=== PATIENT | male | born 1940 | race Caucasian/White ===

== ENCOUNTER 2017-02-19 22:05 | Emergency (ER) | payer MEDICARE, OTHER ==
--- NOTE | 2017-02-19 22:56 | RAD ---
RIGHT HIP TWO VIEWS: 02/19/17 HISTORY: Right hip pain. FINDINGS/IMPRESSION: No definite acute fracture or dislocation is seen. There are mild degenerative changes in the right h ip joint. If there is high clinical suspicion for a hip fracture, CT scan should be performed. POS: [facility]
--- NOTE | 2017-02-19 23:50 | CT ---
CT PELVIS WITH CORONAL AND SAGITTAL REFORMATIONS> 02/19/17 HISTORY: Fall, right sided hip pain. FINDINGS/IMPRESSION: The bones are osteopenic. No acute fracture or dislocation is seen. there are bilateral screws in the lumbosacral spine. POS: [facility]
== END 2017-02-20 00:11 | disposition home or self-care (01) ==
LOC: ERS 22:05
DX: M25.551 Pain in right hip (principal); I25.2 Old myocardial infarction; E11.9 Type 2 diabetes mellitus without complications; E78.5 Hyperlipidemia, unspecified; F32.9 Major depressive disorder, single episode, unspecified; I10 Essential (primary) hypertension; W19.XXXA Unspecified fall, initial encounter
CPT/HCPCS: 72192; 96372

== ENCOUNTER 2017-03-13 12:09 | Emergency (ER) | payer MEDICARE, OTHER ==
[2017-03-13] MEDS ORDERED: Ondansetron HCl/PF 4 MG/2 ML Vial ONE (13:04)
[2017-03-13] MEDS ORDERED: Iopamidol 370 76% 100 ML VIAL ONE (13:18)
[2017-03-13 13:37] LABS: Bilirubin Negative (Negative); Blood, Urine Negative (Negative); Clarity CLEAR (Clear); Glucose, Urine (Dipstick) Negative (Negative); Leukocyte Negative (Negative); Nitrite Negative (Negative); Protein, Urine (Dipstick) Trace mg/dL (Neg-Trace); Specific Gravity, Urine 1.018 (1.002-1.036); Urobilinogen 0.2 mg/dL (0.2-1.0); pH, Urine 5.5 (5.0-9.0)
[2017-03-13 13:38] LABS: #Basophils 0.1 thou/uL (0.0-0.2); #Lymphocytes 2.9 thou/uL (1.20-3.40); #Monocytes 0.7 thou/uL (0.11-0.59); %Basophils 0.9 % (0.0-1.0); %Eosinophils 0.4 % (0.0-10.0); %Lymphocytes 26.5 % (21.0-51.0); %Monocytes 6.7 % (0.0-10.0); %Neutrophils 65.4 % (42.0-75.0); Mean Corpuscular HGB CONC 31.9 g/dL (32.0-36.0); Mean Corpuscular Hemoglobin 28.8 pg (27.0-31.0); Mean Corpuscular Volume 90.3 fl (80.0-94.0); Mean Platelet Volume 9.2 fL (7.4-10.4); Platelet Count 232 thou/uL (130-400); RBC Distribution Width 13.9 % (11.5-14.5); Red Blood Cell (RBC) Count 5.55 mill/uL (4.70-6.10); White Blood Cell (WBC) Count 10.8 thou/uL (4.8-10.8)
[2017-03-13 13:57] LABS: ALT (SGPT) 11 U/L (8-55); AST (SGOT) 15 U/L (5-34); Alkaline Phosphatase 172 U/L (40-150); Anion Gap 18 mmol/L (10-20); BUN (Urea Nitrogen) 27 mg/dL (8.4-25.7); Calc. Creatinine Clearance 0 mL/min (70-130); Calcium 9.3 mg/dL (7.8-10.44); Carbon Dioxide 25 mmol/L (23-31); Chloride 98 mmol/L (98-107); Estimated GFR-MDRD 46; Globulin 2.9 g/dL (2.4-3.5); Glucose 164 mg/dL (83-110); Potassium 3.9 mmol/L (3.5-5.1); Protein, Total 6.9 g/dL (5.8-8.1); Sodium 137 mmol/L (136-145)
--- NOTE | 2017-03-13 15:38 | CT ---
CT CHEST WITH IV CONTRAST CT ABDOMEN WITH IV CONTRAST CT PELVIS WITH IV CONTRAST CORONAL AND SAGITTAL REFORMATIONS OF THORACOLUMBAR SPINE: Date: 03/13/17 HISTORY: Fall, low back pain, right hip pain. FINDINGS: No mediastinal hematoma or intimal flap in the aorta is seen to suggest dissection. No pneumothoraces , lobar consolidation, pleural or pericardial effusions are seen. There is a tiny 2-3 mm nodule in th e right upper lobe and a 5 mm nodule in the left lung base. Mild patchy infiltrates are seen in the l ower lung [place]. The liver, spleen, pancreas, adrenal glands, and kidneys are intact. Gallbladder and urinary bladder also appear intact. No free air or free fluid is seen in the abdomen or pelvis. There is a 1.5 cm low density lesion in the dome of the liver and a smaller low density lesion in the posterior segment of the right lobe of the liver. 9 mm lipoma is seen in the right adrenal gland. There are vascular calcifications without evidence of aneurysmal dilatation of the abdominal aorta. T here are postop changes and metallic hardware in the lower lumbar spine. The bones are osteopenic. No acute fracture or subluxation seen in the thoracolumbar spine. No fracture or dislocation seen in th e hip joints on either side. IMPRESSION: 1. No CT evidence of acute intrathoracic or abdominopelvic injury. 2. Indeterminate lung nodules. Follow-up CT scan recommended in 3 months. 3. Indeterminate liver lesions. These should be evaluated with ultrasound. POS: [facility]
== END 2017-03-13 15:35 | disposition home or self-care (01) ==
LOC: ERS 12:09
DX: M54.5 Low back pain (principal); E11.9 Type 2 diabetes mellitus without complications; E78.5 Hyperlipidemia, unspecified; F32.9 Major depressive disorder, single episode, unspecified; I10 Essential (primary) hypertension; I25.2 Old myocardial infarction
CPT/HCPCS: 71260; 74177; 80053; 81003; 85025; 96361; 96374; J2405

== ENCOUNTER 2018-01-12 11:54 | Inpatient (IN) | payer MEDICARE, OTHER ==
[2018-01-12 12:29] LABS: #Basophils 0.1 thou/uL (0.0-0.2); #Lymphocytes 2.6 thou/uL (1.20-3.40); #Monocytes 0.6 thou/uL (0.11-0.59); #Neutrophils 6.7 thou/uL (1.40-6.50); %Basophils 0.9 % (0.0-1.0); %Eosinophils 0.5 % (0.0-10.0); %Lymphocytes 25.7 % (21.0-51.0); %Monocytes 6.1 % (0.0-10.0); %Neutrophils 66.8 % (42.0-75.0); Hemoglobin 13.2 g/dL (14.0-18.0); Mean Corpuscular HGB CONC 31.4 g/dL (32.0-36.0); Mean Corpuscular Volume 82.7 fL (78.0-98.0); Mean Platelet Volume 9.6 fL (7.4-10.4); Platelet Count 267 thou/uL (130-400); RBC Distribution Width 14.9 % (11.5-14.5); Red Blood Cell (RBC) Count 5.08 mill/uL (4.70-6.10); White Blood Cell (WBC) Count 10.1 thou/uL (4.8-10.8)
[2018-01-12 12:35] LABS: INR-International Normal Ratio 1.3; PTT 29.7 SEC (22.9-36.1); Prothrombin Time 16.4 SEC (12.0-14.7)
[2018-01-12 13:14] LABS: CKMB 2.5 ng/mL (0-6.6); Troponin I 0.022 ng/mL (< 0.028)
--- NOTE | 2018-01-12 13:36 | RAD ---
AP VIEW CHEST: 01/12/2018 HISTORY: Chest pain. COMPARISON: 07/02/2017 FINDINGS: AP view chest demonstrates the lungs to be well aerated. No evidence of active intrathoracic disease is seen. No evidence of effusions, pneumonia, or pneumothorax is seen. IMPRESSION: Unremarkable anterior-posterior view chest. POS: [facility]
[2018-01-12 13:37] LABS: Anion Gap 18 mmol/L (10-20); BUN (Urea Nitrogen) 26 mg/dL (8.4-25.7); CK (CPK) 50 U/L (30-200); Calc. Creatinine Clearance 0 mL/min (70-130); Calcium 9.3 mg/dL (7.8-10.44); Carbon Dioxide 22 mmol/L (23-31); Chloride 108 mmol/L (98-107); Estimated GFR-MDRD 61; Glucose 162 mg/dL (83-110); Potassium 3.6 mmol/L (3.5-5.1); Sodium 144 mmol/L (136-145)
[2018-01-12] MEDS ORDERED: Labetalol HCl 100 MG/20 ML VIAL SLOW IVP PRN (14:38)
[2018-01-12] MEDS ORDERED: Calcium Carbonate 500 MG ChewTAB PO PRN (14:38)
[2018-01-12] MEDS ORDERED: Senokot S 8.6-50 MG TAB PO PRN (14:38)
[2018-01-12] MEDS ORDERED: Eucerin (Mineral Oil/Petrolatum,White) 30 gm Jar TOP PRN (14:38)
[2018-01-12] MEDS ORDERED: Bisacodyl 5 MG TAB PO PRN (14:38)
[2018-01-12] MEDS ORDERED: Bisacodyl 10 MG SUPP PR PRN (14:38)
[2018-01-12] MEDS ORDERED: Diabetic Tussin 200 MG/10 ML UDCUP PO PRN (14:38)
[2018-01-12] MEDS ORDERED: Loperamide HCl 2 MG CAP PO PRN (14:38)
[2018-01-12] MEDS ORDERED: Artificial Tears 18 DROP/0.9 ML EA EYE PRN (14:38)
[2018-01-12] MEDS ORDERED: Ondansetron PF 4 MG/2 ML Vial IVP PRN (14:38)
[2018-01-12] MEDS ORDERED: Zolpidem Tartrate 5 MG TAB PO PRN (14:38)
[2018-01-12] MEDS ORDERED: Loratadine 10 MG TAB PO PRN (14:38)
[2018-01-12] MEDS ORDERED: Sodium Chloride 0.65% Nasal 44 ML BOT EA NARE PRN (14:38)
[2018-01-12] MEDS ORDERED: Ondansetron ODT 4 MG TAB PO PRN (14:38)
[2018-01-12] MEDS ORDERED: Diltiazem 125 MG in Sodium Chloride 0.9% 100 ML IVPB PRN (14:42)
[2018-01-12] MEDS ORDERED: Metoprolol Tartrate 25 MG TAB PO SCH (14:45)
--- NOTE | 2018-01-12 15:20 | HP ---
PRIMARY CARE PHYSICIAN: Dr. Lr. REASON FOR ADMISSION: Sent from [facility] for atrial fibrillation with RVR. HISTORY OF PRESENT ILLNESS: This is a 77-year-old male, who has underlying history of coronary artery disease, required stent in the past, who is suffering from dysphagia and that is why the patient was planned for upper and lower endoscopy today. Preoperatively, the patient had electrocardiogram because his heart sounds were not normal and found with a new-onset atrial fibrillation with rapid ventricular response, and subsequently, procedure was canceled and his reference and instruction librarian sent this patient to ER for further evaluation. In the emergency room, electrocardiogram again confirmed atrial fibrillation with RVR. He was given Cardizem bolus, and Cardizem drip was started. Subsequently, his rate was under control. The patient does not have any recall of knowing diagnosis of atrial fibrillation in the past, but he does have a history of coronary artery disease with stent. He denies any palpitation, dizziness, dyspnea, orthopnea, PND, or leg swelling. He denies any syncope. He denies any excessive caffeinated products. He denies any fever, chills, or flu-like illness. He denies any constipation, diarrhea, melena, or hematochezia. He does have gastroesophageal reflux disease as well as dysphagia. He denies any previous history of stroke, but he does report diabetes history. REVIEW OF SYSTEMS: CONSTITUTIONAL: Negative for weight loss or gain, ability to conduct usual activities. SKIN: Negative for rash, itching. EYES: Negative for double vision, pain. ENT/MOUTH: Negative for nose bleeding, neck stiffness, pain, tenderness. CARDIOVASCULAR: Negative for palpitations, dyspnea on exertion, orthopnea. RESPIRATORY: Negative for shortness of breath, wheezing, cough, hemoptysis, fever or night sweats. GASTROINTESTINAL: Negative for poor appetite, abdominal pain, heartburn, nausea, vomiting, constipation, or diarrhea. GENITOURINARY: Negative for urgency, frequency, dysuria, nocturia. MUSCULOSKELETAL: Negative for pain, swelling. NEUROLOGIC/PSYCHIATRIC: Negative for anxiety, depression. ALLERGY/IMMUNOLOGIC: Negative for skin rash, bleeding tendency. Please see my HPI for pertinent positive and negative. All other review of systems reviewed and negative except as mentioned in the HPI. PAST MEDICAL HISTORY: 1. History of [place] with coronary artery disease, treated with stent. 2. Chronic low back pain. 3. Diabetes type 2. 4. Hypertension. 5. Dyslipidemia. 6. Dysphagia. PAST SURGICAL HISTORY: 1. Cardiac catheterization with stent. 2. Back surgery x3. 3. Prostatectomy. PAST PSYCHIATRIC HISTORY: Anxiety and depression. SOCIAL HISTORY: The patient currently denies any tobacco, alcohol, or illicit drug abuse. He ambulates with walker and cane. FAMILY HISTORY: No family history of coronary artery disease, stroke, or cancer. ALLERGIES: NO KNOWN DRUG ALLERGIES. CURRENT HOME MEDICATIONS: The patient does not have any medications with him at this point, so unable to verify his home medication. He is taking Lasix, Lipitor, baclofen, and potassium, but dose and frequency are not known, but we will verify his home medication later. EMERGENCY ROOM COURSE: The patient has given Cardizem bolus, Cardizem drip started, and aspirin 324 mg given. PHYSICAL EXAMINATION: VITAL SIGNS: On arrival, blood pressure 148/115, pulse 129 and irregular, respiratory rate 22, temperature 97.7, and saturation 97% on room air. Weight is 74.8 kg. GENERAL: The patient is currently alert, awake, in no obvious acute distress. HEAD: Normocephalic, atraumatic. Eyes, pupils are round, reactive to light. Extraocular muscle intact. ENT: Oropharynx within normal limits. Moist mucous membrane. No oral lesion. No pharyngeal erythema. No exudate. NECK: Supple. No JVD. No thyromegaly. No carotid bruit. No jugular venous distention. LUNGS: Clear to auscultation without any rhonchi or rales. CARDIAC: S1 and S2. Irregularly irregular. No murmur elicited. No gallop. No rub. ABDOMEN: Soft. Bowel sounds present. Nontender. Nondistended. No organomegaly. No mass. No suprapubic tenderness. BACK: Unremarkable. No point tenderness. EXTREMITIES: Upper extremities; passive movement of all joints is normal. Lower extremities; no edema. Good distal pulsation. No calf tenderness. SKIN: No skin rash. HEMATOLOGIC: No lymphadenopathy. PSYCHIATRIC: Normal affect. NEUROLOGIC: Grossly nonfocal examination. He moves all four limbs. SIGNIFICANT LABORATORY DATA: EKG showing atrial fibrillation with RVR. Nonspecific ST-T changes. Chest x-ray, based on my review, no acute cardiopulmonary process. CBC; WBC 10.1, hemoglobin 13.2, and platelets 267. INR 1.3. BMP; sodium 144, potassium 3.6, chloride 108, carbon dioxide 22, BUN 26, creatinine 1.15, glucose 162, and calcium 9.3. CK 50, CK-MB 2.5, and troponin 0.020. ASSESSMENT AND PLAN: Impression: 1. New-onset atrial fibrillation with rapid ventricular response, currently rate controlled with Cardizem drip. At this point, we will use Cardizem drip only p.r.n. basis. We will start Cardizem CD 120 mg p.o. daily. Echocardiography will be ordered. We will check thyroid function test. We will do serial cardiac enzyme x3 to rule out acute coronary syndrome. Cardiology will be consulted. We will monitor on telemetry floor. 2. Dysphagia: The patient is planned for EGD and colonoscopy for further evaluation. We will notify reference and instruction librarian if they have to do this procedure while in hospital once atrial fibrillation is under control and cardiac clearance is given. 3. Coronary artery disease: We will continue aspirin 325 mg p.o. daily and Lipitor 40 mg p.o. at bedtime. Check lipid profile tomorrow morning and will also continue metoprolol 25 mg p.o. b.i.d. 4. Chronic low back pain: Pain will be controlled with pain medication. 5. Chronic anticoagulation: Based on the patient's age, the patient will benefit from long-term anticoagulation. Given new-onset atrial fibrillation and overall risk of a CHADS2-Vasc score is high and that is why he will benefit from chronic anticoagulation. Upon discharge, we will consider Eliquis, but right now, we are going to give him Lovenox 1 mg/kg here in the hospital. 6. Deep venous thrombosis prophylaxis: The patient is already kept on Lovenox therapy. 7. Gastrointestinal prophylaxis: Pepcid 20 mg p.o. b.i.d. 8. Code status: The patient is full code. The patient does not have any surrogate decision maker. 9. Disposition plan: Based on clinical course, likely 24 to 48 hours. Plan based on cardiology recommendation. Plan of care discussed with the patient and family member at bedside. Job ID: [id number]
[2018-01-12 17:07] LABS: Troponin I 0.026 ng/mL (< 0.028)
[2018-01-12 17:37] VITALS: BMI 26.4
[2018-01-12 20:08] LABS: Troponin I 0.024 ng/mL (< 0.028)
[2018-01-12] MEDS: Enoxaparin Sodium 80 MG/0.8 ML SYRINGE SC SCH (21:08)
[2018-01-12] MEDS: Atorvastatin Calcium 40 MG TAB PO SCH (21:08)
[2018-01-12] MEDS: Famotidine 20 MG TAB PO SCH (21:09)
[2018-01-12] MEDS: Metoprolol Tartrate 25 MG TAB PO SCH (21:44)
[2018-01-13 05:01] LABS: #Basophils 0.1 thou/uL (0.0-0.2); #Eosinphils 0.1 thou/uL (0.0-0.7); #Lymphocytes 2.8 thou/uL (1.20-3.40); #Monocytes 0.7 thou/uL (0.11-0.59); #Neutrophils 3.7 thou/uL (1.40-6.50); %Basophils 0.9 % (0.0-1.0); %Eosinophils 1.8 % (0.0-10.0); %Lymphocytes 38.2 % (21.0-51.0); %Monocytes 9.9 % (0.0-10.0); %Neutrophils 49.2 % (42.0-75.0); Hemoglobin 11.8 g/dL (14.0-18.0); Mean Corpuscular HGB CONC 30.5 g/dL (32.0-36.0); Mean Corpuscular Hemoglobin 25.8 pg (27.0-31.0); Mean Corpuscular Volume 84.6 fL (78.0-98.0); Mean Platelet Volume 10.1 fL (7.4-10.4); Platelet Count 220 thou/uL (130-400); RBC Distribution Width 15.1 % (11.5-14.5); Red Blood Cell (RBC) Count 4.59 mill/uL (4.70-6.10); White Blood Cell (WBC) Count 7.4 thou/uL (4.8-10.8)
[2018-01-13 05:31] LABS: Anion Gap 16 mmol/L (10-20); BUN (Urea Nitrogen) 26 mg/dL (8.4-25.7); Calc. Creatinine Clearance 63 mL/min (70-130); Calcium 8.9 mg/dL (7.8-10.44); Carbon Dioxide 21 mmol/L (23-31); Cardiac Risk 2.6 (Less than 4.5); Chloride 107 mmol/L (98-107); Cholesterol 87 mg/dl (< 200 Desired); Estimated GFR-MDRD 67; Glucose 142 mg/dL (83-110); HDL Cholesterol 33 mg/dL (>60 Neg Risk); LDL Cholesterol, Calculated 41 mg/dL; Potassium 3.5 mmol/L (3.5-5.1); Sodium 140 mmol/L (136-145); Triglycerides 63 mg/dL (Less than 150)
[2018-01-13] MEDS: Metoprolol Tartrate 25 MG TAB PO SCH (09:28)
[2018-01-13] MEDS: Enoxaparin Sodium 80 MG/0.8 ML SYRINGE SC SCH ×2 (09:28→20:48)
[2018-01-13] MEDS: Aspirin 325 MG TAB PO SCH (09:28)
[2018-01-13] MEDS: Famotidine 20 MG TAB PO SCH ×2 (09:28→20:49)
--- NOTE | 2018-01-13 09:38 | PDOC.PN ---
- Subjective Encounter Start Date: 01/13/18 Encounter Start Time: 07:30 -: old records requested/rev pt is on cardizem drip, rate is variable, he has not symptoms, Patient seen and examined. No new complaints. No overnight events - Objective Resuscitation Status - Order Detail: 01/12/18 14:38 Resuscitation Status Routine Resuscitation Status: FULL: Full Resuscitation MAR Reviewed: Yes Vital Signs & Weight: Vital Signs (12 hours) Temp Pulse Resp BP BP Pulse Ox 01/13/18 07:04 97.7 F 81 20 131/81 95 01/13/18 04:25 72 18 121/85 01/12/18 23:28 97.8 F 63 16 148/67 H 94 L 01/12/18 22:25 78 95/73 Weight Weight 174 lb 3.2 oz I&O: 01/12/18 01/13/18 01/14/18 06:59 06:59 06:59 Intake Total 120 Balance 120 Result Diagrams: 01/13/18 04:26 01/13/18 04:26 EKG Reviewed by me: Yes (afib) Phys Exam - Physical Examination Constitutional: NAD HEENT: PERRLA, moist MMs, sclera anicteric Neck: no JVD, supple Respiratory: no wheezing, no rales, no rhonchi Cardiovascular: no significant murmur, irregular Gastrointestinal: soft, non-tender, no distention, positive bowel sounds Musculoskeletal: no edema, pulses present Neurological: non-focal, normal sensation, moves all 4 limbs Lymphatic: no nodes Psychiatric: normal affect, A&O x 3 Skin: no rash, normal turgor Dx/Plan (1) Atrial fibrillation with RVR Code(s): I48.91 - UNSPECIFIED ATRIAL FIBRILLATION Status: Acute (2) Dysphagia Code(s): R13.10 - DYSPHAGIA, UNSPECIFIED Status: Chronic (3) CAD (coronary artery disease) Code(s): I25.10 - ATHSCL HEART DISEASE OF [place] CORONARY ARTERY W/O ANG PCTRS Status: Chronic (4) Diabetes type 2, controlled Code(s): E11.9 - TYPE 2 DIABETES MELLITUS WITHOUT COMPLICATIONS Status: Chronic (5) GERD (gastroesophageal reflux disease) Code(s): K21.9 - GASTRO-ESOPHAGEAL REFLUX DISEASE WITHOUT ESOPHAGITIS Status: Chronic (6) Dyslipidemia Code(s): E78.5 - HYPERLIPIDEMIA, UNSPECIFIED Status: Chronic (7) Elevated brain natriuretic peptide (BNP) level Code(s): R79.89 - OTHER SPECIFIED ABNORMAL FINDINGS OF BLOOD CHEMISTRY Status : Acute - Plan cont current plan of care * echo pending result * cardiology consulted * continue lovenox * will consult GI for dysphagia * medication reviewed as below * symptomatic treatment. Review of Systems - Review of Systems ENT: negative: Ear Pain, Ear Discharge, Nose Pain, Nose Discharge, Nose Congestion, Mouth Pain, Mouth Swelling, Throat Pain, Throat Swelling, Other Respiratory: negative: Cough, Dry, Shortness of Breath, Hemoptysis, SOB with Excertion, Pleuritic Pain, Sputum, Wheezing Cardiovascular: negative: chest pain, palpitations, orthopnea, paroxysmal nocturnal dyspnea, edema, light headedness, other Gastrointestinal: negative: Nausea, Vomiting, Abdominal Pain, Diarrhea, Constipation, Melena, Hematochezia, Other Genitourinary: negative: Dysuria, Frequency, Incontinence, Hematuria, Retention , Other Musculoskeletal: negative: Neck Pain, Shoulder Pain, Arm Pain, Back Pain, Hand Pain, Leg Pain, Foot Pain, Other Skin: negative: Rash, Lesions, Zaki, Bruising, Other - Medications/Allergies Allergies/Adverse Reactions: Allergies Allergy/AdvReac Type Severity Reaction Status Date / Time No Known Allergies Allergy Verified 01/12/18 17:56 Medications: Current Medications Acetaminophen (Tylenol) 650 mg PO Q4H PRN PRN Reason: Headache/Fever/Mild Pain (1-3) Hydrocodone Bitart/Acetaminophen ([place] 5/325) 1 tab PO Q4H PRN PRN Reason: Moderate Pain (4-6) Artificial Tears (Tears Naturale) 2 drop EA EYE PRN PRN PRN Reason: Dry Eyes Aspirin (Aspirin) 325 mg PO DAILY [facility] Last Admin: 01/13/18 09:28 Dose: 325 mg Atorvastatin Calcium (Lipitor) 40 mg PO HS [facility] Last Admin: 01/12/18 21:08 Dose: 40 mg Bisacodyl (Dulcolax) 10 mg PO DAILYPRN PRN PRN Reason: Constipation Bisacodyl (Dulcolax) 10 mg RI DAILYPRN PRN PRN Reason: Constipation Calcium Carbonate (Tums) 1,000 mg PO Q4H PRN PRN Reason: Heartburn or Indigestion Enoxaparin Sodium (Lovenox) 80 mg SC 0900,2100 [facility] Last Admin: 01/13/18 09:28 Dose: 80 mg Famotidine (Pepcid) 20 mg PO BID [facility] Last Admin: 01/13/18 09:28 Dose: 20 mg Guaifenesin (Robitussin Sf) 200 mg PO Q4H PRN PRN Reason: Cough Diltiazem HCl 125 mg/ Sodium (Chloride) 125 mls @ 5 mls/hr IVPB INF PRN; Protocol PRN Reason: for afib with RVR >110 Labetalol HCl (Normodyne) 20 mg SLOW IVP Q4H PRN PRN Reason: SBP > 180 and HR >/= 70 Loperamide HCl (Imodium) 2 mg PO PRN PRN PRN Reason: Diarrhea/Loose Stools Loratadine (Claritin) 10 mg PO DAILYPRN PRN PRN Reason: Sinus Symptoms Metoprolol Tartrate (Lopressor) 25 mg PO BID [facility] Last Admin: 01/13/18 09:28 Dose: 25 mg Mineral Oil/White Petrolatum (Eucerin Cream) 0 gm TOP BIDPRN PRN PRN Reason: Dry Skin Ondansetron HCl (Zofran Odt) 4 mg PO Q6H PRN PRN Reason: Nausea/Vomiting Ondansetron HCl (Zofran) 4 mg IVP Q6H PRN PRN Reason: Nausea/Vomiting Senna/Docusate Sodium (Senokot S) 2 tab PO BID PRN PRN Reason: Constipation Sodium Chloride ([place] Nasal [place] 0.65%) 0 ml EA NARE QIDPRN PRN PRN Reason: Nasal Congestion Zolpidem Tartrate (Ambien) 5 mg PO HSPRN PRN PRN Reason: Insomnia
[2018-01-13] MEDS ORDERED: Diltiazem 125 MG in Sodium Chloride 0.9% 100 ML IVPB PRN (19:35)
[2018-01-13] MEDS ORDERED: Amiodarone In Dextrose 200 ML IVPB SCH (19:45)
[2018-01-13] MEDS ORDERED: Amiodarone 150 MG in Dextrose 5% in Water 100 ML IVPB SCH (19:45)
[2018-01-13] MEDS: Amiodarone HCl 450 MG in Dextrose 5% in Water 250 ML IVPB SCH (20:48)
[2018-01-13] MEDS: Atorvastatin Calcium 40 MG TAB PO SCH (20:49)
--- NOTE | 2018-01-13 23:57 | CON ---
DATE OF CONSULTATION: 01/13/2018 REASON: Abdominal pain, dysphagia, and weight loss. HISTORY OF PRESENT ILLNESS: Mr. Anderson is a 77-year-old male, who was scheduled to undergo an outpatient EGD and colonoscopy yesterday; however, he went into atrial fibrillation with rapid ventricular rate, and was thus placed under observation in the hospital. His current ventricular rate is controlled with IV Cardizem drip. From the GI standpoint, he has been having epigastric pain from the last month or two, associated with some nausea, poor appetite, and periodic dysphagia mostly to solids. He reports losing 50 pounds over the last 1 year. He has had irregular bowel function with tendency toward diarrhea. There is no overt GI bleeding such as melena, hematochezia, or rectal bleeding. Currently, he is without any GI complaint. PAST MEDICAL HISTORY: 1. Prostate cancer. 2. Adult onset diabetes. 3. Chronic GE reflux disease. 4. Hyperlipidemia. 5. Hypertension. 6. Coronary artery disease with coronary artery stent placement. 7. Status post back surgery. 8. Prostatectomy. 9. History of anxiety and depression. ALLERGIES: NONE. MEDICATIONS: At home include; 1. Amitriptyline 25 mg at bedtime. 2. Atorvastatin 80 mg at bedtime. 3. Baclofen 10 mg t.i.d. 4. 5 mg daily. 5. Famotidine 40 mg daily. 6. Lasix 20 mg daily. 7. Metformin 500 mg b.i.d. 8. Potassium chloride 20 mEq daily. 9. Insulin. SOCIAL HISTORY: The patient has no tobacco or alcohol usage. He is retired. FAMILY HISTORY: Negative for any known GI problem, liver disease, or GI malignancy. REVIEW OF SYSTEMS: A 10-point review of systems did not show any other pertinent positives or negatives. PHYSICAL EXAMINATION: VITAL SIGNS: Temperature is 97.4, blood pressure 122/71, and pulse of 70. GENERAL: He is alert and conversant, in no distress. HEENT: Shows anicteric sclerae. There is mild bilateral temporal wasting. Oropharynx is clear. NECK: Supple. CV: Normal S1 and S2. Regular rate and rhythm. CHEST: Shows the breath sounds clear to auscultation. ABDOMEN: Flat and nondistended. No tenderness. No palpable mass or organomegaly. He has active bowel sounds. EXTREMITIES: Shows no edema. LABORATORY DATA: WBC 7.4, hemoglobin 11.8, MCV of 84, and platelet count of 220. Electrolytes are within normal range. Creatinine is 1.06. BNP is 1214. ASSESSMENT: 1. New onset atrial fibrillation with rapid ventricular response, rate with controlled with IV Cardizem. 2. History of abdominal pain in the setting of chronic gastroesophageal reflux disease, now with dysphagia and weight loss. 3. Change in bowel function. RECOMMENDATION: Complete cardiac evaluation, once clear, we will proceed with EGD and colonoscopy either as inpatient or outpatient depending on his status as observation or full admission at that time. Job ID: [id number]
[2018-01-14] MEDS: Metoprolol Tartrate 25 MG TAB PO SCH ×3 (01:27→22:23)
[2018-01-14] MEDS ORDERED: Dextrose 50% Abboject 50 ML SYRINGE IVP PRN (01:47)
[2018-01-14] MEDS ORDERED: Dextrose 5% in Water 1,000 ML IV PRN (01:47)
--- NOTE | 2018-01-14 02:53 | CON ---
DATE OF CONSULTATION: HISTORY OF PRESENT ILLNESS: Kraig doty is a 77-year-old white male, who I followed since July 2008. At that time, he was admitted with acute onset of substernal chest pressure radiating to his left arm. The pain lasted for 1 to 2 hours and EKG revealed nonspecific T-wave changes. He did have a peak CK of 281 with a CK-MB of 36.3 and a troponin I of 10.494. He underwent cardiac catheterization by Dr. Landeros. There was normal left ventricular function with an ejection fraction of 50% to 55%, 20% left main stenosis. The LAD had a 20% mid stenosis. There was a small ramus vessel with a 90% proximal stenosis, which was a very small caliber vessel. The circumflex was also a small caliber vessel with 90% lesion in the first obtuse marginal. The right coronary artery was very large with a 90% mid RCA stenosis. I then performed the intervention on the right coronary artery with placement of a Izard 3.0 x 20 mm balloon, used to pre-dilate the area. After initial balloon inflation, there was no distal flow. It was felt that there may have been proximal dissection due to the balloon. The balloon was pulled back and another inflation was performed and again, there was essentially no flow. Liberte stents were placed, 3.0 x 20 mm and proximal to this 3.5 x 28 mm. Distal to the first stent, a 3.0 x 20 mm and 3.0 x 24 mm stents were placed. There continued to be very poor flow, though the vessel angiographically looked good without any obvious dissection. During the case, the patient was initially given Angiomax. This was then followed by 8000 units of heparin and was changed over to Integrilin bolus and drip. He was hypotensive and bradycardic. Dopamine infusion was started, as well as atropine 0.5 mg given intravenously x2. The decision was made to place a temporary pacemaker. Multiple doses of intracoronary adenosine 30-40 mcg were given and flow gradually returned. His ST segments came down from 3-[address] segment elevation to 1 mm of elevation. Decision was made to place a balloon pump due to hypotension and this was placed via the left femoral artery. He did go into atrial fibrillation and Lanoxin 0.5 mg was given intravenously to control the rate. At the time that he left the pathology laboratory director, he had JOSE DAVID-2 flow into the distal right coronary artery. This was also seen to fill the distal circumflex retrograde. He had an episode of melenic stool and underwent EGD, which was unremarkable. It was felt that he probably had no reflow due to distal emboli or plaque and/or thrombus. CK again peaked at 1281, MB 156.9, and troponin I of 42.761. He was weaned from the balloon pump. This was removed and ultimately he was ambulated. He followed with Dr. Landeros intermittently after that. He denied any significant recurrence of chest discomfort after that episode. He was frequently bruising and his primary doctor reduced his aspirin from 325 to 81 mg. Then, he presented again on December 30, 2009. The day before, he was working on a heavy oak pallet and he lifted it and then walked with that across a ground and leaned it up against the building. He did not have any arm discomfort during that period. Later in the evening at approximately 6:00 p.m., he had onset of left axillary pain and pain in the left upper arm, but no chest discomfort like he did when the stent was placed in July 2008. The discomfort continued and he eventually came to the hospital at 11:00 p.m. He was given intravenous morphine and his pain resolved. EKG was unremarkable and cardiac enzymes were negative. He had a palpable tenderness of the area. He denied any pleuritic component to the pain. It was recommended that he undergo cardiac catheterization and this revealed 20% left main, 40% proximal LAD, 90% lesion in ramus marginalis, 90% first obtuse marginal, total occlusion of the distal circumflex which filled retrograde from the right. The right coronary artery had a 50% followed by 60% followed by 70% in-stent restenosis. VeriFLEX 3.5 x 28 and 3.5 x 16 were placed with excellent result. There was mild distal inferior wall hypokinesis with ejection fraction of 50% to 55%. Since that time, he has not had any significant chest discomfort. I have followed him since that time and he has done fairly well. Echocardiogram in January 2017 revealed moderately reduced left ventricular function with an ejection fraction of 35% to 40%, mild left atrial enlargement, severe mitral regurgitation, aortic valve sclerosis, moderate tricuspid regurgitation, and mild pulmonic regurgitation. He was last seen in the office on January 06, complaining of some epigastric discomfort and was to undergo scoping by Dr. Ortega. His heart rate was regular at that time. He did give a history of increasing exertional dyspnea for the last 3 or 4 months. He then was to undergo his GI studies; however, was found to have atrial fibrillation with fast ventricular response and was sent to the emergency room, had a heart rate of 144 per minute. He denied any palpitations or chest discomfort. In general, he is asymptomatic except for his exertional dyspnea. PAST MEDICAL HISTORY: Diabetes, hypertension, hypercholesterolemia, chronic back problems, history of myocardial infarction with stent placement; dysphagia, to undergo EGD. OPERATIONS: Lumbar surgeries x3 and prostatectomy. MEDICATIONS: 1. Amitriptyline 25 at bedtime. 2. Atorvastatin 80 at bedtime. 3. Baclofen 10 mg t.i.d. 4. Zetia 10 mg at bedtime. 5. Pepcid 40 at bedtime p.r.n. 6. Furosemide 20 daily. 7. Tresiba 16 units. 8. Protonix 40 mg daily. 9. KCl 20 mEq daily. ALLERGIES: NONE. SOCIAL HISTORY: He does not smoke or drink. FAMILY HISTORY: Unremarkable for coronary artery disease. REVIEW OF SYSTEMS: 12-point review of system is otherwise negative except as noted above. PHYSICAL EXAMINATION: VITAL SIGNS: Blood pressure 134/82, pulse of 64. HEENT: PERRL. NECK: Supple. CHEST: Clear. CARDIAC: S1 and S2 are normal without any S3, S4, or murmurs. The rhythm is irregularly irregular. ABDOMEN: Normal bowel sounds without tenderness or organomegaly. EXTREMITIES: Revealed no clubbing, cyanosis, or edema. NEUROLOGIC: Grossly intact. SKIN: Warm and dry. LABORATORY DATA: EKG reveals atrial fibrillation with fast ventricular response of 144 per minute, nonspecific T-wave changes. Hemoglobin 11.8, hematocrit 38.8, white count 7400, platelets 220,000. INR 1.3. Sodium 140, potassium 3.5, chloride 107, carbon dioxide 21, BUN 26, creatinine 1.07. Cholesterol 87, triglycerides 63, LDL 41, HDL 33, BNP is 1214.4. IMPRESSION: 1. New onset atrial fibrillation. Clinically 1 week ago, he was in sinus rhythm when seen in the office. 2. Atrial fibrillation at the time of myocardial infarction in 2008. 3. Bare-metal stent placed in the right coronary artery in August 2008. In December 2009, he had in-stent restenosis of the right coronary artery stents and underwent repeat stenting. He also has significant ramus and circumflex disease, but no significant lesions in his left anterior descending in 2009. 4. Left ventricular dysfunction with last ejection fraction of 35% to 40%. 5. Hypertension. 6. Diabetes. 7. Hyperlipidemia. 8. Gastrointestinal pain and dysphagia. PLAN: Mr. Doty has been placed on Cardizem drip as well as Lovenox 1 mg/kg b.i.d. With his left ventricular dysfunction previously, I will start him on intravenous amiodarone. Echo will be repeated. He will undergo Lexiscan Cardiolite testing to rule out recurrence or progression of any of his coronary artery disease. Ultimately, consideration may be given to transesophageal echo and electrical cardioversion. It does seem as if he is symptomatic with this with exertional dyspnea whenever he tries to do some activity. With his current LDL values, consideration could be given to reducing or discontinuation of his Zetia; however, in April 2017, his LDL was 102. Job ID: [id number]
[2018-01-14] MEDS: Amiodarone HCl 450 MG in Dextrose 5% in Water 250 ML IVPB SCH ×2 (08:28→23:27)
[2018-01-14] MEDS: Enoxaparin Sodium 80 MG/0.8 ML SYRINGE SC SCH (08:29)
[2018-01-14] MEDS: Aspirin 325 MG TAB PO SCH (08:30)
[2018-01-14] MEDS: Famotidine 20 MG TAB PO SCH ×2 (08:30→22:23)
[2018-01-14] MEDS ORDERED: Metoclopramide HCl 10 MG/2 ML VIAL IVP SCH (09:00)
--- NOTE | 2018-01-14 10:10 | PDOC.PN ---
- Subjective Encounter Start Date: 01/14/18 Encounter Start Time: 08:50 pt is now on amiodaron drip, he is still in afib, has nausea, feels weak, no chest pain Patient seen and examined. No overnight events - Objective Resuscitation Status - Order Detail: 01/12/18 14:38 Resuscitation Status Routine Resuscitation Status: FULL: Full Resuscitation MAR Reviewed: Yes Vital Signs & Weight: Vital Signs (12 hours) Temp Pulse Resp BP Pulse Ox 01/14/18 07:20 97.4 F L 106 H 20 155/94 H 93 L 01/14/18 04:34 98.2 F 62 14 130/69 94 L 01/14/18 00:42 97.7 F 69 16 147/72 H 93 L Weight Weight 174 lb 3.2 oz I&O: 01/13/18 01/14/18 01/15/18 06:59 06:59 06:59 Intake Total 120 960 Output Total 450 Balance 120 510 Result Diagrams: 01/13/18 04:26 01/13/18 04:26 Additional Labs: Accuchecks 01/14/18 01/13/18 05:19 23:33 POC Glucose 209 H 232 H EKG Reviewed by me: Yes (afib) Phys Exam - Physical Examination Constitutional: NAD HEENT: PERRLA, moist MMs, sclera anicteric Neck: no JVD, supple Respiratory: no wheezing, no rales, no rhonchi Cardiovascular: no significant murmur, irregular Gastrointestinal: soft, non-tender, no distention, positive bowel sounds Musculoskeletal: no edema, pulses present Neurological: non-focal, normal sensation Lymphatic: no nodes Psychiatric: normal affect, A&O x 3 Skin: no rash, normal turgor Dx/Plan (1) Atrial fibrillation with RVR Code(s): I48.91 - UNSPECIFIED ATRIAL FIBRILLATION Status: Acute (2) Dysphagia Code(s): R13.10 - DYSPHAGIA, UNSPECIFIED Status: Chronic (3) CAD (coronary artery disease) Code(s): I25.10 - ATHSCL HEART DISEASE OF [place] CORONARY ARTERY W/O ANG PCTRS Status: Chronic (4) Diabetes type 2, controlled Code(s): E11.9 - TYPE 2 DIABETES MELLITUS WITHOUT COMPLICATIONS Status: Chronic (5) GERD (gastroesophageal reflux disease) Code(s): K21.9 - GASTRO-ESOPHAGEAL REFLUX DISEASE WITHOUT ESOPHAGITIS Status: Chronic (6) Dyslipidemia Code(s): E78.5 - HYPERLIPIDEMIA, UNSPECIFIED Status: Chronic (7) Elevated brain natriuretic peptide (BNP) level Code(s): R79.89 - OTHER SPECIFIED ABNORMAL FINDINGS OF BLOOD CHEMISTRY Status : Acute (8) Ischemic cardiomyopathy Code(s): I25.5 - ISCHEMIC CARDIOMYOPATHY Status: Chronic - Plan cont current plan of care, plan discussed w/ family * change to inpt status * continue amiodarone drip * today plan for stress test * cardiac cath may need based on stress test * discussed with cardiology * medication reviewed as below * symptomatic treatment * discussed with family on phone and updated plan * GI following * add reglan for nausea * will evaluate for any placement if needed. Review of Systems - Review of Systems Constitutional: weakness. negative: fever, chills, sweats, malaise, other Respiratory: negative: Cough, Dry, Shortness of Breath, Hemoptysis, SOB with Excertion, Pleuritic Pain, Sputum, Wheezing Cardiovascular: negative: chest pain, palpitations, orthopnea, paroxysmal nocturnal dyspnea, edema, light headedness, other Gastrointestinal: Nausea. negative: Vomiting, Abdominal Pain, Diarrhea, Constipation, Melena, Hematochezia, Other Genitourinary: negative: Dysuria, Frequency, Incontinence, Hematuria, Retention , Other Musculoskeletal: negative: Neck Pain, Shoulder Pain, Arm Pain, Back Pain, Hand Pain, Leg Pain, Foot Pain, Other Skin: negative: Rash, Lesions, Zaki, Bruising, Other - Medications/Allergies Allergies/Adverse Reactions: Allergies Allergy/AdvReac Type Severity Reaction Status Date / Time No Known Allergies Allergy Verified 01/12/18 17:56 Medications: Current Medications Acetaminophen (Tylenol) 650 mg PO Q4H PRN PRN Reason: Headache/Fever/Mild Pain (1-3) Hydrocodone Bitart/Acetaminophen ([place] 5/325) 1 tab PO Q4H PRN PRN Reason: Moderate Pain (4-6) Artificial Tears (Tears Naturale) 2 drop EA EYE PRN PRN PRN Reason: Dry Eyes Aspirin (Aspirin) 325 mg PO DAILY [facility] Last Admin: 01/14/18 08:30 Dose: 325 mg Atorvastatin Calcium (Lipitor) 40 mg PO HS [facility] Last Admin: 01/13/18 20:49 Dose: 40 mg Bisacodyl (Dulcolax) 10 mg PO DAILYPRN PRN PRN Reason: Constipation Bisacodyl (Dulcolax) 10 mg [place] DAILYPRN PRN PRN Reason: Constipation Calcium Carbonate (Tums) 1,000 mg PO Q4H PRN PRN Reason: Heartburn or Indigestion Dextrose/Water (Dextrose 50%) 25 gm IVP PRN PRN PRN Reason: HYPOGLYCEMIA PROTOCOL Enoxaparin Sodium (Lovenox) 80 mg SC 0900,2100 [facility] Last Admin: 01/14/18 08:29 Dose: 80 mg Famotidine (Pepcid) 20 mg PO BID [facility] Last Admin: 01/14/18 08:30 Dose: 20 mg Glucagon (Glucagon) 1 mg IM PRN PRN PRN Reason: HYPOGLYCEMIA PROTOCOL Guaifenesin (Robitussin Sf) 200 mg PO Q4H PRN PRN Reason: Cough Diltiazem HCl 125 mg/ Sodium (Chloride) 125 mls @ 3 mls/hr IVPB INF PRN; Protocol PRN Reason: for afib with RVR >110 Amiodarone HCl 450 mg/Miscellaneous Medication 1 each/ Dextrose/Water 259 mls @ 0 mls/hr IVPB INF ANCA; Protocol Last Admin: 01/14/18 08:28 Dose: 259 mls Dextrose/Water (D5w) 1,000 mls @ 0 mls/hr IV INF PRN PRN Reason: HYPOGLYCEMIA PROTOCOL Insulin Human Lispro (Humalog) 0 units SC .MILD SLIDING SCALE PRN; Protocol PRN Reason: MILD SLIDING SCALE Labetalol HCl (Normodyne) 20 mg SLOW IVP Q4H PRN PRN Reason: SBP > 180 and HR >/= 70 Loperamide HCl (Imodium) 2 mg PO PRN PRN PRN Reason: Diarrhea/Loose Stools Loratadine (Claritin) 10 mg PO DAILYPRN PRN PRN Reason: Sinus Symptoms Metoclopramide HCl (Reglan) 10 mg IVP Q6H PRN PRN Reason: Nausea/Vomiting Metoclopramide HCl (Reglan) 5 mg IVP NOW [facility] Stop: 01/14/18 11:00 Metoprolol Tartrate (Lopressor) 25 mg PO BID [facility] Last Admin: 01/14/18 08:30 Dose: 25 mg Mineral Oil/White Petrolatum (Eucerin Cream) 0 gm TOP BIDPRN PRN PRN Reason: Dry Skin Ondansetron HCl (Zofran Odt) 4 mg PO Q6H PRN PRN Reason: Nausea/Vomiting Ondansetron HCl (Zofran) 4 mg IVP Q6H PRN PRN Reason: Nausea/Vomiting Senna/Docusate Sodium (Senokot S) 2 tab PO BID PRN PRN Reason: Constipation Sodium Chloride ([place] Nasal [place] 0.65%) 0 ml EA NARE QIDPRN PRN PRN Reason: Nasal Congestion Zolpidem Tartrate (Ambien) 5 mg PO HSPRN PRN PRN Reason: Insomnia
[2018-01-14] MEDS: Metoclopramide HCl 10 MG/2 ML VIAL IVP PRN (17:20)
--- NOTE | 2018-01-14 17:44 | NM ---
NUCLEAR MEDICINE CARDIAC SPECT: 01/14/18 HISTORY: 77-year-old male with chest pain. TECHNIQUE: 9.9 millicuries of technetium 99m-Sestamibi was injected IV for the rest study. SPECT images of the h eart were obtained in three planes. After this, the patient refused to continue with the rest of the study. No additional injection of ra diopharmaceutical. No stress images. FINDINGS: There is a moderate to large inferolateral wall perfusion defect, which is contiguous with a defect a t the apex. IMPRESSION: 1. Nondiagnostic for reversible ischemia because the patient refused to continue with the study prior to stress portion of the study. 2. Large inferolateral and apical perfusion defect. It is uncertain how much of this represents attenuation artifact and how much represents infarction/scar. POS: CADEN
[2018-01-14] MEDS ORDERED: Communication Order-Pharmacy FS SCH (18:45)
[2018-01-14] MEDS: Atorvastatin Calcium 40 MG TAB PO SCH (22:23)
[2018-01-15] MEDS: Metoclopramide HCl 10 MG/2 ML VIAL IVP PRN (01:33)
[2018-01-15] MEDS ORDERED: Sodium Chloride 0.9% 1,000 ML IV SCH ×2 (06:00→08:40)
[2018-01-15] MEDS ORDERED: Lidocaine 1% (PF) 30 ML VIAL ONE (06:43)
[2018-01-15] MEDS: Aspirin 325 MG TAB PO SCH (07:01)
[2018-01-15] MEDS ORDERED: Fentanyl 100 MCG/2 ML VIAL ONE (07:37)
[2018-01-15] MEDS ORDERED: Midazolam HCl 2 mg/2 ml Vial ONE (07:37)
[2018-01-15] MEDS ORDERED: Iopamidol 370 76% 100 ML VIAL ONE (08:22)
[2018-01-15] MEDS ORDERED: Iopamidol 370 76% 50 ML VIAL FS ONE (08:22)
[2018-01-15] MEDS ORDERED: Heparin 10,000 UNITS/1 ML VIAL ONE (08:25)
[2018-01-15] MEDS ORDERED: Acetaminophen/Codeine 30-300mg Tablet PO PRN ×2 (08:38)
[2018-01-15] MEDS ORDERED: Nitroglycerin 0.4 MG TAB (25 Tab Bottle) SL PRN (08:38)
[2018-01-15] MEDS ORDERED: traMADol HCl 50 MG TAB PO PRN (08:38)
[2018-01-15] MEDS ORDERED: Sodium Chloride 0.9% 200 ML IV PRN (08:45)
[2018-01-15] MEDS: Famotidine 20 MG TAB PO SCH ×2 (09:39→21:19)
[2018-01-15] MEDS: Metoprolol Tartrate 25 MG TAB PO SCH ×2 (09:39→21:03)
[2018-01-15] MEDS: Amiodarone HCl 450 MG in Dextrose 5% in Water 250 ML IVPB SCH (10:20)
--- NOTE | 2018-01-15 10:53 | PDOC.PN ---
- Subjective Encounter Start Date: 01/15/18 Encounter Start Time: 08:30 this morning pt had cardiac cath done, found with 3 vessel cad, he is on low dose cardizem and amiodaron drip family bedside - Objective Resuscitation Status - Order Detail: 01/12/18 14:38 Resuscitation Status Routine Resuscitation Status: FULL: Full Resuscitation MAR Reviewed: Yes Vital Signs & Weight: Vital Signs (12 hours) Temp Pulse Resp BP Pulse Ox 01/15/18 06:52 73 114/65 01/15/18 04:00 98.4 F 67 22 H 120/77 95 01/15/18 00:03 98.7 F 85 18 125/84 94 L 01/15/18 00:00 98.7 F Weight Weight 179 lb 8 oz I&O: 01/14/18 01/15/18 01/16/18 06:59 06:59 06:59 Intake Total 960 690.6 Output Total 450 50 Balance 510 640.6 Result Diagrams: 01/13/18 04:26 01/13/18 04:26 Additional Labs: Accuchecks 01/15/18 01/14/18 01/14/18 05:23 20:34 16:38 POC Glucose 178 H 194 H 185 H Radiology Reviewed by me: Yes EKG Reviewed by me: Yes (afib) Phys Exam - Physical Examination Constitutional: NAD HEENT: PERRLA, moist MMs, sclera anicteric Neck: no JVD, supple Respiratory: no wheezing, no rales, no rhonchi Cardiovascular: irregular SM+ apex Gastrointestinal: soft, non-tender, no distention, positive bowel sounds Musculoskeletal: no edema, pulses present Neurological: non-focal, normal sensation Lymphatic: no nodes Psychiatric: normal affect, A&O x 3 Skin: no rash, normal turgor Dx/Plan (1) Atrial fibrillation with RVR Code(s): I48.91 - UNSPECIFIED ATRIAL FIBRILLATION Status: Acute (2) Dysphagia Code(s): R13.10 - DYSPHAGIA, UNSPECIFIED Status: Chronic (3) CAD (coronary artery disease) Code(s): I25.10 - ATHSCL HEART DISEASE OF [place] CORONARY ARTERY W/O ANG PCTRS Status: Chronic Qualifiers: Coronary Disease-Associated Artery/Lesion type: [place] artery Comment: 3 vessel cad (4) Diabetes type 2, controlled Code(s): E11.9 - TYPE 2 DIABETES MELLITUS WITHOUT COMPLICATIONS Status: Chronic (5) GERD (gastroesophageal reflux disease) Code(s): K21.9 - GASTRO-ESOPHAGEAL REFLUX DISEASE WITHOUT ESOPHAGITIS Status: Chronic (6) Dyslipidemia Code(s): E78.5 - HYPERLIPIDEMIA, UNSPECIFIED Status: Chronic (7) Elevated brain natriuretic peptide (BNP) level Code(s): R79.89 - OTHER SPECIFIED ABNORMAL FINDINGS OF BLOOD CHEMISTRY Status : Acute (8) Ischemic cardiomyopathy Code(s): I25.5 - ISCHEMIC CARDIOMYOPATHY Status: Chronic - Plan cont current plan of care, plan discussed w/ family * CV surgeon consulted * medication reviewed as below * symptomatic treatment * discussed with family * cardiology following * on amiodaron and cardizem drip * will monitor. Review of Systems - Review of Systems ENT: negative: Ear Pain, Ear Discharge, Nose Pain, Nose Discharge, Nose Congestion, Mouth Pain, Mouth Swelling, Throat Pain, Throat Swelling, Other Respiratory: negative: Cough, Dry, Shortness of Breath, Hemoptysis, SOB with Excertion, Pleuritic Pain, Sputum, Wheezing Cardiovascular: negative: chest pain, palpitations, orthopnea, paroxysmal nocturnal dyspnea, edema, light headedness, other Gastrointestinal: negative: Nausea, Vomiting, Abdominal Pain, Diarrhea, Constipation, Melena, Hematochezia, Other Genitourinary: negative: Dysuria, Frequency, Incontinence, Hematuria, Retention , Other Musculoskeletal: negative: Neck Pain, Shoulder Pain, Arm Pain, Back Pain, Hand Pain, Leg Pain, Foot Pain, Other Skin: negative: Rash, Lesions, Zaki, Bruising, Other - Medications/Allergies Allergies/Adverse Reactions: Allergies Allergy/AdvReac Type Severity Reaction Status Date / Time No Known Allergies Allergy Verified 01/12/18 17:56 Medications: Current Medications Acetaminophen (Tylenol) 650 mg PO Q4H PRN PRN Reason: Headache/Fever/Mild Pain (1-3) Acetaminophen/Codeine Phosphate (Tylenol #3) 1 tab PO Q4H PRN PRN Reason: Mild Pain (1-3) Acetaminophen/Codeine Phosphate (Tylenol #3) 2 tab PO Q4H PRN PRN Reason: Moderate Pain (4-6) Hydrocodone Bitart/Acetaminophen ([place] 5/325) 1 tab PO Q4H PRN PRN Reason: Moderate Pain (4-6) Artificial Tears (Tears Naturale) 2 drop EA EYE PRN PRN PRN Reason: Dry Eyes Aspirin (Aspirin) 325 mg PO DAILY [facility] Last Admin: 01/15/18 07:01 Dose: 325 mg Atorvastatin Calcium (Lipitor) 40 mg PO HS [facility] Last Admin: 01/14/18 22:23 Dose: 40 mg Bisacodyl (Dulcolax) 10 mg PO DAILYPRN PRN PRN Reason: Constipation Bisacodyl (Dulcolax) 10 mg [place] DAILYPRN PRN PRN Reason: Constipation Calcium Carbonate (Tums) 1,000 mg PO Q4H PRN PRN Reason: Heartburn or Indigestion Dextrose/Water (Dextrose 50%) 25 gm IVP PRN PRN PRN Reason: HYPOGLYCEMIA PROTOCOL Famotidine (Pepcid) 20 mg PO BID [facility] Last Admin: 01/15/18 09:39 Dose: 20 mg Glucagon (Glucagon) 1 mg IM PRN PRN PRN Reason: HYPOGLYCEMIA PROTOCOL Guaifenesin (Robitussin Sf) 200 mg PO Q4H PRN PRN Reason: Cough Diltiazem HCl 125 mg/ Sodium (Chloride) 125 mls @ 3 mls/hr IVPB INF PRN; Protocol PRN Reason: for afib with RVR >110 Last Admin: 01/15/18 06:42 Dose: 125 mls Amiodarone HCl 450 mg/Miscellaneous Medication 1 each/ Dextrose/Water 259 mls @ 0 mls/hr IVPB INF ANCA; Protocol Last Admin: 01/15/18 10:20 Dose: 259 mls Dextrose/Water (D5w) 1,000 mls @ 0 mls/hr IV INF PRN PRN Reason: HYPOGLYCEMIA PROTOCOL Sodium Chloride (Normal Saline 0.9%) 200 mls @ 0 mls/hr IV ONE PRN PRN Reason: Bolus PRN SBP < 90 mm Hg Stop: 01/18/18 08:46 Sodium Chloride (Normal Saline 0.9%) 1,000 mls @ 125 mls/hr IV .Q8H [facility] Stop: 01/15/18 14:00 Last Admin: 01/15/18 09:42 Dose: Not Given Insulin Human Lispro (Humalog) 0 units SC .MILD SLIDING SCALE PRN; Protocol PRN Reason: MILD SLIDING SCALE Labetalol HCl (Normodyne) 20 mg SLOW IVP Q4H PRN PRN Reason: SBP > 180 and HR >/= 70 Loperamide HCl (Imodium) 2 mg PO PRN PRN PRN Reason: Diarrhea/Loose Stools Loratadine (Claritin) 10 mg PO DAILYPRN PRN PRN Reason: Sinus Symptoms Metoclopramide HCl (Reglan) 10 mg IVP Q6H PRN PRN Reason: Nausea/Vomiting Last Admin: 01/15/18 01:33 Dose: 10 mg Metoprolol Tartrate (Lopressor) 25 mg PO BID [facility] Last Admin: 01/15/18 09:39 Dose: 25 mg Mineral Oil/White Petrolatum (Eucerin Cream) 0 gm TOP BIDPRN PRN PRN Reason: Dry Skin Nitroglycerin (Nitrostat) 0.4 mg SL Q5MIN PRN PRN Reason: Chest Pain Ondansetron HCl (Zofran Odt) 4 mg PO Q6H PRN PRN Reason: Nausea/Vomiting Ondansetron HCl (Zofran) 4 mg IVP Q6H PRN PRN Reason: Nausea/Vomiting Last Admin: 01/15/18 06:37 Dose: 4 mg Senna/Docusate Sodium (Senokot S) 2 tab PO BID PRN PRN Reason: Constipation Sodium Chloride ([place] Nasal [place] 0.65%) 0 ml EA NARE QIDPRN PRN PRN Reason: Nasal Congestion Tramadol HCl (Ultram) 50 mg PO Q6H PRN PRN Reason: Moderate Pain (4-6) Zolpidem Tartrate (Ambien) 5 mg PO HSPRN PRN PRN Reason: Insomnia
[2018-01-15] MEDS ORDERED: Furosemide 20 MG TAB PO SCH (12:45)
--- NOTE | 2018-01-15 15:10 | PRG ---
DATE OF SERVICE: 01/15/2018 SUBJECTIVE: The patient is without complaint, having had cardiac catheterization earlier this morning. He denies having any nausea, vomiting, or abdominal pain. OBJECTIVE: VITAL SIGNS: Temperature is 98.8, blood pressure 117/72, and pulse is 70. GENERAL: He is alert, conversant, weak, but in no distress. HEENT: Shows anicteric sclerae. Oropharynx clear. NECK: Supple. CV: Shows normal S1 and S2. Regular rate and rhythm. CHEST: Shows breath sounds. ABDOMEN: Soft and nontender. No distention. Has active bowel sounds. EXTREMITIES: Show no edema. LABORATORY DATA: None. ASSESSMENT: 1. Coronary artery disease, advanced 3-vessel disease. 2. New onset atrial fibrillation, rate now controlled. 3. Diabetes/hypertension. 4. Chronic gastroesophageal reflux disease. 5. Dysphagia. 6. Weight loss. RECOMMENDATIONS: 1. No active GI issues at the present time. We will defer any GI procedure until his cardiac situation further clarifies. 2. Dr. Singer is on-call this weekend for GI, please call if needed. Job ID: [id number] [id number]
[2018-01-15] MEDS: HumaLOG 300 UNITS/3 ML VIAL SC PRN (18:38)
--- NOTE | 2018-01-15 20:31 | CON ---
DATE OF CONSULTATION: 01/15/2018 REQUESTING PHYSICIAN: Dr. Eduard Sanchez. PRIMARY CARE PHYSICIAN: Dr. Lr. STRIPPER SOFT PLASTIC: Dr. Jordan Ortega. CHIEF COMPLAINT: Rapid atrial fibrillation. HISTORY OF PRESENT ILLNESS: The patient is a 77-year-old man with known coronary artery disease dating back to 2008. He is an insulin-dependent diabetic and was in the process of being prepared to undergo endoscopy for the evaluation of epigastric discomfort, episodic solid food dysphagia, and a 50-pound weight loss over the course of a year when he went into a rapid atrial fibrillation. Although he has been having increasing dyspnea on exertion over the last 3 or 4 months, he was not having any chest discomfort or shortness of breath at the time of his transfer to the emergency room. At the time of my interview, however, he was noticeably short of breath and got more so just simply talking to me during our interview. Although he remains in atrial fibrillation, his rate has come under control on IV Cardizem and p.o. lopressor. PAST MEDICAL HISTORY: The patient's past medical history is significant for coronary artery disease in 2008. He had a myocardial infarction and underwent what proved to be a complicated PCI of his right coronary artery requiring multiple dilatations and stentings, intracoronary injections of adenosine, temporary pacemaker, and a balloon pump. In 2009, he had some arm symptoms worrisome for angina, but ruled out for myocardial infarction, but did seem to have some progression of mild disease in his LAD and some instant stenosis in his right coronary. At that time, his ejection fraction was around 50% to 55%. In January 2017, he had severe mitral regurgitation and LVEF of around 35% to 40%, and by echocardiography on this hospitalization, he was still found to have an EF in the 35% to 40% range; by a cardiac catheterization today, it was demonstrated to be closer to 15% to 20%. His past medical history is significant also for diabetes, hypertension, and chronic back pain. He has undergone 3 lumbar procedures and a prostatectomy for cancer. He has a history of anxiety and depression. MEDICATIONS: His home medications are: 1. Amitriptyline 25 mg at bedtime. 2. Atorvastatin 80 mg at bedtime. 3. Pepcid 40 a day. 4. Metformin 500 mg b.i.d. 5. Degludec Insulin (Tresiba) 16 units a day. 6. Baclofen 10 mg t.i.d. 7. Lasix 20 mg a day. 8. Potassium chloride 20 mEq a day. Currently he is on; 1. Cardizem drip. 2. Pepcid 20 mg b.i.d. 3. Lasix 40 mg a day. 4. Lopressor 25 mg b.i.d. 5. Amiodarone 400 mg p.o. b.i.d. 6. Adult aspirin a day. ALLERGIES: HE DENIES ANY MEDICAL ALLERGIES. SOCIAL HISTORY: He says that he has never smoked. FAMILY HISTORY: Negative for premature coronary artery disease. REVIEW OF SYSTEMS: Negative for orthopnea or PND. Negative for palpitations. Positive for epigastric discomfort, solid food dysphagia, and a 50-pound weight loss over the last year. Positive for dyspnea on exertion for about 3 to 4 months. PHYSICAL EXAMINATION: GENERAL: He is a frail, ill-appearing man, visibly short of breath as we are talking. VITAL SIGNS: He is in atrial fibrillation with heart rates in the 60s to 70s. Blood pressure 117/72, temperature is 98.8, and T-max this hospitalization has been 98.7. He is 5 foot 8 and weighs 179.5 pounds, 4 L nasal cannula. He has an O2 sat of 100% on room air, it was 94% last night. HEENT: He has no xanthelasma. NECK: No JVD. No carotid bruits. CHEST: Reasonably clear to auscultation. HEART: He has an irregularly irregular rate and rhythm with 2 to 3/6 systolic murmur heard loudest at the apex, but also heard over the lower sternal border. I do not hear it into the axilla or the back. ABDOMEN: Soft and nontender. EXTREMITIES: He has palpable brachial pulses, but not radial pulses. He has palpable femoral pulses and popliteal pulses. I was not able to feel dorsalis pedis or posterior tibial pulses. He has chronic atrophic skin changes on his feet. No clubbing, cyanosis, or edema. Capillary refill in his toes is about 2 seconds. LABORATORY DATA: White count 7.4, hemoglobin 11.8, hematocrit 38.8, platelet count 220,000. PT was 16.4, INR 1.3, PTT 29.7. On admission, his sodium was 144, potassium 3.6, chloride 108, CO2 of 22, glucose 162, BUN 26, creatinine 1.15, and calcium 9.3. His troponin at about noon on the was 0.022; at about 4:30, it was 0.026, and at about 7:30, it was 0.024. His BNP in the morning of was 1214.4. Fasting lipids showed triglycerides of 63, cholesterol of 87, LDL of 41, HDL of 33, TSH was 1.0530. DIAGNOSTIC DATA: His telemetry monitoring shows atrial fibrillation with rates in the 60s to 70s. His chest x-ray shows a reasonably normal size cardiac silhouette with perhaps the exception of enlarged left atrial appendage and some slight prominence to the right heart border and the azygos vein. He has mild pulmonary edema and he has osteopenia in the bones. Nuclear medicine stress was incomplete because of poor cooperation from the patient, but he appeared to have an inferolateral perfusion defect. Echocardiography by transthoracic technique suggested an EF of around 35% to 40% with global hypokinesis, severe mitral regurgitation, and mild tricuspid regurgitation. Cardiac catheterization showed a long stent in the right coronary with a very distal posterolateral branch lesion and some minimal irregularities through the course of stent. He has some trivial irregularity in the left main that had been previously quantified at 20% stenosis. He has serial LAD lesions just after a very large first septal billboard mechanic and then again after first diagonal, which is also compromised by a proximal lesion. His circumflex system is essentially an arborization of multiple 1 mm vessels all of which are diseased proximally. On ventriculography, he appears to have mitral regurgitation that extends into the pulmonary veins, global hypokinesis with an EF in the 10% to 20% range consistent with Dr. Chapa's description of 15% to 20%. RA pressure was mean of 15, RV 55/10, PA 57/31 with pressure mean of 26 to 31. Aortic pressures were 112/68 and 113/57, and LV pressures were 119/13 and 115/12, both with an EDP of 17. Cardiac output by thermodilution averaged 1.985 liters per minute for an index of 1.0. IMPRESSION AND RECOMMENDATIONS: Unfortunately, I do not think that there is really much that I could offer surgically to this patient. Trying to address his mitral regurgitation even through a minimally invasive approach is problematic given his very low ejection fraction. Perhaps, there might be an option for an off-pump revascularization of his left anterior descending. I really do not think that his circumflex vessels are going to graftable. Unfortunately, I think the medical management is probably going to be the only thing realistically we have to offer him. Job ID: [id number]
[2018-01-15] MEDS: Atorvastatin Calcium 40 MG TAB PO SCH (21:02)
[2018-01-15] MEDS: HYDROcodone/Acetaminophen 5/325 mg Tablet PO PRN (21:04)
[2018-01-15] MEDS: Amiodarone 200 MG TAB PO SCH (21:07)
[2018-01-16 06:35] LABS: Anion Gap 19 mmol/L (10-20); BUN (Urea Nitrogen) 46 mg/dL (8.4-25.7); Calc. Creatinine Clearance 38 mL/min (70-130); Calcium 8.2 mg/dL (7.8-10.44); Carbon Dioxide 16 mmol/L (23-31); Chloride 103 mmol/L (98-107); Estimated GFR-MDRD 36; Glucose 154 mg/dL (83-110); Potassium 4.1 mmol/L (3.5-5.1); Sodium 134 mmol/L (136-145)
[2018-01-16] MEDS: Metoprolol Tartrate 25 MG TAB PO SCH ×2 (08:48→21:29)
[2018-01-16] MEDS: Famotidine 20 MG TAB PO SCH ×3 (08:48→21:30)
[2018-01-16] MEDS: Aspirin 325 MG TAB PO SCH (08:48)
[2018-01-16] MEDS: Amiodarone 200 MG TAB PO SCH ×2 (08:48→21:28)
[2018-01-16] MEDS: Furosemide 40 MG TAB PO SCH (08:48)
--- NOTE | 2018-01-16 10:27 | PDOC.PN ---
- Subjective Encounter Start Date: 01/16/18 Encounter Start Time: 08:00 Patient seen and examined. No new complaints. No overnight events - Objective Resuscitation Status - Order Detail: 01/12/18 14:38 Resuscitation Status Routine Resuscitation Status: FULL: Full Resuscitation MAR Reviewed: Yes Vital Signs & Weight: Vital Signs (12 hours) Temp Pulse Resp BP Pulse Ox 01/16/18 08:04 71 18 109/56 L 97 01/16/18 04:13 98.7 F 72 18 104/53 L 98 01/16/18 00:00 97.3 F L 99 Weight Weight 181 lb 3.2 oz I&O: 01/15/18 01/16/18 01/17/18 06:59 06:59 06:59 Intake Total 690.6 740 Output Total 50 400 Balance 640.6 340 Result Diagrams: 01/13/18 04:26 01/16/18 05:22 Additional Labs: Accuchecks 01/16/18 01/15/18 01/15/18 06:08 20:36 16:39 POC Glucose 175 H 186 H 160 H EKG Reviewed by me: Yes (afib) Phys Exam - Physical Examination Constitutional: NAD HEENT: PERRLA, moist MMs, sclera anicteric Neck: no JVD, supple Respiratory: no wheezing, no rales, no rhonchi Cardiovascular: irregular SM+ at apex Gastrointestinal: soft, non-tender, no distention, positive bowel sounds Musculoskeletal: no edema, pulses present Neurological: non-focal, normal sensation, moves all 4 limbs Lymphatic: no nodes Psychiatric: normal affect Skin: no rash, normal turgor Dx/Plan (1) Atrial fibrillation with RVR Code(s): I48.91 - UNSPECIFIED ATRIAL FIBRILLATION Status: Acute (2) Dysphagia Code(s): R13.10 - DYSPHAGIA, UNSPECIFIED Status: Chronic (3) CAD (coronary artery disease) Code(s): I25.10 - ATHSCL HEART DISEASE OF [place] CORONARY ARTERY W/O ANG PCTRS Status: Chronic Qualifiers: Coronary Disease-Associated Artery/Lesion type: [place] artery Comment: 3 vessel cad (4) Diabetes type 2, controlled Code(s): E11.9 - TYPE 2 DIABETES MELLITUS WITHOUT COMPLICATIONS Status: Chronic (5) GERD (gastroesophageal reflux disease) Code(s): K21.9 - GASTRO-ESOPHAGEAL REFLUX DISEASE WITHOUT ESOPHAGITIS Status: Chronic (6) Dyslipidemia Code(s): E78.5 - HYPERLIPIDEMIA, UNSPECIFIED Status: Chronic (7) Elevated brain natriuretic peptide (BNP) level Code(s): R79.89 - OTHER SPECIFIED ABNORMAL FINDINGS OF BLOOD CHEMISTRY Status : Acute (8) Ischemic cardiomyopathy Code(s): I25.5 - ISCHEMIC CARDIOMYOPATHY Status: Chronic (9) Acute kidney failure Status: Acute Comment: likely due to contrast - Plan cont current plan of care, PT/OT * DC Cardizem drip * on amiodarone and metoprolol PO * he will need JOSIANE on thursday * start PT * medication reviewed as below * symptomatic treatment. * continue gentle IVF in view of renal failure * watch for fluid overload * cardiovascular surgeon recommendation noted * continue medical therapy Review of Systems - Review of Systems ENT: negative: Ear Pain, Ear Discharge, Nose Pain, Nose Discharge, Nose Congestion, Mouth Pain, Mouth Swelling, Throat Pain, Throat Swelling, Other Respiratory: negative: Cough, Dry, Shortness of Breath, Hemoptysis, SOB with Excertion, Pleuritic Pain, Sputum, Wheezing Cardiovascular: negative: chest pain, palpitations, orthopnea, paroxysmal nocturnal dyspnea, edema, light headedness, other Gastrointestinal: negative: Nausea, Vomiting, Abdominal Pain, Diarrhea, Constipation, Melena, Hematochezia, Other Genitourinary: negative: Dysuria, Frequency, Incontinence, Hematuria, Retention , Other Musculoskeletal: negative: Neck Pain, Shoulder Pain, Arm Pain, Back Pain, Hand Pain, Leg Pain, Foot Pain, Other - Medications/Allergies Allergies/Adverse Reactions: Allergies Allergy/AdvReac Type Severity Reaction Status Date / Time No Known Allergies Allergy Verified 01/12/18 17:56 Medications: Current Medications Acetaminophen (Tylenol) 650 mg PO Q4H PRN PRN Reason: Headache/Fever/Mild Pain (1-3) Acetaminophen/Codeine Phosphate (Tylenol #3) 1 tab PO Q4H PRN PRN Reason: Mild Pain (1-3) Acetaminophen/Codeine Phosphate (Tylenol #3) 2 tab PO Q4H PRN PRN Reason: Moderate Pain (4-6) Hydrocodone Bitart/Acetaminophen ([place] 5/325) 1 tab PO Q4H PRN PRN Reason: Moderate Pain (4-6) Last Admin: 12/07/18 21:04 Dose: 1 tab Amiodarone HCl (Cordarone) 400 mg PO BID [facility] Last Admin: 01/16/18 08:48 Dose: 400 mg Apixaban (Eliquis) 5 mg PO BID [facility] Artificial Tears (Tears Naturale) 2 drop EA EYE PRN PRN PRN Reason: Dry Eyes Aspirin (Aspirin) 325 mg PO DAILY [facility] Last Admin: 01/16/18 08:48 Dose: 325 mg Atorvastatin Calcium (Lipitor) 40 mg PO HS [facility] Last Admin: 01/15/18 21:02 Dose: 40 mg Bisacodyl (Dulcolax) 10 mg PO DAILYPRN PRN PRN Reason: Constipation Bisacodyl (Dulcolax) 10 mg MS DAILYPRN PRN PRN Reason: Constipation Calcium Carbonate (Tums) 1,000 mg PO Q4H PRN PRN Reason: Heartburn or Indigestion Dextrose/Water (Dextrose 50%) 25 gm IVP PRN PRN PRN Reason: HYPOGLYCEMIA PROTOCOL Famotidine (Pepcid) 20 mg PO BID [facility] Last Admin: 01/16/18 08:48 Dose: 20 mg Furosemide (Lasix) 40 mg PO DAILY-AC [facility] Last Admin: 01/16/18 08:48 Dose: 40 mg Glucagon (Glucagon) 1 mg IM PRN PRN PRN Reason: HYPOGLYCEMIA PROTOCOL Guaifenesin (Robitussin Sf) 200 mg PO Q4H PRN PRN Reason: Cough Dextrose/Water (D5w) 1,000 mls @ 0 mls/hr IV INF PRN PRN Reason: HYPOGLYCEMIA PROTOCOL Sodium Chloride (Normal Saline 0.9%) 200 mls @ 0 mls/hr IV ONE PRN PRN Reason: Bolus PRN SBP < 90 mm Hg Stop: 01/18/18 08:46 Insulin Human Lispro (Humalog) 0 units SC .MILD SLIDING SCALE PRN; Protocol PRN Reason: MILD SLIDING SCALE Last Admin: 01/15/18 18:38 Dose: 2 unit Labetalol HCl (Normodyne) 20 mg SLOW IVP Q4H PRN PRN Reason: SBP > 180 and HR >/= 70 Loperamide HCl (Imodium) 2 mg PO PRN PRN PRN Reason: Diarrhea/Loose Stools Loratadine (Claritin) 10 mg PO DAILYPRN PRN PRN Reason: Sinus Symptoms Metoclopramide HCl (Reglan) 10 mg IVP Q6H PRN PRN Reason: Nausea/Vomiting Last Admin: 01/15/18 01:33 Dose: 10 mg Metoprolol Tartrate (Lopressor) 25 mg PO BID [facility] Last Admin: 01/16/18 08:48 Dose: 25 mg Mineral Oil/White Petrolatum (Eucerin Cream) 0 gm TOP BIDPRN PRN PRN Reason: Dry Skin Nitroglycerin (Nitrostat) 0.4 mg SL Q5MIN PRN PRN Reason: Chest Pain Ondansetron HCl (Zofran Odt) 4 mg PO Q6H PRN PRN Reason: Nausea/Vomiting Ondansetron HCl (Zofran) 4 mg IVP Q6H PRN PRN Reason: Nausea/Vomiting Last Admin: 01/15/18 06:37 Dose: 4 mg Senna/Docusate Sodium (Senokot S) 2 tab PO BID PRN PRN Reason: Constipation Sodium Chloride ([place] Nasal [place] 0.65%) 0 ml EA NARE QIDPRN PRN PRN Reason: Nasal Congestion Sodium Chloride (Flush - Normal Saline) 10 ml IVF Q12HR [facility] Last Admin: 01/16/18 08:48 Dose: 10 ml Sodium Chloride (Flush - Normal Saline) 10 ml IVF PRN PRN PRN Reason: Saline Flush Tramadol HCl (Ultram) 50 mg PO Q6H PRN PRN Reason: Moderate Pain (4-6) Last Admin: 01/15/18 14:45 Dose: 50 mg Zolpidem Tartrate (Ambien) 5 mg PO HSPRN PRN PRN Reason: Insomnia
[2018-01-16] MEDS ORDERED: Sodium Chloride 0.9% 1,000 ML IV SCH (10:30)
--- NOTE | 2018-01-16 12:18 | EKG ---
Test Reason : Blood Pressure : / mmHG Vent. Rate : 144 BPM Atrial Rate : 144 BPM P-R Int : 000 ms QRS Dur : 072 ms QT Int : 310 ms P-R-T Axes : 000 032 254 degrees QTc Int : 479 ms Atrial fibrillation with rapid ventricular response Nonspecific T wave abnormality Abnormal ECG Confirmed by DAVID RAO, LY Willingham ([id number]), department editor MARGARET LAZCANO ([id number]) on 01/16/2018 12:17:36 PM Referred By: Confirmed By:LY HERNANDEZ MD
--- NOTE | 2018-01-16 14:12 | PDOC.CTH ---
<Frances Harley - Last Filed: 01/16/18 14:20> Cardiology Progress Note - Subjective The pt seen and examined. No overnight events. No cardiac complaints. Stable with RA. - Objective Vital Signs Temp Pulse Resp BP Pulse Ox 01/16/18 11:32 96.8 F L 62 18 114/70 93 L 01/16/18 08:04 71 18 109/56 L 97 01/16/18 08:00 97 01/16/18 04:13 98.7 F 72 18 104/53 L 98 Weight 181 lb 3.2 oz 01/15/18 01/16/18 01/17/18 06:59 06:59 06:59 Intake Total 690.6 740 Output Total 50 400 Balance 640.6 340 - Physical Examination General/Neuro: alert & oriented x3 Neck: no JVD present Lungs: other: (diminished at bases) Heart: other: (irregular) Abdomen: soft Extremities: other: (No edema) - Telemetry Telemetry Rhythm: Afib 60-70s - Labs Result Diagrams: 01/13/18 04:26 01/16/18 05:22 Troponin/CKMB CK-MB (CK-2) 2.5 ng/mL (0-6.6) 01/12/18 12:11 Troponin I 0.024 ng/mL (< 0.028) 01/12/18 19:37 - Assessment/Plan 1. New-onset Afib with RVR - on amiodarone 400mg BID since 2100 on 01/15/18, Eliquis 5mg BID, and metoprolol 25mg BID; Plan for JOSIANE/DCCV on Thursday 2. Severe MR - the pt is not a good candidate for sx and cont. medical tx only 3. acute on Chronic Systolic HF - Stable with Lasix and BBlocker; not on JAMARCUS/ ARB at this moment 2/2 MARISOL 4. 3 V CAD - the pt is not a good candidate for sx and cont. medical tx only; on Bblocker, ASA, and Statin. 5. HTN - stable 6. Hyperlipidemia - on Statin 7. DM type 2 - managed by PCP 8. MARISOL - Cr elevated from 1.06 to 1.81 today; Cont. to monitor * Plan for JOSIANE/DCCV on Thursday Review of Systems - Review of Systems Constitutional: reports: no symptoms reported EENTM: reports: no symptoms reported Respiratory: reports: no symptoms reported Cardiac (ROS): reports: no symptoms reported ABD/GI: reports: no symptoms reported : reports: no symptoms reported Musculoskeletal: reports: no symptoms reported <Sari Webb - Last Filed: 01/16/18 17:59> Cardiology Progress Note - Objective Vital Signs Temp Pulse Resp BP Pulse Ox 01/16/18 16:00 96.1 F L 75 18 125/64 98 01/16/18 11:32 96.8 F L 62 18 114/70 93 L 01/16/18 08:04 71 18 109/56 L 97 01/16/18 08:00 97 Weight 181 lb 3.2 oz 01/15/18 01/16/18 01/17/18 06:59 06:59 06:59 Intake Total 690.6 740 Output Total 50 400 Balance 640.6 340 - Labs Result Diagrams: 01/13/18 04:26 01/16/18 05:22 Troponin/CKMB CK-MB (CK-2) 2.5 ng/mL (0-6.6) 01/12/18 12:11 Troponin I 0.024 ng/mL (< 0.028) 01/12/18 19:37 - Assessment/Plan Pt. seen and eval. by me. I agree with the A/P by the FENDER MECHANIC. We have discussed the pt as well as the A/PO. Chest clear. IRRR/Irreg. Plan for JOSIANE / Cardioversion next week.
[2018-01-16] MEDS: HumaLOG 300 UNITS/3 ML VIAL SC PRN (17:27)
[2018-01-16] MEDS: Apixaban 5 MG TAB PO SCH ×2 (21:28→21:30)
[2018-01-16] MEDS: Atorvastatin Calcium 40 MG TAB PO SCH (21:29)
[2018-01-17] MEDS ORDERED: Amitriptyline HCl 25 MG TAB PO SCH (01:45)
[2018-01-17 06:21] LABS: Anion Gap 16 mmol/L (10-20); BUN (Urea Nitrogen) 54 mg/dL (8.4-25.7); Calc. Creatinine Clearance 37 mL/min (70-130); Calcium 7.9 mg/dL (7.8-10.44); Carbon Dioxide 22 mmol/L (23-31); Chloride 102 mmol/L (98-107); Estimated GFR-MDRD 34; Glucose 186 mg/dL (83-110); Potassium 3.9 mmol/L (3.5-5.1); Sodium 136 mmol/L (136-145)
[2018-01-17] MEDS: Acetaminophen 325 MG TAB PO PRN ×2 (07:36→22:23)
--- NOTE | 2018-01-17 08:44 | PDOC.PN ---
- Subjective Encounter Start Date: 01/17/18 Encounter Start Time: 07:40 last night pt was very agitated, he did not took his meds last night, his IV pulled out x 2 by him, call sudha was called last night - Objective Resuscitation Status - Order Detail: 01/12/18 14:38 Resuscitation Status Routine Resuscitation Status: FULL: Full Resuscitation MAR Reviewed: Yes Vital Signs & Weight: Vital Signs (12 hours) Pulse Resp BP Pulse Ox 01/17/18 07:33 73 18 125/71 01/17/18 04:40 77 105/61 90 L 01/17/18 00:00 77 113/66 Weight Weight 181 lb 3.2 oz I&O: 01/16/18 01/17/18 01/18/18 06:59 06:59 06:59 Intake Total 740 1235 Output Total 400 425 Balance 340 810 Result Diagrams: 01/13/18 04:26 01/17/18 05:23 Additional Labs: Accuchecks 01/17/18 01/16/18 01/16/18 06:06 20:44 16:47 POC Glucose 196 H 182 H 248 H 01/16/18 10:40 POC Glucose 153 H EKG Reviewed by me: Yes (afib) Phys Exam - Physical Examination Constitutional: NAD HEENT: PERRLA, moist MMs, sclera anicteric Neck: no JVD, supple Respiratory: no wheezing, no rales, no rhonchi Cardiovascular: irregular SM+ at apex Gastrointestinal: soft, non-tender, no distention, positive bowel sounds Musculoskeletal: no edema, pulses present Neurological: non-focal, normal sensation, moves all 4 limbs Lymphatic: no nodes Psychiatric: normal affect Skin: no rash, normal turgor Dx/Plan (1) Atrial fibrillation with RVR Code(s): I48.91 - UNSPECIFIED ATRIAL FIBRILLATION Status: Acute Comment: now rate controlled (2) Dysphagia Code(s): R13.10 - DYSPHAGIA, UNSPECIFIED Status: Chronic (3) CAD (coronary artery disease) Code(s): I25.10 - ATHSCL HEART DISEASE OF [place] CORONARY ARTERY W/O ANG PCTRS Status: Chronic Qualifiers: Coronary Disease-Associated Artery/Lesion type: [place] artery Comment: 3 vessel cad, not a candidate for surgery, on medical therapy (4) Diabetes type 2, controlled Code(s): E11.9 - TYPE 2 DIABETES MELLITUS WITHOUT COMPLICATIONS Status: Chronic (5) GERD (gastroesophageal reflux disease) Code(s): K21.9 - GASTRO-ESOPHAGEAL REFLUX DISEASE WITHOUT ESOPHAGITIS Status: Chronic (6) Dyslipidemia Code(s): E78.5 - HYPERLIPIDEMIA, UNSPECIFIED Status: Chronic (7) Ischemic cardiomyopathy Code(s): I25.5 - ISCHEMIC CARDIOMYOPATHY Status: Chronic Comment: with EF 35 to 40% (8) Acute kidney failure Status: Acute Comment: likely due to contrast (9) Severe mitral regurgitation Code(s): I34.0 - NONRHEUMATIC MITRAL (VALVE) INSUFFICIENCY Status: Chronic Comment: not a candidate for surgery, on medical therapy (10) Chronic systolic heart failure, ACC/AHA stage C Code(s): I50.22 - CHRONIC SYSTOLIC (CONGESTIVE) HEART FAILURE Status: Chronic - Plan cont current plan of care, plan discussed w/ family * will add seroquel 25 mg bedtime * plan for cardioversion and JOSIANE tomorrow * monitor renal function * medication reviewed as below * symptomatic treatment * will get chest xray. * check UA * repeat labs tomorrow Review of Systems - Review of Systems ENT: negative: Ear Pain, Ear Discharge, Nose Pain, Nose Discharge, Nose Congestion, Mouth Pain, Mouth Swelling, Throat Pain, Throat Swelling, Other Respiratory: negative: Cough, Dry, Shortness of Breath, Hemoptysis, SOB with Excertion, Pleuritic Pain, Sputum, Wheezing Cardiovascular: negative: chest pain, palpitations, orthopnea, paroxysmal nocturnal dyspnea, edema, light headedness, other Gastrointestinal: negative: Nausea, Vomiting, Abdominal Pain, Diarrhea, Constipation, Melena, Hematochezia, Other Genitourinary: negative: Dysuria, Frequency, Incontinence, Hematuria, Retention , Other Musculoskeletal: negative: Neck Pain, Shoulder Pain, Arm Pain, Back Pain, Hand Pain, Leg Pain, Foot Pain, Other - Medications/Allergies Allergies/Adverse Reactions: Allergies Allergy/AdvReac Type Severity Reaction Status Date / Time No Known Allergies Allergy Verified 01/12/18 17:56 Medications: Current Medications Acetaminophen (Tylenol) 650 mg PO Q4H PRN PRN Reason: Headache/Fever/Mild Pain (1-3) Last Admin: 01/17/18 07:36 Dose: 650 mg Acetaminophen/Codeine Phosphate (Tylenol #3) 1 tab PO Q4H PRN PRN Reason: Mild Pain (1-3) Acetaminophen/Codeine Phosphate (Tylenol #3) 2 tab PO Q4H PRN PRN Reason: Moderate Pain (4-6) Hydrocodone Bitart/Acetaminophen ([place] 5/325) 1 tab PO Q4H PRN PRN Reason: Moderate Pain (4-6) Last Admin: 01/15/18 21:04 Dose: 1 tab Amiodarone HCl (Cordarone) 400 mg PO BID [facility] Last Admin: 01/16/18 21:28 Dose: 400 mg Apixaban (Eliquis) 5 mg PO BID [facility] Last Admin: 01/16/18 21:30 Dose: Not Given Artificial Tears (Tears Naturale) 2 drop EA EYE PRN PRN PRN Reason: Dry Eyes Aspirin (Aspirin Chewable) 81 mg PO DAILY [facility] Atorvastatin Calcium (Lipitor) 40 mg PO HS [facility] Last Admin: 01/16/18 21:29 Dose: 40 mg Bisacodyl (Dulcolax) 10 mg PO DAILYPRN PRN PRN Reason: Constipation Bisacodyl (Dulcolax) 10 mg [place] DAILYPRN PRN PRN Reason: Constipation Calcium Carbonate (Tums) 1,000 mg PO Q4H PRN PRN Reason: Heartburn or Indigestion Dextrose/Water (Dextrose 50%) 25 gm IVP PRN PRN PRN Reason: HYPOGLYCEMIA PROTOCOL Famotidine (Pepcid) 20 mg PO BID [facility] Last Admin: 01/16/18 21:30 Dose: Not Given Furosemide (Lasix) 40 mg PO DAILY[facility] Last Admin: 01/16/18 08:48 Dose: 40 mg Glucagon (Glucagon) 1 mg IM PRN PRN PRN Reason: HYPOGLYCEMIA PROTOCOL Guaifenesin (Robitussin Sf) 200 mg PO Q4H PRN PRN Reason: Cough Dextrose/Water (D5w) 1,000 mls @ 0 mls/hr IV INF PRN PRN Reason: HYPOGLYCEMIA PROTOCOL Sodium Chloride (Normal Saline 0.9%) 200 mls @ 0 mls/hr IV ONE PRN PRN Reason: Bolus PRN SBP < 90 mm Hg Stop: 01/18/18 08:46 Insulin Human Lispro (Humalog) 0 units SC .MILD SLIDING SCALE PRN; Protocol PRN Reason: MILD SLIDING SCALE Last Admin: 01/16/18 17:27 Dose: 3 unit Labetalol HCl (Normodyne) 20 mg SLOW IVP Q4H PRN PRN Reason: SBP > 180 and HR >/= 70 Loperamide HCl (Imodium) 2 mg PO PRN PRN PRN Reason: Diarrhea/Loose Stools Loratadine (Claritin) 10 mg PO DAILYPRN PRN PRN Reason: Sinus Symptoms Metoclopramide HCl (Reglan) 10 mg IVP Q6H PRN PRN Reason: Nausea/Vomiting Last Admin: 01/15/18 01:33 Dose: 10 mg Metoprolol Tartrate (Lopressor) 25 mg PO BID [facility] Last Admin: 01/16/18 21:29 Dose: 25 mg Mineral Oil/White Petrolatum (Eucerin Cream) 0 gm TOP BIDPRN PRN PRN Reason: Dry Skin Nitroglycerin (Nitrostat) 0.4 mg SL Q5MIN PRN PRN Reason: Chest Pain Ondansetron HCl (Zofran Odt) 4 mg PO Q6H PRN PRN Reason: Nausea/Vomiting Ondansetron HCl (Zofran) 4 mg IVP Q6H PRN PRN Reason: Nausea/Vomiting Last Admin: 01/15/18 06:37 Dose: 4 mg Quetiapine Fumarate (Seroquel) 25 mg PO HS [facility] Senna/Docusate Sodium (Senokot S) 2 tab PO BID PRN PRN Reason: Constipation Sodium Chloride ([place] 0.65%) 0 ml EA NARE QIDPRN PRN PRN Reason: Nasal Congestion Sodium Chloride (Flush - Normal Saline) 10 ml IVF Q12HR [facility] Last Admin: 01/16/18 21:29 Dose: Not Given Sodium Chloride (Flush - Normal Saline) 10 ml IVF PRN PRN PRN Reason: Saline Flush Tramadol HCl (Ultram) 50 mg PO Q6H PRN PRN Reason: Moderate Pain (4-6) Last Admin: 01/15/18 14:45 Dose: 50 mg Zolpidem Tartrate (Ambien) 5 mg PO HSPRN PRN PRN Reason: Insomnia
[2018-01-17] MEDS: Furosemide 40 MG TAB PO SCH (09:41)
[2018-01-17] MEDS: Apixaban 5 MG TAB PO SCH ×2 (09:41→22:22)
[2018-01-17] MEDS: Amiodarone 200 MG TAB PO SCH ×2 (09:41→22:22)
[2018-01-17] MEDS: Metoprolol Tartrate 25 MG TAB PO SCH ×2 (09:41→22:23)
[2018-01-17] MEDS: Famotidine 20 MG TAB PO SCH ×2 (09:41→22:23)
--- NOTE | 2018-01-17 10:19 | RAD ---
PORTABLE CHEST: DATE: 01/17/2018. PROVIDED CLINICAL HISTORY: Dyspnea. FINDINGS: Comparison 01/12/2018. Cardiac silhouette appears unchanged in appearance. There are bibasilar pleural parenchymal opacitie s, which are new with respect to the prior study. No evidence for pneumothorax. Lungs appear otherw ise clear. IMPRESSION: Bibasilar pleural parenchymal opacities that may reflect pleural effusions with adjacent atelectasis or infiltrate. Correlate with concerns for pneumonia. Followup is recommended. POS: CADEN
[2018-01-17 10:37] LABS: Hemoglobin 13.1 g/dL (14.0-18.0); Platelet Count 222 thou/uL (130-400)
--- NOTE | 2018-01-17 13:27 | PDOC.CTH ---
Cardiology Progress Note - Subjective The pt seen and examined. No overnight events. No cardiac complaints. Although he can answer questions appropriately, he is intermittent confused. - Objective Vital Signs Temp Pulse Resp BP Pulse Ox 01/17/18 13:06 110/55 L 01/17/18 11:57 98.0 F 79 16 94 L 01/17/18 08:00 96 01/17/18 07:33 73 18 125/71 96 01/17/18 04:40 77 105/61 90 L Weight 181 lb 3.2 oz 01/16/18 01/17/18 01/18/18 06:59 06:59 06:59 Intake Total 740 1235 Output Total 400 425 Balance 340 810 - Physical Examination General/Neuro: other: (intermittent confusion) Lungs: CTA Heart: other: (irreguler) Abdomen: soft Extremities: other: (No edema) - Telemetry Telemetry Rhythm: Afib 80s - Labs Result Diagrams: 01/17/18 10:18 01/17/18 10:18 Troponin/CKMB CK-MB (CK-2) 2.5 ng/mL (0-6.6) 01/12/18 12:11 Troponin I 0.024 ng/mL (< 0.028) 01/12/18 19:37 - Assessment/Plan 1. New-onset Afib with RVR - on Amiodarone 400mg BID since 2100 on 01/15/18, Eliquis 5mg BID, and metoprolol 25mg BID; Plan for JOSIANE/DCCV on Thursday 2. Severe MR - the pt is not a good candidate for sx and cont. medical tx only 3. Acute on Chronic Systolic HF - Stable with Lasix and BBlocker; not on JAMARCUS/ ARB at this moment 2/2 MARISOL 4. 3 V CAD - the pt is not a good candidate for sx and cont. medical tx only; on Bblocker, ASA, and Statin. 5. HTN - stable 6. Hyperlipidemia - on Statin 7. DM type 2 - managed by PCP 8. MARISOL - Cr elevated from 1.81 to 1.90 today; Cont. to monitor * Plan for JOSIANE/DCCV on Thursday by Dr Sanchez. Review of Systems - Review of Systems Constitutional: reports: no symptoms reported EENTM: reports: no symptoms reported Respiratory: reports: no symptoms reported Cardiac (ROS): reports: no symptoms reported ABD/GI: reports: no symptoms reported : reports: no symptoms reported Musculoskeletal: reports: no symptoms reported
[2018-01-17 15:15] LABS: Bilirubin Negative (Negative); Blood, Urine Trace (Negative); Clarity CLEAR (Clear); Glucose, Urine (Dipstick) Negative (Negative); Leukocyte Negative (Negative); Nitrite Negative (Negative); Protein, Urine (Dipstick) Negative (Neg-Trace); Urobilinogen 0.2 mg/dL (0.2-1.0)
[2018-01-17 15:17] LABS: Bacteria/HPF None Seen HPF (None Seen); Hyaline Casts/LPF 0-3 HYALINE CAST LPF (0-3 Hyaline); RBC/HPF 0-3 HPF (0-3); Squamous Epithelial None Seen HPF (0-3); WBC/HPF 0-3 HPF (0-3)
[2018-01-17] MEDS: HumaLOG 300 UNITS/3 ML VIAL SC PRN (17:55)
[2018-01-17] MEDS: Atorvastatin Calcium 40 MG TAB PO SCH (22:23)
[2018-01-18 05:57] LABS: #Eosinphils 0.1 thou/uL (0.0-0.7); #Lymphocytes 2.2 thou/uL (1.20-3.40); #Neutrophils 7.1 thou/uL (1.40-6.50); %Basophils 0.4 % (0.0-1.0); %Eosinophils 1.4 % (0.0-10.0); %Lymphocytes 21.1 % (21.0-51.0); %Monocytes 9.7 % (0.0-10.0); %Neutrophils 67.5 % (42.0-75.0); Hemoglobin 12.4 g/dL (14.0-18.0); Mean Corpuscular HGB CONC 30.5 g/dL (32.0-36.0); Mean Corpuscular Hemoglobin 25.5 pg (27.0-31.0); Mean Corpuscular Volume 83.7 fL (78.0-98.0); Mean Platelet Volume 9.6 fL (7.4-10.4); Platelet Count 212 thou/uL (130-400); RBC Distribution Width 15.1 % (11.5-14.5); Red Blood Cell (RBC) Count 4.88 mill/uL (4.70-6.10); White Blood Cell (WBC) Count 10.5 thou/uL (4.8-10.8)
[2018-01-18 06:49] LABS: Anion Gap 14 mmol/L (10-20); BUN (Urea Nitrogen) 46 mg/dL (8.4-25.7); Calc. Creatinine Clearance 42 mL/min (70-130); Calcium 7.8 mg/dL (7.8-10.44); Carbon Dioxide 23 mmol/L (23-31); Chloride 102 mmol/L (98-107); Estimated GFR-MDRD 41; Glucose 215 mg/dL (83-110); Potassium 3.2 mmol/L (3.5-5.1); Sodium 136 mmol/L (136-145)
--- NOTE | 2018-01-18 08:16 | PQF ---
INGRID PATTON, RANJANA FINN MD [id number] CLINICAL DOCUMENTATION IMPROVEMENT CLARIFICATION FORM: ICD-10 Updated PLEASE DO AN ADDENDUM TO THE PROGRESS NOTE WITH ANY DOCUMENTATION UPDATES OR ADDITIONS AND CARRY THROUGH TO DC SUMMARY. THANK YOU. DATE: 01/18 ATTN: DR. RANJANA JACOBS Please exercise your independent, professional judgment in responding to the clarification form. Clinical indicators are provided on the bottom of this form for your review. Please check appropriate box(s): Conflicting documentation was noted in the Medical Record, please clarify if patient is being treated/monitored for: [ ] ACUTE ON CHRONIC SYSTOLIC HF [x ] CHRONIC SYSTOLIC HF [ ] Other diagnosis [ ] Unable to determine For continuity of documentation, please document condition throughout progress notes and discharge summary. Thank You. CLINICAL INDICATORS - SIGNS / SYMPTOMS/ LABS BNP: 1214 (ON ADMIT, 01/14) PN 12/5 - 8 (ARLENE): 7) ELEVATED BNP LEVEL, ACUTE; PN 01/17 (ARLENE): 10 ) CHRONIC SYSTOLIC HF CARDIOLOGY PN 8 & 9 (ABURTO): 3) ACUTE ON CHRONIC SYSTOLIC HF RISK FACTORS: NEW ONSET AFIB W/RVR CAD ISCHEMIC CARDIOMYOPATHY TREATMENT: CARDIOLOGY CONSULT L HEART CATH EAMON HERNANDEZ (01/14 - PRESENT) FER CARMONA THANK YOU! Kiersten (This form is maintained as a part of the permanent medical record) 2014 [employer]. All Rights Reserved Kiersten Combs RN, BSN [email or web address] Office: [phone] [facility]
--- NOTE | 2018-01-18 08:47 | PQF ---
INGRID PATTON SALIM NOORJIBHAI MD [id number] CLINICAL DOCUMENTATION IMPROVEMENT CLARIFICATION FORM: ICD-10 Updated PLEASE DO AN ADDENDUM TO THE PROGRESS NOTE WITH ANY DOCUMENTATION UPDATES OR ADDITIONS AND CARRY THROUGH TO DC SUMMARY. THANK YOU. DATE: 01/18 ATTN: DR. RANJANA JACOBS Please exercise your independent, professional judgment in responding to the clarification form. Clinical indicators are provided on the bottom of this form for your review. Please check appropriate box(s): [ ] Encephalopathy: Type: [ ] Acute [ ] Subacute [ ] Chronic [ ] Hypoxic [ ] Unspecified [ ] in the setting of underlying dementia [ ] Other (please specify) [x ] Other diagnosis delirium- psychosis_ [ ] Unable to determine For continuity of documentation, please document condition throughout progress notes and discharge summary. Thank You. CLINICAL INDICATORS - SIGNS / SYMPTOMS / LABS PN 01/17: LAST NIGHT PT WAS VERY AGITATED, HE DID NOT TAKE HIS MEDS LAST NIGHT, HIS IV PULLED OUT X2 BY HIM, MARTÍNEZ RINCON CALLED LAST NIGHT. PLAN: WILL ADD SEROQUEL 25 MG BEDTIME CARDIOLOGY PN 01/17: SUBJECTIVE: ALTHOUGH HE CAN ANSWER QUESTIONS APPROPRIATELY , HE IS INTERMITTENT CONFUSED. NURSING NOTES 01/17 2224: Upon entering room, pt laying in bed with iv out of arm with arm bleeding. Pt yelling, combative and wanting police to be called saying that nurse was trying to poison him and force pills down. Charge nurse called. Charge nurse asks if pt pulled iv out and pt states "no lady it just fell out". Charge nurse asks if he knows where he is. Pt replies with "I'm not dumb lady, [place]." Charge and nurse attempted to deescalate situation. No success. Staff assist button pressed. Pt demanding to speak to police/security stating that staff was trying to ashley him and that there was a crime scene in room. Pt stands and starts to fling blankets everywhere. Non compliant and dismisses everything staff is saying. Attempts to dial 911 on room phone. Pt a& ox4 yet confused. 2229: MARTÍNEZ RINCON CALLED. 2330: Pt calming down and is able to be convinced to get back on bed. allows for vitals to be taken by sitter. O2 on RA is mid 80' s. 2L applied and sats come up to 96%. BP is 113/66 with HR 77. Per sitter pt is still agitated and attempts to call spouse. 0: Sitter states pt is compliant with tele monitor but now not compliant with oxygen. Primary and charge nurse attempt to get a pulse ox and to apply O2 without success despite rationale being given. Pt is not in distress and is still a&ox4. 0440: Pt 83% on RA. Pt not willing to wear NC. NC placed at 5L and placed next to pt. Sats at 90%. Will continue to monitor pt. RISK FACTORS: INTERMITTENT CONFUSION AGITATION NON-COMPLIANCE W/TREATMENT TREATMENTS: SUPPLEMENTAL 02 SITTER THANK YOU! Kiersetn (This form is maintained as a part of the permanent medical record) 2014 [employer]. All Rights Reserved Kiersten Combs RN, BSN [email or web address] Office: [phone] [facility]
[2018-01-18] MEDS ORDERED: INSULIN DEGLUDEC SC SCH (09:00)
[2018-01-18] MEDS ORDERED: PROPOFOL 0 ML ONE (09:29)
[2018-01-18] MEDS ORDERED: PROPOFOL 20 ML ONE (09:36)
--- NOTE | 2018-01-18 09:37 | PDOC.PN ---
- Subjective Encounter Start Date: 01/18/18 Encounter Start Time: 07:40 Patient seen and examined. No new complaints. No overnight events - Objective Resuscitation Status - Order Detail: 01/12/18 14:38 Resuscitation Status Routine Resuscitation Status: FULL: Full Resuscitation MAR Reviewed: Yes Vital Signs & Weight: Vital Signs (12 hours) Temp Pulse Resp BP Pulse Ox 01/18/18 04:43 96 01/18/18 04:00 98.3 F 77 20 101/72 99 01/18/18 00:00 97.4 F L Weight Weight 174 lb 11.2 oz I&O: 01/17/18 01/18/18 01/19/18 06:59 06:59 06:59 Intake Total 1235 240 Output Total 425 525 Balance 810 -285 Result Diagrams: 01/18/18 05:29 01/18/18 05:29 Additional Labs: Accuchecks 01/17/18 01/17/18 01/17/18 20:29 17:13 11:00 POC Glucose 264 H 310 H 217 H EKG Reviewed by me: Yes (afib) Phys Exam - Physical Examination Constitutional: NAD HEENT: PERRLA, moist MMs, sclera anicteric Neck: no JVD, supple Respiratory: no wheezing, no rales, no rhonchi Cardiovascular: no rub, irregular SM+ Gastrointestinal: soft, non-tender, no distention, positive bowel sounds Musculoskeletal: no edema, pulses present Neurological: non-focal, normal sensation Lymphatic: no nodes Psychiatric: normal affect, A&O x 3 Skin: no rash, normal turgor Dx/Plan (1) Atrial fibrillation with RVR Code(s): I48.91 - UNSPECIFIED ATRIAL FIBRILLATION Status: Acute Comment: now rate controlled (2) Dysphagia Code(s): R13.10 - DYSPHAGIA, UNSPECIFIED Status: Chronic (3) CAD (coronary artery disease) Code(s): I25.10 - ATHSCL HEART DISEASE OF [place] CORONARY ARTERY W/O ANG PCTRS Status: Chronic Qualifiers: Coronary Disease-Associated Artery/Lesion type: [place] artery Comment: 3 vessel cad, not a candidate for surgery, on medical therapy (4) Diabetes type 2, controlled Code(s): E11.9 - TYPE 2 DIABETES MELLITUS WITHOUT COMPLICATIONS Status: Chronic (5) GERD (gastroesophageal reflux disease) Code(s): K21.9 - GASTRO-ESOPHAGEAL REFLUX DISEASE WITHOUT ESOPHAGITIS Status: Chronic (6) Dyslipidemia Code(s): E78.5 - HYPERLIPIDEMIA, UNSPECIFIED Status: Chronic (7) Ischemic cardiomyopathy Code(s): I25.5 - ISCHEMIC CARDIOMYOPATHY Status: Chronic Comment: with EF 35 to 40% (8) Acute kidney failure Status: Acute Comment: likely due to contrast (9) Severe mitral regurgitation Code(s): I34.0 - NONRHEUMATIC MITRAL (VALVE) INSUFFICIENCY Status: Chronic Comment: not a candidate for surgery, on medical therapy (10) Chronic systolic heart failure, ACC/AHA stage C Code(s): I50.22 - CHRONIC SYSTOLIC (CONGESTIVE) HEART FAILURE Status: Chronic (11) Delirium Code(s): R41.0 - DISORIENTATION, UNSPECIFIED Status: Resolved - Plan cont current plan of care * medication reviewed as below * symptomatic treatment * today JOSIANE and cardioversion. Review of Systems - Review of Systems Eyes: negative: Pain, Vision Change, Conjunctivae Inflammation, Eyelid Inflammation, Redness, Other ENT: negative: Ear Pain, Ear Discharge, Nose Pain, Nose Discharge, Nose Congestion, Mouth Pain, Mouth Swelling, Throat Pain, Throat Swelling, Other Respiratory: negative: Cough, Dry, Shortness of Breath, Hemoptysis, SOB with Excertion, Pleuritic Pain, Sputum, Wheezing Cardiovascular: negative: chest pain, palpitations, orthopnea, paroxysmal nocturnal dyspnea, edema, light headedness, other Gastrointestinal: negative: Nausea, Vomiting, Abdominal Pain, Diarrhea, Constipation, Melena, Hematochezia, Other Genitourinary: negative: Dysuria, Frequency, Incontinence, Hematuria, Retention , Other Musculoskeletal: negative: Neck Pain, Shoulder Pain, Arm Pain, Back Pain, Hand Pain, Leg Pain, Foot Pain, Other Skin: negative: Rash, Lesions, Zaki, Bruising, Other - Medications/Allergies Allergies/Adverse Reactions: Allergies Allergy/AdvReac Type Severity Reaction Status Date / Time No Known Allergies Allergy Verified 01/12/18 17:56 Medications: Current Medications Acetaminophen (Tylenol) 650 mg PO Q4H PRN PRN Reason: Headache/Fever/Mild Pain (1-3) Last Admin: 01/17/18 22:23 Dose: 650 mg Acetaminophen/Codeine Phosphate (Tylenol #3) 1 tab PO Q4H PRN PRN Reason: Mild Pain (1-3) Acetaminophen/Codeine Phosphate (Tylenol #3) 2 tab PO Q4H PRN PRN Reason: Moderate Pain (4-6) Hydrocodone Bitart/Acetaminophen ([place] 5/325) 1 tab PO Q4H PRN PRN Reason: Moderate Pain (4-6) Last Admin: 01/15/18 21:04 Dose: 1 tab Amiodarone HCl (Cordarone) 400 mg PO BID [facility] Last Admin: 01/17/18 22:22 Dose: 400 mg Amitriptyline HCl (Elavil) 25 mg PO DAILY [facility] Apixaban (Eliquis) 5 mg PO BID [facility] Last Admin: 01/17/18 22:22 Dose: 5 mg Artificial Tears (Tears Naturale) 2 drop EA EYE PRN PRN PRN Reason: Dry Eyes Aspirin (Aspirin Chewable) 81 mg PO DAILY [facility] Last Admin: 01/17/18 09:41 Dose: 81 mg Atorvastatin Calcium (Lipitor) 80 mg PO HS [facility] Baclofen (Lioresal) 10 mg PO TID [facility] Bisacodyl (Dulcolax) 10 mg PO DAILYPRN PRN PRN Reason: Constipation Bisacodyl (Dulcolax) 10 mg [place] DAILYPRN PRN PRN Reason: Constipation Calcium Carbonate (Tums) 1,000 mg PO Q4H PRN PRN Reason: Heartburn or Indigestion Dextrose/Water (Dextrose 50%) 25 gm IVP PRN PRN PRN Reason: HYPOGLYCEMIA PROTOCOL Ezetimibe (Zetia) 10 mg PO HS [facility] Furosemide (Lasix) 40 mg PO DAILY[facility] Last Admin: 01/17/18 09:41 Dose: 40 mg Glucagon (Glucagon) 1 mg IM PRN PRN PRN Reason: HYPOGLYCEMIA PROTOCOL Guaifenesin (Robitussin Sf) 200 mg PO Q4H PRN PRN Reason: Cough Dextrose/Water (D5w) 1,000 mls @ 0 mls/hr IV INF PRN PRN Reason: HYPOGLYCEMIA PROTOCOL Insulin Human Lispro (Humalog) 0 units SC .MILD SLIDING SCALE PRN; Protocol PRN Reason: MILD SLIDING SCALE Last Admin: 01/17/18 17:55 Dose: 5 unit Labetalol HCl (Normodyne) 20 mg SLOW IVP Q4H PRN PRN Reason: SBP > 180 and HR >/= 70 Loperamide HCl (Imodium) 2 mg PO PRN PRN PRN Reason: Diarrhea/Loose Stools Loratadine (Claritin) 10 mg PO DAILYPRN PRN PRN Reason: Sinus Symptoms Metoclopramide HCl (Reglan) 10 mg IVP Q6H PRN PRN Reason: Nausea/Vomiting Last Admin: 01/15/18 01:33 Dose: 10 mg Metoprolol Tartrate (Lopressor) 25 mg PO BID [facility] Last Admin: 01/17/18 22:23 Dose: 25 mg Mineral Oil/White Petrolatum (Eucerin Cream) 0 gm TOP BIDPRN PRN PRN Reason: Dry Skin Nitroglycerin (Nitrostat) 0.4 mg SL Q5MIN PRN PRN Reason: Chest Pain Ondansetron HCl (Zofran Odt) 4 mg PO Q6H PRN PRN Reason: Nausea/Vomiting Ondansetron HCl (Zofran) 4 mg IVP Q6H PRN PRN Reason: Nausea/Vomiting Last Admin: 01/15/18 06:37 Dose: 4 mg Pantoprazole Sodium (Protonix) 40 mg PO DAILY [facility] (Insulin Degludec [ Tresiba Flextouch U- 200] 16 Unit) Hm Med 0 each SC DAILY [facility] Potassium Chloride (K-Dur) 20 meq PO DAILY [facility] Quetiapine Fumarate (Seroquel) 25 mg PO HS [facility] Last Admin: 01/17/18 22:23 Dose: 25 mg Senna/Docusate Sodium (Senokot S) 2 tab PO BID PRN PRN Reason: Constipation Sodium Chloride ([place] 0.65%) 0 ml EA NARE QIDPRN PRN PRN Reason: Nasal Congestion Sodium Chloride (Flush - Normal Saline) 10 ml IVF Q12HR [facility] Last Admin: 01/17/18 22:23 Dose: Not Given Sodium Chloride (Flush - Normal Saline) 10 ml IVF PRN PRN PRN Reason: Saline Flush Tramadol HCl (Ultram) 50 mg PO Q6H PRN PRN Reason: Moderate Pain (4-6) Last Admin: 01/15/18 14:45 Dose: 50 mg Zolpidem Tartrate (Ambien) 5 mg PO HSPRN PRN PRN Reason: Insomnia
[2018-01-18] MEDS: HumaLOG 300 UNITS/3 ML VIAL SC PRN ×2 (12:26→18:29)
[2018-01-18] MEDS: Furosemide 40 MG TAB PO SCH (13:05)
[2018-01-18] MEDS: Amiodarone 200 MG TAB PO SCH ×2 (13:06→21:11)
[2018-01-18] MEDS: Apixaban 5 MG TAB PO SCH ×2 (13:07→21:12)
[2018-01-18] MEDS: Amitriptyline HCl 25 MG TAB PO SCH (13:07)
[2018-01-18] MEDS: Metoprolol Tartrate 25 MG TAB PO SCH ×2 (13:08→21:11)
[2018-01-18] MEDS: Baclofen 10 MG TAB PO SCH ×3 (13:08→21:11)
[2018-01-18] MEDS: Potassium Chloride 20 MEQ TAB PO SCH (13:09)
--- NOTE | 2018-01-18 18:08 | PRG ---
DATE OF SERVICE: 01/18/2018 SUBJECTIVE: The patient is getting restless being in the hospital. Otherwise, no specific GI complaints. He is actually tolerating a regular diet fairly well without any significant dysphagia. There is no nausea, vomiting, or abdominal pain. OBJECTIVE: VITAL SIGNS: Temperature is 98.1, blood pressure 117/69, and pulse 63. GENERAL: He is alert, in no distress. HEENT: Head exam shows anicteric sclerae. Oropharynx clear. NECK: Supple. CV: Shows normal S1 and S2. Irregular rhythm. Regular rate. CHEST: Shows a breath sound. ABDOMEN: Soft and nontender. No distention. No palpable mass or organomegaly. No tenderness. EXTREMITIES: Exam shows no edema. LABORATORY DATA: WBCs 10.5, hemoglobin 12.4, and platelet count of 212. Sodium 136, potassium 3.2, chloride 102, CO2 of 23, creatinine 1.64, and BUN of 46. ASSESSMENT: 1. Atrial fibrillation, new onset, now on amiodarone and Eliquis and metoprolol, status post JOSIANE this morning. No cardioversion. 2. Severe mitral valve regurgitation. 3. Hypertension/hyperlipidemia/diabetes. 4. Congestive heart failure. 5. Dysphagia. Prior to admission, thus far, the patient has been tolerating diet without any significant swallowing problem. RECOMMENDATIONS: 1. In view of his lack of GI symptoms at this point and advanced cardiac problem, we would not proceed with any endoscopic evaluation unless symptoms return or worsen. 2. The patient is to follow up with GI in one month after discharge. Job ID: [id number]
[2018-01-18] MEDS ORDERED: Ezetimibe 10 MG TAB PO SCH (21:00)
[2018-01-18] MEDS ORDERED: Atorvastatin Calcium 40 MG TAB PO SCH (21:00)
--- NOTE | 2018-01-19 07:41 | ECHO ---
CARDIOLOGY PROCEDURE NOTE: Date: 01/18/18 PROCEDURE: Transesophageal echocardiogram. PROCEDURE DETAILS: This is a 77-year-old patient with atrial fibrillation, severe decrease in left ventricular systolic function, and coronary artery disease, who was advised to undergo electrical cardioversion of the atr ial fibrillation to increase cardiac output. He was advised to undergo a transesophageal echocardiogr am prior to the procedure to rule out evidence of left atrial or left atrial appendage thrombus. He was taken to the recovery area where he underwent short-acting Propofol. The transesophageal probe was easily passed down the distal esophagus. FINDINGS: 1. 0.9 x 0.6 cm thrombus noted in the left atrial appendage. 2. No evidence of left atrial thrombus. 3. No evidence of patent foramen ovale. 4. Severe mitral valve regurgitation. 5. Moderate tricuspid valve regurgitation. 6. Normal aortic valve without evidence of stenosis or regurgitation. 7. Severe decrease in left ventricular systolic function with global hypokinesis. Ejection fraction of 25%. There were no complications or difficulties encountered. The patient tolerated the procedure well. IMPRESSION: Unfortunate left atrial appendage thrombus. The patient was unable to undergo electrical cardioversio n due to the thrombus.
[2018-01-19 08:06] LABS: Anion Gap 15 mmol/L (10-20); BUN (Urea Nitrogen) 29 mg/dL (8.4-25.7); Calc. Creatinine Clearance 49 mL/min (70-130); Calcium 7.9 mg/dL (7.8-10.44); Carbon Dioxide 26 mmol/L (23-31); Chloride 102 mmol/L (98-107); Estimated GFR-MDRD 52; Glucose 187 mg/dL (83-110); Potassium 3.1 mmol/L (3.5-5.1); Sodium 140 mmol/L (136-145)
[2018-01-19] MEDS ORDERED: Insulin Glargine 16 UNITS in Pre-Filled Syringe 1 EACH SC SCH (09:00)
[2018-01-19] MEDS: Furosemide 40 MG TAB PO SCH (09:30)
[2018-01-19] MEDS: Amiodarone 200 MG TAB PO SCH (09:30)
[2018-01-19] MEDS: Metoprolol Tartrate 25 MG TAB PO SCH (09:30)
[2018-01-19] MEDS: Baclofen 10 MG TAB PO SCH ×2 (09:30→14:51)
[2018-01-19] MEDS: Apixaban 5 MG TAB PO SCH (09:31)
[2018-01-19] MEDS: Amitriptyline HCl 25 MG TAB PO SCH (09:31)
[2018-01-19] MEDS: HYDROcodone/Acetaminophen 5/325 mg Tablet PO PRN (09:31)
[2018-01-19] MEDS: Potassium Chloride 20 MEQ TAB PO SCH (09:31)
[2018-01-19] MEDS ORDERED: Potassium Chloride 20 MEQ TAB PO SCH (10:00)
[2018-01-19 10:24] LABS: Platelet Count 183 thou/uL (130-400)
--- NOTE | 2018-01-19 11:28 | PDOC.PN ---
- Subjective Encounter Start Date: 01/19/18 Encounter Start Time: 07:40 Patient seen and examined. No new complaints. No overnight events - Objective Resuscitation Status - Order Detail: 01/12/18 14:38 Resuscitation Status Routine Resuscitation Status: FULL: Full Resuscitation MAR Reviewed: Yes Vital Signs & Weight: Vital Signs (12 hours) Temp Pulse Resp BP Pulse Ox 01/19/18 09:28 97.9 F 96 16 130/73 90 L 01/19/18 04:00 97.2 F L 69 20 131/59 L 92 L Weight Weight 169 lb 9.6 oz I&O: 01/18/18 01/19/18 01/20/18 06:59 06:59 06:59 Intake Total 240 1410 Output Total 525 2275 Balance -285 -865 Result Diagrams: 01/19/18 10:06 01/19/18 10:06 Additional Labs: Accuchecks 01/18/18 01/18/18 01/15/18 16:57 05:51 10:56 POC Glucose 195 H 214 H 174 H EKG Reviewed by me: Yes Phys Exam - Physical Examination Constitutional: NAD HEENT: PERRLA, moist MMs, sclera anicteric Neck: no JVD, supple Respiratory: no wheezing, no rales, no rhonchi Cardiovascular: no rub, irregular sm+ Gastrointestinal: soft, non-tender, no distention, positive bowel sounds Musculoskeletal: no edema, pulses present Neurological: non-focal, normal sensation Psychiatric: normal affect, A&O x 3 Skin: no rash, normal turgor Dx/Plan (1) Atrial fibrillation with RVR Code(s): I48.91 - UNSPECIFIED ATRIAL FIBRILLATION Status: Acute Comment: now rate controlled (2) Dysphagia Code(s): R13.10 - DYSPHAGIA, UNSPECIFIED Status: Chronic (3) CAD (coronary artery disease) Code(s): I25.10 - ATHSCL HEART DISEASE OF [place] CORONARY ARTERY W/O ANG PCTRS Status: Chronic Qualifiers: Coronary Disease-Associated Artery/Lesion type: [place] artery Comment: 3 vessel cad, not a candidate for surgery, on medical therapy (4) Diabetes type 2, controlled Code(s): E11.9 - TYPE 2 DIABETES MELLITUS WITHOUT COMPLICATIONS Status: Chronic (5) GERD (gastroesophageal reflux disease) Code(s): K21.9 - GASTRO-ESOPHAGEAL REFLUX DISEASE WITHOUT ESOPHAGITIS Status: Chronic (6) Dyslipidemia Code(s): E78.5 - HYPERLIPIDEMIA, UNSPECIFIED Status: Chronic (7) Ischemic cardiomyopathy Code(s): I25.5 - ISCHEMIC CARDIOMYOPATHY Status: Chronic Comment: with EF 35 to 40% (8) Acute kidney failure Status: Acute Comment: likely due to contrast (9) Severe mitral regurgitation Code(s): I34.0 - NONRHEUMATIC MITRAL (VALVE) INSUFFICIENCY Status: Chronic Comment: not a candidate for surgery, on medical therapy (10) Chronic systolic heart failure, ACC/AHA stage C Code(s): I50.22 - CHRONIC SYSTOLIC (CONGESTIVE) HEART FAILURE Status: Chronic (11) Thrombus of left atrial appendage Code(s): I51.3 - INTRACARDIAC THROMBOSIS, NOT ELSEWHERE CLASSIFIED Status: Acute - Plan cont current plan of care * medication reviewed as below * symptomatic treatment * continue elliquis * stable for discharge after life vest. Review of Systems - Review of Systems ENT: negative: Ear Pain, Ear Discharge, Nose Pain, Nose Discharge, Nose Congestion, Mouth Pain, Mouth Swelling, Throat Pain, Throat Swelling, Other Respiratory: negative: Cough, Dry, Shortness of Breath, Hemoptysis, SOB with Excertion, Pleuritic Pain, Sputum, Wheezing Cardiovascular: negative: chest pain, palpitations, orthopnea, paroxysmal nocturnal dyspnea, edema, light headedness, other Gastrointestinal: negative: Nausea, Vomiting, Abdominal Pain, Diarrhea, Constipation, Melena, Hematochezia, Other Genitourinary: negative: Dysuria, Frequency, Incontinence, Hematuria, Retention , Other Musculoskeletal: negative: Neck Pain, Shoulder Pain, Arm Pain, Back Pain, Hand Pain, Leg Pain, Foot Pain, Other - Medications/Allergies Allergies/Adverse Reactions: Allergies Allergy/AdvReac Type Severity Reaction Status Date / Time No Known Allergies Allergy Verified 01/12/18 17:56 Medications: Current Medications Acetaminophen (Tylenol) 650 mg PO Q4H PRN PRN Reason: Headache/Fever/Mild Pain (1-3) Last Admin: 01/17/18 22:23 Dose: 650 mg Acetaminophen/Codeine Phosphate (Tylenol #3) 1 tab PO Q4H PRN PRN Reason: Mild Pain (1-3) Acetaminophen/Codeine Phosphate (Tylenol #3) 2 tab PO Q4H PRN PRN Reason: Moderate Pain (4-6) Hydrocodone Bitart/Acetaminophen ([place] 5/325) 1 tab PO Q4H PRN PRN Reason: Moderate Pain (4-6) Last Admin: 01/19/18 09:31 Dose: 1 tab Amiodarone HCl (Cordarone) 400 mg PO BID [facility] Last Admin: 01/19/18 09:30 Dose: 400 mg Amitriptyline HCl (Elavil) 25 mg PO DAILY [facility] Last Admin: 01/19/18 09:31 Dose: 25 mg Apixaban (Eliquis) 5 mg PO BID [facility] Last Admin: 01/19/18 09:31 Dose: 5 mg Artificial Tears (Tears Naturale) 2 drop EA EYE PRN PRN PRN Reason: Dry Eyes Aspirin (Aspirin Chewable) 81 mg PO DAILY [facility] Last Admin: 01/19/18 09:30 Dose: 81 mg Atorvastatin Calcium (Lipitor) 80 mg PO HS [facility] Last Admin: 01/18/18 21:12 Dose: 80 mg Baclofen (Lioresal) 10 mg PO TID [facility] Last Admin: 01/19/18 09:30 Dose: 10 mg Bisacodyl (Dulcolax) 10 mg PO DAILYPRN PRN PRN Reason: Constipation Bisacodyl (Dulcolax) 10 mg MO DAILYPRN PRN PRN Reason: Constipation Calcium Carbonate (Tums) 1,000 mg PO Q4H PRN PRN Reason: Heartburn or Indigestion Dextrose/Water (Dextrose 50%) 25 gm IVP PRN PRN PRN Reason: HYPOGLYCEMIA PROTOCOL Ezetimibe (Zetia) 10 mg PO HS [facility] Last Admin: 01/18/18 21:11 Dose: 10 mg Furosemide (Lasix) 40 mg PO DAILY-AC [facility] Last Admin: 01/19/18 09:30 Dose: 40 mg Glucagon (Glucagon) 1 mg IM PRN PRN PRN Reason: HYPOGLYCEMIA PROTOCOL Guaifenesin (Robitussin Sf) 200 mg PO Q4H PRN PRN Reason: Cough Dextrose/Water (D5w) 1,000 mls @ 0 mls/hr IV INF PRN PRN Reason: HYPOGLYCEMIA PROTOCOL Insulin Glargine 16 units/ (Miscellaneous Medication) 0.16 mls @ 0 mls/hr SC QAM [facility] Last Admin: 01/19/18 09:30 Dose: 0.16 mls Insulin Human Lispro (Humalog) 0 units SC .MILD SLIDING SCALE PRN; Protocol PRN Reason: MILD SLIDING SCALE Last Admin: 01/18/18 18:29 Dose: 2 unit Labetalol HCl (Normodyne) 20 mg SLOW IVP Q4H PRN PRN Reason: SBP > 180 and HR >/= 70 Loperamide HCl (Imodium) 2 mg PO PRN PRN PRN Reason: Diarrhea/Loose Stools Loratadine (Claritin) 10 mg PO DAILYPRN PRN PRN Reason: Sinus Symptoms Metoclopramide HCl (Reglan) 10 mg IVP Q6H PRN PRN Reason: Nausea/Vomiting Last Admin: 01/15/18 01:33 Dose: 10 mg Metoprolol Tartrate (Lopressor) 25 mg PO BID [facility] Last Admin: 01/19/18 09:30 Dose: 25 mg Mineral Oil/White Petrolatum (Eucerin Cream) 0 gm TOP BIDPRN PRN PRN Reason: Dry Skin Nitroglycerin (Nitrostat) 0.4 mg SL Q5MIN PRN PRN Reason: Chest Pain Ondansetron HCl (Zofran Odt) 4 mg PO Q6H PRN PRN Reason: Nausea/Vomiting Ondansetron HCl (Zofran) 4 mg IVP Q6H PRN PRN Reason: Nausea/Vomiting Last Admin: 01/15/18 06:37 Dose: 4 mg Pantoprazole Sodium (Protonix) 40 mg PO DAILY [facility] Last Admin: 01/19/18 09:30 Dose: 40 mg Potassium Chloride (K-Dur) 20 meq PO DAILY [facility] Last Admin: 01/19/18 09:31 Dose: 20 meq Potassium Chloride (K-Dur) 40 meq PO 1000 [facility] Stop: 01/19/18 12:00 Last Admin: 01/19/18 10:17 Dose: 40 meq Quetiapine Fumarate (Seroquel) 25 mg PO HS [facility] Last Admin: 01/18/18 21:11 Dose: 25 mg Senna/Docusate Sodium (Senokot S) 2 tab PO BID PRN PRN Reason: Constipation Sodium Chloride ([place] Nasal [place] 0.65%) 0 ml EA NARE QIDPRN PRN PRN Reason: Nasal Congestion Sodium Chloride (Flush - Normal Saline) 10 ml IVF Q12HR [facility] Last Admin: 01/19/18 09:31 Dose: 10 ml Sodium Chloride (Flush - Normal Saline) 10 ml IVF PRN PRN PRN Reason: Saline Flush Tramadol HCl (Ultram) 50 mg PO Q6H PRN PRN Reason: Moderate Pain (4-6) Last Admin: 01/15/18 14:45 Dose: 50 mg Zolpidem Tartrate (Ambien) 5 mg PO HSPRN PRN PRN Reason: Insomnia
--- NOTE | 2018-01-19 14:14 | DIS ---
DATE OF ADMISSION: 01/14/2018 DATE OF DISCHARGE: 01/19/2018 PRIMARY CARE PHYSICIAN: Dr. Geoff Merino. DISCHARGE DISPOSITION: Home. PRIMARY DISCHARGE DIAGNOSES: 1. Acute kidney failure, improved. 2. Atrial fibrillation with rapid ventricular response, controlled. 3. Thrombus of left atrial appendage. 4. Acute on chronic systolic congestive heart failure, ACC stage C. 5. Severe mitral regurgitation. 6. Delirium, resolved. SECONDARY DISCHARGE DIAGNOSES: 1. Severe mitral regurgitation. 2. Ischemic cardiomyopathy. 3. Coronary artery disease. 4. Gastroesophageal reflux disease. 5. Dyslipidemia. 6. Diabetes, type 2. 7. Chronic systolic and diastolic heart failure. 8. ACC, stage C. PRIMARY PROCEDURE/OPERATION: Cardiac catheterization showed 3-vessel coronary artery disease. RADIOLOGICAL INVESTIGATION: Chest x-ray showed pulmonary vascular congestion. Echocardiography showed initially EF of 35% to 40% and repeat echocardiography showed ejection fraction of 25%. Cardiac catheterization showed 3-vessel coronary artery disease. Transesophageal echocardiography showed left atrial appendage thrombus. SIGNIFICANT LABORATORY DATA: WBC 10.5, hemoglobin 12.0, and platelet 183. INR 1.3. Sodium 140, potassium 3.1, BUN 29, creatinine 1.18, and calcium 7.9. Urinalysis normal. Stool for guaiac negative. DISCHARGE MEDICATIONS: 1. Elavil 25 mg p.o. daily. 2. Lipitor 80 mg p.o. at bedtime. 3. Baclofen 10 mg t.i.d. 4. Zetia 10 mg p.o. at bedtime. 5. Pepcid 40 mg p.o. at bedtime p.r.n. 6. Tresiba 16 units subcu daily. 7. Protonix 40 mg daily. 8. Amiodarone 400 mg p.o. b.i.d. for two weeks, then 200 mg p.o. b.i.d. 9. Eliquis 5 mg p.o. b.i.d. 10. Aspirin 81 mg daily. 11. Lasix 40 mg daily. 12. Lisinopril 5 mg daily. 13. Toprol XL 25 mg daily. 14. Aldactone 25 mg daily. CONTRAINDICATION: None. CODE STATUS: Full code. INPATIENT CONSULTANTS: 1. Dr. Ortega was following while in the hospital. 2. Dr. Sanchez was following while in the hospital. 3. Dr. Bridges was consulted while in the hospital. TEST RESULTS PENDING ON DISCHARGE: None. ALLERGIES: NO KNOWN DRUG ALLERGIES. DISCHARGE PLAN: Posthospital, the patient will follow up with primary care physician in 1 week. The patient will follow up with Cardiology as instructed. HOSPITAL COURSE: A 77-year-old male who was scheduled outpatient basis for upper and lower endoscopy by Dr. Ortega, but the patient was found with atrial fibrillation with RVR and that is why he was sent to ER. The patient was having palpitation and mild shortness of breath. A chest x-ray showed cardiomegaly and pulmonary vascular congestion. He had elevated BNP. We treated him with Cardizem drip. Cardiology was consulted. Cardiology did echocardiography and found with ischemic cardiomyopathy. Cardiology changed Cardizem drip to amiodarone drip. The patient was scheduled for stress test, but he did not finish complete stress test and that is why Cardiology did cardiac cath and found with 3-vessel coronary artery disease. Cardiovascular surgeon was consulted for evaluation of CABG and mitral valve replacement, but they recommended that the patient is not a candidate for any surgical therapy and that is why medical therapy was advised. He remained in atrial fibrillation, but rate was under control. He had transesophageal echocardiography, which showed left atrial appendage and that is why cardioversion was not done. The patient kept on Eliquis therapy and above-mentioned medication for heart failure. The patient is currently euvolemic and he is on room air. He is tolerating p.o. well and hemodynamically stable. This patient will follow up with Cardiology in 1 month. At that time, he will have repeat JOSIANE versus transechocardiography and then they will decide about cardioversion. This patient is not a candidate for surgical intervention and that is why he is on medical therapy. While in hospital, he had 1 episode of delirium that was improved. The patient does not want to go to rehab or any kind of placement and that is why patient is discharged to home. All new medication prescription above sent to his pharmacy. The patient is seen and examined at bedside today. Please see my progress note from today for further detail. Job ID: [id number]
[2018-01-19 15:59] VITALS: BP 129/78; TEMP 97.1
== END 2018-01-19 16:50 | disposition home or self-care (01) | DRG 287 ==
LOC: ERS 11:54 → ERHOLD 13:59 → 2SW 17:25 → OBSVTOIN 01-14 07:52 → 2NO 01-14 20:12
PROVIDERS: ADMIT Internal Medicine; ATTEND Internal Medicine
PROC: 4A023N8 Measurement of Cardiac Sampling and Pressure, Bilateral, Percutaneous Approach (ICD-10-PCS; principal; 2018-01-15)
PROC: B2111ZZ Fluoroscopy of Multiple Coronary Arteries using Low Osmolar Contrast (ICD-10-PCS; 2018-01-15)
PROC: 3E083KZ Introduction of Other Diagnostic Substance into Heart, Percutaneous Approach (ICD-10-PCS; 2018-01-15)
PROC: 4A1239Z Monitoring of Cardiac Output, Percutaneous Approach (ICD-10-PCS; 2018-01-15)
DX: I48.91 Unspecified atrial fibrillation (principal); N17.9 Acute kidney failure, unspecified; I50.42 Chronic combined systolic (congestive) and diastolic (congestive) heart failure; I25.10 Atherosclerotic heart disease of native coronary artery without angina pectoris; R13.10 Dysphagia, unspecified; I11.0 Hypertensive heart disease with heart failure; E11.9 Type 2 diabetes mellitus without complications; I25.2 Old myocardial infarction; K21.9 Gastro-esophageal reflux disease without esophagitis; I27.20 Pulmonary hypertension, unspecified; E78.00 Pure hypercholesterolemia, unspecified; I34.0 Nonrheumatic mitral (valve) insufficiency; I51.3 Intracardiac thrombosis, not elsewhere classified; R19.4 Change in bowel habit; R63.4 Abnormal weight loss; R41.0 Disorientation, unspecified; M54.5 Low back pain; G89.29 Other chronic pain; I25.5 Ischemic cardiomyopathy; F41.8 Other specified anxiety disorders; Z68.25 Body mass index [BMI] 25.0-25.9, adult; Z85.46 Personal history of malignant neoplasm of prostate; Z95.5 Presence of coronary angioplasty implant and graft; Z79.4 Long term (current) use of insulin
CPT/HCPCS: 36415; 36416; 71045; 78451; 80048; 80061; 81001; 82274; 82550; 82553; 83880; 84443; 84484; 85014; 85018; 85025; 85049; 85347; 85610; 85730; 86850; 86900; 86901; 92960; 93005; 93306; 93312; 93460; 93561; 93798; 94760; 96365; 96366; 96376; 99152; 99153; A9500; C1769; J0282; J1644; J1650; J2001; J2250; J2405; J2704; J2765; J3010; J7050; J7070

== ENCOUNTER 2018-01-25 13:58 | Inpatient (IN) | payer MEDICARE, OTHER ==
[2018-01-25 14:46] LABS: #Basophils 0.1 thou/uL (0.0-0.2); #Eosinphils 0.1 thou/uL (0.0-0.7); #Lymphocytes 3.6 thou/uL (1.20-3.40); #Monocytes 0.8 thou/uL (0.11-0.59); #Neutrophils 6.8 thou/uL (1.40-6.50); %Basophils 1.1 % (0.0-1.0); %Eosinophils 0.6 % (0.0-10.0); %Lymphocytes 31.4 % (21.0-51.0); %Monocytes 6.6 % (0.0-10.0); %Neutrophils 60.3 % (42.0-75.0); Hemoglobin 15.3 g/dL (14.0-18.0); Mean Corpuscular HGB CONC 30.5 g/dL (32.0-36.0); Mean Corpuscular Hemoglobin 24.7 pg (27.0-31.0); Mean Corpuscular Volume 80.8 fL (78.0-98.0); Mean Platelet Volume 9.3 fL (7.4-10.4); Platelet Count 269 thou/uL (130-400); RBC Distribution Width 15.6 % (11.5-14.5); Red Blood Cell (RBC) Count 6.21 mill/uL (4.70-6.10); White Blood Cell (WBC) Count 11.3 thou/uL (4.8-10.8)
[2018-01-25 15:03] LABS: Digoxin Less than 0.15 ng/mL (0.8-2.0)
[2018-01-25 15:05] LABS: ALT (SGPT) 223 U/L (8-55); AST (SGOT) 57 U/L (5-34); Albumin 4.4 g/dL (3.4-4.8); Alkaline Phosphatase 160 U/L (40-150); Anion Gap 18 mmol/L (10-20); BUN (Urea Nitrogen) 27 mg/dL (8.4-25.7); Bilirubin, Total 2.7 mg/dL (0.2-1.2); CK (CPK) 27 U/L (30-200); Calc. Creatinine Clearance 0 mL/min (70-130); Calcium 9.6 mg/dL (7.8-10.44); Carbon Dioxide 26 mmol/L (23-31); Chloride 98 mmol/L (98-107); Estimated GFR-MDRD 38; Glucose 124 mg/dL (83-110); Potassium 3.6 mmol/L (3.5-5.1); Protein, Total 7.4 g/dL (5.8-8.1); Sodium 138 mmol/L (136-145)
--- NOTE | 2018-01-25 15:20 | RAD ---
UPRIGHT PORTABLE CHEST ONE VIEW: History: 77-year-old male with history of weakness. Comparison: 01-17-18 FINDINGS: Monitor leads overlie the chest. There is a question of a nodular density overlying the right costoph renic angle. There is no confluent pneumonia, overt edema, or pleural effusion. IMPRESSION: Some artifact overlying the right costophrenic angle with a question of a nodular density. I would watts ggest consideration for a follow up upright PA and lateral. If this nodular density persists on that study, then I would consider a follow up chest CT scan for further assessment. No confluent pneumonia , overt edema, pleural effusion or other acute process. Code lung nodule. POS: [facility]
[2018-01-25] MEDS ORDERED: Ondansetron PF 4 MG/2 ML Vial ONE (16:09)
[2018-01-25 16:30] LABS: Bilirubin Small (Negative); Blood, Urine Negative (Negative); Clarity CLEAR (Clear); Glucose, Urine (Dipstick) Negative (Negative); Leukocyte Negative (Negative); Nitrite Negative (Negative); Protein, Urine (Dipstick) Trace mg/dL (Neg-Trace); Specific Gravity, Urine 1.015 (1.002-1.036); pH, Urine 6.5 (5.0-9.0)
--- NOTE | 2018-01-25 16:50 | ULT ---
ULTRASOUND GALLBLADDER RIGHT UPPER QUADRANT: Date: 01/25/18 HISTORY: Abdominal pain. Ultrasound dated 03/25/17. TECHNIQUE: Real-time Thomas with color evaluation of the right upper quadrant of the abdomen was performed. FINDINGS: Visualized portions of the pancreas unremarkable. The previously noted echogenic focus in the right l obe of the liver is not seen on today's [id number]. Gallbladder is unremarkable. No cholelithiasis. Septated right intrapolar renal cystic structure has not grown. No renal mass, hydronephrosis, or abnormal calcifications. Liver measures 11.2 cm in length. Gallbladder wall thickness is normal. Negative sonographic Drake's sign. Common bile duct measures 4.0 mm. Small right effusion. IMPRESSION: Unchanged septated right renal cyst, for which a follow-up in 6 months-1 year is recommended. POS: [facility]
[2018-01-25 17:11] LABS: INR-International Normal Ratio 1.9; PTT 38.5 SEC (22.9-36.1); Prothrombin Time 21.6 SEC (12.0-14.7)
[2018-01-25 18:36] LABS: Troponin I Less than 0.010 ng/mL (< 0.028)
[2018-01-25 21:09] LABS: Troponin I 0.022 ng/mL (< 0.028)
[2018-01-25] MEDS ORDERED: Acetaminophen 650 MG Suppository PR PRN (21:31)
[2018-01-25] MEDS ORDERED: Senokot S 8.6-50 MG TAB PO PRN (21:31)
[2018-01-25] MEDS ORDERED: Ondansetron ODT 4 MG TAB PO PRN (21:31)
[2018-01-25] MEDS ORDERED: Zolpidem Tartrate 5 MG TAB PO PRN (21:31)
[2018-01-25] MEDS ORDERED: Dextrose 5% in Water 1,000 ML IV PRN (21:31)
[2018-01-25] MEDS ORDERED: Dextrose 50% Abboject 50 ML SYRINGE SLOW IVP PRN (21:31)
[2018-01-25] MEDS ORDERED: Bisacodyl 5 MG TAB PO PRN (21:31)
[2018-01-25] MEDS ORDERED: Acetaminophen 325 MG TAB PO PRN (21:31)
[2018-01-25] MEDS ORDERED: Ondansetron PF 4 MG/2 ML Vial IVP PRN (21:31)
[2018-01-25] MEDS ORDERED: HumaLOG 300 UNITS/3 ML VIAL SC PRN (21:31)
[2018-01-25] MEDS: Sodium Chloride 0.9% 1,000 ML IV SCH (23:06)
[2018-01-25] MEDS ORDERED: Amiodarone 200 MG TAB PO SCH (23:15)
[2018-01-25] MEDS ORDERED: Atorvastatin Calcium 40 MG TAB PO SCH (23:30)
[2018-01-25] MEDS ORDERED: Ezetimibe 10 MG TAB PO SCH (23:30)
[2018-01-25] MEDS ORDERED: Apixaban 5 MG TAB PO SCH (23:30)
[2018-01-25] MEDS ORDERED: Amitriptyline HCl 25 MG TAB PO SCH (23:30)
[2018-01-26] MEDS ORDERED: Amiodarone 200 MG TAB PO SCH ×2 (01:00→09:00)
[2018-01-26] MEDS: Sodium Chloride 0.9% 1,000 ML IV SCH ×4 (04:41→20:56)
--- NOTE | 2018-01-26 08:20 | HP ---
CHIEF COMPLAINT: Generalized weakness. HISTORY OF PRESENT ILLNESS: This is a 77-year-old male with past medical history of chronic back pain, diabetes mellitus type 2, hyperlipidemia, hypertension, and coronary artery disease, status post stents, presenting with generalized weakness. Per the patient, he has been having generalized weakness for the past 3 weeks and this is not new for him. The patient states that he has been very weak and he has declined in his condition. The patient was actually recently in the hospital and the patient was actually diagnosed with acute kidney injury, and the patient was managed and the patient felt better and the patient was discharged. Now, the patient is coming in with underlying dehydration and weakness. At this point, the patient denies having any discomfort, any pain, any fevers, nausea, vomiting, palpitations, chest pain, abdominal pain, hematuria, or hematochezia. However, the patient endorses having some back pain due to his history of chronic back pain and feeling generalized weakness. The patient states that he feels so weak that he has not been able to put his pants on. REVIEW OF SYSTEMS: Positive for decreased appetite, generalized weakness, and some confusion. Otherwise as documented in the HPI, all other systems were reviewed and are negative. PAST MEDICAL HISTORY: Chronic back pain, coronary artery disease, status post stents, hyperlipidemia, hypertension, and diabetes mellitus type 2. FAMILY HISTORY: Reviewed and noncontributory to this visit. PAST SURGICAL HISTORY: Coronary artery disease, status post stents; neck surgery x3; prostatectomy. PSYCHIATRIC HISTORY: Depression. SOCIAL HISTORY: Denies any social history. ALLERGIES: NO KNOWN DRUG ALLERGIES. CURRENT MEDICATIONS: The patient takes, 1. Potassium chloride 20 mEq. 2. Atorvastatin 80 mg. 3. Eliquis 5 mg. 4. Aspirin 81 mg. 5. Furosemide 40 mg. 6. Metoprolol. 7. Lisinopril. 8. Spironolactone. 9. Amitriptyline. 10. Amiodarone. PHYSICAL EXAMINATION: VITAL SIGNS: The patient's blood pressure is 109/55, heart rate is 89, respiratory rate of 18, O2 saturation of 100. GENERAL: The patient appears weak, lying in bed, able to speak in full sentences. Does not appear to be in any acute distress. HEENT: Normocephalic, atraumatic. Pupils are equally round and reactive to light. Extraocular muscle movements are intact. No scleral icterus. No conjunctival pallor. Mucous membranes are moist. NECK: Trachea is midline. Full range of motion. No JVD. Supple. LUNGS: Clear to auscultation bilaterally. No wheezing, no rales, no rhonchi appreciated. CARDIAC: Positive S1 and S2. Regular rate and rhythm. No murmurs, no gallops, no rubs appreciated. ABDOMEN: Soft, nontender, and nondistended. Positive bowel sounds in all quadrants. No peritoneal signs. EXTREMITIES: Upper extremity, the patient does have 5/5 upper extremity strength and 5/5 lower extremity strength, and good pulses bilaterally in the upper and lower extremities bilaterally. No lesions. No edema noted. NEUROLOGIC: Cranial nerves 2 through 12 grossly intact. SKIN: Warm, dry, and pale. DIAGNOSTIC DATA: Ultrasound of the abdomen shows no obstructive cholelithiasis, no nonobstructive cholelithiasis, no cholecystitis, no thickened gallbladder wall. Small bowel duct is less than 5 mm. There is a right renal septated cyst. LABORATORY DATA: WBC is 11.3, hemoglobin is 15.3, hematocrit is 50.2, platelet count is 269. Coagulation PT is 21.6, INR is 1.9, PTT is 38.5. Creatinine is 1.76, BUN is 27, glucose is 124. Lactic acid of 1.9. AST is 57, ALT is 223, alkaline phosphatase is 160, creatine kinase is 27. Urinalysis is negative. Digoxin is less than 0.15. ASSESSMENT AND PLAN: This is a 77-year-old male being admitted for, 1. Acute on chronic renal failure. At this time, the patient's creatinine is elevated at 1.76. We will start the patient on IV fluids. We are going to try and monitor the patient's creatinine until the patient gets to his baseline. If the patient is not responding to fluids, then we will consult Nephrology for further recommendations. 2. Generalized weakness, likely due to deconditioning. At this point, the patient states that he will prefer that he goes to rehab and get some physical therapy. We will get binder caser on the case and we will work on the patient getting some rehab in the outpatient setting. 3. Diabetes mellitus type 2, controlled. At this time, we will continue to monitor the patient's blood sugars. 4. Hypertension, controlled. At this point, we will continue the patient on current management. 5. Coronary artery disease, status post stents. At this point, the patient is stable. We will continue the patient on his current medical regimen. 6. Deep vein thrombosis/gastrointestinal prophylaxis. Job ID: [id number]
[2018-01-26 08:23] LABS: #Basophils 0.1 thou/uL (0.0-0.2); #Eosinphils 0.1 thou/uL (0.0-0.7); #Lymphocytes 3.3 thou/uL (1.20-3.40); #Monocytes 0.9 thou/uL (0.11-0.59); #Neutrophils 6.1 thou/uL (1.40-6.50); %Basophils 0.7 % (0.0-1.0); %Eosinophils 0.5 % (0.0-10.0); %Lymphocytes 31.8 % (21.0-51.0); %Monocytes 8.6 % (0.0-10.0); %Neutrophils 58.5 % (42.0-75.0); Hemoglobin 12.7 g/dL (14.0-18.0); Mean Corpuscular HGB CONC 29.5 g/dL (32.0-36.0); Mean Corpuscular Hemoglobin 24.3 pg (27.0-31.0); Mean Corpuscular Volume 82.5 fL (78.0-98.0); Mean Platelet Volume 9.5 fL (7.4-10.4); Platelet Count 212 thou/uL (130-400); RBC Distribution Width 15.6 % (11.5-14.5); Red Blood Cell (RBC) Count 5.22 mill/uL (4.70-6.10); White Blood Cell (WBC) Count 10.4 thou/uL (4.8-10.8)
[2018-01-26] MEDS: Famotidine 20 MG TAB PO SCH (08:28)
[2018-01-26] MEDS: Amiodarone 200 MG TAB PO SCH ×2 (08:28→20:56)
[2018-01-26] MEDS: Apixaban 5 MG TAB PO SCH ×2 (08:29→20:55)
[2018-01-26] MEDS: Famotidine/PF 20 mg/2ml Vial SLOW IVP SCH (08:29)
[2018-01-26 08:50] LABS: Acanthocytes SLIGHT = 1-5 cells (100X) (None Seen); Burr Cells MODERATE= 6-15 cells (100X) (0-1/hpf); MDiff Complete? YES; PLT Morphology Comment Appears Adequate; Polychromasia SLIGHT = 2-3 cells (100X) (0-2/hpf)
[2018-01-26 08:57] LABS: Anion Gap 14 mmol/L (10-20); BUN (Urea Nitrogen) 30 mg/dL (8.4-25.7); Calc. Creatinine Clearance 37 mL/min (70-130); Calcium 8.3 mg/dL (7.8-10.44); Carbon Dioxide 23 mmol/L (23-31); Chloride 103 mmol/L (98-107); Estimated GFR-MDRD 43; Glucose 110 mg/dL (83-110); Potassium 3.8 mmol/L (3.5-5.1); Sodium 136 mmol/L (136-145)
[2018-01-26] MEDS ORDERED: Baclofen 10 MG TAB PO SCH (09:00)
--- NOTE | 2018-01-26 12:28 | EKG ---
Test Reason : Blood Pressure : / mmHG Vent. Rate : 090 BPM Atrial Rate : 087 BPM P-R Int : 000 ms QRS Dur : 088 ms QT Int : 396 ms P-R-T Axes : 000 031 266 degrees QTc Int : 484 ms Atrial fibrillation Possible Anterior infarct , age undetermined Abnormal ECG Confirmed by KAREN VENCES MD ([id number]), deputy editor in chief HAMIDA TOBIN ([id number] on 01/26/2018 12:28:06 PM Referred By: Confirmed By:KAREN VENCES MD
[2018-01-26] MEDS: HumaLOG 300 UNITS/3 ML VIAL SC PRN (17:37)
--- NOTE | 2018-01-26 17:37 | PDOC.PN ---
- Subjective Encounter Start Date: 01/26/18 Encounter Start Time: 17:25 Subjective: f/u for gen weakness, MARISOL, transaminitis. Feels better with IVF's -: and supportive mgmt. No CP, SOB. Has not ambulated today. + BM - Objective Resuscitation Status - Order Detail: 01/25/18 21:31 Resuscitation Status Routine Resuscitation Status: FULL: Full Resuscitation MAR Reviewed: Yes Vital Signs & Weight: Vital Signs (12 hours) Temp Pulse Resp BP Pulse Ox 01/26/18 16:03 98.1 F 88 16 100/59 L 100 01/26/18 11:35 97.9 F 87 14 102/57 L 100 01/26/18 07:37 97.9 F 85 17 103/59 L 99 Weight Admit Weight 152 lb 14.4 oz Weight 152 lb 14.4 oz I&O: 01/25/18 01/26/18 01/27/18 06:59 06:59 06:59 Intake Total 1388 Output Total 500 Balance 888 Result Diagrams: 01/26/18 07:45 01/26/18 07:45 Additional Labs: Accuchecks 01/26/18 01/26/18 11:58 05:56 POC Glucose 184 H 131 H Microbiology 01/25/18 16:12 Urine clean catch Urine Culture - Preliminary NO GROWTH AT 24 HOURS 01/25/18 14:25 Venous blood - Right Hand Blood Culture - Preliminary Specimen has been received and culture in progress. No Growth to date. 01/25/18 14:19 Venous blood - Left Arm Blood Culture - Preliminary Specimen has been received and culture in progress. No Growth to date. Laboratory Tests 04/15/17 01/25/18 01/25/18 10:23 14:17 14:17 WBC 11.3 H PT INR Creatinine 1.76 H Lactic Acid Total Bilirubin 0.6 2.7 H AST 14 57 H ALT 10 223 H Lipase 01/25/18 01/25/18 01/25/18 14:17 14:17 14:19 WBC PT 21.6 H INR 1.9 Creatinine Lactic Acid 1.9 Total Bilirubin AST ALT Lipase 18 Radiology Reviewed by me: Yes (PCXR - no acute infiltrate, ? nodular density in RLL) EKG Reviewed by me: Yes (Tele - A-fib) Phys Exam - Physical Examination ill-appearing, alert, responsive HEENT: PERRLA, sclera anicteric, oral pharynx no lesions Neck: no nodes, no JVD, supple, full ROM Respiratory: no wheezing, no rales, no rhonchi, clear to auscultation bilateral II/ HAJA in RUSB, S1, S2 Cardiovascular: no rub, irregular Gastrointestinal: soft, non-tender, no distention, positive bowel sounds Musculoskeletal: no edema, pulses present Neurological: normal sensation, moves all 4 limbs Psychiatric: A&O x 3 Skin: normal turgor, cap refill <2 seconds Dx/Plan (1) Acute kidney failure Status: Acute Comment: Likely iatrogenic with diuretic use, continue IVF's NS 50ml/h, avoid nephrotoxic meds and limit contrast (2) Generalized weakness Code(s): R53.1 - WEAKNESS Status: Chronic Comment: Multifactorial, PT for functional assessment (3) Chronic anticoagulation Code(s): Z79.01 - DE ICER ELEMENT WINDER (CURRENT) USE OF ANTICOAGULANTS Status: Chronic Comment: Continue Eliquis, serial monitoring (4) Transaminitis Code(s): R74.0 - NONSPEC ELEV OF LEVELS OF TRANSAMNS & LACTIC ACID DEHYDRGNSE Status: Acute Comment: ? etiology, check acute hepatitis panel, d/c Lipitor, ? hepatic congestion due to CHF hx (5) Thrombus of left atrial appendage Code(s): I51.3 - INTRACARDIAC THROMBOSIS, NOT ELSEWHERE CLASSIFIED Status: Chronic Comment: Continue Eliquis (6) Chronic systolic heart failure, ACC/AHA stage C Code(s): I50.22 - CHRONIC SYSTOLIC (CONGESTIVE) HEART FAILURE Status: Chronic Comment: compensated currently, continue supportive mgmt, hold Lasix due to MARISOL - Plan PT/OT, outreach and education social worker, out of bed/ambulate continue supportive mgmt -: d/c Lipitor -: Hold Lasix -: Decrease IVF 50ml/h -: AM lab: BNP, CMP, Hepatitis panel * PA/Lat CXR to r/o nodular density
--- NOTE | 2018-01-26 19:16 | RAD ---
TWO VIEWS CHEST: 01/26/18 PROVIDED CLINICAL HISTORY: Followup nodule. FINDINGS: Comparison 01/25/18. The nodular density seen on the prior examination does not persist and was likely artifactual on prashant t study. The cardiac and mediastinal silhouette is unchanged in appearance. No focal consolidation, p leural fluid, or pneumothorax apparent. Some limitations in evaluation due to material overlying the patient. IMPRESSION: Nodular density previously described is not redemonstrated and is compatible with artifact on the scott or study. POS: [facility]
[2018-01-26] MEDS: Amitriptyline HCl 25 MG TAB PO SCH (20:55)
[2018-01-26] MEDS ORDERED: Ezetimibe 10 MG TAB PO SCH (21:00)
[2018-01-26] MEDS ORDERED: Atorvastatin Calcium 40 MG TAB PO SCH (21:00)
[2018-01-27 09:40] LABS: ALT (SGPT) 142 U/L (8-55); AST (SGOT) 44 U/L (5-34); Albumin 3.7 g/dL (3.4-4.8); Alkaline Phosphatase 141 U/L (40-150); Anion Gap 12 mmol/L (10-20); BUN (Urea Nitrogen) 29 mg/dL (8.4-25.7); Bilirubin, Total 1.9 mg/dL (0.2-1.2); Calc. Creatinine Clearance 39 mL/min (70-130); Calcium 8.6 mg/dL (7.8-10.44); Carbon Dioxide 25 mmol/L (23-31); Chloride 104 mmol/L (98-107); Estimated GFR-MDRD 43; Globulin 2.6 g/dL (2.4-3.5); Glucose 171 mg/dL (83-110); Potassium 3.9 mmol/L (3.5-5.1); Protein, Total 6.3 g/dL (5.8-8.1); Sodium 137 mmol/L (136-145)
[2018-01-27] MEDS: Famotidine 20 MG TAB PO SCH (10:04)
[2018-01-27] MEDS: Amiodarone 200 MG TAB PO SCH ×2 (10:05→21:13)
[2018-01-27] MEDS: Famotidine/PF 20 mg/2ml Vial SLOW IVP SCH (10:05)
[2018-01-27] MEDS: Apixaban 5 MG TAB PO SCH ×2 (10:05→21:14)
[2018-01-27 10:26] LABS: HBCM Index 0.05 S/CO (0-0.79); HBSAg Index 0.21 S/CO (0-0.99); Hep A IgM AB Non-Reactive (NonReactive); Hep A IgM S/CO 0.37 S/CO (0-0.79); Hep B Surf Ag Non-Reactive S/CO (NonReactive); Hep C IgG Ab Non-Reactive (NonReactive); Hep C Index 0.07 S/CO (0-0.79); Hepatitis B Core IgM Abs Non-Reactive (NonReactive)
--- NOTE | 2018-01-27 10:44 | PDOC.PN ---
- Subjective Encounter Start Date: 01/27/18 Encounter Start Time: 10:35 Subjective: f/u for MARISOL, dehydration, general weakness. Feels better today. Appetite -: better. - Objective Resuscitation Status - Order Detail: 01/25/18 21:31 Resuscitation Status Routine Resuscitation Status: FULL: Full Resuscitation MAR Reviewed: Yes Vital Signs & Weight: Vital Signs (12 hours) Temp Pulse Resp BP BP Pulse Ox 01/27/18 08:00 97.5 F L 68 18 99/55 L 100 01/27/18 04:00 98.1 F 69 18 101/56 L 96 01/26/18 23:19 96 18 95/50 L 100 Weight Admit Weight 152 lb 14.4 oz Weight 160 lb 1.6 oz I&O: 01/26/18 01/27/18 01/28/18 06:59 06:59 06:59 Intake Total 1388 621 Output Total 500 450 Balance 888 171 Result Diagrams: 01/26/18 07:45 01/27/18 08:44 Additional Labs: Accuchecks 01/27/18 01/26/18 01/26/18 06:10 20:35 17:30 POC Glucose 156 H 251 H 307 H 01/26/18 11:58 POC Glucose 184 H Microbiology 01/25/18 16:12 Urine clean catch Urine Culture - Preliminary NO GROWTH AT 24 HOURS 01/25/18 14:25 Venous blood - Right Hand Blood Culture - Preliminary Specimen has been received and culture in progress. No Growth to date. 01/25/18 14:19 Venous blood - Left Arm Blood Culture - Preliminary Specimen has been received and culture in progress. No Growth to date. Laboratory Tests 04/15/17 01/25/18 01/25/18 10:23 14:17 14:17 WBC 11.3 H PT INR Creatinine 1.76 H Lactic Acid Total Bilirubin 0.6 2.7 H AST 14 57 H ALT 10 223 H Lipase 01/25/18 01/25/18 01/25/18 14:17 14:17 14:19 WBC PT 21.6 H INR 1.9 Creatinine Lactic Acid 1.9 Total Bilirubin AST ALT Lipase 18 Radiology Reviewed by me: Yes (PA/Lat CXR - no nodular density noted) EKG Reviewed by me: Yes (Tele - SR) Phys Exam - Physical Examination alert, responsive to questions HEENT: PERRLA, sclera anicteric, oral pharynx no lesions Neck: no nodes, no JVD, supple, full ROM Respiratory: no wheezing, no rales, no rhonchi, clear to auscultation bilateral II/ HAJA, S1, S2 Cardiovascular: irregular Gastrointestinal: soft, non-tender, no distention, positive bowel sounds Musculoskeletal: no edema, pulses present Neurological: normal sensation, moves all 4 limbs Psychiatric: A&O x 3 Skin: normal turgor, cap refill <2 seconds Dx/Plan (1) Acute kidney failure Status: Acute Comment: Likely iatrogenic with diuretic use, continue IVF's NS 50ml/h, avoid nephrotoxic meds and limit contrast (2) Generalized weakness Code(s): R53.1 - WEAKNESS Status: Chronic Comment: Multifactorial, PT for functional assessment (3) Chronic anticoagulation Code(s): Z79.01 - SHELTER (CURRENT) USE OF ANTICOAGULANTS Status: Chronic Comment: Continue Eliquis, serial monitoring (4) Transaminitis Code(s): R74.0 - NONSPEC ELEV OF LEVELS OF TRANSAMNS & LACTIC ACID DEHYDRGNSE Status: Acute Comment: ? etiology, d/c Lipitor, ? hepatic congestion due to CHF hx, improved, d/c Zetia, hepatitis panel pending (5) Thrombus of left atrial appendage Code(s): I51.3 - INTRACARDIAC THROMBOSIS, NOT ELSEWHERE CLASSIFIED Status: Chronic Comment: Continue Eliquis (6) Chronic systolic heart failure, ACC/AHA stage C Code(s): I50.22 - CHRONIC SYSTOLIC (CONGESTIVE) HEART FAILURE Status: Chronic Comment: compensated currently, continue supportive mgmt, hold Lasix due to MARISOL - Plan plan discussed w/ family, PT/OT, licensed master social worker, out of bed/ambulate, DVT proph w/SCDs Stable currently -: Continue low-volume IVF's -: d/c Zetia -: PT for mobilization -: Consider titrating beta-eleonora given hypotension * AM lab: CMP
[2018-01-27] MEDS: HumaLOG 300 UNITS/3 ML VIAL SC PRN ×2 (13:04→16:49)
[2018-01-27] MEDS: Sodium Chloride 0.9% 1,000 ML IV SCH (16:47)
[2018-01-27] MEDS: Amitriptyline HCl 25 MG TAB PO SCH (21:13)
[2018-01-28] MEDS ORDERED: Lorazepam 2 MG/ML VIAL ONE (04:50)
[2018-01-28] MEDS ORDERED: Lorazepam 2 MG/ML VIAL SLOW IVP SCH ×2 (05:15→23:00)
[2018-01-28] MEDS ORDERED: Ziprasidone 20 MG VIAL ONE (05:54)
[2018-01-28] MEDS ORDERED: Ziprasidone 20 MG VIAL IM SCH (06:00)
--- NOTE | 2018-01-28 06:42 | PDOC.EVN ---
Event Note - Event Note Event Note: I was notified by nursing that this patient had become confused and agitated. He was taking his walker and walked to the opposite end of the sinha to leave. He was not felt safe to try to traverse the stairs given his mobility issues and he was stopped by several nurses and taken back to his room. He was insistent that he was going home. His was standing in the hallway and the patient was yelling out at him "Your ass is mud!". On exam, the patient did not appear in any physical distress. He was kicking at the nurses and trying to stomp their feet everytime he thought they were not looking. I and the nurses attempted to redirect him as much as possible, but that was unsuccessful. He continued to try to force his way out. I spoke to his spouse , Arvin. He said this condusion and agitation happened when the patient was here previously. He said it also happens at home. He believes it is related to the Elavil. He has been trying to wean it down at home, but that was apparently not conveyed when he was admitted here and he has been getting a full dose. He was very amenable to giving the patient something to help with the agitation. He was given 1 mg of Ativan, but it was not clear that the IV was adequately functioning. He persisted in his agitation and he was given Geodon IM 20 mg x 1.
[2018-01-28 11:22] VITALS: BMI 25.3
[2018-01-28 12:57] LABS: ALT (SGPT) 107 U/L (8-55); AST (SGOT) 37 U/L (5-34); Albumin 3.3 g/dL (3.4-4.8); Alkaline Phosphatase 115 U/L (40-150); Anion Gap 12 mmol/L (10-20); BUN (Urea Nitrogen) 19 mg/dL (8.4-25.7); Bilirubin, Total 1.8 mg/dL (0.2-1.2); Calc. Creatinine Clearance 58 mL/min (70-130); Calcium 8.4 mg/dL (7.8-10.44); Carbon Dioxide 23 mmol/L (23-31); Chloride 107 mmol/L (98-107); Estimated GFR-MDRD 65; Globulin 2.4 g/dL (2.4-3.5); Glucose 157 mg/dL (83-110); Potassium 3.8 mmol/L (3.5-5.1); Protein, Total 5.7 g/dL (5.8-8.1); Sodium 138 mmol/L (136-145)
--- NOTE | 2018-01-28 14:48 | PDOC.PN ---
- Subjective Encounter Start Date: 01/28/18 Encounter Start Time: 14:35 Subjective: f/u for MARISOL, dehydration, AMS with combative episode overnight requiring -: Geodon/Ativan. Pt remains confused and slept most of the day until this -: pm. States he feels ok overall. - Objective Resuscitation Status - Order Detail: 01/25/18 21:31 Resuscitation Status Routine Resuscitation Status: FULL: Full Resuscitation MAR Reviewed: Yes Vital Signs & Weight: Vital Signs (12 hours) Temp Pulse Resp BP Pulse Ox 01/28/18 11:34 96.0 F L 87 16 137/82 100 01/28/18 08:00 95 01/28/18 07:26 97.7 F 93 18 109/67 18 L 01/28/18 05:12 89 16 128/70 100 01/28/18 04:00 130/60 Weight Admit Weight 152 lb 14.4 oz Weight 166 lb 14.4 oz I&O: 01/27/18 01/28/18 01/29/18 06:59 06:59 06:59 Intake Total 621 2008 Output Total 450 1000 Balance 171 1008 Result Diagrams: 01/26/18 07:45 01/28/18 12:09 Additional Labs: Accuchecks 01/28/18 01/28/18 01/27/18 10:58 05:41 20:14 POC Glucose 144 H 155 H 188 H 01/27/18 16:41 POC Glucose 184 H Microbiology 01/25/18 16:12 Urine clean catch Urine Culture - Preliminary NO GROWTH AT 24 HOURS 01/25/18 14:25 Venous blood - Right Hand Blood Culture - Preliminary Specimen has been received and culture in progress. No Growth to date. 01/25/18 14:19 Venous blood - Left Arm Blood Culture - Preliminary Specimen has been received and culture in progress. No Growth to date. Laboratory Tests 04/15/17 01/25/18 01/25/18 10:23 14:17 14:17 WBC 11.3 H PT INR Creatinine 1.76 H Lactic Acid Total Bilirubin 0.6 2.7 H AST 14 57 H ALT 10 223 H Lipase 01/25/18 01/25/18 01/25/18 14:17 14:17 14:19 WBC PT 21.6 H INR 1.9 Creatinine Lactic Acid 1.9 Total Bilirubin AST ALT Lipase 18 EKG Reviewed by me: Yes (Tele - A-fib in 90-110's) Phys Exam - Physical Examination sleepy, responds slowly to questions HEENT: PERRLA, sclera anicteric, oral pharynx no lesions Neck: no nodes, no JVD, supple, full ROM Respiratory: no wheezing, no rales, no rhonchi, clear to auscultation bilateral S1, S2 Cardiovascular: no rub, gallop, irregular Gastrointestinal: soft, non-tender, no distention, positive bowel sounds Musculoskeletal: no edema, pulses present Neurological: normal sensation, moves all 4 limbs A x O x 2 Skin: normal turgor, cap refill <2 seconds Dx/Plan (1) Acute metabolic encephalopathy Code(s): G93.41 - METABOLIC ENCEPHALOPATHY Status: Acute Comment: ? sundowning with component of metabolic, Geodon/Ativan given, continue to reorient, limit sedating medications as clinically indicated (2) Acute kidney failure Status: Acute Comment: Likely iatrogenic with diuretic use, avoid nephrotoxic meds and limit contrast, saline lock IVF, improved (3) Generalized weakness Code(s): R53.1 - WEAKNESS Status: Chronic Comment: Multifactorial, PT for functional assessment, inpt rehab screen (4) Chronic anticoagulation Code(s): Z79.01 - CUSTODIAL (CURRENT) USE OF ANTICOAGULANTS Status: Chronic Comment: Continue Eliquis, serial monitoring (5) Transaminitis Code(s): R74.0 - NONSPEC ELEV OF LEVELS OF TRANSAMNS & LACTIC ACID DEHYDRGNSE Status: Acute Comment: ? etiology, d/c Lipitor, ? hepatic congestion due to CHF hx, improved, d/c Zetia, hepatitis panel negative, improved (6) Thrombus of left atrial appendage Code(s): I51.3 - INTRACARDIAC THROMBOSIS, NOT ELSEWHERE CLASSIFIED Status: Chronic Comment: Continue Eliquis (7) Chronic systolic heart failure, ACC/AHA stage C Code(s): I50.22 - CHRONIC SYSTOLIC (CONGESTIVE) HEART FAILURE Status: Chronic Comment: compensated currently, continue supportive mgmt, hold Lasix due to MARISOL - Plan PT/OT, community mental health social worker, out of bed/ambulate, DVT proph w/SCDs Stable currently -: Continue low-volume IVF's -: PT for mobilization -: Ativan prn agitation/combativeness -: Inpt rehab screening pending * Likely transition to inpt rehab 01/29/18
[2018-01-28] MEDS: Apixaban 5 MG TAB PO SCH ×2 (16:39→20:24)
[2018-01-28] MEDS: Amiodarone 200 MG TAB PO SCH ×2 (16:40→20:24)
[2018-01-28] MEDS: Famotidine 20 MG TAB PO SCH (16:42)
[2018-01-28] MEDS: Famotidine/PF 20 mg/2ml Vial SLOW IVP SCH (16:43)
[2018-01-28] MEDS: Sodium Chloride 0.9% 1,000 ML IV SCH (18:56)
[2018-01-29] MEDS ORDERED: Ziprasidone 20 MG VIAL IM SCH (00:15)
[2018-01-29] MEDS ORDERED: Sterile Water 10 ML VIAL FS SCH (00:15)
[2018-01-29] MEDS ORDERED: Ziprasidone 20 MG VIAL ONE (00:15)
--- NOTE | 2018-01-29 00:49 | PDOC.EVN ---
Event Note - Event Note Event Note: Per nursing, patient was doing reasonably well in the early evening. He then went back to sleep and awoke agitated and combative. He was trying to walk out of the building. He was brought back to his room, but was trying to hit and bite the nurses. He could not be redirected adequately. It was unclear if the ativan dose did not work last night or if the IV was bad. Ativan was attempted again, but did not have any impact. I evaluated the patient and he was still trying to grapple with the nurses who were holding his arms only as necessary to prevent him from trying to swing them. He was given another dose of Geodon IM. He started to settle down a bit and then he deliberately pulled out his IV. He does not appear physically distressed. He is confused about his situation and does not know why he is here. He says that he is being "sent back to [place]". He is upset with his spouse, Arvin and says that we "ran him off." Nursing indicates that Don left on his own about 15 minutes prior. At the I left the room, he is calm and conversing with the nursing staff. He is still not happy, but not as agitated. Will request a sitter.
[2018-01-29 05:40] VITALS: TEMP 97.7
[2018-01-29] MEDS: Famotidine 20 MG TAB PO SCH (08:59)
[2018-01-29] MEDS: Amiodarone 200 MG TAB PO SCH (08:59)
[2018-01-29] MEDS: Apixaban 5 MG TAB PO SCH (08:59)
[2018-01-29] MEDS: Famotidine/PF 20 mg/2ml Vial SLOW IVP SCH (09:02)
[2018-01-29] MEDS: HumaLOG 300 UNITS/3 ML VIAL SC PRN (12:14)
[2018-01-29 18:34] VITALS: BP 123/74
--- NOTE | 2018-01-30 05:43 | DIS ---
DATE OF ADMISSION: 01/26/2018 DATE OF DISCHARGE: 01/29/2018 DISCHARGE DIAGNOSES: 1. Acute metabolic encephalopathy, multifactorial. 2. Acute kidney injury, likely iatrogenic, improved. 3. Generalized weakness, multifactorial. 4. Chronic anticoagulation with Eliquis. 5. Left atrial appendage thrombosis. 6. Transaminitis, iatrogenic. 7. Chronic systolic congestive heart failure with ejection fraction of 25%, [employer] stage C, stable. CONSULTATIONS: None. PERTINENT LAB AND X-RAY FINDINGS: Creatinine ranged between 1.10 to 1.76. Estimated GFR ranged between 38 to 65. AST ranged between 37 to 57, ALT ranged between 107 to 223. Total bilirubin ranged between 1.8 to 2.7. BNP 676. CBC showed a white blood cell count ranged between 10.4 to 11.3, hemoglobin ranged between 13 to 15. PT 21.6, INR 1.9, and PTT 38.5. Acute hepatitis panel negative on 01/27/2018. Blood cultures x2 dated 01/25/2018 showed no growth at 48 hours. Urine culture dated 01/25/2018 showed no growth at 48 hours. Portable chest x-ray dated 01/25/2018 showed artifact overlying the right costophrenic angle, question of nodular density. PA and lateral chest x-ray dated 01/26/2018, showed no evidence for nodular density compatible with previous artifact on portable chest imaging. Abdominal ultrasound dated 01/25/2018 showed right renal cyst, otherwise negative study. HOSPITAL COURSE: The patient was initially admitted to the telemetry unit after presenting with generalized weakness and altered mentation. The patient with multifactorial generalized weakness and deconditioning with evidence of transaminitis likely iatrogenic in the context of statin use. The patient was discontinued on Lipitor and Zetia with serial monitoring of LFT showing overall decreasing trend. The patient received IV fluids initially after acute kidney injury was noted with overall resolution with volume replacement. The patient did exhibit evidence of sundowning with nocturnal encephalopathy, multifactorial, requiring Ativan and Geodon. The patient did have improvement in mentation with daylight hours and reorientation techniques. Due to the patient's overall comorbid status, deconditioned state, and general weakness, the patient was deemed an appropriate candidate for ongoing inpatient rehabilitation. The patient has been approved and will transfer to [facility] Inpatient Rehabilitation on 01/29/2018. I have examined the patient at the time of discharge and discussed followup instructions. The patient was ready for discharge on 01/29/2018. DISCHARGE MEDICATIONS: 1. Amiodarone 200 mg p.o. b.i.d. 2. Pepcid 40 mg p.o. at bedtime p.r.n. 3. Lasix 20 mg p.o. q.a.m. 4. Tresiba 16 units subcutaneously daily. 5. Protonix 40 mg p.o. daily. 6. Eliquis 5 mg p.o. b.i.d. 7. Enteric-coated aspirin 81 mg p.o. daily. 8. Lipitor may resume on 02/05/2018, 10 mg p.o. at bedtime. 9. Lisinopril 5 mg p.o. daily, resume on 02/02/2018. 10. Toprol-XL 25 mg p.o. daily. FOLLOWUP: The patient may follow up with Dr. Geoff Lr after discharge from inpatient rehabilitation. CONDITION ON DISCHARGE: Fair. ACTIVITY: Rolling walker with ambulation with contact/standby assistance. DIET: ADA. Supplements, Glucerna shakes b.i.d. CODE STATUS: Full. DISPOSITION: Discharge to [facility], 01/29/2018. Total time preparing and coordinating discharge is 35 minutes. Job ID: [id number]
[2018-02-04] MEDS ORDERED: Amiodarone 200 MG TAB PO SCH (09:00)
== END 2018-01-29 16:16 | disposition home health service (06) | DRG 682 ==
LOC: ERS 13:58 → ERHOLD 17:49 → 2NO 22:49 → OBSVTOIN 01-26 17:29
PROVIDERS: ADMIT Internal Medicine; ATTEND Internal Medicine
DX: N17.9 Acute kidney failure, unspecified (principal); G93.41 Metabolic encephalopathy; I50.22 Chronic systolic (congestive) heart failure; I13.0 Hypertensive heart and chronic kidney disease with heart failure and stage 1 through stage 4 chronic kidney disease, or unspecified chronic kidney disease; E11.22 Type 2 diabetes mellitus with diabetic chronic kidney disease; N18.9 Chronic kidney disease, unspecified; I25.10 Atherosclerotic heart disease of native coronary artery without angina pectoris; Z79.01 Long term (current) use of anticoagulants; I51.3 Intracardiac thrombosis, not elsewhere classified
CPT/HCPCS: 36415; 36416; 71045; 71046; 76705; 80048; 80053; 80074; 80162; 81003; 82550; 83605; 83690; 83880; 84484; 85025; 85610; 85730; 87040; 87086; 93005; 94760; 96361; 96374; A4216; G8978-GP-CK; G8979-GP-CI; G8987-GO-CK; G8988-GO-CJ; J2060; J2405; J3486; S0028

== ENCOUNTER 2018-02-19 12:17 | Outpatient (CLI) | payer MEDICARE, OTHER ==
[2018-02-19 13:20] LABS: #Basophils 0.1 thou/uL (0.0-0.2); #Eosinphils 0.1 thou/uL (0.0-0.7); #Lymphocytes 1.6 thou/uL (1.20-3.40); #Monocytes 0.4 thou/uL (0.11-0.59); #Neutrophils 3.7 thou/uL (1.40-6.50); %Eosinophils 0.9 % (0.0-10.0); %Lymphocytes 27.8 % (21.0-51.0); %Monocytes 6.6 % (0.0-10.0); %Neutrophils 63.8 % (42.0-75.0); Hemoglobin 11.7 g/dL (14.0-18.0); Mean Corpuscular HGB CONC 30.6 g/dL (32.0-36.0); Mean Corpuscular Hemoglobin 25.7 pg (27.0-31.0); Mean Platelet Volume 9.1 fL (7.4-10.4); Platelet Count 177 thou/uL (130-400); RBC Distribution Width 18.2 % (11.5-14.5); Red Blood Cell (RBC) Count 4.56 mill/uL (4.70-6.10); White Blood Cell (WBC) Count 5.8 thou/uL (4.8-10.8)
[2018-02-19 13:44] LABS: Anion Gap 16 mmol/L (10-20); BUN (Urea Nitrogen) 15 mg/dL (8.4-25.7); Calc. Creatinine Clearance 0 mL/min (70-130); Calcium 8.5 mg/dL (7.8-10.44); Carbon Dioxide 26 mmol/L (23-31); Chloride 103 mmol/L (98-107); Estimated GFR-MDRD 63; Glucose 120 mg/dL (83-110); Potassium 3.6 mmol/L (3.5-5.1); Sodium 141 mmol/L (136-145)
== END 2018-02-19 12:18 | disposition home or self-care (01) ==
LOC: LABBT 12:17
PROVIDERS: ATTEND Internal Medicine Cardiovascular Disease
DX: Z01.812 Encounter for preprocedural laboratory examination (principal); I48.91 Unspecified atrial fibrillation
CPT/HCPCS: 80048; 85025

== ENCOUNTER 2018-02-23 06:49 | Day surgery (SDC) | payer MEDICARE, OTHER ==
[2018-02-19 12:57] VITALS: BMI 24.5
[2018-02-23 08:36] LABS: Cardiac Risk 2.9 (Less than 4.5)
[2018-02-23] MEDS ORDERED: PROPOFOL 20 ML ONE (09:15)
[2018-02-23] MEDS ORDERED: PROPOFOL 200 MG/20 ML VIAL ONE (13:55)
--- NOTE | 2018-02-24 09:35 | OP ---
DATE OF PROCEDURE: 02/23/2018 PROCEDURE PERFORMED: Transesophageal echo. INDICATIONS: A 77-year-old gentleman with paroxysmal atrial fibrillation. DESCRIPTION OF PROCEDURE: The patient was taken to the PACU. The patient was sedated by Anesthesiology. A transesophageal probe was placed into distal esophagus and stomach. Echocardiographic images were obtained. The transesophageal probe was removed. FINDINGS: 1. Severe decrease in left ventricular systolic function. 2. Left atrial enlargement. 3. The left ventricle was moderately dilated. 4. Moderate to severe mitral regurgitation. 5. Mild tricuspid regurgitation. 6. No thrombus in the left atrium or left atrial appendage. 7. Atherosclerotic debris in the descending aorta. IMPRESSION: No formed thrombus in the left atrium or left atrial appendage. Job ID: [id number] [facility]
--- NOTE | 2018-02-24 23:12 | ECHO ---
PROCEDURE: Electrocardioversion. INDICATION: Atrial fibrillation. The patient has undergone repeat JOSIANE one month after it was showing that he has left atrial appendage thrombus. This time there was no thrombus in the left atrial appendage. With 200 joules he converted to sinus bradycardia. Patient tolerated the procedure well.
--- NOTE | 2018-02-26 20:30 | EKG ---
Test Reason : POST CARDIOVERSION Blood Pressure : / mmHG Vent. Rate : 051 BPM Atrial Rate : 051 BPM P-R Int : 288 ms QRS Dur : 080 ms QT Int : 572 ms P-R-T Axes : 082 020 044 degrees QTc Int : 527 ms Sinus bradycardia with 1st degree A-V block Prolonged QT Abnormal ECG When compared with ECG of 25-JAN-2018 14:08, Sinus rhythm has replaced Atrial fibrillation Vent. rate has decreased BY 39 BPM Nonspecific T wave abnormality no longer evident in Inferior leads Nonspecific T wave abnormality, improved in Anterolateral leads Confirmed by Shade ABURTO ([id number]) on 02/26/2018 8:30:23 PM Referred By: RASHARD Confirmed By:Shade ABURTO
== END 2018-02-23 12:10 | disposition home or self-care (01) ==
LOC: CCL 06:49
PROVIDERS: ATTEND Internal Medicine Cardiovascular Disease
PROC: B24BZZ4 Ultrasonography of Heart with Aorta, Transesophageal (ICD-10-PCS; principal; 2018-02-23)
PROC: 5A2204Z Restoration of Cardiac Rhythm, Single (ICD-10-PCS; 2018-02-23)
DX: I48.0 Paroxysmal atrial fibrillation (principal); I70.0 Atherosclerosis of aorta; I08.1 Rheumatic disorders of both mitral and tricuspid valves; I48.1 Persistent atrial fibrillation; I10 Essential (primary) hypertension; I25.2 Old myocardial infarction; E11.9 Type 2 diabetes mellitus without complications; I25.10 Atherosclerotic heart disease of native coronary artery without angina pectoris; E78.00 Pure hypercholesterolemia, unspecified; I25.5 Ischemic cardiomyopathy; Z79.4 Long term (current) use of insulin; Z79.899 Other long term (current) drug therapy; Z88.8 Allergy status to other drugs, medicaments and biological substances
CPT/HCPCS: 36415; 80061; 92960; 93005; 93010; 93312; J2704

== ENCOUNTER 2018-11-03 10:01 | Day surgery (SDC) | payer MEDICARE, OTHER ==
[2018-11-02 13:50] VITALS: BMI 27.2
--- NOTE | 2018-11-03 13:32 | OP ---
DATE OF PROCEDURE: 11/03/2018 PROCEDURE: Esophagogastroduodenoscopy with Davila dilatation. PREMEDICATION: Given by Anesthesiology Department. PREPROCEDURE DIAGNOSIS: Dysphagia. POSTPROCEDURE DIAGNOSES: 1. Normal upper esophagus, status post empiric dilatation with 54-Zimbabwean Davila dilator. 2. Z-line, regular at 35 cm. 3. Normal stomach and duodenum. DESCRIPTION OF PROCEDURE: Written consents were obtained prior to procedure. After adequate sedation, forward viewing endoscope was advanced down the stomach under direct vision to the second portion of duodenum. Both the second portion and the bulb appeared normal. The pylorus was patent. The gastric antrum, body, fundus, and cardia all appeared normal. Retroflexion did not show any abnormality. The Z-line was noted at 35 cm. The lower, mid, and upper esophagus appeared normal. The endoscope was removed. A 54-Zimbabwean Davila dilator was then used to dilate the esophagus with mild resistance. Repeat endoscopy did not show any complication. The patient tolerated the procedure well. ASSESSMENT: 1. Normal esophagus, status post empiric dilatation of the esophagus. 2. Otherwise normal upper exam. PLAN: Follow up in 3 to 4 weeks. Job ID: [id number]
[2018-11-03] MEDS ORDERED: PROPOFOL 200 MG/20 ML VIAL ONE (18:07)
== END 2018-11-04 14:15 | disposition home or self-care (01) ==
LOC: SDC 10:01
PROVIDERS: ATTEND Internal Medicine Gastroenterology
PROC: 0DJ08ZZ Inspection of Upper Intestinal Tract, Via Natural or Artificial Opening Endoscopic (ICD-10-PCS; principal; 2018-11-03)
PROC: 0D757ZZ Dilation of Esophagus, Via Natural or Artificial Opening (ICD-10-PCS; 2018-11-03)
DX: R13.10 Dysphagia, unspecified (principal); R63.4 Abnormal weight loss; K21.9 Gastro-esophageal reflux disease without esophagitis; I48.91 Unspecified atrial fibrillation; M19.90 Unspecified osteoarthritis, unspecified site; F32.9 Major depressive disorder, single episode, unspecified; E11.9 Type 2 diabetes mellitus without complications; I25.2 Old myocardial infarction; E78.00 Pure hypercholesterolemia, unspecified; I10 Essential (primary) hypertension; I49.9 Cardiac arrhythmia, unspecified; R42 Dizziness and giddiness; Z68.27 Body mass index [BMI] 27.0-27.9, adult; Z79.01 Long term (current) use of anticoagulants; Z79.4 Long term (current) use of insulin; Z79.82 Long term (current) use of aspirin; Z79.899 Other long term (current) drug therapy; Z88.8 Allergy status to other drugs, medicaments and biological substances; Z95.5 Presence of coronary angioplasty implant and graft
CPT/HCPCS: 36416; J2704

== ENCOUNTER 2019-01-28 20:32 | Inpatient (IN) | payer MEDICARE, OTHER ==
[2019-01-28 21:00] LABS: #Lymphocytes 1.6 thou/uL (1.20-3.40); #Monocytes 0.5 thou/uL (0.11-0.59); #Neutrophils 4.5 thou/uL (1.40-6.50); %Basophils 0.7 % (0.0-1.0); %Eosinophils 0.5 % (0.0-10.0); %Lymphocytes 24.4 % (21.0-51.0); %Monocytes 7.6 % (0.0-10.0); %Neutrophils 66.7 % (42.0-75.0); Hemoglobin 8.7 g/dL (14.0-18.0); Mean Corpuscular HGB CONC 28.3 g/dL (32.0-36.0); Mean Corpuscular Hemoglobin 18.2 pg (27.0-31.0); Mean Corpuscular Volume 64.4 fL (78.0-98.0); Mean Platelet Volume 6.2 fL (7.4-10.4); Platelet Count 257 thou/uL (130-400); RBC Distribution Width 19.4 % (11.5-14.5); Red Blood Cell (RBC) Count 4.77 mill/uL (4.70-6.10); White Blood Cell (WBC) Count 6.7 thou/uL (4.8-10.8)
[2019-01-28 21:18] LABS: ALT (SGPT) 10 U/L (8-55); AST (SGOT) 15 U/L (5-34); Albumin 4.1 g/dL (3.4-4.8); Alkaline Phosphatase 72 U/L (40-110); Anion Gap 11 mmol/L (10-20); BUN (Urea Nitrogen) 21 mg/dL (8.4-25.7); Bilirubin, Total 0.7 mg/dL (0.2-1.2); Calc. Creatinine Clearance 0 mL/min (70-130); Calcium 8.7 mg/dL (7.8-10.44); Carbon Dioxide 24 mmol/L (23-31); Chloride 106 mmol/L (98-107); Elliptocytes SLIGHT = 2-5 cells (100X) (0-1/hpf); Estimated GFR-MDRD 57; Globulin 2.3 g/dL (2.4-3.5); Glucose 162 mg/dL (83-110); Hypochromia MODERATE=16-30 cells (100X) (0-5/hpf); MDiff Complete? YES; Microcytosis MARKED = >30 cells (100X) (0-5/hpf); Ovalocytes MODERATE= 6-15 cells (100X) (0-1/hpf); Platelet Morphology Comment Appears Adequate; Polychromasia SLIGHT = 2-3 cells (100X) (0-2/hpf); Potassium 3.6 mmol/L (3.5-5.1); Protein, Total 6.4 g/dL (5.8-8.1); Reflex for Review?? YES; Sodium 137 mmol/L (136-145); Tear Drops SLIGHT = 2-5 cells (100X) (0-1/hpf)
--- NOTE | 2019-01-28 21:35 | RAD ---
PORTABLE CHEST: 01/28/19 HISTORY: Chest pain. COMPARISON: 01/25/18 exam. Heart size and mediastinum are within normal limits. The lungs are clear of infiltrates. No significa nt bony findings. IMPRESSION: No active intrathoracic disease. POS: [facility]
[2019-01-28] MEDS ORDERED: Aspirin Chewable 81 MG TAB ONE (22:27)
[2019-01-29 00:22] LABS: Troponin I Less than 0.010 ng/mL (< 0.028)
[2019-01-29] MEDS ORDERED: Acetaminophen 325 MG TAB PO PRN (00:26)
[2019-01-29] MEDS ORDERED: Ondansetron PF 4 MG/2 ML Vial IVP PRN (00:26)
[2019-01-29] MEDS ORDERED: Ondansetron ODT 4 MG TAB SL PRN (00:26)
[2019-01-29] MEDS ORDERED: hydrALAZINE 20 MG/ML VIAL SLOW IVP SCH (02:00)
[2019-01-29] MEDS ORDERED: Dextrose 5% in Water 1,000 ML IV PRN (02:11)
[2019-01-29] MEDS ORDERED: Dextrose 50% Abboject 50 ML SYRINGE SLOW IVP PRN (02:11)
[2019-01-29] MEDS ORDERED: HYDROcodone/Acetaminophen 5/325 mg Tablet PO PRN (02:11)
[2019-01-29] MEDS ORDERED: Senokot S 8.6-50 MG TAB PO PRN (02:11)
[2019-01-29] MEDS ORDERED: hydrALAZINE 20 MG/ML VIAL SLOW IVP PRN (02:16)
--- NOTE | 2019-01-29 02:51 | HP ---
PRESENTING COMPLAINT: Right shoulder and right chest pain. HISTORY OF PRESENT ILLNESS: Mr. Kraig Anderson is an 78-year-old male with a past medical history of hypertension; diabetes mellitus; CAD, status post multiple PCIs in the past, initially recommended CABG, but as per patient on his recent Cardiology evaluation was felt that his lesions are decreasing. Patient presented to the hospital because of new onset dizziness as well as diarrhea and weakness. He states diarrhea is nonbloody and does not contain black tarry stool. His dizziness seems to be worse since the last 2 days. Patient states he has been having chronic right shoulder and right axillary pain since the last three weeks. He was evaluated by his primary and felt he might have a rotator cuff tear. The patient states he feels he has shingles in that area, although there is no rash. He denies any nausea or vomiting. PAST MEDICAL HISTORY: Significant for hypertension; diabetes mellitus; coronary artery disease, status post multiple PCIs; history of chronic back pain; hyperlipidemia; and history of depression. Patient has history of recently diagnosed AFib, on Eliquis and amiodarone. Patient is in sinus rhythm at this time. PAST SURGICAL HISTORY: Includes neck surgery as well as prostatectomy. REVIEW OF SYSTEMS: Positive for urinary frequency, weakness, as well as recent diarrhea. All other system reviewed x10 were negative, except as noted in HPI. SOCIAL HISTORY: Patient resides in the community. They say he is fully functional at baseline. No history of alcohol, tobacco, or illicit drug use. ALLERGIES: AMITRIPTYLINE. FAMILY HISTORY: Noncontributory in this 78-year-old male. PHYSICAL EXAMINATION: VITAL SIGNS: Blood pressure of 191/86; pulse of 61; respiratory rate of 18; O2 saturation is 94% on room air; and temperature, afebrile. GENERAL: Elderly male, appears stated age, lying in bed. HEENT: Head is atraumatic, normocephalic. Pale conjunctivae. Anicteric. Dry oral mucosa. NECK: No JVD. No carotid bruit. RESPIRATORY: Good air entry. CARDIOVASCULAR: S1, S2. No reproducible anterior chest wall pain. MUSCULOSKELETAL: No pedal edema. No calf tenderness. Tenderness on passive elevation of the right shoulder for above 90 degrees. Tenderness also on palpation of the area, but very minimal. NEUROLOGIC: Patient is alert and oriented. Cranial nerves 2 through 12 are grossly intact. LABORATORY DATA: WBC 6.7; hemoglobin 8.7, down from 11.7, 10 months ago; and platelet count 257. Sodium 137, potassium 3.6, creatinine 1.23, and glucose of 162. AST and ALT normal. Troponin 0.014, repeat of 0.01. Albumin 4.1. Chest x-ray shows no active intrathoracic process. EKG showed normal sinus rhythm, no ST-segment changes. IMPRESSION: 1. Right shoulder pain. 2. Dizziness of unclear etiology, may be due to anemia. 3. Anemia of chronic disease versus chronic blood loss. 4. Hypertension, uncontrolled. 5. Diabetes mellitus. 6. History of coronary artery disease - stable. PLAN: 1. Right shoulder pain. May be due to rotator cuff tear. Patient might benefit from MRI, but we will consult Orthopedics to evaluate patient as he has already been scheduled as outpatient in the past. 2. Patient does not have any left-sided chest pain. There is very little chance that this pain is related to his cardiac history. 3. Anemia of unclear etiology. May be due to chronic disease. We will follow iron, vitamin B12, and folic acid level. If low, we will consider replacement. Despite patient having dizziness, I do not think patient's level of anemia is causing symptoms. We will start the patient on gentle IV fluid for the dizziness at this time. We will obtain stool for occult blood. 4. Hypertension, uncontrolled. Restart blood pressure medication. With metoprolol, we will give IV hydralazine x1 now as well as start p.o. hydralazine. 5. Diabetes mellitus. Insulin sliding scale. Restart Tresiba as well as NovoLog sliding scale. 6. History of atrial fibrillation. Patient is on Eliquis. 7. Patient is in sinus rhythm at this time. If evidence of GI bleed, we will consult GI as well as discuss with Cardiology to consider holding anticoagulation in this elderly male. 8. DVT prophylaxis, on Eliquis. ADVANCE DIRECTIVES: Advance directives discussed with the patient. He states he would like a full code trial at this time. TOTAL TIME SPENT: Total time spent evaluation of patient greater than 55 minutes. Job ID: [id number]
[2019-01-29] MEDS: Sodium Chloride 0.9% 1,000 ML IV SCH ×2 (03:03→21:31)
[2019-01-29 03:24] LABS: Iron 13 ug/dL (65-175); Iron Binding Capacity, Total 386 mcg/dL (261-462)
[2019-01-29 03:26] LABS: Troponin I Less than 0.010 ng/mL (< 0.028)
[2019-01-29 05:14] LABS: ALT (SGPT) 10 U/L (8-55); AST (SGOT) 15 U/L (5-34); Albumin 3.7 g/dL (3.4-4.8); Alkaline Phosphatase 66 U/L (40-110); Anion Gap 13 mmol/L (10-20); BUN (Urea Nitrogen) 18 mg/dL (8.4-25.7); Bilirubin, Total 0.7 mg/dL (0.2-1.2); Calc. Creatinine Clearance 63 mL/min (70-130); Calcium 8.4 mg/dL (7.8-10.44); Carbon Dioxide 21 mmol/L (23-31); Chloride 106 mmol/L (98-107); Estimated GFR-MDRD 64; Globulin 2.1 g/dL (2.4-3.5); Glucose 124 mg/dL (83-110); Potassium 3.1 mmol/L (3.5-5.1); Protein, Total 5.8 g/dL (5.8-8.1); Sodium 137 mmol/L (136-145)
[2019-01-29 06:23] LABS: Mean Corpuscular HGB CONC 28.9 g/dL (32.0-36.0); Mean Corpuscular Hemoglobin 18.4 pg (27.0-31.0); Mean Corpuscular Volume 63.6 fL (78.0-98.0); Mean Platelet Volume 6.8 fL (7.4-10.4); Platelet Count 248 thou/uL (130-400); RBC Distribution Width 19.6 % (11.5-14.5); Red Blood Cell (RBC) Count 4.34 mill/uL (4.70-6.10); White Blood Cell (WBC) Count 6.9 thou/uL (4.8-10.8)
[2019-01-29 06:45] LABS: Anisocytosis SLIGHT = 6-15 cells (100X) (0-5/hpf); Elliptocytes SLIGHT = 2-5 cells (100X) (0-1/hpf); Hypochromia MODERATE=16-30 cells (100X) (0-5/hpf); Lymphocytes 30 % (21-51); MDiff Complete? YES; Microcytosis MODERATE=15-30 cells (100X) (0-5/hpf); Monocytes 3 % (0-10); Neutrophil 67 % (42-75); Tear Drops SLIGHT = 2-5 cells (100X) (0-1/hpf)
[2019-01-29 07:39] LABS: Bacteria/HPF None Seen HPF (None Seen); Bilirubin Negative (Negative); Blood, Urine Negative (Negative); Clarity Clear (Clear); Glucose, Urine (Dipstick) Greater than 1000 mg/dL (Negative); Leukocyte Negative Leu/uL (Negative); Nitrite Negative (Negative); Protein, Urine (Dipstick) 30 mg/dL (Neg-Trace); RBC/HPF 0-3 HPF (0-3); Squamous Epithelial None Seen HPF (0-3); Urobilinogen Normal mg/dL (Less than 2); WBC/HPF 0-3 HPF (0-3)
[2019-01-29] MEDS ORDERED: INSULIN DEGLUDEC 26 UNIT SC SCH (09:00)
[2019-01-29] MEDS ORDERED: Gabapentin 100 MG CAP PO SCH (09:00)
[2019-01-29] MEDS: Cyanocobalamin (Vitamin B-12) 1,000 MCG TAB PO SCH (09:08)
[2019-01-29] MEDS: Apixaban 5 MG TAB PO SCH ×2 (09:08→21:22)
[2019-01-29] MEDS: Aspirin Chewable 81 MG TAB PO SCH (09:08)
[2019-01-29] MEDS: Ondansetron PF 4 MG/2 ML Vial SLOW IVP PRN (09:08)
[2019-01-29] MEDS: hydrALAZINE 25 MG TAB PO SCH ×3 (09:09→21:23)
[2019-01-29] MEDS: Insulin Glargine 26 UNITS in Pre-Filled Syringe 1 EACH SC SCH (09:11)
[2019-01-29] MEDS ORDERED: Potassium Chloride 20 MEQ TAB PO SCH (10:15)
--- NOTE | 2019-01-29 10:27 | RAD ---
EXAM: XR Shoulder Rt 2 View PROVIDED CLINICAL HISTORY: Pain FINDINGS: There is no evidence for fracture or other acute osseous abnormality. Alignment appears anatomic. Acr omioclavicular and glenohumeral degenerative changes are seen. Subacromial space appears preserved. Visualized right lung field appears clear. IMPRESSION: No evidence for an acute osseous abnormality. If there is persistent clinical concern, conservative m anagement and follow-up imaging advised.
[2019-01-29] MEDS ORDERED: Acyclovir 400 mg Tablet PO SCH (11:45)
--- NOTE | 2019-01-29 12:22 | CON ---
DATE OF CONSULTATION: 01/29/2019 REQUESTING PHYSICIAN: Dr. Tamayo. BRIEF HISTORY OF PRESENT ILLNESS: Mr. Anderson is an 78-year-old left-hand dominant gentleman, who is examined in his hospital bed in [facility] at the request of Dr. Tamayo. He was admitted to the hospital for the onset of dizziness as well as diarrhea and weakness. He also reports a history of right shoulder discomfort over the last couple of months as well as an area of skin hypersensitivity posteriorly starting at the posterior axillary fold and then wrapping around the anterior chest wall toward the lower rib cage. There is no rash associated with this. He also does report some shoulder pain, but denies significant weakness. He was due to start physical therapy 2 days ago. However, with the onset of his diarrhea, he canceled this therapy visit and as such, has not had any treatment for the shoulder today. He denies numbness or tingling in the upper extremity. Of note, he had similar problems with the left shoulder in the past. He still reports occasional pain with overhead activities. PAST MEDICAL HISTORY: Remarkable for hypertension, diabetes, coronary artery disease, chronic back pain, hyperlipidemia, and recent atrial fibrillation. PAST SURGICAL HISTORY: Includes cardiac catheterization with stents, back surgery x3 as well as prostatectomy. MEDICATIONS: At the time of admission, I will refer you to the medication reconciliation form. ALLERGIES: AMITRIPTYLINE. REVIEW OF SYSTEMS: Denies recent fevers, chills, or sweats. Denies current chest pain or shortness of breath. Denies numbness or tingling in his upper extremities. SOCIAL HISTORY: He was living independently. He denies alcohol, tobacco, or illicit drug use. PHYSICAL EXAMINATION: VITAL SIGNS: The patient was found to have a temperature of 98, heart rate of 90, respiratory rate of 20, and blood pressure of 147/76. GENERAL: He is awake, alert, and oriented. HEENT: Atraumatic and normocephalic. Breathing is nonlabored. EXTREMITIES: Remarkable for his bilateral upper extremities with intact sensation in the median, radial, and ulnar distributions. The hand, wrist, and elbows are atraumatic bilaterally. The left shoulder is remarkable for full active range of motion with forward elevation of 160 degrees, abduction of 150 degrees in the scapular plane and good internal and external rotation. He has 5/5 motor strength in the empty can position as well as with internal and external rotation. He does have some mild discomfort with cross chest impingement testing. The right shoulder is remarkable for an area of skin hypersensitivity along the posterior axillary fold and then wrapping around the anterior chest. There is no rash associated with this skin hypersensitivity. There is no erythema. This is not consistent with cuff or shoulder pathology. The shoulder itself is remarkable for mild crepitation with active range of motion that does elicit some discomfort. He has excellent strength in the empty can position and 5/5 strength with internal and external rotation. He does have discomfort with cross chest impingement testing. IMAGING STUDIES: X-rays two view of the right shoulder was obtained today and is remarkable for mild degenerative changes at the glenohumeral joint with well preserved subacromial space. ASSESSMENT: An 78-year-old gentleman with history of significant heart disease with deconditioning and now a 2-month history of onset right shoulder discomfort but without any traumatic event. The patient also with history of similar problems on the left shoulder. At this time, I believe the patient is primarily having symptoms consistent with rotator cuff impingement. He has excellent motor strength and he has well preserved subacromial space, which speaks against a longstanding rotator cuff tear or even an acute rotator cuff tear. I believe that his outlined course of treatment which was due to begin with physical therapy is appropriate. I do not see an indication for an MRI at this point and rather patient should pursue his prescribed course of physical therapy for scapular stabilization and cuff strengthening first. If he then continues to have pain, consideration in MRI could be undertaken. Given patient's age, significant cardiac history, and history of diabetes, rotator cuff repair would not be an immediate surgical option and I think given the overall excellent function of this gentleman's shoulder and even if a cuff tear were identified on MRI, I would be reluctant to pursue surgical intervention given his overall good function. We will sign off for now. If the patient is uncomfortable with the therapy course prescribed by his primary care physician, a referral to the [facility] group could be entertained for formal orthopedic evaluation on outpatient basis and to supervise. Job ID: [id number]
--- NOTE | 2019-01-29 13:06 | MRI ---
EXAM: MRI Cervical Spine WO Con PROVIDED CLINICAL HISTORY: Radiculopathy COMPARISON: None FINDINGS: Evaluation is limited by patient motion. Cervical alignment appears normal. The visualized posterior fossa, cervicomedullary junction and cerv ical spinal cord demonstrate a grossly normal MR appearance. Vertebral heights and intervertebral disc space heights are preserved. No focal concerning regional marrow signal abnormality is evident. Multilevel facet arthritis. There is no gross significant central canal stenosis apparent. Evaluation of the foramina is limited. Potential for foraminal narrowing at multiple levels due to fa cet arthritis and uncinate process hypertrophy. IMPRESSION: Limited study by patient motion. Consider outpatient follow-up as indicated.
[2019-01-29] MEDS: Dapagliflozin Propanediol [Farxiga] 5 MG PO SCH (16:55)
[2019-01-29] MEDS: Ferrous Sulfate 325 MG TAB PO SCH (16:56)
[2019-01-29] MEDS: ALPRAZolam 0.25 MG TAB PO PRN (21:22)
[2019-01-29] MEDS: Potassium Chloride 20 MEQ TAB PO SCH (21:22)
[2019-01-29] MEDS: Ezetimibe 10 MG TAB PO SCH (21:23)
[2019-01-29] MEDS: Atorvastatin Calcium 20 MG TAB PO SCH (21:23)
[2019-01-29] MEDS: Amiodarone 200 MG TAB PO SCH (21:23)
[2019-01-29] MEDS: Baclofen 10 MG TAB PO SCH (21:23)
--- NOTE | 2019-01-29 22:15 | PDOC.HOSPP ---
- Subjective Encounter Date: 01/29/19 Encounter Time: 12:00 Subjective: The patient states that his right arm is burning especially when his shoulder touches it. He questioned about shingles but never had a rash. Was placed on gabapentin, however was making him dizzy. He complains of dizziness while ambulating, denies rectal bleeding. He has had chicken pox in the past Patient had cervical MRI done, was unable to complete t horacic spine MRI due to claustrophobia - Objective Vital Signs & Weight: Vital Signs (12 hours) Temp Pulse Resp BP BP BP BP 01/29/19 19:43 98.3 F 74 18 129/62 01/29/19 16:55 65 121/61 01/29/19 15:15 97.8 F 76 28 H 136/61 01/29/19 11:39 98.3 F 77 17 123/59 L 108/64 127/60 Pulse Ox 01/29/19 19:43 97 01/29/19 16:55 01/29/19 15:15 95 01/29/19 11:39 94 L Weight Admit Weight 186 lb 6.4 oz Weight 186 lb 6.4 oz I&O: 01/28/19 01/29/19 01/30/19 06:59 06:59 06:59 Intake Total 173 960 Output Total 100 Balance 73 960 Result Diagrams: 01/29/19 04:27 01/29/19 04:27 Additional Labs: Accuchecks 01/29/19 01/29/19 01/29/19 21:13 16:50 10:40 POC Glucose 106 182 H 154 H 01/29/19 05:34 POC Glucose 120 H Hospitalist ROS - Review of Systems Constitutional: denies: fever, chills - Medication Medications: Active Medications Generic Name Dose Route Start Last Admin Trade Name Freq PRN Reason Stop Dose Admin Alprazolam 0.25 mg 01/29/19 02:15 01/29/19 21:22 Xanax PO 0.25 mg DAILY PRN Administration Restlessness Amiodarone HCl 200 mg 01/29/19 21:00 01/29/19 21:23 Cordarone PO 200 mg HS ANCA Administration Apixaban 5 mg 01/29/19 09:00 01/29/19 21:22 Eliquis PO 5 mg BID ANCA Administration Aspirin 81 mg 01/29/19 09:00 01/29/19 09:08 Aspirin Chewable PO 81 mg DAILY ANCA Administration Atorvastatin Calcium 20 mg 01/29/19 21:00 01/29/19 21:23 Lipitor PO 20 mg HS ANCA Administration Baclofen 10 mg 01/29/19 21:00 01/29/19 21:23 Lioresal PO 10 mg HS ANCA Administration Cyanocobalamin 5,000 mcg 01/29/19 09:00 01/29/19 09:08 Vitamin B-12 PO 5,000 mcg DAILY ANCA Administration Ezetimibe 10 mg 01/29/19 21:00 01/29/19 21:23 Zetia PO 10 mg HS ANCA Administration Ferrous Sulfate 325 mg 01/29/19 17:00 01/29/19 16:56 Feosol PO 325 mg BID-WM ANCA Administration Hydralazine HCl 50 mg 01/29/19 09:00 01/29/19 21:23 Apresoline PO 50 mg TID ANCA Administration Sodium Chloride 1,000 mls @ 50 mls/hr 01/29/19 02:15 01/29/19 21:31 Normal Saline 0.9% IV 1,000 mls .Q20H ANCA Administration Insulin Glargine 26 units/ 0.26 mls @ 0 mls/hr 01/29/19 09:00 01/29/19 09:11 Miscellaneous Medication SC 0.26 mls QAM ANCA Administration Metoprolol Succinate 25 mg 01/29/19 09:00 01/29/19 09:12 Toprol Xl PO 25 mg DAILY ANCA Administration Ondansetron HCl 4 mg 01/29/19 07:29 01/29/19 09:08 Zofran SLOW IVP 4 mg Q8H PRN Administration Nausea/Vomiting Pantoprazole Sodium 40 mg 01/29/19 09:00 01/29/19 09:12 Protonix PO 40 mg DAILY ANCA Administration Dapagliflozin 0 each 01/29/19 09:00 01/29/19 16:55 Propanediol [Farxiga PO 1 each ] 5 Mg QAM ANCA Administration Potassium Chloride 20 meq 01/29/19 21:00 01/29/19 21:22 K-Dur PO 20 meq HS ANCA Administration Sertraline HCl 12.5 mg 01/29/19 09:00 01/29/19 09:12 Zoloft PO 12.5 mg DAILY ANCA Administration - Exam General Appearance: NAD, awake alert Eye: PERRL, anicteric sclera ENT: normocephalic atraumatic, no oropharyngeal lesions Neck: supple, symmetric, no JVD, no thyromegaly Heart: RRR, no murmur, no gallops, no rubs Respiratory: CTAB, no wheezes, no rales, no ronchi Gastrointestinal: soft, non-tender, non-distended, normal bowel sounds, no palpable masses Extremities: no cyanosis, no clubbing, no edema Extremities - other findings: Patient able to lift both arms above head, left greater than right Skin: normal turgor, no lesions, no rashes Hosp A/P - Plan MRI C spine: no significant stenosis, multilevel facet arthritis This is an 78 year old male who presented with dizziness, diarrhea and weakness. Also has been having shoulder pain for the past three weeks with hypersensitivity #Right rotator cuff impingement #Neuropathy across chest - patient had MRI cervical spine showing no significant stenosis. Unable to complete thoracic spine, will check CT thoracic spine - will d/c gabapentin due to dizziness, try lidocaine patch - per orthopedic, no indication for MRI shoulder at this time - tried one dose of acyclovir, however patient does not think that this made a difference - check mag and phos #Hypokalemia - potassium 3.1, will recheck - s/p 40 meq this morning Atrial fibrillation - continue eliquis, amiodarone Dizziness possibly from iron deficiency anemia Orthostatic hypotension - Hemoglobin of 8 - ferritin extremely low at 2, will start oral iron. My benefit from colonoscopy , had normal EGD in October 2018, GI consult in am - may transfuse if drops below 7. May need to hold eliquis if bleeding? Check stool guiac - orthostatic positive laying to sitting, hydrate with IV fluid for one liter -- PT evaluation Disposition: pending improvement in dizziness/anemia, PT evaluation Code status: full code
[2019-01-29 23:15] LABS: Magnesium 1.6 mg/dL (1.6-2.6); Potassium 3.9 mmol/L (3.5-5.1)
[2019-01-30] MEDS: Sodium Chloride 0.9% 1,000 ML IV SCH ×2 (05:58→11:34)
[2019-01-30] MEDS: Aspirin Chewable 81 MG TAB PO SCH (08:59)
[2019-01-30] MEDS: hydrALAZINE 25 MG TAB PO SCH ×3 (08:59→21:27)
[2019-01-30] MEDS: Ferrous Sulfate 325 MG TAB PO SCH (08:59)
[2019-01-30] MEDS: Apixaban 5 MG TAB PO SCH ×2 (08:59→21:26)
[2019-01-30] MEDS: Cyanocobalamin (Vitamin B-12) 1,000 MCG TAB PO SCH (08:59)
[2019-01-30] MEDS: Insulin Glargine 26 UNITS in Pre-Filled Syringe 1 EACH SC SCH (09:00)
[2019-01-30] MEDS: Lidocaine 5% Patch TD SCH (09:00)
[2019-01-30] MEDS: Dapagliflozin Propanediol [Farxiga] 5 MG PO SCH (09:00)
--- NOTE | 2019-01-30 09:05 | CT ---
EXAM: CT Thoracic Spine WO Con PROVIDED CLINICAL HISTORY: Back pain and radiculopathy COMPARISON: None FINDINGS: Thoracic alignment appears normal. There is no evidence for an acute compression deformity. Diffuse r egional osteopenia and changes of diffuse idiopathic skeletal hyperostosis. Bilateral bony foraminal narrowing at T1-2 on the basis of facet arthritis. There is no additional significant bony central canal or bony foraminal narrowing apparent. Small bilateral pleural effusions. Vascular calcification including coronary calcium. Gallstones are partially visualized. No evidence for an acu te fracture. No lytic or blastic bony lesions are seen. IMPRESSION: 1. DISH. 2. Small bilateral pleural effusions. 3. Cholelithiasis.
[2019-01-30 10:17] LABS: Hemoglobin 8.3 g/dL (14.0-18.0); Mean Corpuscular HGB CONC 28.5 g/dL (32.0-36.0); Mean Corpuscular Hemoglobin 18.3 pg (27.0-31.0); Mean Corpuscular Volume 64.3 fL (78.0-98.0); Mean Platelet Volume 6.1 fL (7.4-10.4); Platelet Count 298 thou/uL (130-400); RBC Distribution Width 19.8 % (11.5-14.5); Red Blood Cell (RBC) Count 4.53 mill/uL (4.70-6.10); White Blood Cell (WBC) Count 7.5 thou/uL (4.8-10.8)
[2019-01-30 10:29] LABS: Anion Gap 12 mmol/L (10-20); BUN (Urea Nitrogen) 12 mg/dL (8.4-25.7); Calc. Creatinine Clearance 57 mL/min (70-130); Calcium 8.8 mg/dL (7.8-10.44); Carbon Dioxide 22 mmol/L (23-31); Chloride 108 mmol/L (98-107); Estimated GFR-MDRD 56; Glucose 79 mg/dL (83-110); Potassium 3.8 mmol/L (3.5-5.1); Sodium 138 mmol/L (136-145)
[2019-01-30] MEDS: HumaLOG 300 UNITS/3 ML VIAL SC PRN (12:26)
--- NOTE | 2019-01-30 13:14 | RAD ---
EXAM: Portable chest PROVIDED CLINICAL HISTORY: Dyspnea COMPARISON: 01/28/2019 FINDINGS: Cardiac and mediastinal silhouette is within normal limits. No focal consolidation, pleural fluid or pneumothorax evident. IMPRESSION: No evidence for an acute cardiopulmonary process.
--- NOTE | 2019-01-30 15:32 | PDOC.HOSPP ---
- Subjective Encounter Date: 01/30/19 Encounter Time: 12:30 Subjective: The patient states he worked with physical therapy and continued to be persistently dizzy. He received 1 bag of IV fluids prior to them ambulating him. Denies chest pain or shortness of breath. Dizziness has been persistent for past two months now. He denies vertigo. The patient states he was supposed to have colonoscopy in February, but was not cleared by cardiology due to having a weak heart and afib. He did have EGD in October which was normal. The patient has never had a colonoscopy before. Shoulder pain: he continues to have some increased sensitivity in armpit area especially when his right arm touches his armpit. Lidocaine patch is helping some-what. - Objective Vital Signs & Weight: Vital Signs (12 hours) Temp Pulse Pulse Resp BP BP BP 01/30/19 14:01 71 120/60 01/30/19 11:32 97.9 F 74 18 01/30/19 11:14 72 110/53 L 116/58 L 01/30/19 08:59 65 163/72 H 01/30/19 07:50 98.7 F 67 18 01/30/19 03:48 97.6 F 71 18 BP BP Pulse Ox 01/30/19 14:01 01/30/19 11:32 130/61 97 01/30/19 11:14 130/61 01/30/19 08:59 01/30/19 07:50 136/64 96 01/30/19 03:48 146/63 H 96 Weight Admit Weight 186 lb 6.4 oz Weight 186 lb 6.4 oz I&O: 01/29/19 01/30/19 01/31/19 06:59 06:59 06:59 Intake Total 173 2360 Output Total 100 700 Balance 73 1660 Result Diagrams: 01/30/19 09:33 01/30/19 09:33 Additional Labs: Accuchecks 01/30/19 01/30/19 01/30/19 12:29 10:50 05:53 POC Glucose 157 H 150 H 91 01/29/19 01/29/19 21:13 16:50 POC Glucose 106 182 H Hospitalist ROS - Review of Systems Constitutional: denies: fever, chills Eyes: denies: pain, vision change Respiratory: denies: cough, dry Cardiovascular: denies: chest pain, palpitations Gastrointestinal: denies: nausea, vomiting - Medication Medications: Active Medications Generic Name Dose Route Start Last Admin Trade Name Freq PRN Reason Stop Dose Admin Alprazolam 0.25 mg 01/29/19 02:15 01/29/19 21:22 Xanax PO 0.25 mg DAILY PRN Administration Restlessness Amiodarone HCl 200 mg 01/29/19 21:00 01/29/19 21:23 Cordarone PO 200 mg HS ANCA Administration Apixaban 5 mg 01/29/19 09:00 01/30/19 08:59 Eliquis PO 5 mg BID ANCA Administration Aspirin 81 mg 01/29/19 09:00 01/30/19 08:59 Aspirin Chewable PO 81 mg DAILY ANCA Administration Atorvastatin Calcium 20 mg 01/29/19 21:00 01/29/19 21:23 Lipitor PO 20 mg HS ANCA Administration Baclofen 10 mg 01/29/19 21:00 01/29/19 21:23 Lioresal PO 10 mg HS ANCA Administration Cyanocobalamin 5,000 mcg 01/29/19 09:00 01/30/19 08:59 Vitamin B-12 PO 5,000 mcg DAILY ANCA Administration Ezetimibe 10 mg 01/29/19 21:00 01/29/19 21:23 Zetia PO 10 mg HS ANCA Administration Hydralazine HCl 50 mg 01/29/19 09:00 01/30/19 14:01 Apresoline PO 50 mg TID ANCA Administration Insulin Glargine 26 units/ 0.26 mls @ 0 mls/hr 01/29/19 09:00 01/30/19 09:00 Miscellaneous Medication SC 0.26 mls QAM ANCA Administration Insulin Human Lispro 0 units 01/29/19 02:11 01/30/19 12:26 Humalog SC 3 unit .AGGRESSIVE SLIDING PRN Administration Aggressive [employer] Scale Lidocaine 1 patch 01/30/19 09:00 01/30/19 09:00 Lidoderm 5% Patch TD 1 patch DAILY ANCA Administration Metoprolol Succinate 25 mg 01/29/19 09:00 01/30/19 09:00 Toprol Xl PO 25 mg DAILY ANCA Administration Ondansetron HCl 4 mg 01/29/19 07:29 01/29/19 09:08 Zofran SLOW IVP 4 mg Q8H PRN Administration Nausea/Vomiting Pantoprazole Sodium 40 mg 01/29/19 09:00 01/30/19 09:00 Protonix PO 40 mg DAILY ANCA Administration Dapagliflozin 0 each 01/29/19 09:00 01/30/19 09:00 Propanediol [Farxiga PO 1 each ] 5 Mg QAM ANCA Administration Potassium Chloride 20 meq 01/29/19 21:00 01/29/19 21:22 K-Dur PO 20 meq HS ANCA Administration Sertraline HCl 12.5 mg 01/29/19 09:00 01/30/19 09:00 Zoloft PO 12.5 mg DAILY ANCA Administration - Exam General Appearance: NAD, awake alert Eye: PERRL, anicteric sclera ENT: normocephalic atraumatic, no oropharyngeal lesions Neck: supple, symmetric, no JVD, no thyromegaly Heart: RRR, no murmur, no gallops, no rubs Respiratory: no wheezes Respiratory - other findings: left sided crackles Gastrointestinal: soft, non-tender, non-distended, normal bowel sounds Extremities: no cyanosis, no clubbing, no edema Skin: normal turgor, no lesions, no rashes Hosp A/P - Plan MRI C spine: no significant stenosis, multilevel facet arthritis CT thoracic spine: small bilateral pleural effusions. Cholelithiasis. Diffuse idiopathic skeletal hyperostosis with foraminal narrowing at T1-T2 Right shoulder Xray: AC and glenohumeral degenerative changes are seen This is an 78 year old male who presented with dizziness, diarrhea and weakness. Also has been having shoulder pain for the past three weeks with hypersensitivity #Dizziness from symptomatic iron deficiency anemia #Orthostatic hypotension - Hemoglobin of 8 today, started on iron yesterday due to ferritin of 2. Was given IV fluids overnight for orthostatic hypotension, but due to persistent dizziness will order one unit PRBC, recheck CBC afterwards. Stool guiaiac pending - GI consulted for colonoscopy evaluation, but need cardiology clearance due to severe systolic CHF and atrial fibrillation. Previously cardiology thought patient was unsafe for colonoscopy, therefore further workup would be pending this #Right rotator cuff impingement #Neuropathy across chest - patient had MRI cervical spine showing no significant stenosis. CT thoracic spine showing DISH with foraminal narrowing at T1-T2. Right shoulder X ray shows AC and glenohumeral arthritis. Ortho was consulted for right shoulder pain, stated no further workup of shoulder needed. Continue PT, lidocaine patch - stopped gabapentin due to dizziness. On norco prn - no improvement with acyclovir so unlikely shingles #Hypokalemia - resolved Atrial fibrillation - continue eliquis, amiodarone Disposition: 1 unit PRBC, cardiology consult for clearanc Code status: full code
[2019-01-30] MEDS: Potassium Chloride 20 MEQ TAB PO SCH (21:26)
[2019-01-30] MEDS: Baclofen 10 MG TAB PO SCH (21:26)
[2019-01-30] MEDS: Ezetimibe 10 MG TAB PO SCH (21:26)
[2019-01-30] MEDS: Atorvastatin Calcium 20 MG TAB PO SCH (21:26)
[2019-01-30] MEDS: Amiodarone 200 MG TAB PO SCH (21:27)
[2019-01-30] MEDS: Lidocaine Patch Removal 1 EACH TOP SCH (21:27)
[2019-01-30] MEDS: ALPRAZolam 0.25 MG TAB PO PRN (21:31)
[2019-01-30 22:17] LABS: Hemoglobin 8.8 g/dL (14.0-18.0); Mean Corpuscular HGB CONC 29.5 g/dL (32.0-36.0); Mean Corpuscular Hemoglobin 19.6 pg (27.0-31.0); Mean Corpuscular Volume 66.5 fL (78.0-98.0); Mean Platelet Volume 5.9 fL (7.4-10.4); Platelet Count 280 thou/uL (130-400); RBC Distribution Width 21.8 % (11.5-14.5); White Blood Cell (WBC) Count 9.1 thou/uL (4.8-10.8)
--- NOTE | 2019-01-31 08:36 | CON ---
DATE OF CONSULTATION: REASON FOR CONSULT: Requested endoscopic workup of chronic iron deficiency anemia. HISTORY OF PRESENT ILLNESS: Mr. Anderson is an 78-year-old gentleman, who came to the hospital for dizziness with walking and standing. He was found to have a significant anemia with a hemoglobin of 8.7. His hemoglobin had been 11.7 in February of this year and 15.3 in January of last year. His MCV is 64. Apparently, he was walking with physical therapist at home, when attempting to get up, he would get dizzy. He is on a chronic anticoagulation with Eliquis. His GI history is about a year ago in January 2018. He is going to undergo an EGD and colonoscopy in our office. He had again some cardiac clearance before that. He has had a previous history of coronary artery disease. He was only on Plavix at that time, but when he showed up for endoscopy, he had atrial fibrillation with rapid ventricular rate and the procedure was canceled. He is admitted to the hospital. Ultimately, this was felt to be new onset atrial fibrillation and he was placed on blood thinners and endoscopies were canceled. Earlier this year in October, the patient was having issues with pill dysphagia and solids, and he underwent an EGD at [facility] here, which was found to be normal. He had empiric dilatation. There was no signs of GI blood loss, gastritis, esophagitis, or duodenitis. Here, the patient apparently has been seen by Orthopedic Surgery for some shoulder pain. Today, I have been asked to see him for the anemia. On talking with him and his son, there has been no melena, hematochezia, or hematemesis. He has had no problems with bowel movements, although occasionally have been dark. There has been some history of weight loss over time. He has noted some chest discomfort at times with exertion as well. PAST MEDICAL HISTORY: Hypertension, diabetes, coronary artery disease, previous percutaneous stents, atrial fibrillation, he is on Eliquis and amiodarone. Apparently presently, he is in sinus rhythm. PAST SURGICAL HISTORY: Neck surgery, prostatectomy, EGD in October and remote history of colonoscopy in the . REVIEW OF SYSTEM: Urinary frequency, weakness, dizziness with standing, and occasional loose stools. SOCIAL HISTORY: The patient resides in community. Fully functional at baseline. There is no history alcohol, drug use, or tobacco use. His son is at the bedside. ALLERGIES: AMITRIPTYLINE. FAMILY HISTORY: Noncontributory. MEDICATIONS: At home; 1. Xanax. 2. Amiodarone. 3. Eliquis. 4. Aspirin. 5. Atorvastatin. 6. Baclofen. 7. Cyanocobalamin. 8. Forxiga. 9. Ezetimibe. 10. Pepcid. 11. Neurontin. 12. Insulin. 13. Metoprolol. 14. Protonix. 15. Potassium. 16. Sertraline. Medications here; 1. Amiodarone. 2. Eliquis. 3. Aspirin. 4. Lipitor. 5. Baclofen. 6. B12. 7. Forxiga. 8. Zetia. 9. Ezetimibe. 10. Iron. 11. Glucagon. 12. Hydralazine. 13. Welch. 14. Insulin. 15. Lidocaine. 16. Metoprolol. 17. Zofran. 18. Protonix. 19. Potassium. 20. Senna. PHYSICAL EXAMINATION: GENERAL: The patient is resting comfortably in bed. Skin is notable for ecchymosis, bruising, and changes. He is alert and oriented to person, place, and time. VITAL SIGNS: Temperature 97, pulse 74, and blood pressure 110/53. HEENT: Oropharynx, no lesions. Conjunctivae sclerae are pale and clear respectively. NECK: Supple. LUNGS: Clear. HEART: Regular rate and rhythm. ABDOMEN: Soft and nontender. There is no palpable hepatomegaly. EXTREMITIES: No clubbing, cyanosis, or edema. LABORATORY DATA: White count 7.5, hemoglobin 8.3, MCV 64, and platelet count 298. INR 1.9 on the January 25 last year. Sodium 138, potassium 3.8, chloride 109, bicarb 22, BUN and creatinine are 12 and 1.24. Liver function tests are normal. Ferritin was 2.8, iron was 386, iron was 13, and B12 was normal. Folic acid normal. TSH is normal. Hemoccults are pending. ASSESSMENT: Iron deficiency anemia. This is new over the past years, it is likely related to his Eliquis. Cannot rule out underlying gastrointestinal disorders. He had an esophagogastroduodenoscopy in October that was okay with no bleeding spots identified. The patient is adamant undergo further endoscopy surgery. It is really unclear if that is really true or not. His atrial fibrillation is controlled. RECOMMENDATIONS: I would transfuse him though we will get Cardiology to evaluate him tomorrow and if it is reasonable, we can proceed with a colonoscopy this admission. I would not start him on iron at this point in time as it is going to make a prep almost impossible. If you want to give him IV iron, that is fine, I am going to stop his oral iron. Job ID: [id number]
[2019-01-31] MEDS: Aspirin Chewable 81 MG TAB PO SCH (09:17)
[2019-01-31] MEDS: Apixaban 5 MG TAB PO SCH (09:17)
[2019-01-31] MEDS: Cyanocobalamin (Vitamin B-12) 1,000 MCG TAB PO SCH (09:17)
[2019-01-31] MEDS: hydrALAZINE 25 MG TAB PO SCH ×3 (09:18→20:17)
[2019-01-31] MEDS: Insulin Glargine 26 UNITS in Pre-Filled Syringe 1 EACH SC SCH (09:19)
[2019-01-31] MEDS: Lidocaine 5% Patch TD SCH (09:20)
[2019-01-31] MEDS: Dapagliflozin Propanediol [Farxiga] 5 MG PO SCH (09:20)
--- NOTE | 2019-01-31 11:16 | PRG ---
DATE OF SERVICE: 01/31/2019 SUBJECTIVE: Mr. Anderson is without complaints. He did receive some blood yesterday. OBJECTIVE: VITAL SIGNS: Temperature is 98.8, pulse 67, and blood pressure 149/69. GENERAL: He is resting comfortably in bed. ABDOMEN: Nontender since the bedside. LABORATORY DATA: Hemoglobin is 8.8, white count 9.1, and platelet count 280. Electrolytes normal. BUN 12 and creatinine 1.2. ASSESSMENT: 1. Microcytic anemia on admission. This is new since February 2018. He has documented iron deficiency. 2. Coronary artery disease and atrial fibrillation, on amiodarone now. RECOMMENDATIONS: If Cardiology clears him for colonoscopy and the patient agrees, we will proceed with EGD colon tomorrow. In anticipation of this, we will put him on a clear liquid diet now and stop his Eliquis. I have asked the nurse to contact me. Once varnishing unit tool setter seen the patient, we can make the disposition. If we were unable to make a disposition for endoscopy tomorrow, we will have to wait until after the holiday, as this is elective. Job ID: [id number]
[2019-01-31] MEDS ORDERED: Calcium Carbonate 500 MG ChewTAB PO PRN (11:56)
--- NOTE | 2019-01-31 12:04 | PDOC.HOSPP ---
- Subjective Encounter Date: 01/31/19 Encounter Time: 10:30 Subjective: The patient says his dizziness has improved. He walked with PT to the nursing station and did not feel as dizzy. He still has some hypersensitivity to his chest area which has increased compared to yesterday. Also reports pain when his right arm touches his chest. The pain is constant in his chest with radiation. Denies significant shortness of breath but notices some burning while laying down. He has a mild cough and some pain while taking a deep breath. - Objective Vital Signs & Weight: Vital Signs (12 hours) Temp Pulse Pulse Pulse Resp BP BP 01/31/19 11:47 98.0 F 61 16 01/31/19 09:28 97 62 144/66 H 01/31/19 09:18 67 149/69 H 01/31/19 08:04 98.8 F 61 16 01/31/19 03:55 97.6 F 68 22 H BP BP BP Pulse Ox Pulse Ox Pulse Ox 01/31/19 11:47 136/64 93 L 01/31/19 09:28 147/65 H 67 L 95 01/31/19 09:18 01/31/19 08:04 155/67 H 94 L 01/31/19 03:55 146/67 H 95 Weight Admit Weight 186 lb 6.4 oz Weight 187 lb 11.2 oz I&O: 01/30/19 01/31/19 02/01/19 06:59 06:59 06:59 Intake Total 2360 1630 Output Total 700 975 Balance 1660 655 Result Diagrams: 01/30/19 22:04 01/30/19 09:33 Additional Labs: Accuchecks 01/31/19 01/31/19 01/30/19 11:06 06:13 20:34 POC Glucose 94 82 116 H 01/30/19 01/30/19 16:54 12:29 POC Glucose 106 157 H Hospitalist ROS - Review of Systems Gastrointestinal: denies: nausea, vomiting, abdominal pain, diarrhea - Medication Medications: Active Medications Generic Name Dose Route Start Last Admin Trade Name Freq PRN Reason Stop Dose Admin Alprazolam 0.25 mg 01/29/19 02:15 01/30/19 21:31 Xanax PO 0.25 mg DAILY PRN Administration Restlessness Amiodarone HCl 200 mg 01/29/19 21:00 01/30/19 21:27 Cordarone PO 200 mg HS ANCA Administration Aspirin 81 mg 01/29/19 09:00 01/31/19 09:17 Aspirin Chewable PO 81 mg DAILY ANCA Administration Atorvastatin Calcium 20 mg 01/29/19 21:00 01/30/19 21:26 Lipitor PO 20 mg HS ANCA Administration Baclofen 10 mg 01/29/19 21:00 01/30/19 21:26 Lioresal PO 10 mg HS ANCA Administration Cyanocobalamin 5,000 mcg 01/29/19 09:00 01/31/19 09:17 Vitamin B-12 PO 5,000 mcg DAILY ANCA Administration Ezetimibe 10 mg 01/29/19 21:00 01/30/19 21:26 Zetia PO 10 mg HS ANCA Administration Hydralazine HCl 50 mg 01/29/19 09:00 01/31/19 09:18 Apresoline PO 50 mg TID ANCA Administration Insulin Glargine 26 units/ 0.26 mls @ 0 mls/hr 01/29/19 09:00 01/31/19 09:19 Miscellaneous Medication SC 0.26 mls QAM ANCA Administration Insulin Human Lispro 0 units 01/29/19 02:11 01/30/19 12:26 Humalog SC 3 unit .AGGRESSIVE SLIDING PRN Administration Aggressive Correctional Scale Lidocaine 1 patch 01/30/19 09:00 01/31/19 09:20 Lidoderm 5% Patch TD 1 patch DAILY ANCA Administration Metoprolol Succinate 25 mg 01/29/19 09:00 01/31/19 09:20 Toprol Xl PO 25 mg DAILY ANCA Administration Miscellaneous Medication 1 each 01/30/19 21:00 01/30/19 21:27 Lidocaine Patch Removal TOP Not Given 2[address] [facility] Ondansetron HCl 4 mg 01/29/19 07:29 01/29/19 09:08 Zofran SLOW IVP 4 mg Q8H PRN Administration Nausea/Vomiting Pantoprazole Sodium 40 mg 01/29/19 09:00 01/31/19 09:20 Protonix PO 40 mg DAILY ANCA Administration Dapagliflozin 0 each 01/29/19 09:00 01/31/19 09:20 Propanediol [Farxiga PO 1 each ] 5 Mg QAM ANCA Administration Potassium Chloride 20 meq 01/29/19 21:00 01/30/19 21:26 K-Dur PO 20 meq HS ANCA Administration Sertraline HCl 12.5 mg 01/29/19 09:00 01/31/19 09:20 Zoloft PO 12.5 mg DAILY ANCA Administration - Exam General Appearance: NAD, awake alert Eye: PERRL, anicteric sclera ENT: normocephalic atraumatic, no oropharyngeal lesions Neck: supple, symmetric, no JVD, no thyromegaly Heart: RRR, no murmur, no gallops, no rubs, normal peripheral pulses Respiratory: CTAB, no wheezes, no rales, no ronchi Gastrointestinal: soft, non-tender, non-distended, normal bowel sounds Extremities: no cyanosis, no clubbing, no edema Skin: normal turgor, no lesions, no rashes Neurological: cranial nerve grossly intact, normal sensation to touch, no focal deficits, no new deficit Musculoskeletal: normal tone, normal strength, no muscle wasting Musculoskeletal - other findings: mild pain on palpation of chest Psychiatric: normal affect, normal behavior Hosp A/P - Plan MRI C spine: no significant stenosis, multilevel facet arthritis CT thoracic spine: small bilateral pleural effusions. Cholelithiasis. Diffuse idiopathic skeletal hyperostosis with foraminal narrowing at T1-T2 Right shoulder Xray: AC and glenohumeral degenerative changes are seen This is an 78 year old male who presented with dizziness, diarrhea and weakness. Also has been having shoulder pain for the past three weeks with hypersensitivity #Dizziness from symptomatic iron deficiency anemia #Orthostatic hypotension - s/p 1 unit pRBC 01/30 with improvement in dizziness. Hb 8.8 today. Had ferritin of 2, holding oral iron in anticipation of colonoscopy - awaiting clearance from cardiology for colonoscopy, if patient can have colonoscopy, then will get it tomorrow - stool guaiac pending - #Right rotator cuff impingement #Neuropathy across chest #Mild dyspnea - patient had MRI cervical spine showing no significant stenosis. CT thoracic spine showing DISH with foraminal narrowing at T1-T2. Right shoulder X ray shows AC and glenohumeral arthritis. Ortho was consulted for right shoulder pain, stated no further workup of shoulder needed. Continue PT, lidocaine patch - stopped gabapentin due to dizziness. On norco prn - no improvement with acyclovir so unlikely shingles - will obtain CT chest given blood transfusion yesterday to evaluate pleural effusions, although lungs seem clear, and also evaluate whether there is any rib pathology due to constant right sided chest pain #Hypokalemia - resolved #Atrial fibrillation - on amiodarone - discontinue eliquis due to bleeding Disposition: colonoscopy tomorrow if cleared by cardiology Code status: full code
[2019-01-31 13:27] LABS: Hemoglobin 9.5 g/dL (14.0-18.0); Mean Corpuscular HGB CONC 29.4 g/dL (32.0-36.0); Mean Corpuscular Hemoglobin 19.6 pg (27.0-31.0); Mean Corpuscular Volume 66.5 fL (78.0-98.0); Mean Platelet Volume 6.4 fL (7.4-10.4); Platelet Count 286 thou/uL (130-400); RBC Distribution Width 21.7 % (11.5-14.5); Red Blood Cell (RBC) Count 4.83 mill/uL (4.70-6.10)
--- NOTE | 2019-01-31 14:04 | CON ---
DATE OF CONSULTATION: HISTORY OF PRESENT ILLNESS: Kraig Anderson is an 78-year-old white male, who I have followed since July 2008. At that time, he was admitted with acute onset of substernal chest pressure radiating to his left arm. The pain lasted for 1 to 2 hours and EKG revealed nonspecific T-wave changes. He had a peak CK of 281 with an MB of 36.3, troponin I of 10.494. He underwent cardiac catheterization by Dr. Landeros. There was normal left ventricular function with ejection fraction of 50% to 55%. There was a 20% left main, 20% mid LAD and a small ramus with a 90% proximal stenosis, which was very small caliber vessel. The circumflex is also small caliber with a 90% lesion in the first obtuse marginal. The right coronary was very large with a 90% mid RCA stenosis. I then performed the intervention on the right coronary artery with PTCA with a Angelina 3.0 x 20 mm balloon used to pre dilate the area. After initial balloon inflation, there was no distal flow. It was felt there may have been proximal dissection due to the balloon. The balloon was pulled back and another inflation was performed. Again, there was essentially no flow. Liberte stents were placed - 3.0 x 20 mm and proximal to this 3.5 x 28 mm. Distal to the first stent 3.0 x 20 mm and 3.0 x 24 mm stents were placed. There continued to be very poor flow, though the vessel angiographically looked good without any obvious dissection. During the case, the patient was initially given Angiomax. This was then followed by 8000 units of heparin and was changed over to Integrilin bolus and drip. He was hypotensive and bradycardic. Dopamine infusion was started as well as atropine 0.5 mg given intravenously x2. The decision was made to place temporary pacemaker. Multiple doses of intracoronary adenosine 30 to 40 mcg were given and flow gradually returned. His ST segments came down from the [address]-segment elevation to 1 mm of elevation. The decision was made to place a balloon pump due to hypotension and this placed via the left femoral artery. He did go into atrial fibrillation and digoxin 0.5 mg IV was given to control the rate. When he was finally left the denture laboratory technician, he had JOSE DAVID-2 flow into the distal right coronary artery. This was also seen to fill the distal circumflex retrograde. He also had a melenic stool and underwent EGD, which was unremarkable. It was felt that he probably had no reflow due to distal emboli, plaque and/or thrombus. CK peaked at 1281, MB 156.9, and troponin I 42.761. He was weaned from the balloon pump. This was removed and he ultimately ambulated. He followed with Dr. Landeros for a period of time after that. He denied any recurrence of his chest discomfort and due to frequent bruising, his primary doctor reduced his aspirin from 325 to 81 mg. He then presented on December 30, 2009, that evening after carrying a heavy pallet. He had onset of left axillary pain and pain in the left upper arm. He had no chest discomfort like he did with stent was placed in July 2008. He had came to the emergency room at 11 p.m. He was given intravenous morphine and his pain resolved. EKG was unremarkable and cardiac enzymes were negative. He had a palpable tenderness of the area. He denied any pleuritic component to the pain. It was recommended he undergo catheterization and this revealed 20% left main, 40% proximal LAD, 90% lesion in the ramus, 90% first obtuse marginal lesion. Total occlusion of the distal circumflex which filled retrograde from the right coronary artery as before. The right coronary artery had a 50% followed by 60% followed by 70% in-stent restenosis. Veriflex 3.5 x 28 and 3.5 x 16 were placed with excellent results. There was mild distal inferior wall hypokinesis with ejection fraction of 50% to 55%. After that, he did not have any significant chest discomfort and he had been doing well. Echocardiogram in January 2017 revealed moderately reduced left ventricular function with ejection fraction of 35% to 40%, mild left atrial enlargement, severe mitral regurgitation, aortic valvular sclerosis, moderate tricuspid regurgitation, and mild pulmonic regurgitation. In December 2017, he was seen in the office complaining of some epigastric discomfort and was to undergo EGD by Dr. Ortega. His heart rate was regular at that visit. When he went for his GI studies, however , he was found to be in atrial fibrillation with fast ventricular response of 144 per minute and he was sent to the emergency room. It was only associated with general headache and exertional dyspnea. Echocardiogram revealed ejection fraction of 25% to 30% with severe mitral regurgitation, with the drop in his ejection fraction , it was felt that he should undergo repeat catheterization with new onset atrial fibrillation. This revealed severe global hypokinesis with ejection fraction of 15% to 20% with severe mitral regurgitation. There was a 70% proximal LAD, 50% mid LAD, 90% first diagonal. The circumflex was totally occluded in its midportion with the distal vessel filled retrograde from the right coronary artery. There was 90% first obtuse marginal stenosis. The ramus had a 90, followed by 90% stenosis. The right coronary artery had 20% mid RCA in-stent restenosis and a 70% right posterolateral. Also, it was found that his wedge pressure was 26 and furosemide dose was increased. He was started on p.o. amiodarone and was seen by Cardiac Surgery and it was felt that he was not a surgical candidate, especially with his poor left ventricular function. He therefore was anticoagulated. He underwent transesophageal echo, was found to have thrombus in his left atrium. He was continued on Eliquis and one month later underwent repeat transesophageal echo, which revealed [id number] mitral regurgitation, left atrial enlargement , and severe left ventricular dysfunction, but no thrombus in the left atrium. He then underwent electrical cardioversion with 200 joules, returned to sinus rhythm. He has continued to be off followed in the office since that time and appears to continue to maintain sinus rhythm on amiodarone. Echocardiogram in April 2018 revealed that his ejection fraction had improved 40-45 percent. There was mild left atrial enlargement, moderate to severe mitral regurgitation and [id number] tricuspid regurgitation. With improvement in his ejection fraction, his [employer] was returned to the company. He was last seen in the office in November 2018 without any specific complaints. Mr. Anderson now presented on January 28 complaining of lightheadedness, dizziness, diarrhea, and weakness. He also complains of some vague lateral chest discomfort that is continually present. He denies any shortness of breath. PAST MEDICAL HISTORY: Diabetes, hypertension, hypercholesterolemia, coronary artery disease, chronic back problems, stent placement, myocardial infarction, dysphagia, and anemia. PAST SURGICAL HISTORY: Operations, Lumbar surgery x3 and prostatectomy. MEDICATIONS: 1. Alprazolam 1 to 2 mg p.r.n. 2. Amiodarone 200 mg at bedtime. 3. Eliquis 5 mg b.i.d. 4. Aspirin 81 daily. 5. Atorvastatin 20 mg at bedtime. 6. Baclofen 1 tablet at bedtime. 7. Forxiga 5 mg q.a.m. 8. Zetia 10 mg at bedtime. 9. Pepcid 40 at bedtime p.r.n. 10. Neurontin 100 mg b.i.d. 11. Insulin. 12. Metoprolol-XL 25 mg q.a.m. 13. Pantoprazole 40 daily. 14. Sertraline 12.5 daily. 15. Potassium 20 mEq daily. ALLERGIES: AMITRIPTYLINE. SOCIAL HISTORY: He does not smoke or drink. FAMILY HISTORY: Unremarkable for coronary artery disease. REVIEW OF SYSTEMS: A 12-point review of systems is otherwise unremarkable. PHYSICAL EXAMINATION: VITAL SIGNS: Blood pressure 136/64 and pulse 61. HEENT: PERRL. NECK: Supple. CHEST: Clear. CARDIAC: S1 and S2 normal without any S3, S4, or murmurs. ABDOMEN: Normal bowel sounds without tenderness organomegaly. EXTREMITIES: Revealed no clubbing, cyanosis, or edema. NEUROLOGIC: Grossly intact. LABORATORY DATA: EKG reveals normal sinus rhythm with first-degree AV block. Hemoglobin 8.8, hematocrit 29.9, white count 9100, and platelets 280,000. Sodium 138, potassium 3.8, chloride 108, carbon dioxide 22, BUN 12, and creatinine 0.24. TSH is normal. IMPRESSION: 1. Probable iron-deficiency anemia while on Eliquis. 2. Status post coronary stent placement in the right coronary artery with infarction. 3. Three-vessel coronary artery disease, felt not to be a candidate for coronary artery bypass grafting. 4. Niqtrjek-jb-jwuytr mitral regurgitation. 5. Ischemic cardiomyopathy, ejection fraction of 15% to 20% in January 2018, which improved 40% - 45% after cardioversion and failure medicines. 6. History of atrial fibrillation status post cardioversion in February 2018. 7. Thrombus of the left atrial appendage in January 2018. 8. Hypercholesterolemia. 9. Hypertension. 10. Diabetes. 11. Esophageal dilatation. PLAN: Eliquis has been held. I agree that the patient needs to undergo colonoscopy for further evaluation of his anemia. I will follow the patient with you. Job ID: [id number] [facility]
[2019-01-31] MEDS ORDERED: GoLYTELY 4,000 ml Bottle PO SCH (15:00)
--- NOTE | 2019-01-31 15:45 | CT ---
CT CHEST WITHOUT CONTRAST: Indications: Chest pain, rib pain. Right shoulder and axillary pain. FINDINGS: The lungs show no evidence of infiltrate. Evidence of tiny bilateral pleural effusions. Some mild str anding in the posterior lung bases. Calcified granuloma in the right upper lobe measures 5 mm. A 3 mm nodule in the peripheral right upper lobe. Tiny 2-3 mm nodule in the posterior left lower lobe. Mediastinum unremarkable. There are calcified mediastinal and hilar lymph nodes. Views of the upper a bdomen show a mildly distended gallbladder with increased densities in the gallbladder lumen. This co uld represent gallbladder sludge, consider correlation with gallbladder ultrasound as indicated. Review of the osseous structures show ossifications at the anterior longitudinal ligament with large bridging osteophytes at several thoracic levels seen anteriorly and laterally. Mild wedging of severa l mid thoracic vertebra without evidence of acute compression fracture. The bony thorax appears intac t. IMPRESSION: 1. No acute lung or chest process. Possible tiny effusion. 2. Gallbladder is mildly distended and there is increased luminal density although this is incomplete ly evaluated on this study. POS: CADEN
[2019-01-31] MEDS: Ondansetron PF 4 MG/2 ML Vial SLOW IVP PRN (18:14)
[2019-01-31] MEDS: Baclofen 10 MG TAB PO SCH (20:17)
[2019-01-31] MEDS: Amiodarone 200 MG TAB PO SCH (20:18)
[2019-01-31] MEDS: Atorvastatin Calcium 20 MG TAB PO SCH (20:18)
[2019-01-31] MEDS: Potassium Chloride 20 MEQ TAB PO SCH (20:18)
[2019-01-31] MEDS: Ezetimibe 10 MG TAB PO SCH (20:18)
[2019-01-31] MEDS: Lidocaine Patch Removal 1 EACH TOP SCH (20:19)
[2019-02-01 04:59] LABS: Anion Gap 8 mmol/L (10-20); BUN (Urea Nitrogen) 10 mg/dL (8.4-25.7); Calc. Creatinine Clearance 62 mL/min (70-130); Calcium 8.5 mg/dL (7.8-10.44); Carbon Dioxide 28 mmol/L (23-31); Cardiac Risk 2.2 (Less than 4.5); Chloride 105 mmol/L (98-107); Cholesterol 125 mg/dl (< 200 Desired); Estimated GFR-MDRD 59; HDL Cholesterol 56 mg/dL (>60 Neg Risk); LDL Cholesterol, Calculated 58 mg/dL; Potassium 3.4 mmol/L (3.5-5.1); Sodium 138 mmol/L (136-145); Triglycerides 54 mg/dL (Less than 150)
[2019-02-01 05:02] LABS: Glucose 58 mg/dL (83-110)
[2019-02-01] MEDS ORDERED: Dextrose 50 % In Water 50 ML SYRINGE ONE (05:07)
[2019-02-01 05:42] LABS: Hemoglobin 9.2 g/dL (14.0-18.0); Mean Corpuscular HGB CONC 29.4 g/dL (32.0-36.0); Mean Corpuscular Hemoglobin 19.9 pg (27.0-31.0); Mean Corpuscular Volume 67.8 fL (78.0-98.0); Mean Platelet Volume 6.8 fL (7.4-10.4); Platelet Count 259 thou/uL (130-400); Red Blood Cell (RBC) Count 4.64 mill/uL (4.70-6.10); White Blood Cell (WBC) Count 8.6 thou/uL (4.8-10.8)
[2019-02-01] MEDS ORDERED: Dextrose 5 % And 0.9 % NaCl 1,000 ML IV SCH (07:30)
[2019-02-01] MEDS ORDERED: Potassium Chloride 20 MEQ TAB PO SCH (08:45)
[2019-02-01] MEDS ORDERED: Ketamine 50 MG/ML (10ML VIAL) ONE (09:53)
[2019-02-01] MEDS: Aspirin Chewable 81 MG TAB PO SCH (12:40)
[2019-02-01] MEDS: Cyanocobalamin (Vitamin B-12) 1,000 MCG TAB PO SCH (12:40)
[2019-02-01] MEDS: Insulin Glargine 26 UNITS in Pre-Filled Syringe 1 EACH SC SCH (12:41)
[2019-02-01] MEDS: hydrALAZINE 25 MG TAB PO SCH ×2 (12:41→14:36)
[2019-02-01] MEDS: Dapagliflozin Propanediol [Farxiga] 5 MG PO SCH (12:42)
[2019-02-01] MEDS: Lidocaine 5% Patch TD SCH (12:42)
[2019-02-01 13:01] VITALS: BMI 28.7
--- NOTE | 2019-02-01 13:44 | OP ---
DATE OF PROCEDURE: 02/01/2019 PROCEDURES PERFORMED: Esophagogastroduodenoscopy and colonoscopy with snare polypectomy and biopsy and submucosal injection. PREOPERATIVE DIAGNOSIS: Iron-deficiency anemia. DESCRIPTION OF PROCEDURE: Informed consent was obtained from the patient. He was sedated with total intravenous anesthesia. The bite block was placed, and the endoscope was advanced easily to the second portion of the duodenum, and retroflexion was performed in the stomach. The esophagus was normal. The GE junction was normal. The stomach was normal including retroflexed views. The pylorus and first and second portions of the duodenum were normal. The patient was turned around. Rectal exam was performed and was normal. The colonoscope was advanced to the cecum, where the ileocecal valve and appendiceal orifice were clearly identified. The scope was advanced with significant technical difficulty due to looping. Ultimately, the patient was rolled to his back and then the right side with abdominal pressure to reach the tip of the cecum. The preparation quality was adequate. There was a large flat polyp in the distal transverse colon. This was one half circumferential. It extended over both sides of a fold. This polyp was not endoscopically resectable. It was biopsied in multiple places, and a tattoo was placed across from the polyp and also on the distal side of the polyp. A 7 mm polyp was found in the descending colon, which was flat. This was raised with saline and removed by snare cautery polypectomy. There were 2 polyps in the rectum measuring 1 cm and 8 mm. These were removed by snare cautery polypectomy. Retroflexed views in the rectum were unremarkable. IMPRESSION: 1. Normal esophagogastroduodenoscopy. 2. Large flat one half circumferential polyp in the distal transverse colon. This was marked with tattoo and biopsied. This is not endoscopically resectable. 3. Flat 7 mm polyp removed from the descending colon. 4. Two polyps removed from the rectum measuring 1 cm and 7 mm. 5. Otherwise normal colonoscopy. RECOMMENDATIONS: 1. Await histopathology. 2. Surgical consultation regarding the transverse polyp. This can be performed as an outpatient after the pathology results are available. 3. Advance diet. 4. He can restart Eliquis tomorrow. 5. I will sign off. Please call if GI can be of assistance. He will need to follow up in GI Clinic. Job ID: [id number]
--- NOTE | 2019-02-01 13:56 | EKG ---
Test Reason : CP Blood Pressure : / mmHG Vent. Rate : 079 BPM Atrial Rate : 079 BPM P-R Int : 220 ms QRS Dur : 084 ms QT Int : 424 ms P-R-T Axes : 069 008 048 degrees QTc Int : 486 ms Sinus rhythm with 1st degree A-V block with occasional Premature ventricular complexes Prolonged QT Abnormal ECG Confirmed by MARCIA TARIQ MD ([id number]), editor magazine MARGARET LAZCANO ([id number]) on 02/01/2019 1:55:56 PM Referred By: Confirmed By:MARCIA TARIQ MD
[2019-02-01] MEDS ORDERED: PROPOFOL 200 MG/20 ML VIAL ONE (15:00)
[2019-02-01] MEDS ORDERED: Lidocaine 1% PF 5 ML VIAL ONE (15:00)
[2019-02-01] MEDS ORDERED: ePHEDrine/0.9% NaCl/PF SYRINGE 50 mg/10 ml ONE (15:00)
[2019-02-01] MEDS ORDERED: Benzocaine 20% Spray 60 ML CAN ONE (15:00)
[2019-02-01 15:28] VITALS: TEMP 97.8
[2019-02-01] MEDS: HumaLOG 300 UNITS/3 ML VIAL SC PRN (17:04)
[2019-02-01 17:07] VITALS: BP 158/73
--- NOTE | 2019-02-01 20:38 | DIS ---
DATE OF ADMISSION: 01/30/2019 DATE OF DISCHARGE: 02/01/2019 DISCHARGE DIAGNOSES: Symptomatic iron deficiency anemia, requiring blood transfusion, orthostatic hypotension, distal transverse colon polyp, descending colon polyp, rectal polyp, hypokalemia, hypoglycemia, right rotator cuff impingement, atrial fibrillation, pulmonary nodules. CONSULTATIONS: Orthopedic with Dr. Kingston Jacobson, GI with Dr. Robert Harrington. PROCEDURES: Upper endoscopy and colonoscopy on 02/01 which showed a normal EGD. Large flat 0.5 circumferential polyp in the distal transverse colon, which was not endoscopically resectable, but was biopsied. Flat 7 mm polyp removed from the descending colon. Two polyps removed from the rectum measuring 1 cm and 7 mm. BRIEF HISTORY OF PRESENT ILLNESS: This is an 78-year-old male with a past medical history of CAD, GERD, depression, atrial fibrillation, who had presented to the emergency room with dizziness, diarrhea, and weakness. The patient denied any black tarry stools. The patient also was complaining about chronic burning sensation in his right axillary area and right shoulder for the past 3 weeks, which he thought might have been secondary to shingles. The patient was admitted for further workup. HOSPITAL COURSE: #Acute symptomatic iron deficiency anemia requiring blood transfusion #Orthostatic Hypotension # Distal Tranvsere Colon Polyp/Rectal Polyp/Descending Colon Polyp: The patient was noted to have a hemoglobin of 8.7 on presentation. Iron panel was done and was remarkable for a ferritin level of 2.84. Vitamin B12 and folate levels were normal. TSH was normal. The patient was started on iron supplementation. Due to persistent dizziness while ambulating, the patient underwent 1 unit of PRBC with improvement in his hemoglobin to 9.5. The patient states that his dizziness improved after blood transfusion. The patient also received IV fluids due to orthostatic hypotensio. GI was consulted for EGD/colonoscopy. Cardiology cleared patient and patient had colonoscopy and EGD on 02/02. EGD was normal, but colonoscopy showed a large circumferential polyp in the distal transverse colon, a 7 mm polyp in the descending colon, and two rectal polyps. These were biopsied. The patient was advised to follow up with the surgeon as an outpatient once the biopsy results are available. The patient was told to resume his Eliquis starting tomorrow. He was advised that he might be at increased risk of bleeding from this and to come back to the hospital if he has any signs of bleeding. He will follow up with Dr. Ortega in 2 weeks for repeat endoscopy. Right axillary pain/chest neuropathy likely secondary to rotator cuff impingement: The patient reported a persistent burning pain in his chest radiating to his right arm. The patient states this pain was worse when his right arm would touch his right armpit. He was concerned about shingles and he was given one dose of acyclovir to see if this would improve his symptoms, but it did not. The patient underwent an MRI of his cervical spine, which showed no significant stenosis with multilevel facet arthritis. He also had a CT of his thoracic spine, which was consistent with DISH with foraminal narrowing at T1-T2. The patient was tried on a lidocaine patch, however the patient felt that it did not help. He was previously on gabapentin, but this was discontinued due to dizziness. The patient was seen by Orthopedics who recommended physical therapy. The patient was discharged with script for outpatient physical therapy. He was advised to follow up with Orthopedics if he has persistent symptoms. However, at this time, the patient did not need further workup with an MRI. Atrial fibrillation: The patient is on amiodarone as an outpatient. He is also on Eliquis. This was held for his EGD and colonoscopy, but will be resumed tomorrow 02/02. CAD: The patient follows with Dr. Sanchez as an outpatient and has three blockages in his heart per patient. Even though he presented with bleeding, he was advised to resume his aspirin starting tomorrow given his extensive coronary history. Small bilateral pleural effusions: The patient reported some shortness of breath after his blood transfusion. CT of the chest showed small bilateral pleural effusions. The patient did not have any significant cough and is mostly asymptomatic. This could be followed up as an outpatient with his PCP. Pulmonary nodules: The patient was noted to have 2-3 mm nodules in the posterior left lower lobe and 3 mm in the peripheral right upper lobe on his CT chest. The patient should have this followed up as an outpatient with his PCP and consideration of a repeat CT chest. Hypokalemia: The patient had a potassium of 3.4 on the day of discharge. He was given replacement. He should have a BMP repeated in a week with his PCP. Hypoglycemia: The patient had a blood glucose of 58 on the day of discharge. This is most likely the patient being n.p.o. His blood sugars improved to 164 after he was given a diet. DISCHARGE PHYSICAL EXAMINATION: VITAL SIGNS: Temperature 97.8, heart rate 70, respiratory rate 17, O2 saturation 97% on room air. GENERAL: The patient is alert, awake, oriented x3 with no acute distress. CVS: Regular rate and rhythm with no murmurs, rubs, or gallops. LUNGS: Slightly diminished breath sounds at the bases. ABDOMEN: The patient has positive bowel sounds, soft, nontender, nondistended. MUSCULOSKELETAL: The patient has some tenderness in his right axilla. He is able to lift up his right arm and left arm above 180 degrees without significant pain. SKIN: No significant rashes noted. PERTINENT LABORATORY DATA: CBC, 02/01: Shows a white count of 8.6, hemoglobin 9.2, hematocrit 31.4, MCV 67.8, platelet count of 259. BMP, 02/01: Shows a potassium of 3.4, glucose of 58, creatinine 1.18. Lipid panel: Shows triglycerides 54, cholesterol 125, LDL 58, HDL 56. Vitamin B12: 832. Folate: 11.3. TSH was 1.3. UA: Shows greater than 1000 glucose, 30 protein, 40 ketones. PERTINENT IMAGING STUDIES: Chest x-ray, 01/28: Shows no acute disease. Shoulder x-ray, 01/29: No evidence for acute osseous abnormality. Cervical spine MRI, 01/29: No significant central canal stenosis. Potential for foraminal narrowing at multiple levels due to facet arthritis and uncinate process hypertrophy. Thoracic spine CT, 01/30: Shows small bilateral pleural effusions. Cholelithiasis. Diffuse idiopathic skeletal hyperostosis with bilateral bony foraminal narrowing at T1-T2. Chest x-ray, 01/30: No acute disease. Chest CT, 01/31: No acute disease. Possible tiny effusion. There is a 3 mm nodule in the peripheral right upper lobe, 2-3 mm nodule in the posterior left lower lobe. Calcified mediastinal and hilar lymph nodes. Mildly distended gallbladder with increased densities in the gallbladder lumen. Mild wedging of several mid thoracic vertebrae without evidence of acute compression fracture. DISCHARGE DISPOSITION: Home. DIET RESTRICTION: Diabetic diet. ACTIVITY: As tolerated. DISCHARGE MEDICATIONS: New medications: Ferrous sulfate 325 mg p.o. b.i.d. Continued medications: 1. Metoprolol 25 mg p.o. daily. 2. Aspirin 81 mg p.o. daily. 3. Eliquis 5 mg p.o. b.i.d. 4. Sertraline 12.5 mg p.o. daily. 5. Potassium 20 mg p.o. at bedtime. 6. Protonix 40 mg p.o. daily. 7. Insulin degludec 26 units subcu daily. 8. Pepcid 40 mg p.o. at bedtime p.r.n. 9. Zetia 10 mg p.o. at bedtime. 10. Dapagliflozin 5 mg p.o. q.a.m. 11. Vitamin B12 5000 mcg p.o. daily. 12. Baclofen 10 mg one tablet p.o. at bedtime. 13. Atorvastatin 20 mg p.o. at bedtime. 14. Amiodarone 200 mg p.o. at bedtime. 15. Xanax 0.25 mg p.o. daily p.r.n. DISCHARGE INSTRUCTIONS: The patient should follow up with his PCP in a week. The patient to follow up with Dr. Ortega in 2 weeks for consideration of repeat EGD. The patient should see an outpatient surgeon after biopsy results of his transverse colon polyp are back. The patient should have a repeat BMP in a week. The patient also needs followup for pulmonary nodules that were seen on chest CT. Also, consider getting a gallbladder ultrasound if the patient has any signs of abdominal pain. Job ID: [id number] MTDD
== END 2019-02-01 17:38 | disposition home or self-care (01) | DRG 812 ==
LOC: ERS 20:32 → 2NO 23:21 → OBSVTOIN 01-30 13:33
PROVIDERS: ADMIT Internal Medicine; ATTEND Internal Medicine
PROC: 0DJ08ZZ Inspection of Upper Intestinal Tract, Via Natural or Artificial Opening Endoscopic (ICD-10-PCS; principal; 2019-02-01)
PROC: 0DBL8ZX Excision of Transverse Colon, Via Natural or Artificial Opening Endoscopic, Diagnostic (ICD-10-PCS; 2019-02-01)
PROC: 0DBM8ZZ Excision of Descending Colon, Via Natural or Artificial Opening Endoscopic (ICD-10-PCS; 2019-02-01)
DX: D50.0 Iron deficiency anemia secondary to blood loss (chronic) (principal); J90 Pleural effusion, not elsewhere classified; I95.1 Orthostatic hypotension; I10 Essential (primary) hypertension; E11.9 Type 2 diabetes mellitus without complications; I25.10 Atherosclerotic heart disease of native coronary artery without angina pectoris; Z95.1 Presence of aortocoronary bypass graft; G89.29 Other chronic pain; M54.9 Dorsalgia, unspecified; E78.5 Hyperlipidemia, unspecified; F32.9 Major depressive disorder, single episode, unspecified; I48.91 Unspecified atrial fibrillation; Z98.890 Other specified postprocedural states; Z79.899 Other long term (current) drug therapy; E87.6 Hypokalemia; Z79.82 Long term (current) use of aspirin; M25.811 Other specified joint disorders, right shoulder; I34.0 Nonrheumatic mitral (valve) insufficiency; I25.5 Ischemic cardiomyopathy; G62.9 Polyneuropathy, unspecified; K63.5 Polyp of colon; E16.2 Hypoglycemia, unspecified; M75.41 Impingement syndrome of right shoulder; Z79.01 Long term (current) use of anticoagulants
CPT/HCPCS: 36415; 36416; 36430; 71045; 71250; 72128; 72141; 80048; 80053; 80061; 81001; 82274; 82607; 82728; 82746; 83540; 83550; 83735; 84443; 84484; 85007; 85025; 85027; 85060; 86850; 86900; 86901; 88305; 93005; J0360; J1815; J2001; J2405; J2704; P9016

== ENCOUNTER 2019-04-05 09:03 | Inpatient (IN) | payer MEDICARE, OTHER ==
[2019-04-04 18:20] VITALS: BMI 25.8
[2019-04-05] MEDS ORDERED: Rocuronium Bromide 10 MG/ML (10ML VIAL) ONE (09:33)
[2019-04-05] MEDS ORDERED: Ondansetron PF 4 MG/2 ML Vial ONE ×2 (09:33→14:39)
[2019-04-05] MEDS ORDERED: Esmolol 100 MG/10 ML VIAL ONE (09:33)
[2019-04-05] MEDS ORDERED: PROPOFOL 200 MG/20 ML VIAL ONE (09:33)
[2019-04-05] MEDS ORDERED: EPHEDRINE 25 MG/5 ML SYRINGE ONE (09:33)
[2019-04-05] MEDS ORDERED: Bupivacaine HCl 0.5%/Epinephrine 1:200,000/PF 30 ml Vial ONE (09:33)
[2019-04-05] MEDS ORDERED: Glycopyrrolate 0.2 MG/ML 5 ML SYRINGE ONE (09:33)
[2019-04-05] MEDS ORDERED: Acetaminophen 500 MG TAB ONE (09:53)
[2019-04-05] MEDS ORDERED: Bupivacaine 0.25% HCL 30 ML VIAL ONE ×2 (10:09→13:39)
[2019-04-05] MEDS ORDERED: Lidocaine 1% w/Epinephrine 1:100K 20 ML VIAL ONE (10:09)
[2019-04-05] MEDS ORDERED: ceFOXitin 2 GM/50 ML Duplex BAG ONE (10:12)
[2019-04-05] MEDS ORDERED: Ketorolac Tromethamine 30 MG/ML VIAL ONE (10:12)
[2019-04-05] MEDS ORDERED: SUGAMMADEX SODIUM 200 MG/2 ML VIAL ONE (10:13)
[2019-04-05] MEDS ORDERED: Fentanyl 100 MCG/2 ML VIAL ONE ×4 (10:13→15:02)
--- NOTE | 2019-04-05 10:27 | RAD ---
EXAM: Single view of the chest HISTORY: Preoperative radiograph COMPARISON: 01/30/2019 FINDINGS: Single view of the chest shows a normal sized cardiomediastinal silhouette. There is no denice dence of consolidation, mass, or pleural effusion. Degenerative changes are seen in the spine. IMPRESSION: No evidence of acute cardiopulmonary disease
[2019-04-05 11:08] LABS: #Basophils 0.1 thou/uL (0.0-0.2); #Lymphocytes 2.4 thou/uL (1.20-3.40); #Monocytes 0.7 thou/uL (0.11-0.59); #Neutrophils 8.2 thou/uL (1.40-6.50); %Basophils 0.5 % (0.0-1.0); %Eosinophils 0.3 % (0.0-10.0); %Monocytes 6.5 % (0.0-10.0); %Neutrophils 71.6 % (42.0-75.0); Mean Corpuscular HGB CONC 30.2 g/dL (32.0-36.0); Mean Corpuscular Volume 89.3 fL (78.0-98.0); Mean Platelet Volume 6.5 fL (7.4-10.4); Platelet Count 180 thou/uL (130-400); RBC Distribution Width 22.1 % (11.5-14.5); Red Blood Cell (RBC) Count 5.55 mill/uL (4.70-6.10); White Blood Cell (WBC) Count 11.4 thou/uL (4.8-10.8)
[2019-04-05 11:19] LABS: Hemoglobin A1c 6.2 % (4.0-6.0)
[2019-04-05 11:27] LABS: Anisocytosis MODERATE=16-30 cells (100X) (0-5/hpf); MDiff Complete? YES; Platelet Morphology Comment Appears Adequate; Polychromasia SLIGHT = 2-3 cells (100X) (0-2/hpf)
[2019-04-05 11:28] LABS: Chloride 109 mmol/L (98-107); Potassium 3.9 mmol/L (3.5-5.1); Sodium 144 mmol/L (136-145)
[2019-04-05 11:29] LABS: Calcium 8.8 mg/dL (7.8-10.44); Glucose 80 mg/dL (83-110)
[2019-04-05 11:31] LABS: Carbon Dioxide 19 mmol/L (23-31)
[2019-04-05 11:33] LABS: BUN (Urea Nitrogen) 18 mg/dL (8.4-25.7); Calc. Creatinine Clearance 47 mL/min (70-130); Estimated GFR-MDRD 50
[2019-04-05] MEDS ORDERED: Ondansetron HCl/PF 4 MG/2 ML Vial IVP PRN (12:08)
[2019-04-05] MEDS ORDERED: Promethazine HCl 25 MG/ML VIAL SLOW IVP PRN (12:08)
[2019-04-05] MEDS ORDERED: HYDROmorphone 2 MG/ML VIAL SLOW IVP PRN (12:08)
[2019-04-05 12:26] LABS: Anion Gap 20 mmol/L (10-20)
[2019-04-05] MEDS ORDERED: ALPRAZolam 0.25 MG TAB PO PRN (14:33)
[2019-04-05] MEDS ORDERED: hydrALAZINE 20 MG/ML VIAL SLOW IVP PRN (14:50)
[2019-04-05] MEDS ORDERED: Ondansetron PF 4 MG/2 ML Vial IVP PRN (14:50)
[2019-04-05] MEDS ORDERED: Promethazine HCl 25 MG/ML VIAL IM PRN (14:50)
[2019-04-05] MEDS ORDERED: Morphine 2 MG/ML SYRINGE SLOW IVP PRN (14:50)
[2019-04-05] MEDS ORDERED: Morphine 4 MG/ML VIAL SLOW IVP PRN (14:50)
[2019-04-05] MEDS ORDERED: HYDROmorphone 2 MG/ML VIAL ONE (15:03)
[2019-04-05] MEDS ORDERED: D5 1/2 NS w/20 mEq KCL 1,000 ML ONE (16:03)
--- NOTE | 2019-04-05 17:04 | EKG ---
Test Reason : PREOP Blood Pressure : / mmHG Vent. Rate : 059 BPM Atrial Rate : 059 BPM P-R Int : 258 ms QRS Dur : 094 ms QT Int : 556 ms P-R-T Axes : 067 018 045 degrees QTc Int : 550 ms Sinus bradycardia with 1st degree A-V block with Premature supraventricular complexes Nonspecific T wave abnormality Prolonged QT Abnormal ECG When compared with ECG of 28-JAN-2019 20:40, Premature ventricular complexes are no longer Present Premature supraventricular complexes are now Present QT has lengthened Confirmed by DR. John REMY (3) on 04/05/2019 5:04:31 PM Referred By: MUKESH Confirmed By:DR. John REMY
[2019-04-05] MEDS: Ketorolac Tromethamine 30 MG/ML VIAL IVP SCH ×2 (18:21→23:59)
[2019-04-05] MEDS: Baclofen 10 MG TAB PO SCH (22:28)
[2019-04-05] MEDS: Ezetimibe 10 MG TAB PO SCH (22:28)
[2019-04-05] MEDS: Amiodarone 200 MG TAB PO SCH (22:28)
[2019-04-05] MEDS: Famotidine/PF 20 mg/2ml Vial SLOW IVP SCH (22:29)
[2019-04-05] MEDS: Enoxaparin Sodium 40 MG/0.4 ML SYRINGE SC SCH (22:29)
[2019-04-05] MEDS: Atorvastatin Calcium 20 MG TAB PO SCH (22:29)
[2019-04-05] MEDS: Famotidine 20 MG TAB PO SCH (22:29)
[2019-04-05] MEDS: D5 1/2 NS w/20 mEq KCL 1,000 ML IV SCH (22:33)
[2019-04-06] MEDS: D5 1/2 NS w/20 mEq KCL 1,000 ML IV SCH ×2 (02:47→17:35)
[2019-04-06] MEDS ORDERED: HYDROcodone/Acetaminophen 7.5/325 mg Tablet PO PRN ×2 (03:01)
[2019-04-06] MEDS: Ketorolac Tromethamine 30 MG/ML VIAL IVP SCH ×4 (04:49→23:35)
[2019-04-06 05:18] LABS: #Lymphocytes 1.7 thou/uL (1.20-3.40); #Monocytes 1.2 thou/uL (0.11-0.59); #Neutrophils 7.4 thou/uL (1.40-6.50); %Basophils 0.4 % (0.0-1.0); %Eosinophils 0.2 % (0.0-10.0); %Lymphocytes 16.7 % (21.0-51.0); %Monocytes 11.3 % (0.0-10.0); %Neutrophils 71.4 % (42.0-75.0); Hemoglobin 11.6 g/dL (14.0-18.0); Mean Corpuscular HGB CONC 31.2 g/dL (32.0-36.0); Mean Corpuscular Hemoglobin 27.8 pg (27.0-31.0); Mean Corpuscular Volume 89.2 fL (78.0-98.0); Mean Platelet Volume 7.6 fL (7.4-10.4); Platelet Count 154 thou/uL (130-400); RBC Distribution Width 21.8 % (11.5-14.5); Red Blood Cell (RBC) Count 4.15 mill/uL (4.70-6.10); White Blood Cell (WBC) Count 10.4 thou/uL (4.8-10.8)
--- NOTE | 2019-04-06 05:32 | OP ---
DATE OF PROCEDURE: 04/05/2019 PREOPERATIVE DIAGNOSIS: Distal transverse colon polyp. POSTOPERATIVE DIAGNOSIS: Distal transverse colon polyp. PROCEDURE PERFORMED: Laparoscopic transverse colectomy with splenic flexure mobilization. ANESTHESIA: General endotracheal. INDICATIONS: The patient is an 78-year-old white male. He was found to be anemic and recent endoscopy revealed a sessile polyp in the distal transverse colon that was not amenable to colonoscopic resection. This was tattooed and he has taken to the operating room at this time for laparoscopic resection. DESCRIPTION OF OPERATION: The patient underwent mechanical and antibiotic bowel prep at home. Taken to the operating room, where general endotracheal anesthesia obtained with patient in supine position. Roach catheter was placed, abdomen was prepped with ChloraPrep and draped in sterile fashion. Local anesthetic was infiltrated using a mixture of 0.25% Marcaine and 1% lidocaine with epinephrine and a right upper abdominal 5 mm incision was created through which a Veress needle was passed to the peritoneal cavity and pneumoperitoneum established using carbon dioxide up to pressure of 15 mmHg. A 5 mm trocar port was passed through the same incision. Laparoscopic camera was passed this port. Under direct vision, two additional 5 mm ports were placed, one in the right lower abdomen and one in the infraumbilical midline. Attention was then turned to the colon. The tattooed area of the distal transverse colon was quickly visualized. This was well proximal to the splenic flexure. There were adhesions of uncertain etiology to the anterior abdominal wall in the left upper abdomen. These extended from about the level of the transverse colon superiorly up towards the diaphragm. These were all taken down off the anterior abdominal wall using LigaSure dissection. I ascertained the appropriate location for the extraction port and an 8 cm oblique incision was created in the left upper abdomen. Dissection was carried through skin and subcutaneous tissue and muscle splitting was used to gain access into the abdominal cavity. The Vahid wound retractor was placed followed by the Juanpablo. With hand assistance, the splenic flexure was fully mobilized using the LigaSure. This included the upper half of the left colon and the entire splenic flexure. The colon was then dissected along the proximal transverse colon as well, although the entire hepatic flexure was not mobilized. The omentum was dissected off the mid transverse colon and the stomach was reflected away from the transverse mesocolon. The pneumoperitoneum was then released and the colon was withdrawn through the Vahid wound retractor. There was adequate laxity to obtain appropriate resection of the transverse colon. I identified a segment of transverse colon about 8 cm proximal to the area that was tattooed and this was divided with a single fire of the HEVER 75 stapler. Then about 10 to 15 cm distal to the tattoo, I divided the transverse colon with a second fire. Between these two areas, I performed a wide mesenteric dissection extending down to the middle colic vessels. These were all divided using the LigaSure device and the specimen was removed with mesentery intact. The proximal end was tagged with suture and the specimen was submitted for pathology. Attention was then turned to the anastomosis. I performed an isoperistaltic anastomosis with the stapler entering distally on both the proximal and distal segments to be anastomosed. The common enterotomy was then closed with another firing of the stapler transversely. The staple lines were then all buttressed with multiple interrupted sutures of 3-0 silk. The anastomosis was widely patent. Hemostasis was meticulously intact. Of note, all the instrumentation utilized throughout the bowel, was opened, was segregated, and was passed off the field along with the changing of gloves as soon as the bowel was closed. The anastomosis was dropped back down to the abdominal cavity. Laparoscopy was reinstituted and it was confirmed that there was no bleeding anywhere within the abdominal cavity. The anastomosis was well configured. The Vahid wound retractor and all ports were removed. The abdominal wall was cleansed with saline, gowns and gloves were changed and the closing tray was utilized for final closing. Sterile towels were placed around the operative site. The fascia at the left upper quadrant incision was closed in 2 layers with running suture of #1 PDS. Additional local anesthetic was infiltrated during closure. The wound was then copiously irrigated with 2 L of saline. Moko's fascia was closed with interrupted sutures of 3-0 Vicryl and the skin edges with a running subcuticular suture of 4-0 Monocryl. The port sites were closed with 4-0 Monocryl. Dermabond was placed external to each incision. There were no complications. The patient tolerated the procedure well and was taken to recovery room in stable condition. Job ID: [id number]
[2019-04-06 05:36] LABS: Anion Gap 11 mmol/L (10-20); BUN (Urea Nitrogen) 17 mg/dL (8.4-25.7); Calc. Creatinine Clearance 54 mL/min (70-130); Calcium 7.5 mg/dL (7.8-10.44); Carbon Dioxide 19 mmol/L (23-31); Chloride 108 mmol/L (98-107); Estimated GFR-MDRD 59; Glucose 239 mg/dL (83-110); Potassium 3.4 mmol/L (3.5-5.1); Sodium 135 mmol/L (136-145)
--- NOTE | 2019-04-06 07:13 | PDOC.GSPN ---
Surgery Progress Note: Subj - Subjective Patient reports: pain well controlled, tolerating liquids well Narrative: Pt was stable overnight w/ no acute events and no febrile episodes. Pt had some incision site tenderness last night which required 2x norco at 3am, and pt said pain is well controlled along w/ ANCA ketorolac. Pt's Roach was removed this morning and pt was able to urinate on his own w/ portable urinal in bed. Pt hasn 't walked yet due to past hx of unsteadiness on feet requiring cane at home, but pt has been using inspiratory spirometer as instructed. Surgery Progress Note: Obj - Vital signs Vital signs: Vital Signs - Most Recent Temp Pulse Resp BP Pulse Ox 98.1 F 70 18 122/74 95 04/06/19 02:50 04/06/19 02:50 04/06/19 02:50 04/06/19 02:50 04/06/19 04:07 - Physical Exam General: no distress, no pain ENT: normal mucosa Cardiovascular: regular rate and rhythm Respiratory: normal respiratory effort, breath sounds present Abdomen: soft, non tender, nondistended, decreased bowel sounds (hypoactive) Integumentary: other (no edema, no turgor) Psychiatric: oriented to time, oriented to person, oriented to place Wound: dressing clean,dry,intact, erythma/edema (at the R large incision site, not tender to palpation) Surgery Progress Note: Results - Labs Result Diagrams: 04/06/19 05:00 04/06/19 05:00 Lab results: Laboratory Results - last 24 hr Surgery Progress Note: A/P - Problem (1) S/P colectomy Current Visit: Yes Status: Acute - Plan Plan: Pt is a 78YO CM w/ sig. PMH of CAD, a. fib., and T2DM who presented to the ED in Jan, 2019 for dizziness, weakness, and diarrhea. Pt had KORI, resulting in EGD , which was normal, and colonoscopy, which discovered sessile polyp at distal transverse colon, and polyp at descending colon and rectum. Pt presented to hospital on 04/05/19 for elective lap. transverse colectomy w/ splenic flexure mobilization. Today is POD1 and pt is doing well. Pt has no acute complaints. Pt is on 120mL/hr of NS + 20mEq KCl. Pt had 775mL Roach output before removal and was able to urinate w/ portable urinal. Pt hasn't passed gas or stool yet. Pt is tolerating clear liquid diet well and has appetite to advance. Pt's mild leukocytosis resolved today, and Hgb dropped from 15 pre-op to 11.6 post-op, which requires further observation. Pt's BS was 238 this morning, and his DM med will be re-started. Continue current pain management and encourage pt to walk w/ PT's assistance to prevent fall. Potentially advance pt's diet to full liquid if tolerated.
[2019-04-06] MEDS ORDERED: Dextrose 5% in Water 1,000 ML IV PRN (08:40)
[2019-04-06] MEDS ORDERED: Insulin Regular 300 UNITS/3 ML VIAL SC PRN (08:40)
[2019-04-06] MEDS ORDERED: Dextrose 50% Abboject 50 ML SYRINGE SLOW IVP PRN (08:40)
[2019-04-06] MEDS ORDERED: (Dapagliflozin Propanediol [Farxiga] 5 MG) PO SCH (09:00)
[2019-04-06] MEDS: Famotidine/PF 20 mg/2ml Vial SLOW IVP SCH ×2 (09:29→19:17)
[2019-04-06] MEDS: Famotidine 20 MG TAB PO SCH ×2 (09:29→21:10)
[2019-04-06] MEDS: Aspirin Chewable 81 MG TAB PO SCH (09:29)
[2019-04-06] MEDS: TRESIBA 24 UNIT SC SCH (09:59)
[2019-04-06] MEDS: Potassium Chloride 20 MEQ in Lactated Ringer's 1,000 ML IV SCH ×2 (10:02→23:34)
[2019-04-06] MEDS: Enoxaparin Sodium 40 MG/0.4 ML SYRINGE SC SCH (21:10)
[2019-04-06] MEDS: Amiodarone 200 MG TAB PO SCH (21:10)
[2019-04-06] MEDS: Ezetimibe 10 MG TAB PO SCH (21:10)
[2019-04-06] MEDS: Baclofen 10 MG TAB PO SCH (21:10)
[2019-04-06] MEDS: Atorvastatin Calcium 20 MG TAB PO SCH (21:10)
[2019-04-06] MEDS ORDERED: Ziprasidone 20 MG VIAL IM PRN (23:42)
[2019-04-06] MEDS ORDERED: Sterile Water 10 ML VIAL FS PRN (23:42)
[2019-04-07 03:11] VITALS: BP 130/60; TEMP 98
[2019-04-07] MEDS: Ketorolac Tromethamine 30 MG/ML VIAL IVP SCH ×2 (03:45→12:05)
[2019-04-07 08:44] LABS: #Eosinphils 0.1 thou/uL (0.0-0.7); #Lymphocytes 1.9 thou/uL (1.20-3.40); #Neutrophils 6.8 thou/uL (1.40-6.50); %Basophils 0.2 % (0.0-1.0); %Eosinophils 0.8 % (0.0-10.0); Hemoglobin 10.5 g/dL (14.0-18.0); Mean Corpuscular HGB CONC 31.6 g/dL (32.0-36.0); Mean Corpuscular Hemoglobin 28.1 pg (27.0-31.0); Mean Corpuscular Volume 89.1 fL (78.0-98.0); Mean Platelet Volume 6.7 fL (7.4-10.4); Platelet Count 132 thou/uL (130-400); RBC Distribution Width 21.2 % (11.5-14.5); Red Blood Cell (RBC) Count 3.75 mill/uL (4.70-6.10); White Blood Cell (WBC) Count 9.7 thou/uL (4.8-10.8)
[2019-04-07 08:57] LABS: Anion Gap 12 mmol/L (10-20); BUN (Urea Nitrogen) 17 mg/dL (8.4-25.7); Calc. Creatinine Clearance 55 mL/min (70-130); Calcium 8.2 mg/dL (7.8-10.44); Carbon Dioxide 24 mmol/L (23-31); Chloride 107 mmol/L (98-107); Estimated GFR-MDRD 61; Glucose 86 mg/dL (83-110); Potassium 3.3 mmol/L (3.5-5.1); Sodium 140 mmol/L (136-145)
[2019-04-07] MEDS: Aspirin Chewable 81 MG TAB PO SCH (09:06)
[2019-04-07] MEDS: Famotidine 20 MG TAB PO SCH (09:06)
[2019-04-07] MEDS: Famotidine/PF 20 mg/2ml Vial SLOW IVP SCH (09:09)
[2019-04-07] MEDS: TRESIBA 24 UNIT SC SCH (09:11)
[2019-04-07 10:23] LABS: MDiff Complete? YES; Ovalocytes SLIGHT = 2-5 cells (100X) (0-1/hpf); Platelet Morphology Comment Appears Adequate; Polychromasia SLIGHT = 2-3 cells (100X) (0-2/hpf)
[2019-04-07] MEDS: Potassium Chloride 20 MEQ in Lactated Ringer's 1,000 ML IV SCH (12:14)
--- NOTE | 2019-04-07 14:18 | PQF ---
CLINICAL DOCUMENTATION IMPROVEMENT CLARIFICATION FORM: ICD-10 Updated PLEASE DO AN ADDENDUM TO THE PROGRESS NOTE WITH ANY DOCUMENTATION UPDATES OR ADDITIONS AND CARRY THROUGH TO DC SUMMARY. THANK YOU. DATE: 04/07/19 ATTN: DR. MAYORGA Please exercise your independent, professional judgment in responding to the clarification form. Clinical indicators are provided on the bottom of this form for your review Please check appropriate box(s): [ x ] Encephalopathy: Type: [ x ] Acute [ ] Subacute [ ] Chronic Etiology: [ ] Hypertensive [ ] Metabolic [ ] Toxic [ ] Hepatic with Coma [ ] Hepatic w/o Coma [ ] Hypoxic [ ] Septic [ ] Wernickes [ x ] Drug induced: [x ] Unspecified [ ] in the setting of underlying dementia [ ] Other (please specify) [ ] Transient Alteration of Awareness [ ] Other diagnosis [ ] Unable to determine In addition, please specify: Present on Admission (POA): [ ] Yes [ x ] No [ ] Unable to determine For continuity of documentation, please document condition throughout progress notes and discharge summary. Thank You. CLINICAL INDICATORS - SIGNS / SYMPTOMS / LABS / RESULTS AND LOCATION IN EMR 04/07: "PATIENT VIOLENT TO IT PROGRAM AUDITOR AND OTHER NURSES. PUNCHING, KICKING, AND ATTEMPTED TO BITE EVERYBODY BECAUSE HE WANTED TO GET UP. BELIEVES HE IS AT HIS HOUSE AND IS CURSING EVERYBODY." RISKS: ADVANCED AGE SURGERY 04/06 TREATMENT: WRIST RESTRAINTS (NURSES NOTE 04/07) IV GEODON (04/06) XANAX (04/06) (This form is maintained as a part of the permanent medical record) 2014 [employer]. All Rights Reserved [employer] Winform Viewer [email or web address] Office: [phone] [facility]
--- NOTE | 2019-04-07 22:12 | DIS ---
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 TEST PERFORMED: Laparoscopic-assisted transverse colectomy. SURGEON: Michele Tabares MD ADMISSION HISTORY: Patient is an 78-year-old white male. He had presented to the hospital with symptomatic anemia and had undergone endoscopic evaluation. This revealed an unresectable sessile polyp of the distal transverse colon which was tattooed. After undergoing preoperative evaluation, he presents to the hospital at this time for definitive resection of this area both in hopes of controlling the anemia as well as prevention of malignant conversion. HOSPITAL COURSE: Patient presented to the hospital on the day of his surgery. He had undergone outpatient antibiotic and mechanical bowel prep. He underwent uneventful laparoscopic-assisted transverse colectomy, obtaining excellent margins around the tattooed area of the polyp. There was certainly no evidence of metastatic disease or palpable malignancy anywhere. He had an uneventful postoperative course from a surgical standpoint. He tolerated his liquid diet and advanced uneventfully. He never had nausea or vomiting. He had bowel function by the morning of postoperative day #2. He voided uneventfully. Vital signs were hemodynamically stable. His laboratory studies were unremarkable as well. He did, however, develop significant confusion and agitation late at night on postoperative day. He actually required restraints and administration of Geodon to help with his agitation later in the day, on postop day #2, however, this at all resolved. He was still tolerating his diet and his examination was entirely benign. He still had a little confusion, but was compliant and non-agitated. He had essentially no pain. He was discharged home on the afternoon of postoperative day #2. I felt it would be better to return him to his home environment. Narcotics were not administered at all on postoperative day #2 and none were given at discharge as I felt this may have exacerbated the situation. He was instructed to resume all of his home medications and was asked to follow up with myself in 2 weeks. He was given dietary and activity restrictions. Job ID: [id number]
== END 2019-04-07 17:17 | disposition home or self-care (01) | DRG 329 ==
LOC: SURG A 09:03
PROVIDERS: ADMIT Specialist; ATTEND Specialist
PROC: 0DTL0ZZ Resection of Transverse Colon, Open Approach (ICD-10-PCS; principal; 2019-04-05)
DX: C18.4 Malignant neoplasm of transverse colon (principal); G92 Toxic encephalopathy; I25.10 Atherosclerotic heart disease of native coronary artery without angina pectoris; I48.91 Unspecified atrial fibrillation; E11.9 Type 2 diabetes mellitus without complications; Z79.899 Other long term (current) drug therapy; Z79.01 Long term (current) use of anticoagulants; Z79.82 Long term (current) use of aspirin; Z79.4 Long term (current) use of insulin; T50.905A Adverse effect of unspecified drugs, medicaments and biological substances, initial encounter
CPT/HCPCS: 36415; 36416; 71045; 80048; 83036; 85025; 88309; 93005; 93010; 94640; J0670; J0694; J1170; J1650; J1885; J2405; J2550; J2704; J3010; J3480; J3486; J7120; J7620; S0020

== ENCOUNTER 2019-06-15 06:10 | Outpatient (CLI) | payer MEDICARE, OTHER ==
[2019-06-15 13:22] LABS: #Basophils 0.1 thou/uL (0.0-0.2); #Lymphocytes 2.5 thou/uL (1.20-3.40); #Monocytes 0.6 thou/uL (0.11-0.59); #Neutrophils 7.3 thou/uL (1.40-6.50); %Basophils 0.6 % (0.0-1.0); %Eosinophils 0.3 % (0.0-10.0); %Lymphocytes 24.2 % (21.0-51.0); %Monocytes 5.7 % (0.0-10.0); %Neutrophils 69.2 % (42.0-75.0); Hemoglobin 12.6 g/dL (14.0-18.0); Mean Corpuscular HGB CONC 30.5 g/dL (32.0-36.0); Mean Corpuscular Hemoglobin 26.1 pg (27.0-31.0); Mean Corpuscular Volume 85.7 fL (78.0-98.0); Platelet Count 219 thou/uL (130-400); RBC Distribution Width 14.9 % (11.5-14.5); Red Blood Cell (RBC) Count 4.84 mill/uL (4.70-6.10); White Blood Cell (WBC) Count 10.5 thou/uL (4.8-10.8)
--- NOTE | 2019-06-15 13:25 | RAD ---
PA AND LATERAL VIEWS CHEST: 06/15/19 HISTORY: Preoperative evaluation. COMPARISON: 04/05/2019. FINDINGS/IMPRESSION: The heart size is normal. The aorta is tortuous and the lungs are expanded without lobar consolidatio n, pneumothoraces, or pleural effusions. There are degenerative changes in the spine. POS: [facility]
[2019-06-15 13:46] LABS: ALT (SGPT) 23 U/L (8-55); AST (SGOT) 23 U/L (5-34); Albumin 4.3 g/dL (3.4-4.8); Alkaline Phosphatase 93 U/L (40-110); Anion Gap 14 mmol/L (10-20); BUN (Urea Nitrogen) 19 mg/dL (8.4-25.7); Bilirubin, Total 0.8 mg/dL (0.2-1.2); Calc. Creatinine Clearance 0 mL/min (70-130); Calcium 8.8 mg/dL (7.8-10.44); Carbon Dioxide 24 mmol/L (23-31); Chloride 106 mmol/L (98-107); Estimated GFR-MDRD 52; Globulin 2.7 g/dL (2.4-3.5); Glucose 106 mg/dL (83-110); Potassium 3.5 mmol/L (3.5-5.1); Sodium 140 mmol/L (136-145)
[2019-06-15 18:39] LABS: SARS-CoV-2 MS2 Positive; SARS-CoV-2 N Gene Negative; SARS-CoV-2 S Gene Negative; SARS-CoV-2 orf1ab Negative
--- NOTE | 2019-06-19 16:05 | EKG ---
Test Reason : Blood Pressure : / mmHG Vent. Rate : 051 BPM Atrial Rate : 051 BPM P-R Int : 224 ms QRS Dur : 094 ms QT Int : 552 ms P-R-T Axes : 108 053 055 degrees QTc Int : 508 ms Sinus bradycardia with 1st degree A-V block Prolonged QT Abnormal ECG When compared with ECG of 05-APR-2019 10:10, Premature supraventricular complexes are no longer Present Confirmed by ADELINE WETZEL (2) on 06/19/2019 4:04:45 PM Referred By: RASHARD Confirmed By:ADELINE WETZEL
== END 2019-06-15 06:11 | disposition home or self-care (01) ==
LOC: LABBT 06:10
PROVIDERS: ATTEND Internal Medicine Cardiovascular Disease
DX: Z01.818 Encounter for other preprocedural examination (principal); Z11.59 Encounter for screening for other viral diseases; I25.10 Atherosclerotic heart disease of native coronary artery without angina pectoris; Q25.46 Tortuous aortic arch
CPT/HCPCS: 71046; 80053; 85025; 93005; U0002; 87635; 93010; U0003

== ENCOUNTER → 2019-06-20 | Day surgery (SDC) | payer MEDICARE, OTHER ==
[2019-06-15 10:13] VITALS: BMI 26.3
[~2019-06-20] MED LIST: Amiodarone 200 MG TAB PO SCH; Aspirin Chewable 81 MG TAB PO SCH; Atorvastatin Calcium 20 MG TAB PO SCH; Baclofen 10 MG TAB PO SCH; Ezetimibe 10 MG TAB PO SCH; Insulin Glargine 26 UNITS in Pre-Filled Syringe 1 EACH SC SCH; Meclizine HCl 25 MG TAB PO SCH; Melatonin 3 MG TAB PO PRN; Nitroglycerin 0.4 MG TAB (25 Tab Bottle) SL PRN; Potassium Chloride 20 MEQ TAB PO SCH
[2019-06-20 18:11] LABS: SARS-CoV-2 MS2 Positive; SARS-CoV-2 N Gene Negative; SARS-CoV-2 S Gene Negative; SARS-CoV-2 orf1ab Negative
== END ==
LOC: CCL 05:33
PROVIDERS: ATTEND Internal Medicine Cardiovascular Disease
DX: Z01.812 Encounter for preprocedural laboratory examination (principal); Z11.59 Encounter for screening for other viral diseases; I25.10 Atherosclerotic heart disease of native coronary artery without angina pectoris; I25.5 Ischemic cardiomyopathy; Z79.01 Long term (current) use of anticoagulants; Z79.899 Other long term (current) drug therapy; Z88.8 Allergy status to other drugs, medicaments and biological substances
CPT/HCPCS: 87635; U0003

== ENCOUNTER 2019-06-23 05:44 | Inpatient (IN) | payer MEDICARE, OTHER ==
[2019-06-23] MEDS ORDERED: Heparin 10,000 UNITS/1 ML VIAL ONE (07:00)
[2019-06-23] MEDS ORDERED: Midazolam HCl 2 mg/2 ml Vial ONE (07:36)
[2019-06-23] MEDS ORDERED: Fentanyl 100 MCG/2 ML VIAL ONE (07:36)
[2019-06-23] MEDS ORDERED: hydrALAZINE 20 MG/ML VIAL ONE (07:56)
[2019-06-23] MEDS ORDERED: Protamine Sulfate 50 MG/5 ML VIAL ONE (07:56)
[2019-06-23] MEDS ORDERED: Ondansetron PF 4 MG/2 ML Vial ONE (08:31)
[2019-06-23] MEDS ORDERED: Morphine 2 MG/ML SYRINGE ONE (08:37)
[2019-06-23] MEDS ORDERED: Acetaminophen/Codeine 30-300mg Tablet ONE (09:20)
[2019-06-23] MEDS ORDERED: Acetaminophen/Codeine 30-300mg Tablet PO PRN ×2 (09:24)
[2019-06-23] MEDS ORDERED: Sodium Chloride 0.9% 1,000 ML IV SCH (09:24)
[2019-06-23] MEDS ORDERED: Nitroglycerin 0.4 MG TAB (25 Tab Bottle) SL PRN ×2 (09:24→14:28)
[2019-06-23] MEDS ORDERED: Iopamidol 370 76% 100 ML VIAL ONE (11:31)
[2019-06-23] MEDS ORDERED: Iopamidol 370 76% 50 ML VIAL FS ONE (11:31)
[2019-06-23] MEDS ORDERED: Dextrose 5% in Water 1,000 ML IV PRN (14:28)
[2019-06-23] MEDS ORDERED: Dextrose 50% Abboject 50 ML SYRINGE SLOW IVP PRN (14:28)
[2019-06-23] MEDS ORDERED: Insulin Regular 300 UNITS/3 ML VIAL SC PRN (14:28)
[2019-06-23] MEDS ORDERED: Communication Order-Pharmacy FS SCH (14:28)
--- NOTE | 2019-06-23 15:01 | CON ---
DATE OF CONSULTATION: 06/23/2019 REQUESTING PHYSICIAN: Eduard Sanchez MD. PRIMARY CARE PHYSICIAN: Geoff Lr MD. CHIEF COMPLAINT: Decreasing exercise tolerance. HISTORY OF PRESENT ILLNESS: The patient is just shy of 79 years old. He is an insulin-dependent diabetic with known coronary artery disease. In 01/2018, he went into rapid atrial fibrillation as preparations were underway for an endoscopy to evaluate dysphagia. He ultimately underwent esophageal dilatation with resolution of those symptoms. He at that time was noticeably short of breath even when his heart rate was brought under better control with Lopressor and Cardizem. Cardiac catheterization at that time demonstrated 3-vessel disease and severely decreased LV function, even though his echocardiogram had suggested an EF of around 35% to 40%. On ventriculography, he had mitral regurgitation extending into the pulmonary veins. His ejection fraction was in the 10% to 20% range. His cardiac index at that time was 1.0 and his PA pressures were in the mid 50s. He is felt not to be a candidate for surgical intervention at that time and medical management was initiated. Since then, by echocardiography, his mitral regurgitation has improved somewhat, but his ejection fraction has improved significantly. However, prior to this episode of atrial fibrillation, he had been quite active. He even described a project that he and his son undertook to fence on by hand [address] acres of land that he had bought in this area for his long-term home. Since that episode of atrial fibrillation, he has had gradually decreasing exercise tolerance. His son is noticing that he gets fatigued quite easily. The patient's primary complaints really center around dizziness and unsteadiness. He does not seem to have much shortness of breath and he does not have any chest heaviness or pressure or pain consistent with angina. PAST MEDICAL HISTORY: Significant for: 1. Having undergone right coronary stenting in 2008 in his coronary. 2. Atrial fibrillation history as described above. 3. He had an esophageal stricture dilated. 4. Hypertension. 5. Diabetes mellitus. 6. History of prostate cancer. HOME MEDICATIONS: 1. Tresiba. 2. Baby aspirin a day. 3. Baclofen 10 mg at bedtime as needed. 4. Toprol 25 mg a day. 5. Melatonin 10 mg at bedtime as needed. 6. Lipitor, but it has recently been increased to 80 mg a day. 7. Amiodarone 200 mg a day. 8. Xarelto 20 mg a day and is currently on hold. FAMILY HISTORY: Significant for diabetes in his mother. His father and two siblings have of cancer. SOCIAL HISTORY: He denies smoking. ALLERGIES: HE REPORTS HALLUCINATIONS WITH AMITRIPTYLINE. REVIEW OF SYSTEMS: Notable for his unsteadiness and his dizziness. He denies any shortness of breath, chest pain, pressure or squeezing. He denies any eye, speech, facial, or extremity symptoms consistent with TIAs. He does have decreasing exercise tolerance. PHYSICAL EXAMINATION: GENERAL: He is in no distress. He is 5 feet 8 inches and weighs 172.5 pounds. VITAL SIGNS: Heart rate is in the 50 to 60 range. In the laboratory technical specialist, his systolic blood pressures were in the 170 to 190 range and currently they are in the 130s. LV pressure was 185/6 with an EDP of 14. Aortic pressure on pullback was 167/58 with an EDP of 96. HEENT: He has no xanthelasma. No JVD. No carotid bruits. CHEST: Clear to auscultation. HEART: Regular rate and rhythm. ABDOMEN: Soft and nontender without any masses or bruits. EXTREMITIES: I was able to appreciate radial and femoral pulses, but I was not able to palpate dorsalis pedis or posterior tibial pulses. Capillary refill in his feet was about 2 seconds. LABORATORY DATA: His white count is 10.5, hemoglobin 12.6, hematocrit 41.5, and platelets 219,000. Chemistries were normal. BUN was 19, creatinine 1.32 with an estimated GFR of 52, glucose was 106, and albumin 4.3. LFTs were normal. His COVID by PCR was negative. His chest x-ray is essentially normal. His cardiac catheterization shows a right-dominant system. He has a relatively small circumflex system with a ramus intermedius. The ramus has a high-grade stenosis prior to a bifurcation and it appears that either that or tiny terminal circ in the groove has competitive flow in it and fills retrograde on the right-sided injections. He has about a 70% or 80% lesion in the LAD at the first septal director of food and nutrition and 60% or 70% lesion in the LAD just after first diagonal that also was stenotic. The LAD is a relatively large vessel, that wraps well around the apex. His right coronary system is very generous. The PDA appears to be uncompromised, but there is a large distal posterolateral branch with about an 80% stenosis in it. LVEF is around 30% to 40% with an EDP of 14. IMPRESSION AND RECOMMENDATIONS: Three-vessel coronary artery disease with decreased left ventricular function in a diabetic. He no longer has the dramatic mitral regurgitation and dramatically decreased left ventricular function that he had a year and a half ago. He apparently has compensated much better now and recovered and I think that he would be an acceptable risk for coronary artery bypass grafting. Because of his history of atrial fibrillation with thrombus in the appendage, it may be worthwhile to ligate the left atrial appendage, but since he has been easily maintained in sinus, probably not any particular advantage in doing an epicardial maze procedure as well. I have discussed with him and his family that the dizziness of which he complains is unlikely to be affected by bypass surgery decreasing exercise tolerance once he is over his operation maybe, however. Given his challenges with some debilitation that developed over the last year or so, his dizziness and unsteadiness while I think that his mortality risk is only minimally elevated that his recovery may be protracted and it may very well take 3 or 4 months to recover rather than the typical 6 or 8 weeks. He is willing to proceed with bypass surgery. Job ID: [id number]
[2019-06-23 15:20] LABS: Hemoglobin A1c 7.8 % (4.0-6.0)
--- NOTE | 2019-06-23 15:35 | RAD ---
Chest one view HISTORY: Chest pain. Heart surgery. COMPARISON: 04/05/2019 and 06/15/2019. FINDINGS: Cardiac silhouette and pulmonary vasculature are unremarkable. Mediastinum is midline. No confluent airspace consolidation or evidence of pneumothorax. Nipple shadows overlie the lung base s. There are prominent degenerative changes of the shoulders. telemetry monitor leads overlie the chest. IMPRESSION : No active cardiopulmonary abnormalities are demonstrated.
[2019-06-23] MEDS ORDERED: Melatonin 3 MG TAB PO PRN (16:33)
[2019-06-23] MEDS ORDERED: Baclofen 10 MG TAB PO SCH (21:00)
[2019-06-23] MEDS ORDERED: Amiodarone 200 MG TAB PO SCH (21:00)
[2019-06-23] MEDS ORDERED: Meclizine HCl 25 MG TAB PO SCH (21:00)
[2019-06-23] MEDS ORDERED: Atorvastatin Calcium 20 MG TAB PO SCH (21:00)
[2019-06-24] MEDS ORDERED: Nitroglycerin 50 MG/250 ML BOT 250 ML ONE (06:27)
[2019-06-24] MEDS ORDERED: Fentanyl 100 MCG/2 ML VIAL ONE (06:28)
[2019-06-24] MEDS ORDERED: Norepinephrine 4 MG/4 ML VIAL ONE (06:28)
[2019-06-24] MEDS ORDERED: Albumin 5% 500 ML ONE (06:32)
[2019-06-24] MEDS ORDERED: CEFAZOLIN 2 GM in Premix Bag 1 BAG IVPB SCH (07:15)
[2019-06-24] MEDS ORDERED: Ketamine 50 MG/ML (10ML VIAL) ONE (07:30)
[2019-06-24] MEDS ORDERED: Ezetimibe 10 MG TAB PO SCH (09:00)
[2019-06-24] MEDS ORDERED: Aspirin Chewable 81 MG TAB PO SCH ×2 (09:00→13:00)
[2019-06-24] MEDS ORDERED: Insulin Regular 300 UNITS/3 ML VIAL ONE (09:18)
[2019-06-24] MEDS ORDERED: PHENYLEPHRINE-NS 100 MCG/ML 10 ML SYRINGE ONE (10:08)
[2019-06-24] MEDS ORDERED: Dextrose 50% Abboject 50 ML SYRINGE ONE (10:31)
[2019-06-24] MEDS ORDERED: Aminocaproic Acid 5 GM/20 ML VIAL ONE (11:57)
[2019-06-24] MEDS ORDERED: Heparin 5,000 UNITS/ML VIAL ONE (11:57)
[2019-06-24] MEDS ORDERED: Sodium Bicarb 50 MEQ/50 ML Abboject 8.4% SYRINGE ONE (11:57)
[2019-06-24] MEDS ORDERED: Thrombin 5000 UNITS/5 ML VIAL ONE (11:57)
[2019-06-24] MEDS ORDERED: Papaverine 60 MG/2 ML VIAL ONE (11:57)
[2019-06-24] MEDS ORDERED: Succinylcholine Chloride 20 MG/ML 10 ml SYRINGE FS ONE (11:57)
[2019-06-24] MEDS ORDERED: Calcium Chloride 1 GM/10 ML Abboject SYRINGE ONE (11:57)
[2019-06-24] MEDS ORDERED: Protamine Sulfate 250 MG/25 ML VIAL ONE (11:57)
[2019-06-24] MEDS ORDERED: Heparin 30,000 units/30 ml VIAL ONE (11:57)
[2019-06-24] MEDS ORDERED: Magnesium Sulfate 1 GM/2 ML VIAL ONE (11:57)
[2019-06-24] MEDS ORDERED: Rocuronium Bromide 10 MG/ML (10ML VIAL) ONE (11:57)
[2019-06-24] MEDS ORDERED: Cardioplegic Soln 1,000 ML BAG ONE (11:57)
[2019-06-24] MEDS ORDERED: Vecuronium 10 MG VIAL ONE ×2 (11:57→12:05)
[2019-06-24] MEDS ORDERED: PROPOFOL 200 MG/20 ML VIAL ONE (11:57)
[2019-06-24] MEDS ORDERED: Lidocaine 1% PF 5 ML VIAL ONE (11:57)
[2019-06-24] MEDS ORDERED: Lidocaine 2% PF 5 ML VIAL ONE (11:57)
[2019-06-24] MEDS ORDERED: HYDROcodone/Acetaminophen 5/325 mg Tablet PO PRN ×2 (12:39)
[2019-06-24] MEDS ORDERED: Guaifenesin DM 100-10/5 ML UDCUP PO PRN (12:39)
[2019-06-24] MEDS ORDERED: Norepinephrine 8 MG/0.9% NS 250 ML IVPB PRN (12:39)
[2019-06-24] MEDS ORDERED: Promethazine HCl 25 MG/ML VIAL IM PRN (12:39)
[2019-06-24] MEDS ORDERED: Acetaminophen 325 MG TAB PO PRN (12:39)
[2019-06-24] MEDS ORDERED: Nitroglycerin 50 MG/250 ML BOT 250 ML IVPB PRN (12:39)
[2019-06-24] MEDS ORDERED: niCARdipine 25 MG in Sodium Chloride 0.9% 250 ML 250 ML IVPB PRN (12:39)
[2019-06-24] MEDS ORDERED: Fentanyl 100 MCG/2 ML VIAL SLOW IVP PRN ×2 (12:39)
[2019-06-24] MEDS ORDERED: Post-Op Insulin Drip Protocol IVPB ONE (12:39)
[2019-06-24] MEDS ORDERED: Mag-Al 1200 mg/1200 mg/30 ML UDCUP PO PRN (12:39)
[2019-06-24] MEDS ORDERED: Bisacodyl 10 MG SUPP PR PRN (12:39)
[2019-06-24] MEDS ORDERED: Bisacodyl 5 MG TAB PO PRN (12:39)
[2019-06-24] MEDS ORDERED: hydrALAZINE 20 MG/ML VIAL SLOW IVP PRN (12:39)
[2019-06-24] MEDS ORDERED: Hetastarch 6% 500 ML 500 ML IVPB PRN (12:39)
[2019-06-24] MEDS ORDERED: Dextrose 50% Abboject 50 ML SYRINGE SLOW IVP PRN (12:53)
[2019-06-24] MEDS ORDERED: HUMULIN R 100 UNITS in Sodium Chloride 0.9% 100 ML IVPB SCH (12:53)
[2019-06-24] MEDS ORDERED: Dextrose 5% in Water 1,000 ML IV PRN (12:53)
[2019-06-24] MEDS ORDERED: Docusate 100 MG CAP PO SCH (13:00)
[2019-06-24 13:20] LABS: Actual Bicarbonate (HCO3a) 19.1 mEq/L (22-28); Base Excess (BEa) -2.5 mEq/L (-2.0 to +3.0); Calcium, Ionized 1.13 mmol/L (1.12-1.30); Carboxyhemoglobin (COHb) 1.2 gm% (0.0-3.0); Hemoglobin (Hb) 11.7 g/dL (14.0-18.0); O2 Tension (PaO2), arterial 139.9 mmHg (> 60.0); Potassium - ABG Lab 3.34 mmol/L (3.70-5.30); pH, Arterial 7.51 (7.35-7.45)
[2019-06-24 13:24] LABS: ALV-art Gradient 185.975 (0-20); CO2 Tension 24.5 mmHg (35.0-45.0); Puncture Site ALINE
[2019-06-24 13:27] LABS: #Basophils 0.1 thou/uL (0.0-0.2); #Eosinphils 0.1 thou/uL (0.0-0.7); #Monocytes 1.4 thou/uL (0.11-0.59); #Neutrophils 15.4 thou/uL (1.40-6.50); %Basophils 0.4 % (0.0-1.0); %Eosinophils 0.5 % (0.0-10.0); %Lymphocytes 10.4 % (21.0-51.0); %Monocytes 7.3 % (0.0-10.0); %Neutrophils 81.5 % (42.0-75.0); Hemoglobin 11.8 g/dL (14.0-18.0); Mean Corpuscular HGB CONC 31.7 g/dL (32.0-36.0); Mean Corpuscular Hemoglobin 27.5 pg (27.0-31.0); Mean Corpuscular Volume 86.8 fL (78.0-98.0); Platelet Count 184 thou/uL (130-400); RBC Distribution Width 15.1 % (11.5-14.5); Red Blood Cell (RBC) Count 4.29 mill/uL (4.70-6.10); White Blood Cell (WBC) Count 18.9 thou/uL (4.8-10.8)
[2019-06-24 13:33] LABS: INR-International Normal Ratio 1.2; PTT 30.9 SEC (22.9-36.1); Prothrombin Time 15.4 sec (12.0-14.7)
--- NOTE | 2019-06-24 13:43 | RAD ---
RADIOGRAPH CHEST 1 VIEW: DATE: 06/24/2019 TIME: 1:19 PM HISTORY: 78-year-old male status post open heart surgery COMPARISON: 06/23/2019 FINDINGS: All of the following are new since the prior study: Right subclavian central venous catheter distal tip upper right atrium, endotracheal tube at mid thor acic trachea, at least 2 left paramedian lower chest tubes, left chest tube ascending from left base with distal tip at apex., Sternotomy wires. Right lung is clear. Supine positioning makes this i nsensitive for pneumothorax detection. New dense opacification of left lower lobe with complete silhouetting of left hemidiaphragm. No cardiomegaly. IMPRESSION: 1. Status post open heart surgery with life support lines as mentioned above. 2. Left lower lobe atelectasis and probable left pleural effusion. 3. No pulmonary edema.
[2019-06-24] MEDS: Ketorolac Tromethamine 30 MG/ML VIAL IVP SCH ×2 (13:45→19:33)
[2019-06-24] MEDS: Ondansetron PF 4 MG/2 ML Vial IVP PRN (13:45)
[2019-06-24] MEDS: Morphine 2 MG/ML SYRINGE SLOW IVP PRN ×2 (13:45→17:11)
[2019-06-24 13:47] LABS: Anion Gap 14 mmol/L (10-20); BUN (Urea Nitrogen) 15 mg/dL (8.4-25.7); Calc. Creatinine Clearance 84 mL/min (70-130); Calcium 7.5 mg/dL (7.8-10.44); Carbon Dioxide 17 mmol/L (23-31); Chloride 112 mmol/L (98-107); Estimated GFR-MDRD 88; Glucose 178 mg/dL (83-110); Potassium 3.4 mmol/L (3.5-5.1); Sodium 140 mmol/L (136-145)
[2019-06-24] MEDS: Sodium Chloride 0.9% 1,000 ML IV SCH (14:19)
[2019-06-24] MEDS ORDERED: Atropine Sulfate 1 mg/10 ml Syringe ONE (14:30)
[2019-06-24] MEDS ORDERED: Atropine Sulfate 1 mg/10 ml Syringe IVP SCH (15:00)
[2019-06-24] MEDS: Potassium Chloride 20 MEQ/100 ML PREMIX BAG IVPB PRN ×2 (15:19→22:02)
[2019-06-24] MEDS: EPINEPHrine 1 MG, Admixture Fee 1 EACH in Dextrose 5% in Water 250 ML IVPB SCH ×2 (15:30→21:28)
[2019-06-24 16:17] LABS: Actual Bicarbonate (HCO3a) 19.8 mEq/L (22-28); Analyzer IN Cardio ER; Base Excess (BEa) -5.9 mEq/L (-2.0 to +3.0); CO2 Tension 39.5 mmHg (35.0-45.0); Calcium, Ionized 1.11 mmol/L (1.12-1.30); Carboxyhemoglobin (COHb) 0.8 gm% (0.0-3.0); Hemoglobin (Hb) 12.7 g/dL (14.0-18.0); O2 Tension (PaO2), arterial 145.4 mmHg (> 60.0); pH, Arterial 7.32 (7.35-7.45)
[2019-06-24 16:23] LABS: ALV-art Gradient 90.425 (0-20); Puncture Site ALINE
[2019-06-24] MEDS ORDERED: Sodium Bicarb 50 MEQ/50 ML Abboject 8.4% SYRINGE IVP SCH (16:45)
[2019-06-24 17:36] LABS: Actual Bicarbonate (HCO3a) 23.3 mEq/L (22-28); Base Excess (BEa) -1.5 mEq/L (-2.0 to +3.0); CO2 Tension 39.9 mmHg (35.0-45.0); Calcium, Ionized 1.08 mmol/L (1.12-1.30); Carboxyhemoglobin (COHb) 1.3 gm% (0.0-3.0); Hemoglobin (Hb) 12.3 g/dL (14.0-18.0); O2 Tension (PaO2), arterial 129.8 mmHg (> 60.0); Potassium - ABG Lab 3.69 mmol/L (3.70-5.30); pH, Arterial 7.39 (7.35-7.45)
[2019-06-24 17:38] LABS: ALV-art Gradient 105.525 (0-20); Puncture Site ALINE
[2019-06-24 19:33] LABS: Hemoglobin 11.9 g/dL (14.0-18.0)
[2019-06-24 19:47] LABS: Potassium 3.3 mmol/L (3.5-5.1)
[2019-06-24] MEDS: Docusate 100 MG CAP PO SCH (21:14)
--- NOTE | 2019-06-24 21:24 | OP ---
DATE OF PROCEDURE: 06/24/2019 PROCEDURES PERFORMED: Coronary artery bypass grafting x3 with left internal mammary artery to the distal LAD and reverse greater saphenous vein grafts from the aorta to the first diagonal and from the aorta to the posterolateral branch of the right coronary artery. Left internal mammary lymph node biopsy. PREOPERATIVE DIAGNOSIS: Coronary artery disease with decreased left ventricular function. POSTOPERATIVE DIAGNOSIS: Coronary artery disease with decreased left ventricular function. RECORDINGS LIBRARIAN: aDrnell Richmond. ANESTHESIA: General endotracheal anesthesia. INDICATIONS: The patient is an 78-year-old man, found to have significant 3-vessel coronary artery disease, but quite severe mitral regurgitation and profoundly diminished LV function when he presented about a year and a half ago with rapid atrial fibrillation. He was deemed to not be an appropriate surgical candidate at that time, but in the interim, he has had some improvement in his mitral regurgitation and significant improvement in his LV function with conversion back to a sinus rhythm and ongoing medical management. In the interim, however, he has had gradually decreasing exercise tolerance and repeat cardiac catheterization demonstrates that on ventriculography, he has a trivial amount of mitral regurgitation and an LVEF that is in the 30% to 35% range. He is now taken to the operating room for revascularization. FINDINGS: Pump time 65 minutes. Cross-clamp time 35 minutes. Good quality JUANJO. The saphenous veins were small. He had some intrapericardial adhesions and extensive soldier's plaque including some calcified soldier's plaque. The LAD distally where it was grafted was 1.5 to 2 mm and good quality. The first diagonal was about 1.5 to 2 mm and good quality. The posterolateral branch of the right coronary was about 2 mm and good quality. The adhesions distorted the left atrial appendage sufficiently to make it difficult to accurately define its borders and ligation of the appendage was not attempted. A small, but pale and friable lymph node was identified during the mammary harvest and was sent for pathologic examination. NARRATIVE REPORT: After informed consent was obtained, the patient was taken to the operating room and placed in supine position on the operating table. After the induction of general anesthesia, the patient's greater saphenous veins were ultrasonographically mapped and marked. In the distal right thigh, the vein was hard to identify and follow, but appeared to be at least acceptable size from the midthigh proximally. On the left side, it was very difficult to follow and was of marginal size for much of its length. Both thighs were marked. The patient was then placed in Trendelenburg and his left upper chest was prepped and draped in sterile fashion. A left subclavian central line was attempted. The subclavian artery was stuck. The needle was removed and pressure held. The subclavian vein was successfully cannulated with the needle twice, but the wire could not be advanced very far. Further attempts were abandoned and attention was turned to the right upper chest. There, the wire passed fairly easily as did the catheter. All 3 ports aspirated and flushed without difficulty. The line was secured and then the patient's torso, groins, and lower extremities were prepped and draped in sterile fashion. Saphenous vein was harvested first from the right thigh and then from the left using an open skin bridge technique. In the distal right thigh, the vein became rather small and it fractured easily when attempting to cannulate it with an olive tip needle. On the left side, it proved to be a dual system with both branches being fairly small, but the deeper branch being a little bit bigger. The veins were prepared for use as a graft and the harvest sites were closed in layers of subcutaneous and subcuticular Vicryl. A median sternotomy was performed. The left pleura was mobilized, but proved to be very thin and multiple rents in the pleura developed during the course of an attempt at extrapleural exposure of the left internal mammary. The left JUANJO was mobilized as a skeletonized in-situ graft. Near the level of the sternomanubrial junction, a small, but modestly suspicious-appearing lymph node was encountered. It was rather friable and was excised piecemeal and sent for pathologic examination. When the mammary been harvested up to the level of the subclavian vein, the patient was heparinized and the mammary ligated and divided distally. There was good flow through the mammary and it distended nicely with papaverine solution. The mammary bed was inspected for hemostasis. The JUANJO retractor was replaced with a Garcia retractor. The pericardium was opened and marsupialized. The aorta was palpated and was soft. Keatchie's plaque was noted and some adhesions of the aorta to the right side of the pericardium were noted and were lysed sharply. A double concentric pursestring of 2-0 Ethibond was placed in the ascending aorta just beyond the pericardial reflection. Adhesions and soldier's plaque on the right atrium prompted placement of a pursestring in the right atrium near the appendage rather than more typical pursestring in the appendage and ligating its tip. Aortic and venous cannulae were inserted and secured by their pursestrings. Additional adhesions of the pericardium to the right atrium were lysed sharply. Cardiopulmonary bypass was instituted and the patient was systemically cooled. The plane between the aorta and the pulmonary artery was developed. A longitudinal slit was made in the pericardium anterior to the left phrenic nerve through which the mammary could be passed. The heart was examined. The vessels to be bypassed were identified. The ramus and the circumflex branches were quite small and deemed not suitable for attempted bypass, particularly given the paucity of adequate vein. An aortic cross-clamp was applied and cardioplegia was administered through an aortic root needle. When arrest have been achieved, attention was turned to the posterolateral branch of the right coronary, is exposed and opened near where it emerged from the fat pad at the AV groove. The vein from the right thigh, which was the larger and better quality of harvested veins, was reversed and anastomosed there end-to-side with running Prolene and the anastomosis tested by flushing cold cardioplegia down the graft. Attention was then turned to the diagonal and it was opened and grafted in a similar fashion using the vein from the left thigh. The LAD was then opened and the mammary was anastomosed to it with running 7-0 Prolene. It was tacked to the epicardium and aortic cross-clamp was placed with a partial occluding clamp. Aortotomy was made in the ascending aorta with a scalpel and punch. The right coronary system graft was brought along the AV groove and anastomosed to an aortotomy relatively low on the aorta end-to-side with running Prolene. The diagonal graft was brought along the left side of the heart and anastomosed to an aortotomy slightly distal and to the left of that. The partial occluding clamp was removed. It was opted not to empirically de-air the veins. The bulldogs were removed from them. The anastomoses were inspected for hemostasis and the proximal vein graft anastomoses were marked with small hemoclips. Left pleural and posterior pericardial drains were brought out through separate incisions and secured with suture. Right atrial and right ventricular temporary epicardial pacing wires were placed with the use of AV pacing and Levophed drip. The patient was weaned from cardiopulmonary bypass. Aortic and venous cannulae were removed and the pursestring secured. Protamine was administered. When hemostasis was adequate, the mediastinal fat and the inferior medial aspects of the pericardium were loosely tacked back together to cover up the aorta and the vein grafts. The cut surfaces of the sternum were treated with vancomycin paste and platelet-rich GPS. The sternum was reapproximated with #7 stainless steel wires. Soft tissues of the sternotomy were irrigated and treated with platelet-poor GPS. The fascia was closed over the wires with #1 Vicryl. The subcutaneous tissue was closed with running 2-0 Vicryl. The skin was closed with 4-0 Vicryl subcuticular suture. The wounds were dressed and the patient taken to the intensive care unit in stable condition. Job ID: [id number]
[2019-06-24] MEDS: Famotidine/PF 20 mg/2ml Vial SLOW IVP SCH (21:35)
[2019-06-25 00:06] LABS: Actual Bicarbonate (HCO3a) 17.8 mEq/L (22-28); Base Excess (BEa) -7.2 mEq/L (-2.0 to +3.0); CO2 Tension 34.2 mmHg (35.0-45.0); Calcium, Ionized 1.09 mmol/L (1.12-1.30); Carboxyhemoglobin (COHb) 1.1 gm% (0.0-3.0); Hemoglobin (Hb) 10.8 g/dL (14.0-18.0); O2 Tension (PaO2), arterial 138.5 mmHg (> 60.0); Potassium - ABG Lab 3.28 mmol/L (3.70-5.30); pH, Arterial 7.34 (7.35-7.45)
[2019-06-25] MEDS: Ketorolac Tromethamine 30 MG/ML VIAL IVP SCH ×2 (01:07→08:41)
[2019-06-25] MEDS ORDERED: Morphine 2 MG/ML SYRINGE SLOW IVP PRN (01:56)
[2019-06-25] MEDS ORDERED: Fentanyl BOLUS 250 ML IVPB PRN (01:56)
[2019-06-25] MEDS ORDERED: DISCONTINUE PREVIOUS NARCOTIC PAIN MEDICATIONS AND BENZODIAZEPINES FS SCH (01:56)
[2019-06-25] MEDS ORDERED: fentaNYL Citrate/PF 2,000 MCG in Sodium Chloride 0.9% 60 ML IV SCH (01:56)
[2019-06-25] MEDS ORDERED: Propofol 1,000 MG/100 ML VIAL IV PRN (01:56)
[2019-06-25] MEDS ORDERED: Lorazepam 2 MG/ML VIAL SLOW IVP PRN (01:56)
[2019-06-25] MEDS ORDERED: Propofol BOLUS 1,000 MG/100 ML VIAL IV PRN (01:56)
[2019-06-25] MEDS: EPINEPHrine 1 MG, Admixture Fee 1 EACH in Dextrose 5% in Water 250 ML IVPB SCH ×2 (02:08→08:36)
[2019-06-25] MEDS: Sodium Chloride 0.9% 1,000 ML IV SCH ×2 (04:39→15:07)
[2019-06-25 05:03] LABS: Band 17 % (5-11); Hemoglobin 10.4 g/dL (14.0-18.0); Lymphocytes 12 % (21-51); MDiff Complete? YES; Mean Corpuscular HGB CONC 31.5 g/dL (32.0-36.0); Mean Corpuscular Hemoglobin 27.4 pg (27.0-31.0); Mean Platelet Volume 9.4 fL (7.4-10.4); Metamyelocyte 1 % (0-0); Monocytes 6 % (0-10); Neutrophil 64 % (42-75); Platelet Count 228 thou/uL (130-400); Platelet Morphology Comment Appears Adequate; RBC Distribution Width 15.4 % (11.5-14.5); Red Blood Cell (RBC) Count 3.78 mill/uL (4.70-6.10); White Blood Cell (WBC) Count 21.8 thou/uL (4.8-10.8)
[2019-06-25 05:08] LABS: Anion Gap 18 mmol/L (10-20); BUN (Urea Nitrogen) 22 mg/dL (8.4-25.7); Calc. Creatinine Clearance 42 mL/min (70-130); Calcium 8.2 mg/dL (7.8-10.44); Carbon Dioxide 18 mmol/L (23-31); Chloride 110 mmol/L (98-107); Estimated GFR-MDRD 39; Glucose 147 mg/dL (83-110); Potassium 3.4 mmol/L (3.5-5.1); Sodium 143 mmol/L (136-145)
[2019-06-25] MEDS: Potassium Chloride 20 MEQ/100 ML PREMIX BAG IVPB PRN (05:45)
[2019-06-25 06:49] LABS: Puncture Site ALINE
[2019-06-25 07:08] LABS: Actual Bicarbonate (HCO3a) 17.4 mEq/L (22-28); Base Excess (BEa) -4.4 mEq/L (-2.0 to +3.0); Hemoglobin (Hb) 10.3 g/dL (14.0-18.0); O2 Tension (PaO2), arterial 170.3 mmHg (> 60.0); Potassium - ABG Lab 3.51 mmol/L (3.70-5.30)
[2019-06-25 07:26] LABS: ALV-art Gradient 157.825 (0-20); CO2 Tension 22.7 mmHg (35.0-45.0); Puncture Site ALINE
--- NOTE | 2019-06-25 08:01 | RAD ---
EXAM: CHEST ONE VIEW HISTORY: Code blue, post intubation. COMPARISON: 06/24/2019 FINDINGS: Endotracheal tube, right subclavian central venous catheter, mediastinal drains, and left-sided thora costomy tube remain in place and unchanged in position. Atelectasis is present in the left midlung zone and left lung base. Minimal atelectasis is present at the right lung base. No obvious pneumothor ax is seen. Cardiac silhouette is magnified by projection. Pulmonary vasculature is within normal limits. Median sternotomy wires are again seen. No significant interval change from prior study. IMPRESSION: 1. Lines and tubes remain stable in position. 2. Atelectasis left midlung zone and left lung base with minimal atelectasis at the right lung base.
[2019-06-25] MEDS: Famotidine/PF 20 mg/2ml Vial SLOW IVP SCH (08:41)
[2019-06-25] MEDS: Aspirin Chewable 81 MG TAB PO SCH (08:42)
[2019-06-25] MEDS: Docusate 100 MG CAP PO SCH ×2 (08:43→20:48)
[2019-06-25] MEDS ORDERED: PROPOFOL 200 MG/20 ML VIAL ONE (09:34)
[2019-06-25] MEDS ORDERED: Succinylcholine Chloride 20 MG/ML 10 ml SYRINGE FS ONE (09:34)
[2019-06-25] MEDS ORDERED: Insulin Glargine 8 UNITS in Pre-Filled Syringe 1 EACH SC SCH (12:00)
[2019-06-25] MEDS: Insulin Regular 300 UNITS/3 ML VIAL SC PRN ×2 (12:03→17:46)
[2019-06-25] MEDS: Ondansetron PF 4 MG/2 ML Vial IVP PRN (17:48)
--- NOTE | 2019-06-26 02:25 | CON ---
DATE OF CONSULTATION: 06/25/2019 CHIEF COMPLAINT: Post bypass with post anesthesia altered mentation. HISTORY OF PRESENT ILLNESS: Mr. Anderson is an 78-year-old gentleman, who was found to have coronary artery disease about 18 months ago. At that time, he had presented for outpatient colonoscopy and was found to be in rapid atrial fibrillation. As part of the evaluation, he underwent assessment including catheterization. His echocardiogram at that time showed very depressed LV function of approximately 10% to 15%, moderate pulmonary hypertension, and underlying valvular disease. He was not felt to be a surgical candidate at that time. He has been on medical management and generally done better from a symptom perspective, even to the point that he and his son have been building symptoms. Recently, however, he has become a bit more short of breath. His improved functional status gave hope that he might be a candidate now for surgical intervention and he underwent repeat catheterization again showing multivessel coronary artery disease. That report is reviewed. The patient and family, after discussion, agreed to surgical consideration and bypass was done yesterday. Initially, no significant complication was noted and multiple grafts done as detailed in the operative note. There had been thought of doing an occlusion of the left atrium due to his atrial fibrillation, but anatomically it was not easily approached and therefore, not performed. Following surgery, the patient was extubated last evening, but then developed respiratory distress and ultimately a respiratory arrest, at which time he was reintubated. This morning, he has been extubated. He has developed a lot of agitation, disorientation, and confusion. According to the patient and family, this has occurred multiple times before with all kinds of anesthesia ranging from general anesthesia to conscious sedation. As such, there does not appear to be a specific agent or mode of anesthesia as a precipitating cause. He was extremely combative this morning and required restraints to keep from pulling out his chest tubes. He has finally begun to calm down. The family cannot communicate a specific medication, which seems to be effective for him. I am consulted to assist in his management. At the time I saw him, he is awake, resting comfortably with minor pain. He gives a history as described above. He denies cough. He denies active hallucination or agitation. SOCIAL HISTORY: The patient is an 78-year-old gentleman. He has intolerance to amitriptyline. He does not smoke or drink. MEDICATIONS: He has a home medication list, which includes: 1. Pepcid 40 p.r.n. 2. Lisinopril 5 daily p.r.n. 3. Xanax 0.25 daily. 4. Crestor 5 daily. 5. Atorvastatin 20 mg at bedtime. 6. Amiodarone 200 at bedtime. 7. Baclofen one tablet at bedtime. 8. Aspirin 81 daily. 9. Melatonin 10 mg at bedtime p.r.n. 10. Tresiba insulin 26 units subcu daily. 11. Lopressor 25 mg daily. 12. Xarelto daily. 13. Meclizine t.i.d. PAST MEDICAL HISTORY: Includes history of renal insufficiency, class 3 heart failure, atrial fibrillation on anticoagulation and rate-controlling agents, previous thrombus in left atrial appendage, postoperative encephalopathy, previous hemicolectomy, history of mitral regurgitation, diabetes, and dyslipidemia. FAMILY HISTORY: Noncontributory. REVIEW OF SYSTEMS: Remarkable as above. PHYSICAL EXAMINATION: VITAL SIGNS: Blood pressure currently 118/57, heart rate 71, and saturation 94% on nasal oxygen. GENERAL: He is an 78-year-old male, in no distress. He was sleeping, but easily aroused. He denies active hallucination, agitation, or difficulty. HEENT: Shows no adenopathy. NECK: He has no JVD. LUNGS: Show rhonchi, but no wheezing. CHEST: Chest tubes have acceptable drainage without leak. HEART: Regular rate and rhythm. He has a pericardial crunch consistent with his postsurgical status. I do not hear audible murmur. ABDOMEN: Soft. There is no organomegaly. Bowel sounds are normal. EXTREMITIES: Show no cyanosis, clubbing, or edema. NEUROLOGIC: Shows him to be awake and nonfocal, although not the best of historians, although quite well could be related to surgery and analgesics. He is oriented to person, place, time, and situation. LABORATORY DATA: White count 21,800 up slightly from yesterday, hemoglobin is 10.4. He has 64 segs and 17 bands. Blood gas this morning prior to extubation included pH 7.5, CO2 of 22, pO2 of 170. Bicarbonate is 17. This was obtained on 50% oxygen with tidal volume 700, pressure support of 10, PEEP of 5, and rate of 12 and is consistent with respiratory alkalosis and a mild metabolic acidosis. Chemistry panel included sodium 143, potassium 3.4, chloride 110, CO2 is 18, creatinine 1.7, and BUN 22. Glucose has ranged from 110 to 170. The patient is not aware of what his most recent hemoglobin A1c is. The post surgical chest x-ray shows lines, tubes and drains in appropriate position. There is atelectasis versus early consolidation in the left base. There is no pneumothorax. IMPRESSION: 1. Status post bypass without significant postoperative complication. Please see surgical note for details. 2. Ischemic cardiomyopathy. 3. Atrial fibrillation, on anticoagulant regimen and rate-controlling medications. 4. Post anesthetic encephalopathy, now improved without significant specific intervention. I think that as much as we can limit medications, we should. He has been calmed most recently with communication with his spouse and with reassurance by the nursing service. I think that the more medicines we give the more potential, we have to be confused about his response. 5. Diabetes. 6. Mitral regurgitation. PLAN: He has been successfully extubated and probably, his chest tubes can come out in the next 24 to 48 hours. I would like to try to limit anxiolytics as much as possible and try reassurance and other means of calming him as our primary therapies. It is difficult for me to understand exactly the mechanism since the response occurs relatively consistently regardless of the type of anesthesia he receives, either by agent or type of anesthetic. I am a little concerned about his leukocytosis and band count. We will follow this and he may well need empiric antibiotics. He is currently afebrile. Further intervention will be provided based on his clinical response. Pulmonary Service will continue to follow. I have reviewed all of the medications. Thank you for this consultation. Job ID: [id number]
[2019-06-26] MEDS ORDERED: HYDROcodone/Acetaminophen 5/325 mg Tablet PO PRN (02:54)
[2019-06-26] MEDS: HYDROcodone/Acetaminophen 5/325 mg Tablet PO PRN (02:58)
[2019-06-26 04:30] LABS: #Lymphocytes 1.4 thou/uL (1.20-3.40); #Monocytes 1.3 thou/uL (0.11-0.59); #Neutrophils 9.3 thou/uL (1.40-6.50); %Basophils 0.1 % (0.0-1.0); %Lymphocytes 11.8 % (21.0-51.0); %Monocytes 10.6 % (0.0-10.0); %Neutrophils 77.5 % (42.0-75.0); Hemoglobin 8.9 g/dL (14.0-18.0); Mean Corpuscular HGB CONC 30.1 g/dL (32.0-36.0); Mean Corpuscular Hemoglobin 26.3 pg (27.0-31.0); Mean Corpuscular Volume 87.4 fL (78.0-98.0); Mean Platelet Volume 9.5 fL (7.4-10.4); Platelet Count 124 thou/uL (130-400); RBC Distribution Width 15.9 % (11.5-14.5); Red Blood Cell (RBC) Count 3.38 mill/uL (4.70-6.10)
[2019-06-26 04:45] LABS: Anion Gap 10 mmol/L (10-20); BUN (Urea Nitrogen) 30 mg/dL (8.4-25.7); Calc. Creatinine Clearance 39 mL/min (70-130); Calcium 8.2 mg/dL (7.8-10.44); Carbon Dioxide 25 mmol/L (23-31); Chloride 109 mmol/L (98-107); Estimated GFR-MDRD 34; Glucose 68 mg/dL (83-110); Potassium 4.2 mmol/L (3.5-5.1); Sodium 140 mmol/L (136-145)
[2019-06-26] MEDS: Sodium Chloride 0.9% 1,000 ML IV SCH ×2 (04:59→11:57)
--- NOTE | 2019-06-26 08:51 | RAD ---
RADIOGRAPH CHEST 1 VIEW: DATE: 06/26/2019 TIME: 4:10 AM HISTORY: 78-year-old male status post open heart surgery COMPARISON: 06/25/2019 FINDINGS: ETT no longer present. Left-sided chest tube with tip at apex, and right subclavian central line, rem ain. No cardiomegaly or pulmonary edema. Subsegmental atelectasis at left base remains. Small left pleural effusion remains. No interval change in appearance of the lungs. No pneumothorax. IMPRESSION: 1. Status post extubation 2. No other interval change. 3. Small left pleural effusion and mild left basilar subsegmental atelectasis.
[2019-06-26] MEDS: Docusate 100 MG CAP PO SCH ×2 (08:53→20:36)
[2019-06-26] MEDS: Aspirin Chewable 81 MG TAB PO SCH (08:53)
[2019-06-26] MEDS ORDERED: Famotidine/PF 20 mg/2ml Vial SLOW IVP SCH (09:00)
--- NOTE | 2019-06-26 09:12 | PRG ---
DATE OF SERVICE: 06/26/2019 SUBJECTIVE: Mr. Anderson had a relatively good night without more of his agitation and anxiety. This morning, he is anxious for visitors, but cannot remember that he had visitors yesterday. His pain is adequately controlled. He has no nausea or vomiting. He has had no arrhythmia. OBJECTIVE: VITAL SIGNS: Blood pressure is 131/70, heart rate 72, pulse ox is 96%. GENERAL: He is awake, alert, and oriented, although subacute memory is not high deal, so he is apologetic. He is easily consoled. HEENT: Shows no adenopathy. LUNGS: Coarse rhonchi. HEART: Regular rate and rhythm. He has a mediastinal pericardial crunch. ABDOMEN: Soft. There is no organomegaly. EXTREMITIES: He has trace edema. Moves all extremities spontaneously and to command. Chest tube output is minimal over the past 24 hours. There is no leak. LABORATORY DATA: White count 12, hemoglobin is 8.9 with a platelet count 124,000. Sodium 140, potassium 4.2, chloride 109, BUN 30, and creatinine 1.9. Chest x-ray shows linear atelectasis along the left base, but otherwise clear, tubes are in good position. IMPRESSION: 1. Status post bypass, uncomplicated. 2. Mild postoperative disorientation accentuated by what the patient perceives as a "response to anesthesia.". 3. Diabetes. PLAN: The patient is doing extremely well. We have reoriented him that he have visitors yesterday and anticipate him again this morning. Chest tube approach is a point of removal and probable step-down. Pulmonary Service will continue to follow. Job ID: [id number]
--- NOTE | 2019-06-26 09:29 | PRG ---
DATE OF SERVICE: 06/26/2019 SUBJECTIVE: Postoperative day #2 from 3-vessel coronary artery bypass grafting. Blood pressure is running about 130. Heart rate is about 70, sinus rhythm. Chest tube outputs were modest and urine output about 800 mL for 24 hours. Chest x-ray is satisfactory; however, his laboratory values, his creatinine is increased slightly at 1.9 from a baseline of less than 1. His hemoglobin is 8.9, white count is trending downward, his platelet count is 124,000. He was extubated yesterday morning after requiring re-intubation the night before. His lungs are clear. As mentioned, his chest tubes were removed. His mental status demonstrates some confusion last night, but is better this morning. We will transfer to the floor. Monitor his sugars, which have been variable and hold his insulin for the time being because of some low blood sugars yesterday. I will continue some maintenance IV fluids due to his elevated creatinine, but expect once it stabilizes, we can begin some diuretics. We will resume his amiodarone from prior to admission. Job ID: [id number]
[2019-06-26] MEDS ORDERED: Bisacodyl 10 MG SUPP PR PRN (10:57)
[2019-06-26] MEDS ORDERED: Bisacodyl 5 MG TAB PO PRN (10:57)
[2019-06-26] MEDS ORDERED: Guaifenesin DM 100-10/5 ML UDCUP PO PRN (10:57)
[2019-06-26] MEDS ORDERED: Mineral Oil ENEMA PR PRN (10:57)
[2019-06-26] MEDS ORDERED: Nitroglycerin 0.4 MG TAB (25 Tab Bottle) SL PRN (10:57)
[2019-06-26] MEDS ORDERED: Milk Of Magnesia 30 ML UDCUP PO PRN (10:57)
[2019-06-26] MEDS ORDERED: Mag-Al 1200 mg/1200 mg/30 ML UDCUP PO PRN (10:57)
[2019-06-26] MEDS ORDERED: Dextrose 5% in Water 1,000 ML IV PRN (11:08)
[2019-06-26] MEDS ORDERED: Dextrose 50% Abboject 50 ML SYRINGE SLOW IVP PRN (11:08)
[2019-06-26] MEDS ORDERED: HUMULIN R 100 UNITS in Sodium Chloride 0.9% 100 ML IVPB SCH (11:08)
--- NOTE | 2019-06-26 12:18 | EKG ---
Test Reason : POST CABG Blood Pressure : / mmHG Vent. Rate : 059 BPM Atrial Rate : 059 BPM P-R Int : 234 ms QRS Dur : 100 ms QT Int : 516 ms P-R-T Axes : 030 007 -11 degrees QTc Int : 510 ms Sinus bradycardia with 1st degree A-V block Prolonged QT Abnormal ECG When compared with ECG of 15-JUN-2019 10:57, Nonspecific T wave abnormality now evident in Inferior leads Confirmed by BETTE RAO, SRobert ([id number]) on 06/26/2019 12:18:15 PM Referred By: ALETHEA Confirmed By:DR. Lacy AMOS MD
[2019-06-26] MEDS: Acetaminophen 325 MG TAB PO PRN (16:16)
[2019-06-26] MEDS: Rosuvastatin 5 MG TAB PO SCH (20:36)
[2019-06-27] MEDS: HYDROcodone/Acetaminophen 5/325 mg Tablet PO PRN ×3 (03:04→19:05)
[2019-06-27] MEDS: Sodium Chloride 0.9% 1,000 ML IV SCH ×2 (03:09→20:16)
[2019-06-27 05:02] LABS: Anion Gap 13 mmol/L (10-20); BUN (Urea Nitrogen) 37 mg/dL (8.4-25.7); Calc. Creatinine Clearance 45 mL/min (70-130); Calcium 7.8 mg/dL (7.8-10.44); Carbon Dioxide 22 mmol/L (23-31); Chloride 110 mmol/L (98-107); Estimated GFR-MDRD 41; Glucose 158 mg/dL (83-110); Potassium 4.1 mmol/L (3.5-5.1); Sodium 141 mmol/L (136-145)
[2019-06-27] MEDS: Insulin Regular 300 UNITS/3 ML VIAL SC PRN (06:07)
[2019-06-27] MEDS: ALPRAZolam 0.5 MG TAB PO SCH (08:29)
[2019-06-27] MEDS: Polyethylene Glycol 3350 17 GM Packet PO SCH (08:30)
[2019-06-27] MEDS: Docusate 100 MG CAP PO SCH ×2 (08:30→20:20)
[2019-06-27] MEDS: Aspirin 325 mg Enteric Coated Tablet PO SCH (08:30)
[2019-06-27] MEDS: Amiodarone 200 MG TAB PO SCH (08:30)
--- NOTE | 2019-06-27 10:53 | PRG ---
DATE OF SERVICE: 06/27/2019 SUBJECTIVE: This morning, he is doing well postop CABG. OBJECTIVE: VITAL SIGNS: Temperature 97, pulse 75, respirations 16, saturating 90% on room air, and blood pressure 160/74, slightly confused, but no shortness of breath. CHEST: Decreased breath sounds. No wheezing. CARDIAC: Normal S1 and S2. No gallops. ABDOMEN: No masses. ASSESSMENT AND PLAN: Status post coronary artery bypass grafting, encephalopathy, and azotemia. Continue PT and supportive care. Chest x-ray was clear. I do not see any acute infiltrates. We will follow. Job ID: [id number]
[2019-06-27] MEDS: Rosuvastatin 5 MG TAB PO SCH (20:18)
[2019-06-28] MEDS: HYDROcodone/Acetaminophen 5/325 mg Tablet PO PRN (04:54)
[2019-06-28 05:05] LABS: Anion Gap 12 mmol/L (10-20); BUN (Urea Nitrogen) 27 mg/dL (8.4-25.7); Calc. Creatinine Clearance 60 mL/min (70-130); Calcium 7.6 mg/dL (7.8-10.44); Carbon Dioxide 20 mmol/L (23-31); Chloride 112 mmol/L (98-107); Estimated GFR-MDRD 57; Glucose 126 mg/dL (83-110); Sodium 140 mmol/L (136-145)
--- NOTE | 2019-06-28 07:39 | RAD ---
Chest one view HISTORY: Heart surgery. Follow-up. COMPARISON: 06/26/2019. FINDINGS: Cardiac silhouette is magnified and upper limits of normal in size. Pulmonary vasculature i s unremarkable. Mediastinum is midline with postoperative changes and a right subclavian central venous catheter. Linear atelectasis at the left lung base is stable. No evidence of pneumothorax. Prominent degenerative changes of the left shoulder. medical accounts receivable specialist leads overlie the chest. IMPRESSION : Left basilar atelectasis and other postoperative findings are stable.
[2019-06-28] MEDS: Aspirin 325 mg Enteric Coated Tablet PO SCH (09:07)
[2019-06-28] MEDS: ALPRAZolam 0.5 MG TAB PO SCH (09:08)
[2019-06-28] MEDS: Docusate 100 MG CAP PO SCH ×2 (09:09→20:37)
[2019-06-28] MEDS: Amiodarone 200 MG TAB PO SCH (09:10)
[2019-06-28] MEDS: Polyethylene Glycol 3350 17 GM Packet PO SCH (09:12)
[2019-06-28] MEDS: Acetaminophen 325 MG TAB PO PRN ×3 (09:12→20:36)
--- NOTE | 2019-06-28 09:55 | PRG ---
DATE OF SERVICE: 06/28/2019 SUBJECTIVE: This morning, he is still complaining of vague chest pain. OBJECTIVE: VITAL SIGNS: Temperature 97, pulse 69, saturations 97% on room air, blood pressure 170/75. CHEST: No wheezing or crackles. CARDIAC: Normal S1 and S2. ABDOMEN: Soft. EXTREMITIES: No edema. DIAGNOSTIC DATA: X-ray shows no acute infiltrates. ASSESSMENT AND PLAN: Status post coronary artery bypass graft, chest pain. Pulmonary beaver, disposition as per Cardiology. Job ID: [id number]
[2019-06-28 14:10] VITALS: BMI 29.7
[2019-06-28] MEDS: Carvedilol 6.25 MG TAB PO SCH (17:00)
[2019-06-28] MEDS: Insulin Regular 300 UNITS/3 ML VIAL SC PRN (17:01)
[2019-06-28] MEDS: Rosuvastatin 5 MG TAB PO SCH (20:36)
[2019-06-29] MEDS: Acetaminophen 325 MG TAB PO PRN ×3 (02:03→13:19)
[2019-06-29 04:37] LABS: Anion Gap 13 mmol/L (10-20); BUN (Urea Nitrogen) 24 mg/dL (8.4-25.7); Calc. Creatinine Clearance 69 mL/min (70-130); Calcium 7.5 mg/dL (7.8-10.44); Carbon Dioxide 21 mmol/L (23-31); Chloride 111 mmol/L (98-107); Estimated GFR-MDRD 64; Glucose 109 mg/dL (83-110); Potassium 3.6 mmol/L (3.5-5.1); Sodium 141 mmol/L (136-145)
[2019-06-29] MEDS: Polyethylene Glycol 3350 17 GM Packet PO SCH (08:12)
[2019-06-29] MEDS: Carvedilol 6.25 MG TAB PO SCH ×2 (08:13→16:27)
[2019-06-29] MEDS: ALPRAZolam 0.5 MG TAB PO SCH (08:14)
[2019-06-29] MEDS: Aspirin 325 mg Enteric Coated Tablet PO SCH (08:15)
[2019-06-29] MEDS: Docusate 100 MG CAP PO SCH ×2 (08:15→19:55)
[2019-06-29] MEDS: Amiodarone 200 MG TAB PO SCH (08:16)
[2019-06-29] MEDS ORDERED: Magnesium Citrate 300 ML BOT PO SCH (09:15)
--- NOTE | 2019-06-29 09:33 | PRG ---
DATE OF SERVICE: 06/29/2019 SUBJECTIVE: This morning, he is awake, alert, and responsive. OBJECTIVE: VITAL SIGNS: Temperature 97, pulse 76/min respiratory rate 20, saturation 96% on room air, blood pressure 120/76 CHEST: Decreased breath sounds. No wheezing. CARDIAC: Normal S1 and S2. No gallops. ABDOMEN: Soft. Lytes are normal. CABG, chest pain, shortness of breath. Severe deconditioning. PT. DISPOSITION: As per Cardiology. Job ID: [id number] MTDD
[2019-06-29] MEDS ORDERED: Lisinopril 10 MG TAB PO SCH (10:00)
[2019-06-29 16:05] VITALS: BP 155/71; TEMP 97.9
[2019-06-29] MEDS: Insulin Regular 300 UNITS/3 ML VIAL SC PRN (16:28)
[2019-06-29] MEDS: Rosuvastatin 5 MG TAB PO SCH (19:55)
--- NOTE | 2019-06-30 05:26 | DIS ---
DATE OF ADMISSION: 06/23/2019 DATE OF DISCHARGE: 06/29/2019 PRINCIPAL DIAGNOSIS: Coronary artery disease. PROCEDURES PERFORMED: Cardiac catheterization 06/23/2019, coronary artery bypass grafting x3 with left internal mammary artery to the distal LAD and reverse greater saphenous vein graft from aorta to the first diagonal, from the aorta to the posterolateral branch of the right coronary artery 06/24/2019. HISTORY OF PRESENT ILLNESS AND HOSPITAL COURSE: The patient is an 78-year-old man found to have significant three-vessel coronary disease, severe mitral regurgitation and profoundly diminished LV function when he presented about a year and a half ago with rapid atrial fibrillation. At that time, he was short of breath even with a controlled heart rate. While talking, he chemically converted to a sinus rhythm and he was started on anticoagulation because of his atrial fibrillation and the presence of thrombus in his left atrial appendage. He has been medically managed since then. He has noticed deteriorating exercise tolerance and has become somewhat debilitated from his lack of activity. Over the course of the last year and a half, his mitral regurgitation improved and his LV function dramatically improved. Repeat cardiac catheterization demonstrated similar coronary anatomy, but significant improvement in his LV function with an EF in the 35% range with no mitral regurgitation seen on ventriculography. He was admitted and underwent surgical revascularization as discussed with him preoperatively. While hemodynamically he did well, he has been rather slow to recover and anticipate that he is apt to need 3-4 months to recover from his surgery rather than the more typical 6 or 8 weeks. He is now being discharged to inpatient rehab. I am resuming his amiodarone 200 mg a day and his Xarelto. He is on Coreg 6.25 mg b.i.d., lisinopril 5 mg a day, amiodarone 200 mg a day, Xarelto 20 mg a day, Crestor 5 mg at bedtime and a baby aspirin a day. Job ID: [id number]
--- NOTE | 2019-06-30 07:08 | PQF ---
INGRID PATTON GEORG MD [id number] [facility]-280 [id number] CLINICAL DOCUMENTATION CLARIFICATION FORM: POST DISCHARGE Addendum to original discharge summary date: ____ Late entry note date: __ DATE:06/30/2019 ATTN: Ian Chaudhry Please exercise your independent, professional judgment in responding to the clarification form. Clinical indicators are provided on the bottom of this form for your review Please check appropriate box(s): [ x ] Acute Respiratory Failure: [ ] with Hypoxia[ ] with Hypercapnia [ ] Acute Respiratory Failure due to: (etiology) [ ] ARDS (Acute respiratory distress syndrome) [ ] Other diagnosis [ ] Unable to determine In addition, please specify: Present on Admission (POA): [ ] Yes [ x] No [ ] Unable to determine For continuity of documentation, please document condition throughout progress notes and discharge summary. Thank You. CLINICAL INDICATORS - SIGNS / SYMPTOMS / LABS Vital signs 06/24 BP 118/57, Pulse 71, Saturation 94% ABG 06/23 pH7.51, pCO2 24.5, pO2 139.9, Sat 16.2 Consult p1 06/24 Following surgery, the pt was extubated last evening, nut then developed respiratory distress and ultimately a respiratpry arrest, at which time he was reintubated Consult p2 06/24 Hehas a peicardial crush consistent with his postsurgical state Consult p3 06/24 Lungs:Show rhonchi RISK FACTORS Consult p2 06/24 78 year-old Male Consult p2 06/24 CAD s.p CABG Consult p2 06/24 Afib Consult p2 06/24 DM Consult p2 06/24 HTN Consult p2 06/24 Heart Failure Consult p2 06/24 Mitral regurgitation Consult p2 06/24 Ischemic cardiomyopathy Consult p2 06/24 Post anesthetic Encephalopathy Consult p3 06/24 s/p CABG TREATMENTS: Respiratpry Panel 06/23 Intubated on Mechanical ventilator Pulmonary consult 06/24 [place] ABG 06/23APR 13 Duoneb 3ml Neb Collected 06/22 Chest Xray APR 13 - Levophed 4mg IV (This form is maintained as a part of the permanent medical record) 2014 [employer] All Rights Reserved [email or web address]
--- NOTE | 2019-06-30 07:09 | PQF ---
INGRID PATTON Georg MD [id number] [facility]-280 [id number] CLINICAL DOCUMENTATION CLARIFICATION FORM: POST DISCHARGE Addendum to original discharge summary date: ____ Late entry note date: __ DATE:06/30/2019 ATTN: Ian Chaudhry Please exercise your independent, professional judgment in responding to the clarification form. Clinical indicators are provided on the bottom of this form for your review Please check appropriate box(s) to clarify if the following diagnosis has been ruled in or ruled out: Post Anesthetic Encephalopathy [ ] Ruled in diagnosis [ ] Continue to treat [ ] Resolved [ ] Ruled out diagnosis [ ] Cannot rule out diagnosis [ ] Other diagnosis [ x] Unable to determine For continuity of documentation, please document condition throughout progress notes and discharge summary. Thank You. CLINICAL INDICATORS - SIGNS / SYMPTOMS / LABS Vital signs 06/24 BP 118/57, Pulse 71, Saturation 94% Consult p1 06/24 Following surgery, the pt was extubated last evening, nut then developed respiratory distress and ultimately a respiratory arrest, at which time he was reintubated Consult p1 06/24 He has developed a lot of agitation, disorientation, and confusion Consult p1 06/24 post anesthetic encephalopathy, now improved without significant specific intervention PN p1 06/25 mild postoperative disorientation Consult p1 06/24 He was extreme combative RISK FACTORS Consult p2 06/24 78 year-old Male Consult p2 06/24 CAD s.p CABG Consult p2 06/24 Afib Consult p2 06/24 DM Consult p2 06/24 HTN Consult p2 06/24 Heart Failure Consult p2 06/24 Mitral regurgitation Consult p2 06/24 Ischemic cardiomyopathy Consult p3 06/24 s/p CABG TREATMENTS: Respiratory Panel 06/23 Intubated on Mechanical ventilator Pulmonary consult 06/24 [place] 06/26 Xanax 0.25 mg oral (This form is maintained as a part of the permanent medical record) 2014 [employer] All Rights Reserved [email or web address]
--- NOTE | 2019-06-30 07:10 | PQF ---
INGRID PATTON GEORG MD [id number] [facility]-280 [id number] CLINICAL DOCUMENTATION CLARIFICATION FORM: POST DISCHARGE Addendum to original discharge summary date: ____ Late entry note date: __ DATE:06/30/2019 ATTN: Ian Chaudhry Please exercise your independent, professional judgment in responding to the clarification form. Clinical indicators are provided on the bottom of this form for your review Please check appropriate box(s) to clarify if the following diagnosis has been ruled in or ruled out: Respiratory Arrest [ ] Ruled in diagnosis [ ] Continue to treat [ x ] Resolved [ ] Ruled out diagnosis [ ] Cannot rule out diagnosis [ ] Other diagnosis [ ] Unable to determine For continuity of documentation, please document condition throughout progress notes and discharge summary. Thank You. CLINICAL INDICATORS - SIGNS / SYMPTOMS / LABS Vital signs 06/24 BP 118/57, Pulse 71, Saturation 94% ABG 06/23 pH7.51, pCO2 24.5, pO2 139.9, Sat 16.2 Consult p1 06/24 Following surgery, the pt was extubated last evening, nut then developed respiratory distress and ultimately a respiratory arrest, at which time he was reintubated Consult p2 06/24 He has a pericardial crush consistent with his postsurgical state RISK FACTORS Consult p2 06/24 78 year-old Male Consult p2 06/24 CAD s.p CABG Consult p2 06/24 Afib Consult p2 06/24 DM Consult p2 06/24 HTN Consult p2 06/24 Heart Failure Consult p2 06/24 Mitral regurgitation Consult p2 06/24 Ischemic cardiomyopathy Consult p2 06/24 Post anesthetic Encephalopathy Consult p3 06/24 s/p CABG TREATMENTS: Respiratory Panel 06/23 Intubated on Mechanical ventilator Pulmonary consult 06/24 [place] ABG 06/23APR 13 Duoneb 3ml Neb MAR 5/15 - Levophed 4mg IV (This form is maintained as a part of the permanent medical record) 2014 [employer] All Rights Reserved [email or web address]
[2019-06-30] MEDS ORDERED: Aspirin 81 mg Enteric Coated Tablet PO SCH (09:00)
[2019-06-30] MEDS ORDERED: Lisinopril 5 MG TAB PO SCH (09:00)
[2019-06-30] MEDS ORDERED: Rivaroxaban 10 MG TAB PO SCH (09:00)
[2019-07-05 13:20] LABS: Actual Bicarbonate (HCO3a) 25.7 mEq/L (22-28); Analyzer IN Cardio OR; Base Excess (BEa) 0.7 mEq/L (-2.0 to +3.0); CO2 Tension 42.5 mmHg (35.0-45.0); Calcium, Ionized 1.09 mmol/L (1.12-1.30); Hemoglobin (Hb) 9.1 g/dL (14.0-18.0); Potassium - ABG Lab 2.74 mmol/L (3.70-5.30)
[2019-07-05 13:20] LABS: Actual Bicarbonate (HCO3a) 22.9 mEq/L (22-28); Analyzer IN Cardio OR; Base Excess (BEa) -0.1 mEq/L (-2.0 to +3.0); CO2 Tension 30.9 mmHg (35.0-45.0); Calcium, Ionized 1.08 mmol/L (1.12-1.30); Hemoglobin (Hb) 9.5 g/dL (14.0-18.0); O2 Tension (PaO2), arterial 459.1 mmHg (> 60.0); Potassium - ABG Lab 3.19 mmol/L (3.70-5.30); pH, Arterial 7.49 (7.35-7.45)
[2019-07-05 13:29] LABS: Actual Bicarbonate (HCO3a) 21.4 mEq/L (22-28); Analyzer IN Cardio OR; Base Excess (BEa) -2.4 mEq/L (-2.0 to +3.0); CO2 Tension 33.3 mmHg (35.0-45.0); Calcium, Ionized 1.09 mmol/L (1.12-1.30); Carboxyhemoglobin (COHb) 0.6 gm% (0.0-3.0); Hemoglobin (Hb) 10.9 g/dL (14.0-18.0); O2 Tension (PaO2), arterial 398.5 mmHg (> 60.0); Potassium - ABG Lab 3.27 mmol/L (3.70-5.30); pH, Arterial 7.43 (7.35-7.45)
[2019-07-05 13:30] LABS: Actual Bicarbonate (HCO3a) 24.1 mEq/L (22-28); Analyzer IN Cardio OR; Base Excess (BEa) -0.2 mEq/L (-2.0 to +3.0); CO2 Tension 37.5 mmHg (35.0-45.0); Calcium, Ionized 1.29 mmol/L (1.12-1.30); Carboxyhemoglobin (COHb) 1.5 gm% (0.0-3.0); Hemoglobin (Hb) 7.7 g/dL (14.0-18.0); O2 Tension (PaO2), arterial 382.7 mmHg (> 60.0); Potassium - ABG Lab 3.53 mmol/L (3.70-5.30); pH, Arterial 7.43 (7.35-7.45)
[2019-07-05 13:30] LABS: Analyzer IN Cardio OR; Base Excess (BEa) -2.7 mEq/L (-2.0 to +3.0); CO2 Tension 31.8 mmHg (35.0-45.0); Carboxyhemoglobin (COHb) 1.4 gm% (0.0-3.0); Hemoglobin (Hb) 7.8 g/dL (14.0-18.0); O2 Tension (PaO2), arterial 231.3 mmHg (> 60.0); Potassium - ABG Lab 3.29 mmol/L (3.70-5.30); pH, Arterial 7.44 (7.35-7.45)
[2019-07-05 13:32] LABS: Actual Bicarbonate (HCO3v) 23 mEq/L (22-28); Analyzer IN Cardio OR; Base Excess -2.4 mEq/L (-2.0 to +3.0); Calcium, Ionized 1.02 mmol/L (1.16-1.32); Chloride (ABG LAB) 107 mmol/L (98-106); Hemoglobin (Hb) 7.6 g/dL (12.6-17.4); Potassium - ABG Lab 3.39 mmol/L (3.70-5.30); Sodium 136.5 mmol/L (133-146); pH (venous) 7.36 (7.32-7.43)
[2019-07-05 13:33] LABS: Actual Bicarbonate (HCO3a) 24.1 mEq/L (22-28); Analyzer IN Cardio OR; Base Excess (BEa) 0.3 mEq/L (-2.0 to +3.0); CO2 Tension 35.1 mmHg (35.0-45.0); Calcium, Ionized 0.93 mmol/L (1.12-1.30); Carboxyhemoglobin (COHb) 1.4 gm% (0.0-3.0); Hemoglobin (Hb) 7.4 g/dL (14.0-18.0); Potassium - ABG Lab 4.41 mmol/L (3.70-5.30); pH, Arterial 7.46 (7.35-7.45)
[2019-07-05 13:33] LABS: Actual Bicarbonate (HCO3a) 23.1 mEq/L (22-28); Analyzer IN Cardio OR; Base Excess (BEa) -1.4 mEq/L (-2.0 to +3.0); CO2 Tension 37.9 mmHg (35.0-45.0); Calcium, Ionized 1.11 mmol/L (1.12-1.30); Carboxyhemoglobin (COHb) 1.1 gm% (0.0-3.0); Hemoglobin (Hb) 8.7 g/dL (14.0-18.0); O2 Tension (PaO2), arterial 338.9 mmHg (> 60.0); Potassium - ABG Lab 2.88 mmol/L (3.70-5.30)
[2019-07-05 16:29] LABS: O2 Tension (PaO2), arterial 527.3 mmHg (> 60.0)
[2019-07-06 08:47] LABS: Actual Bicarbonate (HCO3a) 22.2 mEq/L (22-28); Analyzer IN Cardio OR; Base Excess (BEa) -2.9 mEq/L (-2.0 to +3.0); CO2 Tension 39.3 mmHg (35.0-45.0); Calcium, Ionized 1.02 mmol/L (1.12-1.30); Carboxyhemoglobin (COHb) 1.5 gm% (0.0-3.0); Hemoglobin (Hb) 7.6 g/dL (14.0-18.0); O2 Tension (PaO2), arterial 347.8 mmHg (> 60.0); Potassium - ABG Lab 3.61 mmol/L (3.70-5.30); Puncture Site ALINE; pH, Arterial 7.37 (7.35-7.45)
== END 2019-06-29 20:07 | DRG 233 ==
LOC: CCL 05:44 → 2NO 12:18 → CCU 06-24 08:06 → 2NO 06-26 10:41
PROVIDERS: ADMIT Internal Medicine Cardiovascular Disease; ATTEND Internal Medicine Cardiovascular Disease
PROC: 4A023N7 Measurement of Cardiac Sampling and Pressure, Left Heart, Percutaneous Approach (ICD-10-PCS; 2019-06-23)
PROC: B2111ZZ Fluoroscopy of Multiple Coronary Arteries using Low Osmolar Contrast (ICD-10-PCS; 2019-06-23)
PROC: B2151ZZ Fluoroscopy of Left Heart using Low Osmolar Contrast (ICD-10-PCS; 2019-06-23)
PROC: 021109W Bypass Coronary Artery, Two Arteries from Aorta with Autologous Venous Tissue, Open Approach (ICD-10-PCS; principal; 2019-06-24)
PROC: 02100Z9 Bypass Coronary Artery, One Artery from Left Internal Mammary, Open Approach (ICD-10-PCS; 2019-06-24)
PROC: 06BP0ZZ Excision of Right Saphenous Vein, Open Approach (ICD-10-PCS; 2019-06-24)
PROC: 07B90ZX Excision of Left Internal Mammary Lymphatic, Open Approach, Diagnostic (ICD-10-PCS; 2019-06-24)
PROC: 0BH17EZ Insertion of Endotracheal Airway into Trachea, Via Natural or Artificial Opening (ICD-10-PCS; 2019-06-24)
PROC: 5A1935Z Respiratory Ventilation, Less than 24 Consecutive Hours (ICD-10-PCS; 2019-06-24)
PROC: 5A1221Z Performance of Cardiac Output, Continuous (ICD-10-PCS; 2019-06-24)
PROC: 4A033BC Measurement of Arterial Pressure, Coronary, Percutaneous Approach (ICD-10-PCS; 2019-06-24)
PROC: 02H633Z Insertion of Infusion Device into Right Atrium, Percutaneous Approach (ICD-10-PCS; 2019-06-24)
PROC: 30243N1 Transfusion of Nonautologous Red Blood Cells into Central Vein, Percutaneous Approach (ICD-10-PCS; 2019-06-24)
DX: I25.10 Atherosclerotic heart disease of native coronary artery without angina pectoris (principal); J96.00 Acute respiratory failure, unspecified whether with hypoxia or hypercapnia; G92 Toxic encephalopathy; I25.5 Ischemic cardiomyopathy; E11.9 Type 2 diabetes mellitus without complications; I48.91 Unspecified atrial fibrillation; I50.9 Heart failure, unspecified; I11.0 Hypertensive heart disease with heart failure; I34.0 Nonrheumatic mitral (valve) insufficiency; Z79.899 Other long term (current) drug therapy; Z85.46 Personal history of malignant neoplasm of prostate; Z79.4 Long term (current) use of insulin; Z79.01 Long term (current) use of anticoagulants; Z88.8 Allergy status to other drugs, medicaments and biological substances; Z79.82 Long term (current) use of aspirin; R79.89 Other specified abnormal findings of blood chemistry; R07.9 Chest pain, unspecified; D72.829 Elevated white blood cell count, unspecified; T41.205A Adverse effect of unspecified general anesthetics, initial encounter
CPT/HCPCS: 36415; 36416; 36430; 71045; 80048; 82805; 83036; 85025; 85347; 85610; 85730; 86850; 86900; 86901; 88184; 88185; 88307; 92950; 93005; 93010; 93458; 93798; 94002; 94150; 99152; C1769; J0171; J0360; J0461; J0690; J1642; J1644; J1815; J1885; J2001; J2250; J2270; J2405; J2440; J2704; J2720; J3010; J3370; J3475; J3480; J3490; J7070; P9016; P9045; Q9967; S0017; S0028

== ENCOUNTER 2019-10-13 09:54 | Outpatient (CLI) | payer MEDICARE, OTHER ==
--- NOTE | 2019-10-13 11:35 | MRI ---
MRI BRAIN WITH AND WITHOUT IV CONTRAST: HISTORY: Dizziness and unstable gait FINDINGS: No restricted diffusion is seen. No evidence of infarct, hemorrhage, mass, midline shift or abnormal extra-axial fluid collections is noted. No abnormal postcontrast enhancement is seen. The ventricular size is appropriate and the basilar cisterns are patent. There are multiple foci of T2 prolongation in the periventricular white matter, consistent with chron ic small vessel ischemic disease. There is cortical atrophy. There is mild mucosal disease in the paranasal sinuses. There is a tiny amount of fluid in the mastoi d air cells. IMPRESSION: No evidence of acute intracranial process or mass.
== END 2019-10-13 09:55 | disposition home or self-care (01) ==
LOC: BICMRI 09:54
PROVIDERS: ATTEND Psychiatry & Neurology Neurology
DX: R42 Dizziness and giddiness (principal)
CPT/HCPCS: 36415; 70553; 80053; 80061; 82565

== ENCOUNTER 2019-11-29 12:47 | Outpatient (CLI) | payer MEDICARE, OTHER ==
--- NOTE | 2019-11-29 16:18 | RAD ---
EXAM: Chest PA and lateral: HISTORY: Persistent atrial fibrillation COMPARISON: 06/15/2019, 06/28/2019 FINDINGS: Heart: Normal cardiac silhouette. Stable sternotomy wires. Aorta: Unremarkable Pulmonary vessels: Normal Costophrenic angles: Costophrenic angles are clear. Lungs: Hyperinflation with chronic lung parenchymal changes. 1.3 cm density projects over the left melinda ng. Possibility of a lung parenchymal mass cannot be excluded. Better interrogation with chest CT is recommended. Pneumothorax: No pneumothorax Osseous structures: No osseous abnormalities IMPRESSION: Possible left upper lobe mass. Better interrogation with chest CT is recommended Results of study conveyed to Dr. Sanchez via [employer] connect 11/19/2019 at 4:15 PM Code CR Code lung nodule
== END 2019-11-29 12:48 | disposition home or self-care (01) ==
LOC: SCSRAD 12:47
PROVIDERS: ATTEND Internal Medicine Cardiovascular Disease
DX: I48.19 Other persistent atrial fibrillation (principal); R91.1 Solitary pulmonary nodule
CPT/HCPCS: 71046

== ENCOUNTER 2019-12-27 14:23 | Outpatient (CLI) | payer MEDICARE, OTHER ==
[~2019-12-27 14:23] MED LIST changes: -Amiodarone 200 MG TAB PO SCH; -Aspirin Chewable 81 MG TAB PO SCH; -Atorvastatin Calcium 20 MG TAB PO SCH; -Baclofen 10 MG TAB PO SCH; -Ezetimibe 10 MG TAB PO SCH; -Insulin Glargine 26 UNITS in Pre-Filled Syringe 1 EACH SC SCH; +Iopamidol 370 76% 100 ML VIAL ONE; -Meclizine HCl 25 MG TAB PO SCH; -Melatonin 3 MG TAB PO PRN; -Nitroglycerin 0.4 MG TAB (25 Tab Bottle) SL PRN; -Potassium Chloride 20 MEQ TAB PO SCH
--- NOTE | 2019-12-27 16:14 | CT ---
CT chestwithout contrast INDICATIONS:Possible lung nodule. Follow-up chest x-ray 11/29/2019. COMPARISON:Chest x-ray 11/29/2019 FINDINGS: Review lung calhoun show mild stranding and bronchiectasis in the left upper lobe. 4 mm calcified nodule in the left upper lobe. 5 mm calcified nodule right upper lobe. Mild bronchiectasis in both lower lobes, more prominent on the left. Left lower lobe haziness with at electasis and/or infiltrate posteriorly extending to the pleural surface. No evidence of suspicious pulmonary mass or nodule. Calcified mediastinal and hilar lymph nodes. No adenopathy. 2 cm cystic lesion extending from inferior aspect of the pancreas. This is stable when compared to CT chest 01/31/2019. Hepatic cyst under dome of diaphragm is stable. Soft tissues and chest wall appear unremarkable. Thoracic vertebra show severe osteopenia with prominent anterior osteophytes. 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 IMPRESSION: 1. Chronic lung changes as described above. Atelectasis and/or infiltrate in the posterior left lower lobe. Recommend clinical correlation. 2. Cystic lesion extending from the inferior mid pancreas is stable as described above.
== END 2019-12-27 14:24 | disposition home or self-care (01) ==
LOC: BICCT 14:23
PROVIDERS: ATTEND Nurse Practitioner Family
DX: R93.89 Abnormal findings on diagnostic imaging of other specified body structures (principal); K86.2 Cyst of pancreas
CPT/HCPCS: 71260; 82565; Q9967

== ENCOUNTER 2020-02-08 17:33 | Emergency (ER) | payer MEDICARE, OTHER ==
[2020-02-08 18:42] LABS: Mean Corpuscular HGB CONC 29.7 g/dL (32.0-36.0); Mean Corpuscular Hemoglobin 20.5 pg (27.0-31.0); Mean Platelet Volume 6.2 fL (7.4-10.4); Platelet Count 215 thou/uL (130-400); RBC Distribution Width 16.2 % (11.5-14.5); Red Blood Cell (RBC) Count 3.91 mill/uL (4.70-6.10)
[2020-02-08 19:04] LABS: ALT (SGPT) 11 U/L (8-55); AST (SGOT) 17 U/L (5-34); Albumin 3.8 g/dL (3.4-4.8); Alkaline Phosphatase 79 U/L (40-110); Anion Gap 14 mmol/L (10-20); BUN (Urea Nitrogen) 29 mg/dL (8.4-25.7); Bilirubin, Total 0.6 mg/dL (0.2-1.2); Calc. Creatinine Clearance 0 mL/min (70-130); Calcium 8.3 mg/dL (7.8-10.44); Carbon Dioxide 22 mmol/L (23-31); Chloride 107 mmol/L (98-107); Globulin 2.4 g/dL (2.4-3.5); Glucose 147 mg/dL (83-110); Potassium 3.5 mmol/L (3.5-5.1); Protein, Total 6.2 g/dL (5.8-8.1); Sodium 139 mmol/L (136-145)
[2020-02-08 19:06] LABS: #Eosinphils 0.2 thou/uL (0.0-0.7); #Lymphocytes 2.3 thou/uL (1.20-3.40); #Monocytes 0.6 thou/uL (0.11-0.59); #Neutrophils 4.9 thou/uL (1.40-6.50); %Basophils 0.6 % (0.0-1.0); %Eosinophils 2.2 % (0.0-10.0); %Lymphocytes 28.9 % (21.0-51.0); %Monocytes 7.9 % (0.0-10.0); %Neutrophils 60.4 % (42.0-75.0)
[2020-02-08] MEDS ORDERED: Meclizine HCl 25 MG TAB ONE (20:15)
== END 2020-02-08 23:20 | disposition home or self-care (01) ==
LOC: ERS 17:33
DX: D64.9 Anemia, unspecified (principal); I48.91 Unspecified atrial fibrillation; I25.2 Old myocardial infarction; E11.9 Type 2 diabetes mellitus without complications; E78.5 Hyperlipidemia, unspecified; Z79.82 Long term (current) use of aspirin; Z79.4 Long term (current) use of insulin
CPT/HCPCS: 36430; 80053; 85025; 86850; 86900; 86901; 86920; 99284; P9016; 36415

== ENCOUNTER 2020-11-02 12:43 | Inpatient (IN) | payer MEDICARE, OTHER ==
[~2020-11-02 12:43] MED LIST changes: -Iopamidol 370 76% 100 ML VIAL ONE; +Iopamidol-370 76% 500 ML 1 ML ONE; +Ketorolac Tromethamine 30 MG/ML VIAL ONE
[2020-11-02 13:12] LABS: #Monocytes 0.4 thou/uL (0.11-0.59); #Neutrophils 7.9 thou/uL (1.40-6.50); %Basophils 0.2 % (0.0-1.0); %Eosinophils 0.5 % (0.0-10.0); %Lymphocytes 19.1 % (21.0-51.0); %Monocytes 4.1 % (0.0-10.0); %Neutrophils 76.2 % (42.0-75.0); Hemoglobin 13.9 g/dL (14.0-18.0); Mean Corpuscular HGB CONC 33.7 g/dL (32.0-36.0); Mean Corpuscular Hemoglobin 31.1 pg (27.0-31.0); Mean Corpuscular Volume 92.1 fL (78.0-98.0); Mean Platelet Volume 9.1 fL (7.4-10.4); Platelet Count 181 thou/uL (130-400); RBC Distribution Width 11.8 % (11.5-14.5); Red Blood Cell (RBC) Count 4.46 mill/uL (4.70-6.10); White Blood Cell (WBC) Count 10.3 thou/uL (4.8-10.8)
[2020-11-02 13:14] LABS: ALT (SGPT) 24 U/L (8-55); AST (SGOT) 43 U/L (5-34); Albumin 3.8 g/dL (3.4-4.8); Alkaline Phosphatase 87 U/L (40-110); Anion Gap 13 mmol/L (10-20); BUN (Urea Nitrogen) 12 mg/dL (8.4-25.7); Bilirubin, Total 0.8 mg/dL (0.2-1.2); Calc. Creatinine Clearance 0 mL/min (70-130); Calcium 8.8 mg/dL (7.8-10.44); Carbon Dioxide 26 mmol/L (23-31); Chloride 104 mmol/L (98-107); Globulin 2.9 g/dL (2.4-3.5); Glucose 176 mg/dL (83-110); Lipase 15 U/L (8-78); Potassium 4.2 mmol/L (3.5-5.1); Protein, Total 6.7 g/dL (5.8-8.1); Sodium 139 mmol/L (136-145)
[2020-11-02] MEDS ORDERED: Dextrose 50% Abboject 50 ML SYRINGE SLOW IVP PRN (19:13)
[2020-11-02] MEDS ORDERED: Bisacodyl 5 MG TAB PO PRN (19:13)
[2020-11-02] MEDS ORDERED: HumaLOG 300 UNITS/3 ML VIAL SC PRN (19:13)
[2020-11-02] MEDS ORDERED: Acetaminophen 325 MG TAB PO PRN (19:13)
[2020-11-02] MEDS ORDERED: Dextrose 5% in Water 1,000 ML IV PRN (19:13)
[2020-11-02] MEDS ORDERED: Carvedilol 3.125 MG TAB PO SCH (19:30)
[2020-11-02] MEDS ORDERED: Dronedarone HCl 400 MG TAB PO SCH (19:30)
[2020-11-02 19:43] LABS: SARS-CoV-2 NAA Rapid Test Not Detected (NotDetected)
[2020-11-02] MEDS: Rosuvastatin 20 MG TAB PO SCH (19:58)
[2020-11-02 20:15] VITALS: BMI 29.0
[2020-11-02] MEDS: Meclizine HCl 25 MG TAB PO SCH (21:36)
[2020-11-02] MEDS: HYDROcodone/Acetaminophen 5/325 mg Tablet PO PRN (23:14)
[2020-11-03] MEDS: Morphine 2 MG/ML VIAL SLOW IVP PRN (01:22)
[2020-11-03] MEDS: Meclizine HCl 25 MG TAB PO SCH ×3 (06:02→20:19)
[2020-11-03 06:54] LABS: ALT (SGPT) 18 U/L (8-55); AST (SGOT) 21 U/L (5-34); Albumin 3.6 g/dL (3.4-4.8); Alkaline Phosphatase 79 U/L (40-110); Anion Gap 12 mmol/L (10-20); BUN (Urea Nitrogen) 15 mg/dL (8.4-25.7); Bilirubin, Total 0.8 mg/dL (0.2-1.2); Calc. Creatinine Clearance 55 mL/min (70-130); Calcium 8.7 mg/dL (7.8-10.44); Carbon Dioxide 25 mmol/L (23-31); Chloride 107 mmol/L (98-107); Globulin 2.3 g/dL (2.4-3.5); Glucose 160 mg/dL (83-110); Potassium 3.7 mmol/L (3.5-5.1); Protein, Total 5.9 g/dL (5.8-8.1); Sodium 140 mmol/L (136-145)
[2020-11-03] MEDS: Dronedarone HCl 400 MG TAB PO SCH ×2 (08:00→16:54)
[2020-11-03] MEDS: Aspirin 81 mg Enteric Coated Tablet PO SCH (08:00)
[2020-11-03] MEDS: Carvedilol 3.125 MG TAB PO SCH ×2 (08:03→16:54)
[2020-11-03] MEDS ORDERED: Docusate 100 MG CAP PO PRN (11:52)
[2020-11-03] MEDS ORDERED: Melatonin 3 MG TAB PO PRN (12:02)
[2020-11-03] MEDS ORDERED: HYDROmorphone 0.5 MG/0.5 ML SYRINGE SLOW IVP SCH (14:30)
[2020-11-03] MEDS: HYDROcodone/Acetaminophen 5/325 mg Tablet PO PRN (17:00)
[2020-11-03] MEDS ORDERED: Carvedilol 6.25 MG TAB PO SCH (17:00)
[2020-11-03] MEDS ORDERED: Dronedarone HCl 400 MG TAB PO SCH (17:00)
[2020-11-03] MEDS: Rosuvastatin 20 MG TAB PO SCH (20:19)
[2020-11-04] MEDS: Morphine 2 MG/ML VIAL SLOW IVP PRN (04:05)
[2020-11-04] MEDS: Meclizine HCl 25 MG TAB PO SCH ×2 (04:09→15:18)
[2020-11-04 07:13] LABS: #Eosinphils 0.1 thou/uL (0.0-0.7); #Lymphocytes 2.1 thou/uL (1.20-3.40); #Monocytes 0.6 thou/uL (0.11-0.59); #Neutrophils 6.4 thou/uL (1.40-6.50); %Basophils 0.4 % (0.0-1.0); %Eosinophils 1.1 % (0.0-10.0); %Lymphocytes 22.5 % (21.0-51.0); %Monocytes 6.7 % (0.0-10.0); %Neutrophils 69.3 % (42.0-75.0); Mean Corpuscular HGB CONC 32.7 g/dL (32.0-36.0); Mean Corpuscular Hemoglobin 30.2 pg (27.0-31.0); Mean Corpuscular Volume 92.2 fL (78.0-98.0); Mean Platelet Volume 8.7 fL (7.4-10.4); Platelet Count 183 thou/uL (130-400); RBC Distribution Width 11.7 % (11.5-14.5); Red Blood Cell (RBC) Count 4.31 mill/uL (4.70-6.10); White Blood Cell (WBC) Count 9.3 thou/uL (4.8-10.8)
[2020-11-04 07:28] LABS: ALT (SGPT) 20 U/L (8-55); AST (SGOT) 25 U/L (5-34); Albumin 3.4 g/dL (3.4-4.8); Alkaline Phosphatase 78 U/L (40-110); Anion Gap 13 mmol/L (10-20); BUN (Urea Nitrogen) 18 mg/dL (8.4-25.7); Bilirubin, Total 0.8 mg/dL (0.2-1.2); Calc. Creatinine Clearance 59 mL/min (70-130); Calcium 8.6 mg/dL (7.8-10.44); Carbon Dioxide 24 mmol/L (23-31); Chloride 106 mmol/L (98-107); Globulin 2.4 g/dL (2.4-3.5); Glucose 138 mg/dL (83-110); Potassium 3.6 mmol/L (3.5-5.1); Protein, Total 5.8 g/dL (5.8-8.1); Sodium 139 mmol/L (136-145)
[2020-11-04] MEDS: Aspirin 81 mg Enteric Coated Tablet PO SCH (08:42)
[2020-11-04] MEDS: Carvedilol 3.125 MG TAB PO SCH (08:42)
[2020-11-04] MEDS: Dronedarone HCl 400 MG TAB PO SCH (08:43)
[2020-11-04] MEDS ORDERED: Lantus 1000 UNITS/10 ML VIAL SC SCH (09:00)
[2020-11-04 14:42] VITALS: TEMP 97.7
[2020-11-04 15:18] VITALS: BP 168/72
== END 2020-11-04 16:07 | disposition home or self-care (01) | DRG 446 ==
LOC: ERS 12:43 → T4-B 15:03
PROVIDERS: ADMIT Internal Medicine; ATTEND Hospitalist
DX: K82.8 Other specified diseases of gallbladder (principal); K59.00 Constipation, unspecified; K21.9 Gastro-esophageal reflux disease without esophagitis; Z20.822 Contact with and (suspected) exposure to COVID-19; I10 Essential (primary) hypertension; E11.9 Type 2 diabetes mellitus without complications; I25.10 Atherosclerotic heart disease of native coronary artery without angina pectoris; M54.9 Dorsalgia, unspecified; G89.29 Other chronic pain; E78.5 Hyperlipidemia, unspecified; F32.9 Major depressive disorder, single episode, unspecified; I48.91 Unspecified atrial fibrillation; Z95.1 Presence of aortocoronary bypass graft; Z85.46 Personal history of malignant neoplasm of prostate; Z98.890 Other specified postprocedural states; Z79.82 Long term (current) use of aspirin; Z79.4 Long term (current) use of insulin; Z79.899 Other long term (current) drug therapy
CPT/HCPCS: 36415; 36416; 74177; 76705; 78227; 80053; 83690; 84484; 85025; 96372; 96374; A9537; J0500; J1170; J1815; J1885; J2270; Q9967; U0002

== ENCOUNTER 2020-11-06 10:05 | Outpatient (CLI) | payer MEDICARE, OTHER | END 2020-11-06 10:06 | disposition home or self-care (01) | LOC: BICRAD 10:05 | PROVIDERS: ATTEND Physician Assistant Medical | DX: M54.6 Pain in thoracic spine (principal); R10.11 Right upper quadrant pain | CPT/HCPCS: 72072 ==

== ENCOUNTER 2020-12-11 12:14 | Outpatient (CLI) | payer MEDICARE, OTHER ==
[2020-12-12 01:01] LABS: SARS-CoV-2 PCR by NAA Not Detected (NotDetected)
== END 2020-12-11 12:15 | disposition home or self-care (01) ==
LOC: LABBT 12:14
PROVIDERS: ATTEND Internal Medicine Gastroenterology
DX: Z01.812 Encounter for preprocedural laboratory examination (principal); Z20.822 Contact with and (suspected) exposure to COVID-19
CPT/HCPCS: U0003; U0005

== ENCOUNTER 2020-12-13 07:32 | Day surgery (SDC) | payer MEDICARE, OTHER ==
[2020-12-12 10:16] VITALS: BMI 26.4
[2020-12-13 09:22] LABS: ALT (SGPT) 20 U/L (8-55); AST (SGOT) 52 U/L (5-34); Albumin 3.7 g/dL (3.4-4.8); Alkaline Phosphatase 64 U/L (40-110); Anion Gap 14 mmol/L (10-20); BUN (Urea Nitrogen) 11 mg/dL (8.4-25.7); Bilirubin, Total 0.9 mg/dL (0.2-1.2); Calc. Creatinine Clearance 48 mL/min (70-130); Calcium 8.7 mg/dL (7.8-10.44); Carbon Dioxide 25 mmol/L (23-31); Chloride 103 mmol/L (98-107); Globulin 3.2 g/dL (2.4-3.5); Glucose 102 mg/dL (83-110); Lipase 10 U/L (8-78); Potassium 4.4 mmol/L (3.5-5.1); Protein, Total 6.9 g/dL (5.8-8.1); Sodium 138 mmol/L (136-145)
[2020-12-13] MEDS ORDERED: PROPOFOL 200 MG/20 ML VIAL ONE (09:27)
[2020-12-13] MEDS ORDERED: Lidocaine 1% PF 5 ML VIAL ONE (09:27)
[2020-12-13 09:41] LABS: #Basophils 0.1 thou/uL (0.0-0.2); #Eosinphils 0.1 thou/uL (0.0-0.7); #Lymphocytes 2.1 thou/uL (1.20-3.40); #Monocytes 0.8 thou/uL (0.11-0.59); #Neutrophils 7.8 thou/uL (1.40-6.50); %Basophils 0.6 % (0.0-1.0); %Eosinophils 0.5 % (0.0-10.0); %Lymphocytes 19.1 % (21.0-51.0); %Monocytes 7.1 % (0.0-10.0); %Neutrophils 72.6 % (42.0-75.0); Hemoglobin 12.3 g/dL (14.0-18.0); Mean Corpuscular HGB CONC 32.1 g/dL (32.0-36.0); Mean Corpuscular Hemoglobin 28.9 pg (27.0-31.0); Mean Corpuscular Volume 90.1 fL (78.0-98.0); Mean Platelet Volume 8.7 fL (7.4-10.4); Platelet Count 224 thou/uL (130-400); RBC Distribution Width 11.9 % (11.5-14.5); Red Blood Cell (RBC) Count 4.24 mill/uL (4.70-6.10); White Blood Cell (WBC) Count 10.7 thou/uL (4.8-10.8)
== END 2020-12-13 11:40 | disposition home or self-care (01) ==
LOC: SDC 07:32
PROVIDERS: ATTEND Internal Medicine Gastroenterology
PROC: 0DJ08ZZ Inspection of Upper Intestinal Tract, Via Natural or Artificial Opening Endoscopic (ICD-10-PCS; principal; 2020-12-13)
PROC: 0DJD8ZZ Inspection of Lower Intestinal Tract, Via Natural or Artificial Opening Endoscopic (ICD-10-PCS; 2020-12-13)
DX: K63.5 Polyp of colon (principal); K57.30 Diverticulosis of large intestine without perforation or abscess without bleeding; K21.9 Gastro-esophageal reflux disease without esophagitis; K59.00 Constipation, unspecified; R13.10 Dysphagia, unspecified; M19.90 Unspecified osteoarthritis, unspecified site; I48.91 Unspecified atrial fibrillation; E11.9 Type 2 diabetes mellitus without complications; I25.2 Old myocardial infarction; E78.00 Pure hypercholesterolemia, unspecified; Z86.010 Personal history of colon polyps; Z79.01 Long term (current) use of anticoagulants; Z79.4 Long term (current) use of insulin; Z79.82 Long term (current) use of aspirin; Z79.899 Other long term (current) drug therapy; Z88.8 Allergy status to other drugs, medicaments and biological substances; Z95.1 Presence of aortocoronary bypass graft; Z95.5 Presence of coronary angioplasty implant and graft; Z90.49 Acquired absence of other specified parts of digestive tract
CPT/HCPCS: 36415; 80053; 83690; 85025; J2704

== ENCOUNTER 2020-12-25 09:34 | Outpatient (CLI) | payer MEDICARE, OTHER ==
[2020-12-25] MEDS ORDERED: Iopamidol 370 76% 100 ML VIAL ONE (11:31)
== END 2020-12-25 09:35 | disposition home or self-care (01) ==
LOC: CT 09:34
PROVIDERS: ATTEND Internal Medicine Gastroenterology
DX: R10.11 Right upper quadrant pain (principal); K80.20 Calculus of gallbladder without cholecystitis without obstruction; K76.9 Liver disease, unspecified; K86.89 Other specified diseases of pancreas
CPT/HCPCS: 74175; 82565; Q9967

== ENCOUNTER 2021-01-18 07:56 | Outpatient (CLI) | payer MEDICARE, OTHER | END 2021-01-18 07:57 | disposition home or self-care (01) | LOC: NM 07:56 | PROVIDERS: ATTEND Radiology Radiation Oncology | DX: M54.9 Dorsalgia, unspecified (principal); C61 Malignant neoplasm of prostate | CPT/HCPCS: 78306; A9503 ==

== ENCOUNTER 2021-01-22 11:53 | Outpatient (CLI) | payer MEDICARE, OTHER | END 2021-01-22 11:54 | disposition home or self-care (01) | LOC: BICRAD 11:53 | PROVIDERS: ATTEND Radiology Radiation Oncology | DX: C61 Malignant neoplasm of prostate (principal); R97.20 Elevated prostate specific antigen [PSA]; R93.7 Abnormal findings on diagnostic imaging of other parts of musculoskeletal system; M19.021 Primary osteoarthritis, right elbow | CPT/HCPCS: 70250 ==

== ENCOUNTER 2021-02-08 20:16 | Emergency (ER) | payer MEDICARE, OTHER ==
[~2021-02-08 20:16] MED LIST changes: -Ketorolac Tromethamine 30 MG/ML VIAL ONE
[2021-02-08 21:26] LABS: #Eosinphils 0.1 thou/uL (0.0-0.7); #Lymphocytes 1.8 thou/uL (1.20-3.40); #Monocytes 0.5 thou/uL (0.11-0.59); #Neutrophils 6.7 thou/uL (1.40-6.50); %Basophils 0.3 % (0.0-1.0); %Eosinophils 0.6 % (0.0-10.0); %Lymphocytes 19.6 % (21.0-51.0); %Monocytes 5.6 % (0.0-10.0); Hemoglobin 11.4 g/dL (14.0-18.0); Mean Corpuscular HGB CONC 31.6 g/dL (32.0-36.0); Mean Corpuscular Volume 85.4 fL (78.0-98.0); Mean Platelet Volume 8.6 fL (7.4-10.4); Platelet Count 252 thou/uL (130-400); Red Blood Cell (RBC) Count 4.23 mill/uL (4.70-6.10)
[2021-02-08] MEDS ORDERED: Morphine 4 MG/ML VIAL ONE (21:29)
[2021-02-08] MEDS ORDERED: Ondansetron PF 4 MG/2 ML Vial ONE (21:30)
[2021-02-08 21:50] LABS: ALT (SGPT) 27 U/L (8-55); AST (SGOT) 32 U/L (5-34); Albumin 3.7 g/dL (3.4-4.8); Alkaline Phosphatase 72 U/L (40-110); Anion Gap 14 mmol/L (10-20); BUN (Urea Nitrogen) 22 mg/dL (8.4-25.7); Bilirubin, Total 0.3 mg/dL (0.2-1.2); Calc. Creatinine Clearance 0 mL/min (70-130); Calcium 8.7 mg/dL (7.8-10.44); Carbon Dioxide 21 mmol/L (23-31); Chloride 108 mmol/L (98-107); Globulin 2.5 g/dL (2.4-3.5); Glucose 156 mg/dL (83-110); Lipase 21 U/L (8-78); Potassium 3.6 mmol/L (3.5-5.1); Protein, Total 6.2 g/dL (5.8-8.1); Sodium 139 mmol/L (136-145)
[2021-02-08] MEDS ORDERED: Diltiazem 125 MG/25 ML ONE (22:09)
== END 2021-02-08 23:45 | disposition home or self-care (01) ==
LOC: ERS 20:16
DX: K80.20 Calculus of gallbladder without cholecystitis without obstruction (principal); I48.91 Unspecified atrial fibrillation; R10.13 Epigastric pain; I10 Essential (primary) hypertension; E11.9 Type 2 diabetes mellitus without complications; I25.2 Old myocardial infarction; E78.5 Hyperlipidemia, unspecified; Z79.82 Long term (current) use of aspirin; Z79.01 Long term (current) use of anticoagulants; Z79.899 Other long term (current) drug therapy
CPT/HCPCS: 36415; 74177; 76705; 80053; 83690; 84484; 85025; 93005; 96374; 96375; J2270; J2405

== ENCOUNTER 2021-03-04 10:31 | Outpatient (CLI) | payer MEDICARE, OTHER ==
[2021-03-04 11:55] LABS: #Basophils 0.1 10x3/uL (0.0-0.2); #Monocytes 0.6 10x3/uL (0.0-1.1); #Neutrophils 8.3 10x3/uL (1.5-8.4); %Basophils 0.5 % (0.0-2.0); %Eosinophils 0.4 % (0.0-6.0); %Neutrophils 78.9 % (40.0-75.0); Hemoglobin 10.2 g/dL (13.5-17.5); Mean Corpuscular HGB CONC 29.4 g/dL (32.0-36.0); Mean Corpuscular Hemoglobin 24.5 pg (27.0-33.0); Mean Corpuscular Volume 83.2 fl (81.2-95.1); Mean Platelet Volume 11.1 fl (7.4-10.4); Platelet Count 202 10x3/uL (150-450); RBC Distribution Width 14.8 % (11.5-14.5); Red Blood Cell (RBC) Count 4.17 10x6/uL (4.32-5.72); White Blood Cell (WBC) Count 10.5 10x3/uL (3.5-10.5)
[2021-03-04 12:03] LABS: ALT (SGPT) 21 U/L (8-55); AST (SGOT) 25 U/L (5-34); Albumin 3.8 g/dL (3.4-4.8); Alkaline Phosphatase 59 U/L (40-110); Anion Gap 12 mmol/L (10-20); BUN (Urea Nitrogen) 11 mg/dL (8.4-25.7); Bilirubin, Total 0.4 mg/dL (0.2-1.2); Calc. Creatinine Clearance 0 mL/min (70-130); Calcium 8.3 mg/dL (7.8-10.44); Carbon Dioxide 25 mmol/L (23-31); Chloride 106 mmol/L (98-107); Globulin 2.3 g/dL (2.4-3.5); Glucose 147 mg/dL (83-110); Potassium 3.4 mmol/L (3.5-5.1); Protein, Total 6.1 g/dL (5.8-8.1); Sodium 140 mmol/L (136-145)
[2021-03-04 12:39] LABS: Anisocytosis SLIGHT = 6-15 cells (100X) (0-5/hpf); Hypochromia SLIGHT = 6-15 cells (100X) (0-5/hpf); Platelet Morphology Comment Appears Adequate
[2021-03-05 11:50] LABS: SARS-CoV-2 PCR by NAA Not Detected (NotDetected)
== END 2021-03-04 10:32 | disposition home or self-care (01) ==
LOC: LABBT 10:31
PROVIDERS: ATTEND Specialist
DX: Z01.818 Encounter for other preprocedural examination (principal); R10.9 Unspecified abdominal pain; Z20.822 Contact with and (suspected) exposure to COVID-19
CPT/HCPCS: 71046; 80053; 85025; 93005; U0003; U0005; 93010

== ENCOUNTER 2021-03-07 09:38 | Day surgery (SDC) | payer MEDICARE, OTHER ==
[2021-03-05 10:13] VITALS: BMI 26.3
[2021-03-07] MEDS ORDERED: Ketorolac Tromethamine 30 MG/ML VIAL ONE (10:26)
[2021-03-07] MEDS ORDERED: Acetaminophen 500 MG TAB ONE (10:26)
== END 2021-03-07 10:40 | disposition home or self-care (01) ==
LOC: SDC 09:38
PROVIDERS: ATTEND Specialist
DX: R10.9 Unspecified abdominal pain (principal); Z53.9 Procedure and treatment not carried out, unspecified reason; Z79.01 Long term (current) use of anticoagulants; Z79.4 Long term (current) use of insulin; Z79.82 Long term (current) use of aspirin; Z79.899 Other long term (current) drug therapy; Z88.8 Allergy status to other drugs, medicaments and biological substances
CPT/HCPCS: J1885

== ENCOUNTER 2021-03-19 11:43 | Outpatient (CLI) | payer MEDICARE, OTHER ==
[2021-03-19 13:28] LABS: #Basophils 0.1 10x3/uL (0.0-0.2); #Eosinphils 0.1 10x3/uL (0.0-0.5); #Monocytes 0.5 10x3/uL (0.0-1.1); #Neutrophils 5.5 10x3/uL (1.5-8.4); %Basophils 0.8 % (0.0-2.0); %Eosinophils 0.9 % (0.0-6.0); %Lymphocytes 23.7 % (18.0-47.0); %Neutrophils 68.3 % (40.0-75.0); Mean Corpuscular HGB CONC 29.1 g/dL (32.0-36.0); Mean Corpuscular Hemoglobin 24.4 pg (27.0-33.0); Mean Corpuscular Volume 84.1 fl (81.2-95.1); Mean Platelet Volume 11.4 fl (7.4-10.4); Platelet Count 247 10x3/uL (150-450); RBC Distribution Width 14.9 % (11.5-14.5); Red Blood Cell (RBC) Count 4.09 10x6/uL (4.32-5.72)
[2021-03-19 13:43] LABS: ALT (SGPT) 31 U/L (8-55); AST (SGOT) 41 U/L (5-34); Albumin 3.8 g/dL (3.4-4.8); Alkaline Phosphatase 61 U/L (40-110); Anion Gap 13 mmol/L (10-20); BUN (Urea Nitrogen) 14 mg/dL (8.4-25.7); Bilirubin, Total 0.4 mg/dL (0.2-1.2); Calc. Creatinine Clearance 0 mL/min (70-130); Calcium 8.5 mg/dL (7.8-10.44); Carbon Dioxide 24 mmol/L (23-31); Chloride 107 mmol/L (98-107); Globulin 2.5 g/dL (2.4-3.5); Glucose 142 mg/dL (83-110); Potassium 4.1 mmol/L (3.5-5.1); Protein, Total 6.3 g/dL (5.8-8.1); Sodium 140 mmol/L (136-145)
[2021-03-20 00:01] LABS: SARS-CoV-2 PCR by NAA Not Detected (NotDetected)
== END 2021-03-19 11:44 | disposition home or self-care (01) ==
LOC: LABBT 11:43
PROVIDERS: ATTEND Specialist
DX: Z01.818 Encounter for other preprocedural examination (principal); R10.9 Unspecified abdominal pain; Z20.822 Contact with and (suspected) exposure to COVID-19
CPT/HCPCS: 80053; 85025; 93005; U0003; U0005; 93010

== ENCOUNTER 2021-03-22 10:07 | Day surgery (SDC) | payer MEDICARE, OTHER ==
[2021-03-20 10:08] VITALS: BMI 26.6
[2021-03-22] MEDS ORDERED: Acetaminophen 500 MG TAB ONE (11:29)
[2021-03-22] MEDS ORDERED: Ketorolac Tromethamine 30 MG/ML VIAL ONE (11:29)
[2021-03-22] MEDS ORDERED: Xylocaine 1% w/ Epi 1:100K 10 ML VIAL ONE (11:45)
[2021-03-22] MEDS ORDERED: Bupivacaine 0.25% HCL 30 ML VIAL ONE (11:45)
[2021-03-22] MEDS ORDERED: Fentanyl 250 MCG/5 ML VIAL ONE ×2 (11:45→14:14)
[2021-03-22] MEDS ORDERED: ceFAZolin Sodium (SDC) 2 GM/100 ML BAG ONE (12:50)
[2021-03-22] MEDS ORDERED: Rocuronium Bromide 10 MG/ML (10ML VIAL) ONE (12:52)
[2021-03-22] MEDS ORDERED: Ondansetron PF 4 MG/2 ML Vial ONE (12:52)
[2021-03-22] MEDS ORDERED: Dexamethasone 20 MG/5 ML VIAL ONE (12:52)
[2021-03-22] MEDS ORDERED: PROPOFOL 200 MG/20 ML VIAL ONE (12:52)
[2021-03-22] MEDS ORDERED: Glycopyrrolate 0.2 MG/ML 5 ML SYRINGE ONE (12:52)
[2021-03-22] MEDS ORDERED: Lidocaine 1% PF 5 ML VIAL ONE (12:52)
== END 2021-03-22 16:30 | disposition home or self-care (01) ==
LOC: SDC 10:07
PROVIDERS: ATTEND Specialist
PROC: 0FT44ZZ Resection of Gallbladder, Percutaneous Endoscopic Approach (ICD-10-PCS; principal; 2021-03-22)
DX: K80.10 Calculus of gallbladder with chronic cholecystitis without obstruction (principal); K66.0 Peritoneal adhesions (postprocedural) (postinfection); E11.9 Type 2 diabetes mellitus without complications; I11.9 Hypertensive heart disease without heart failure; Z79.01 Long term (current) use of anticoagulants; Z79.4 Long term (current) use of insulin; Z79.82 Long term (current) use of aspirin; Z79.899 Other long term (current) drug therapy; Z88.8 Allergy status to other drugs, medicaments and biological substances; Z90.49 Acquired absence of other specified parts of digestive tract; Z95.5 Presence of coronary angioplasty implant and graft
CPT/HCPCS: 47562; 82962; C1713; 36416; 88304; J0690; J1100; J1885; J2405; J2704; J3010; S0020

== ENCOUNTER 2021-08-01 11:00 | Outpatient (CLI) | payer MEDICARE, OTHER | END 2021-08-01 11:01 | disposition home or self-care (01) | LOC: LABBT 11:00 | PROVIDERS: ATTEND Internal Medicine Cardiovascular Disease | DX: Z01.818 Encounter for other preprocedural examination (principal); I48.19 Other persistent atrial fibrillation; R42 Dizziness and giddiness; Z20.822 Contact with and (suspected) exposure to COVID-19 | CPT/HCPCS: 71275; 80053; 81003; 82565; 84153; 85027; 85610; 85730; 86850; 86900; 86901; 86920; 93005; U0003; U0005; 93010 ==

== ENCOUNTER 2021-08-01 11:15 | Inpatient (IN) | payer MEDICARE, OTHER ==
[2021-07-31 11:35] VITALS: BMI 28.0
[2021-08-01 12:23] LABS: Hemoglobin 8.1 g/dL (13.5-17.5); Mean Corpuscular HGB CONC 27.8 g/dL (32.0-36.0); Mean Corpuscular Hemoglobin 20.5 pg (27.0-33.0); Mean Corpuscular Volume 73.5 fl (81.2-95.1); Mean Platelet Volume 10.9 fl (7.4-10.4); Platelet Count 241 10x3/uL (150-450); RBC Distribution Width 16.8 % (11.5-14.5); Red Blood Cell (RBC) Count 3.96 10x6/uL (4.32-5.72); White Blood Cell (WBC) Count 7.6 10x3/uL (3.5-10.5)
[2021-08-01 12:32] LABS: INR-International Normal Ratio 1.6; PTT 36.2 sec (22.0-33.0); Prothrombin Time 17.1 sec (9.5-12.1)
[2021-08-01 12:39] LABS: Bilirubin Neg (Negative); Blood, Urine 10 (Negative); Clarity Clear (Clear); Glucose, Urine (Dipstick) Normal (Negative); Ketone, Urine Negative (Negative); Leukocyte Negative (Negative); Nitrite Negative (Negative); Protein, Urine (Dipstick) 30 mg/dl (Neg-Trace); Urobilinogen Normal mg/dL (Less than 2)
[2021-08-01 12:50] LABS: ALT (SGPT) 14 U/L (8-55); AST (SGOT) 18 U/L (5-34); Alkaline Phosphatase 52 U/L (40-110); Anion Gap 13 mmol/L (10-20); BUN (Urea Nitrogen) 23 mg/dL (8.4-25.7); Bilirubin, Total 0.6 mg/dL (0.2-1.2); Calc. Creatinine Clearance 0 mL/min (70-130); Calcium 8.6 mg/dL (7.8-10.44); Carbon Dioxide 26 mmol/L (23-31); Chloride 107 mmol/L (98-107); Globulin 2.1 g/dL (2.4-3.5); Glucose 83 mg/dL (83-110); Potassium 3.5 mmol/L (3.5-5.1); Protein, Total 6.1 g/dL (5.8-8.1); Sodium 142 mmol/L (136-145)
[2021-08-05] MEDS ORDERED: Protamine Sulfate 50 MG/5 ML VIAL ONE (09:21)
[2021-08-05] MEDS ORDERED: Heparin 10,000 UNITS/ 10 ML VIAL ONE (09:21)
[2021-08-05] MEDS ORDERED: CEFAZOLIN 1 GM VIAL ONE (09:21)
[2021-08-05] MEDS ORDERED: PROPOFOL 200 MG/20 ML VIAL ONE (09:47)
[2021-08-05] MEDS ORDERED: Lidocaine 1% PF 5 ML VIAL ONE (09:47)
[2021-08-05] MEDS ORDERED: PHENYLEPHRINE-NS 100 MCG/ML 10 ML SYRINGE ONE (09:47)
[2021-08-05] MEDS ORDERED: Dexamethasone 20 MG/5 ML VIAL ONE (09:47)
[2021-08-05] MEDS ORDERED: Rocuronium Bromide 10 MG/ML (10ML VIAL) ONE (09:47)
[2021-08-05] MEDS ORDERED: Glycopyrrolate 0.2 MG/ML 5 ML SYRINGE ONE (09:47)
[2021-08-05] MEDS ORDERED: Ketorolac Tromethamine 30 MG/ML VIAL ONE (09:47)
[2021-08-05] MEDS ORDERED: Ondansetron PF 4 MG/2 ML Vial ONE (09:47)
[2021-08-05] MEDS ORDERED: Iopamidol 370 76% 100 ML VIAL ONE (13:46)
== END 2021-08-05 16:31 | disposition home or self-care (01) | DRG 274 ==
LOC: SURG A 08-05 06:52
PROVIDERS: ADMIT Internal Medicine Cardiovascular Disease; ATTEND Internal Medicine Cardiovascular Disease
PROC: 02L73DK Occlusion of Left Atrial Appendage with Intraluminal Device, Percutaneous Approach (ICD-10-PCS; principal; 2021-08-05)
PROC: B24BZZ4 Ultrasonography of Heart with Aorta, Transesophageal (ICD-10-PCS; 2021-08-05)
DX: I48.19 Other persistent atrial fibrillation (principal); Z20.822 Contact with and (suspected) exposure to COVID-19; Z00.6 Encounter for examination for normal comparison and control in clinical research program; E11.9 Type 2 diabetes mellitus without complications; I11.0 Hypertensive heart disease with heart failure; I50.9 Heart failure, unspecified; I42.9 Cardiomyopathy, unspecified; I25.10 Atherosclerotic heart disease of native coronary artery without angina pectoris; B18.2 Chronic viral hepatitis C; E78.5 Hyperlipidemia, unspecified; I08.3 Combined rheumatic disorders of mitral, aortic and tricuspid valves; D50.9 Iron deficiency anemia, unspecified; Z87.448 Personal history of other diseases of urinary system; Z90.49 Acquired absence of other specified parts of digestive tract; Z87.19 Personal history of other diseases of the digestive system; Z79.899 Other long term (current) drug therapy; Z79.82 Long term (current) use of aspirin; Z79.4 Long term (current) use of insulin; Z88.8 Allergy status to other drugs, medicaments and biological substances; Z95.5 Presence of coronary angioplasty implant and graft; Z95.1 Presence of aortocoronary bypass graft; I25.2 Old myocardial infarction; Z79.01 Long term (current) use of anticoagulants; Z83.3 Family history of diabetes mellitus
CPT/HCPCS: 33340; 36430; 80053; 81003; 85027; 85347; 85610; 85730; 86850; 86900; 86901; 93306; 93312; 93662; C1759; C1760; J0690; J1100; J1644; J1885; J2405; J2704; J2720; Q9967; U0003; U0005

== ENCOUNTER 2021-08-07 12:08 | Inpatient (IN) | payer MEDICARE, OTHER ==
[2021-08-07 13:11] LABS: #Basophils 0.1 thou/uL (0.0-0.2); #Eosinphils 0.1 thou/uL (0.0-0.7); #Neutrophils 8.9 thou/uL (1.40-6.50); %Basophils 0.4 % (0.0-1.0); %Eosinophils 0.7 % (0.0-10.0); %Lymphocytes 16.5 % (21.0-51.0); %Monocytes 8.2 % (0.0-10.0); %Neutrophils 74.2 % (42.0-75.0); Hemoglobin 7.2 g/dL (14.0-18.0); Mean Corpuscular HGB CONC 29.1 g/dL (32.0-36.0); Mean Corpuscular Hemoglobin 21.8 pg (27.0-31.0); Mean Corpuscular Volume 74.9 fL (78.0-98.0); Mean Platelet Volume 9.8 fL (7.4-10.4); Platelet Count 214 thou/uL (130-400); RBC Distribution Width 16.3 % (11.5-14.5); Red Blood Cell (RBC) Count 3.31 mill/uL (4.70-6.10); White Blood Cell (WBC) Count 11.9 thou/uL (4.8-10.8)
[2021-08-07 13:26] LABS: INR-International Normal Ratio 2.6; PTT 32.7 sec (22.9-36.1); Prothrombin Time 28.2 sec (12.0-14.7)
[2021-08-07 13:38] LABS: ALT (SGPT) Less than 7 U/L (8-55); AST (SGOT) 9 U/L (5-34); Albumin 3.4 g/dL (3.4-4.8); Alkaline Phosphatase 40 U/L (40-110); Anion Gap 13 mmol/L (10-20); BUN (Urea Nitrogen) 25 mg/dL (8.4-25.7); Bilirubin, Total 0.7 mg/dL (0.2-1.2); Calc. Creatinine Clearance 0 mL/min (70-130); Calcium 8.2 mg/dL (7.8-10.44); Carbon Dioxide 25 mmol/L (23-31); Chloride 106 mmol/L (98-107); Estimated GFR 46; Glucose 127 mg/dL (83-110); Potassium 3.6 mmol/L (3.5-5.1); Protein, Total 5.4 g/dL (5.8-8.1); Sodium 140 mmol/L (136-145)
[2021-08-07 17:18] LABS: Troponin I 0.018 ng/mL (< 0.028)
[2021-08-07 20:42] LABS: Troponin I 0.017 ng/mL (< 0.028)
[2021-08-07] MEDS ORDERED: Dextrose 5% in Water 1,000 ML IV PRN (20:51)
[2021-08-07] MEDS ORDERED: Acetaminophen 500 MG TAB PO PRN (20:51)
[2021-08-07] MEDS ORDERED: Dextrose 50% Abboject 50 ML SYRINGE SLOW IVP PRN (20:51)
[2021-08-07] MEDS ORDERED: HumaLOG 300 UNITS/3 ML VIAL SC PRN ×2 (20:51)
[2021-08-07] MEDS ORDERED: Ondansetron PF 4 MG/2 ML Vial IVP PRN (20:51)
[2021-08-07] MEDS ORDERED: ALPRAZolam 0.25 MG TAB PO PRN (20:51)
[2021-08-07] MEDS ORDERED: Ondansetron ODT 4 MG TAB PO PRN (20:51)
[2021-08-07] MEDS ORDERED: Sodium Chloride 0.9% 1,000 ML IV SCH (21:00)
[2021-08-07 22:16] VITALS: BMI 27.6
[2021-08-08 04:24] LABS: #Eosinphils 0.1 thou/uL (0.0-0.7); #Lymphocytes 3.4 thou/uL (1.20-3.40); #Monocytes 1.2 thou/uL (0.11-0.59); #Neutrophils 6.5 thou/uL (1.40-6.50); %Basophils 0.4 % (0.0-1.0); %Lymphocytes 30.1 % (21.0-51.0); %Monocytes 10.5 % (0.0-10.0); %Neutrophils 57.9 % (42.0-75.0); Hemoglobin 8.4 g/dL (14.0-18.0); Mean Corpuscular HGB CONC 29.4 g/dL (32.0-36.0); Mean Corpuscular Hemoglobin 22.7 pg (27.0-31.0); Mean Corpuscular Volume 77.2 fL (78.0-98.0); Platelet Count 168 thou/uL (130-400); RBC Distribution Width 16.6 % (11.5-14.5); White Blood Cell (WBC) Count 11.2 thou/uL (4.8-10.8)
[2021-08-08 04:35] LABS: ALT (SGPT) 9 U/L (8-55); AST (SGOT) 17 U/L (5-34); Albumin 3.5 g/dL (3.4-4.8); Alkaline Phosphatase 41 U/L (40-110); Anion Gap 14 mmol/L (10-20); BUN (Urea Nitrogen) 21 mg/dL (8.4-25.7); Bilirubin, Total 1.3 mg/dL (0.2-1.2); Calc. Creatinine Clearance 54 mL/min (70-130); Carbon Dioxide 23 mmol/L (23-31); Chloride 109 mmol/L (98-107); Estimated GFR 57; Globulin 2.2 g/dL (2.4-3.5); Glucose 59 mg/dL (83-110); Potassium 3.5 mmol/L (3.5-5.1); Protein, Total 5.7 g/dL (5.8-8.1); Sodium 142 mmol/L (136-145)
[2021-08-08] MEDS: Famotidine 20 MG TAB PO SCH (09:06)
[2021-08-08] MEDS: Cyanocobalamin (Vitamin B-12) 1,000 MCG TAB PO SCH (09:06)
[2021-08-08 13:07] LABS: Hemoglobin 8.3 g/dL (14.0-18.0)
[2021-08-09 04:15] LABS: #Eosinphils 0.1 thou/uL (0.0-0.7); #Lymphocytes 2.7 thou/uL (1.20-3.40); #Neutrophils 5.3 thou/uL (1.40-6.50); %Basophils 0.4 % (0.0-1.0); %Eosinophils 1.4 % (0.0-10.0); %Lymphocytes 29.3 % (21.0-51.0); %Monocytes 10.9 % (0.0-10.0); %Neutrophils 58.1 % (42.0-75.0); Hemoglobin 7.9 g/dL (14.0-18.0); Mean Corpuscular HGB CONC 30.5 g/dL (32.0-36.0); Mean Corpuscular Hemoglobin 23.2 pg (27.0-31.0); Mean Corpuscular Volume 76.3 fL (78.0-98.0); Mean Platelet Volume 9.8 fL (7.4-10.4); Platelet Count 163 thou/uL (130-400); RBC Distribution Width 16.9 % (11.5-14.5); Red Blood Cell (RBC) Count 3.38 mill/uL (4.70-6.10); White Blood Cell (WBC) Count 9.2 thou/uL (4.8-10.8)
[2021-08-09] MEDS: Cyanocobalamin (Vitamin B-12) 1,000 MCG TAB PO SCH (08:01)
[2021-08-09] MEDS: Famotidine 20 MG TAB PO SCH (08:01)
[2021-08-09 16:22] VITALS: BP 136/91; TEMP 98
== END 2021-08-09 17:06 | disposition home or self-care (01) | DRG 920 ==
LOC: ERS 12:08 → ERHOLD 15:52 → 2NO 20:38
PROVIDERS: ADMIT Family Medicine; ATTEND Hospitalist
PROC: 30233N1 Transfusion of Nonautologous Red Blood Cells into Peripheral Vein, Percutaneous Approach (ICD-10-PCS; principal; 2021-08-07)
DX: L76.32 Postprocedural hematoma of skin and subcutaneous tissue following other procedure (principal); I48.20 Chronic atrial fibrillation, unspecified; D62 Acute posthemorrhagic anemia; N17.9 Acute kidney failure, unspecified; G89.29 Other chronic pain; I25.2 Old myocardial infarction; E78.5 Hyperlipidemia, unspecified; Y83.8 Other surgical procedures as the cause of abnormal reaction of the patient, or of later complication, without mention of misadventure at the time of the procedure; I12.9 Hypertensive chronic kidney disease with stage 1 through stage 4 chronic kidney disease, or unspecified chronic kidney disease; I95.9 Hypotension, unspecified; Z20.822 Contact with and (suspected) exposure to COVID-19; N18.30 Chronic kidney disease, stage 3 unspecified; E11.22 Type 2 diabetes mellitus with diabetic chronic kidney disease; D63.1 Anemia in chronic kidney disease; I25.10 Atherosclerotic heart disease of native coronary artery without angina pectoris; Z98.890 Other specified postprocedural states; Z88.8 Allergy status to other drugs, medicaments and biological substances; Z79.82 Long term (current) use of aspirin; Z90.49 Acquired absence of other specified parts of digestive tract; Z95.1 Presence of aortocoronary bypass graft; Z95.5 Presence of coronary angioplasty implant and graft; Z79.4 Long term (current) use of insulin; Z79.899 Other long term (current) drug therapy
CPT/HCPCS: 36415; 36416; 36430; 71045; 76999; 80053; 84484; 85025; 85610; 85730; 86850; 86900; 86901; 93005; 93306; 94760; J7050; P9016; U0003; U0005

== ENCOUNTER 2021-08-20 10:12 | Emergency (ER) | payer MEDICARE, OTHER ==
[2021-08-20 11:36] LABS: #Eosinphils 0.1 thou/uL (0.0-0.7); #Lymphocytes 1.6 thou/uL (1.20-3.40); #Monocytes 0.6 thou/uL (0.11-0.59); #Neutrophils 5.6 thou/uL (1.40-6.50); %Basophils 0.6 % (0.0-1.0); %Eosinophils 1.1 % (0.0-10.0); %Lymphocytes 19.9 % (21.0-51.0); %Neutrophils 70.5 % (42.0-75.0); Hemoglobin 9.2 g/dL (14.0-18.0); Mean Corpuscular HGB CONC 28.8 g/dL (32.0-36.0); Mean Corpuscular Hemoglobin 22.7 pg (27.0-31.0); Mean Corpuscular Volume 78.8 fL (78.0-98.0); Mean Platelet Volume 8.7 fL (7.4-10.4); Platelet Count 240 thou/uL (130-400); RBC Distribution Width 18.8 % (11.5-14.5); Red Blood Cell (RBC) Count 4.06 mill/uL (4.70-6.10); White Blood Cell (WBC) Count 7.9 thou/uL (4.8-10.8)
[2021-08-20 11:47] LABS: INR-International Normal Ratio 1.7; PTT 36.9 sec (22.9-36.1); Prothrombin Time 20.1 sec (12.0-14.7)
[2021-08-20 11:54] LABS: ALT (SGPT) 16 U/L (8-55); AST (SGOT) 18 U/L (5-34); Albumin 3.9 g/dL (3.4-4.8); Alkaline Phosphatase 68 U/L (40-110); Anion Gap 12 mmol/L (10-20); BUN (Urea Nitrogen) 11 mg/dL (8.4-25.7); Bilirubin, Total 2.1 mg/dL (0.2-1.2); Calc. Creatinine Clearance 0 mL/min (70-130); Calcium 8.6 mg/dL (7.8-10.44); Carbon Dioxide 24 mmol/L (23-31); Chloride 107 mmol/L (98-107); Estimated GFR 62; Globulin 2.6 g/dL (2.4-3.5); Glucose 111 mg/dL (83-110); Hypochromia SLIGHT = 6-15 cells (100X) (0-5/hpf); MDiff Complete? YES; Microcytosis SLIGHT = 6-15 cells (100X) (0-5/hpf); Polychromasia SLIGHT = 2-3 cells (100X) (0-2/hpf); Potassium 3.2 mmol/L (3.5-5.1); Protein, Total 6.5 g/dL (5.8-8.1); Sodium 140 mmol/L (136-145)
[2021-08-20] MEDS ORDERED: Potassium Chloride 20 MEQ TAB ONE (12:00)
[2021-08-20 12:11] LABS: Bacteria/HPF None Seen HPF (None Seen); Bilirubin Negative (Negative); Blood, Urine Negative (Negative); Clarity Clear (Clear); Glucose, Urine (Dipstick) Normal (Negative); Ketone, Urine Negative (Negative); Leukocyte Negative Leu/uL (Negative); Nitrite Negative (Negative); Protein, Urine (Dipstick) 30 mg/dL (Neg-Trace); RBC/HPF 0-3 HPF (0-3); Specific Gravity, Urine 1.014 (1.002-1.036); Squamous Epithelial 0-3 HPF (0-3); WBC/HPF 0-3 HPF (0-3); pH, Urine 6.5 (5.0-9.0)
[2021-08-20 12:22] LABS: Magnesium 1.6 mg/dL (1.6-2.6)
== END 2021-08-20 14:49 | disposition home or self-care (01) ==
LOC: ERS 10:12
DX: L76.32 Postprocedural hematoma of skin and subcutaneous tissue following other procedure (principal); E87.6 Hypokalemia; I48.91 Unspecified atrial fibrillation; I10 Essential (primary) hypertension; E11.9 Type 2 diabetes mellitus without complications; E78.5 Hyperlipidemia, unspecified; I25.2 Old myocardial infarction; Z79.82 Long term (current) use of aspirin; Z79.4 Long term (current) use of insulin; Z79.899 Other long term (current) drug therapy
CPT/HCPCS: 36415; 74174; 76936; 80053; 81003; 81015; 83735; 85025; 85610; 85730; 86850; 86900; 86901; Q9967

== ENCOUNTER 2021-09-20 10:45 | Outpatient (CLI) | payer MEDICARE, OTHER ==
[2021-09-20 12:40] LABS: Hemoglobin 9.8 g/dL (13.5-17.5); Mean Corpuscular HGB CONC 28.2 g/dL (32.0-36.0); Mean Corpuscular Hemoglobin 21.2 pg (27.0-33.0); Mean Corpuscular Volume 75.2 fl (81.2-95.1); Mean Platelet Volume 10.4 fl (7.4-10.4); Platelet Count 211 10x3/uL (150-450); RBC Distribution Width 18.9 % (11.5-14.5); Red Blood Cell (RBC) Count 4.63 10x6/uL (4.32-5.72); White Blood Cell (WBC) Count 6.7 10x3/uL (3.5-10.5)
[2021-09-20 12:57] LABS: Anion Gap 14 mmol/L (10-20); BUN (Urea Nitrogen) 19 mg/dL (8.4-25.7); Calc. Creatinine Clearance 0 mL/min (70-130); Calcium 8.9 mg/dL (7.8-10.44); Carbon Dioxide 24 mmol/L (23-31); Chloride 108 mmol/L (98-107); Estimated GFR 54; Glucose 100 mg/dL (83-110); Potassium 3.5 mmol/L (3.5-5.1); Sodium 142 mmol/L (136-145)
== END 2021-09-20 10:46 | disposition home or self-care (01) ==
LOC: LABBT 10:45
PROVIDERS: ATTEND Internal Medicine Cardiovascular Disease
DX: Z01.812 Encounter for preprocedural laboratory examination (principal); I48.19 Other persistent atrial fibrillation; R42 Dizziness and giddiness; Z20.822 Contact with and (suspected) exposure to COVID-19
CPT/HCPCS: 80048; 85027; 87811

== ENCOUNTER 2021-09-25 08:13 | Day surgery (SDC) | payer MEDICARE, OTHER ==
[2021-09-24 09:54] VITALS: BMI 25.5
[2021-09-25] MEDS ORDERED: PROPOFOL 20 ML ONE (10:43)
== END 2021-09-25 12:51 | disposition home or self-care (01) ==
LOC: SDC 08:13
PROVIDERS: ATTEND Internal Medicine Cardiovascular Disease
PROC: B246ZZ4 Ultrasonography of Right and Left Heart, Transesophageal (ICD-10-PCS; principal; 2021-09-25)
DX: I48.19 Other persistent atrial fibrillation (principal); I08.1 Rheumatic disorders of both mitral and tricuspid valves; N18.6 End stage renal disease; D63.1 Anemia in chronic kidney disease; Z79.4 Long term (current) use of insulin; Z79.82 Long term (current) use of aspirin; Z79.899 Other long term (current) drug therapy; Z88.8 Allergy status to other drugs, medicaments and biological substances; Z95.1 Presence of aortocoronary bypass graft; Z95.5 Presence of coronary angioplasty implant and graft; Z95.818 Presence of other cardiac implants and grafts
CPT/HCPCS: 36416; 93312; J2704